=== PATIENT | female | born 1985 | race Caucasian/White ===

== ENCOUNTER 2022-11-04 21:04 | Outpatient (REF) | payer OTHER, SELFPAY ==
[2022-11-15 16:09] LABS: Age Gdln ACOG Testing Note (.); HPV Aptima Positive (Negative); HPV Genotype 16 Negative (Negative); HPV Genotype 18,45 Negative (Negative); IGP, Aptima HPV, rfx 16/18,45 Note (.)
== END 2022-11-04 21:05 | disposition home or self-care (01) ==
LOC: LAB 21:04
PROVIDERS: PCP Nurse Practitioner; Visit Provider Physician Assistant
DX: Z12.4 Encounter for screening for malignant neoplasm of cervix (principal)
CPT/HCPCS: 87624; G0145

== ENCOUNTER 2022-11-20 11:25 | Outpatient (OUT) | payer OTHER, SELFPAY ==
[2022-11-20 11:38] LABS: Basophils Percent Auto 0.3 % (0.2-2.0); Eosinophils Percent Auto 0.7 % (0.9-7.0); Hematocrit 38.6 % (36.0-48.0); Hemoglobin 13.4 g/dL (12.0-16.0); Immature Granulocytes Abs Auto 0.01 10^3/uL (0.00-0.03); Immature Granulocytes Pct Auto 0.2 % (0.0-0.5); Lymphocytes Absolute Auto 1.4 10^3/uL (1.2-3.8); Lymphocytes Percent Auto 23.2 % (20.5-60.0); Mean Corpuscular HGB Conc 34.7 g/dL (29.9-35.2); Mean Corpuscular Hemoglobin 32.8 pg (26.7-34.0); Mean Corpuscular Volume 94.4 fL (81.0-99.0); Mean Platelet Volume 9.9 fL (9.5-13.5); Monocytes Absolute Auto 0.4 10^3/uL (0.3-0.8); Monocytes Percent Auto 7.2 % (1.7-12.0); Neutrophils Absolute Auto 4.2 10^3/uL (1.4-6.5); Neutrophils Percent Auto 68.4 % (43.0-75.0); Platelet Count 287 10^3/uL (150-450); Red Blood Count 4.09 10^6/uL (4.20-5.40); Red Cell Distribution Width 11.6 % (11.0-15.0); White Blood Count 6.1 10^3/uL (4.0-11.0)
[2022-11-20 11:53] LABS: Alanine Aminotransferase 53 U/L (14-59); Albumin Level 3.8 g/dL (3.4-5.0); Alkaline Phosphatase 88 U/L (46-116); Anion Gap 10.2; Aspartate Amino Transferase 17 U/L (15-37); BUN Creatinine Ratio 14.5; Bilirubin Total 0.3 mg/dL (0.2-1.0); Chloride 103 mmol/L (98-107); Chol HDL Ratio 3.7; Cholesterol 187 mg/dL (<=200); Estimated GFR (African America >60 (>=60); Estimated GFR (Non-African Ame >60 (>=60); Globulin 3.8 g/dL; Glucose 86 mg/dL (74-106); HDL Cholesterol 51 mg/dL (40-60); Potassium 4.2 mmol/L (3.5-5.1); Sodium 135 mmol/L (136-145); Total Protein 7.6 g/dL (6.4-8.2); Triglycerides 65 mg/dL (<=150)
[2022-11-20 12:10] LABS: Estimated Average Glucose 105 mg/dL; Glycohemoglobin A1C 5.3 % (4.5-6.2)
== END 2022-11-20 11:26 | disposition home or self-care (01) ==
LOC: LAB 11:29
PROVIDERS: PCP Nurse Practitioner; Visit Provider Nurse Practitioner
DX: Z00.00 Encounter for general adult medical examination without abnormal findings (principal)
CPT/HCPCS: 36415; 80053; 80061; 83036; 85025

== ENCOUNTER 2023-11-08 19:38 | Outpatient (REF) | payer OTHER, SELFPAY | END 2023-11-08 19:39 | disposition home or self-care (01) | LOC: LAB 19:38 | PROVIDERS: PCP Nurse Practitioner; Visit Provider Obstetrics & Gynecology | DX: Z01.419 Encounter for gynecological examination (general) (routine) without abnormal findings (principal) | CPT/HCPCS: 87624; 88175 ==

== ENCOUNTER 2024-03-01 04:28 | Emergency (ER) | payer OTHER, SELFPAY ==
[2024-03-01 04:30] VITALS: BP 163/104; PULSE 112; TEMP 36.7; O2SAT 96; BMI 33.3
--- OUTSIDE RECORDS SUMMARY | 2024-03-01 04:35 | XMS_ITS | CCD ---
Author Organization [facility] Care Team Providers Care [employer] Name Role Phone Nora, Physician Primary Care Provider PRINCE Saavedra Attending Tatiana WELDON, PHYSICIAN Primary Care Unavailable MAURICIO SHORT Attending Unavailable MAURICIO SHORT Consulting Unavailable MAURICIO SHORT Primary Care Unavailable MAURICIO SHORT Admitting Unavailable SIN ACOSTA Attending Unavailable Unavailable Primary Care Provider Tatiana singleton Medications Current Medications Medication Drug Class(es) Dates Sig (Normalized) Sig (Original) azithromycin 250 mg oral tablet (2 sources) Macrolide Antimicrobial Start: 08-02-2018 End: 08-06-2018 take 2 tablets by mouth once daily azithromycin (ZITHROMAX) 250 MG tablet Take 2 (two) tablets (500 mg total) by mouth daily for 4 days . 8 tablet 0 08/02/2018 08/06/2018 Active Start: 08-02-2018 End: 08-02-2018 azithromycin (ZITHROMAX) tab let 500 mg traMADol hydrochloride 50 mg oral tablet (1 source) Opioid Agonist Start: 08-02-2018 End: 08-07-2018 take 1 tablet by mouth every four hours as needed for pain, then take 5 tablets by mouth as needed for pain traMADol (ULTRAM) 50 mg tablet Indications: Left ear pain , Pharyngitis, unspecified etiology Take 1 (one) tablet (50 mg total) by mouth every 4 (four) hours as needed for pain (Days supply per fill: 5) . 15 tablet 0 08/02/2018 08/07/2018 Active Completed/Discontinued Medications Medication Drug Class(es) Dates Sig (Normalized) Sig (Original) dexamethasone phosphate 10 mg/ml injectable solution (1 source) Corticosteroid Start: 08-02-2018 End: 08-02-2018 dexamethasone (DECADRON) injection for ORAL use 10 mg ibuprofen 600 mg oral tablet (1 source) Nonsteroidal Anti-inflammatory Drug Start: 08-02-2018 End: 08-02-2018 ibuprofen (ADVIL,MOTRIN) tablet 600 mg Problems Problem Classification Problem Date Documented Da te Episodic/Chronic Other ear and sense organ disorders (1 source) Otalgia, left ear; Translations: [Left ear pain] Episodic Other upper respiratory infections (1 source) Pharyngitis; Translations: [Pharyngitis, unspecified etiology] Episodic Results Test Name Value Interpretation Reference Range Facil ity IGP,APTIMA HPV,AGE GDLNon AGE GDLN ACOG TESTING Note . [facility] Comment on above: TESTS RESULT FLAG U NITS REF RANGE LAB Clinician Provided Cytology Information Source.............Cervix;Endocervix No. of containers..01 ThinPrep Vial Age Algo ACOG Dahlia... 30-65 01 FLAG LEGEND: L-Low Normal,H-High Normal,LL-Alert Low,HH-Alert High <-Panic Low,>-Panic High,A-Abnormal,AA-Critical Abnormal Performed at: 01 =G [address] [place] [address] Darline Garcia MD, HPV APTIMA Negative Negative [facility] e Comment on above: This nucleic acid am plification test detects fourteen high- risk HPV types (16,18,31,33,35,39,45,51,52,56,58,59,66,68) without differentiation. Performed at: =G - [address], [place] [id number] Alterations Supervisor: Darline Garcia MD, Phone: [phone] Performed at: [facility] [address] [address] [place], [place] [id number] Alterations Supervisor: Bonifacio Evans MD, Phone: [phone] IGP, APTIMA HPV, RFX 16/18,45 Note . [facility] Comment on above: TESTS RESULT FLAG UN ITS REF RANGE LAB DIAGNOSIS: 02 NEGATIVE FOR INTRAEPITHELIAL LESION OR MALIGNANCY. Specimen adequacy: 02 Satisfactory for evaluation. Endocervical and/or squamous metaplastic cells (endocervical component) are present. Performed by: 02 Jessica Garcia, Food Adviser ([facility]) . 02 Note: Note 03 The Pap smear is a screening test designed to aid in the detection of premalignant and malignant conditions of the uterine cervix. It is not a diagnostic procedure and should not be used as the sole means of detecting cervical cancer. Both false-positive and false-negative reports do occur. Test Methodology: Note 03 This liquid based ThinPrep(R) pap test was screened with the use of an image guided system. HPV Genotype Reflex Note 02 Criteria not met, HPV Genotype not performed. FLAG LEGEND: L-Low Normal,H-High Normal,LL-Alert Low,HH-Alert High <-Panic Low,>-Panic High,A-Abnormal,AA-Critical Abnormal Performed at: 02 [facility] [address] [address] [place] [address] Bonifacio Evans MD, 03 WB [facility] [address] [address] Darline Garcia MD, BRUSH-SPATULA CERVIX ENDOCERVIX [facility] CBC AUTO DIFFon 11-14-2021 BASO # 0.0 103/ul Normal 0.0-0.1 [facility] Comment on above: Performed By: #### C BC #### [facility] [address] [address] [address] Alejandro Grijalva Basophils/100 WBC (Bld) 0.2 % Normal 0.2-2.0 [facility] Comment on above: Performed By: #### C BC #### [facility] [address] [address] [address] Alejandro Grijalva EO # 0.0 103/ul Normal 0.0-0.7 [facility] Comment on above: Performed By: #### C BC #### [facility] [address] [address] [address] Alejandro Grijalva Eosinophils/100 WBC (Bld) 0.7 % Critically low 0.9-7.0 [facility] Comment on above: Performed By: #### C BC #### [facility] [address] [address] [address] Alejandro Grijalva Erythrocyte distribution width (RBC) [Ratio] 11.8 % Normal 11.0-15.0 [facility] Comment on above: Performed By: #### C BC #### [facility] [address] [address] [address] Alejandro Grijalva Hematocrit (Bld) [Volume fraction] 40.5 % Normal 36.0-48.0 [facility] Comment on above: Performed By: #### C BC #### [facility] [address] [address] [address] Alejandro Grijalva Hemoglobin (Bld) [Mass/Vol] 13.5 g/dL Normal 12.0-16.0 [facility] Comment on above: Performed By: #### C BC #### [facility] [address] [place] [address] Dr. Alejandro Grijalva IG # 0.02 10e3/ul Normal 0.00-0.03 [facility] Comment on above: Performed By: #### C BC #### [facility] [address] [place] [address] Dr. Alejandro Grijalva IG % 0.3 % Normal 0.0-0.5 [facility] Comment on above: Performed By: #### C BC #### [facility] [address] [place] [address] Dr. Alejandro Grijalva LYMPH # 1.5 103/ul Normal 1.2-3.8 [facility] Comment on above: Performed By: #### C BC #### [facility] [address] [place] [address] Dr. Alejandro Grijalva Lymphocytes/100 WBC (Bld) 24.0 % Normal 20.5-60.0 [facility] Comment on above: Performed By: #### C BC #### [facility] [address] [place] [address] Dr. Alejandro Grijalva MANUAL DIFF REQ NO Normal [facility] Comment on above: Performed By: #### C BC #### [facility] [address] [place] [address] Dr. Alejandro Grijalva MCH (RBC) [Entitic mass] 31.4 pg Normal 26.7-34.0 [facility] Comment on above: Performed By: #### C BC #### [facility] [address] [place] [address] Dr. Alejandro Grijalva MCHC (RBC) [Mass/Vol] 33.3 g/dL Normal 29.9-35.2 [facility] Comment on above: Performed By: #### C BC #### [facility] [address] [place] [address] Dr. Alejandro Grijalva MCV (RBC) [Entitic vol] 94.2 fL Normal 81.0-99.0 [facility] Comment on above: Performed By: #### C BC #### [facility] [address] [place] [address] Dr. Alejandro Grijalva MONO # 0.5 103/ul Normal 0.3-0.8 [facility] Comment on above: Performed By: #### C BC #### [facility] [address] [place] [address] Dr. Alejandro Grijalva Monocytes/100 WBC (Bld) 8.4 % Normal 1.7-12.0 [facility] Comment on above: Performed By: #### C BC #### [facility] [address] [place] [address] Dr. Alejandro Grijalva NEUT # 4.0 103/ul Normal 1.4-6.5 [facility] Comment on above: Performed By: #### C BC #### [facility] [address] [place] [address] Dr. Alejandro Grijalva Neutrophils/100 WBC (Bld) 66.4 % Normal 43.0-75.0 [facility] Comment on above: Performed By: #### C BC #### [facility] [address] [place] [address] Dr. Alejandro Grijalva Platelet mean volume (Bld) [Entitic vol] 9.7 fL Normal 9.5-13.5 [facility] Comment on above: Performed By: #### C BC #### [facility] [address] [place] [address] Dr. Alejandro Grijalva PLT 273 103/ul Normal 150-450 [facility] Comment on above: Performed By: #### C BC #### [facility] [address] [place] [address] Dr. Alejandro Grijalva RBC 4.30 106/ul Normal 4.20-5.40 [facility] Comment on above: Performed By: #### C BC #### [facility] [address] [place] [address] Dr. Alejandro Grijalva WBC 6.0 103/ul Normal 4.0-11.0 [facility] Comment on above: Performed By: #### C BC #### [facility] [address] [place] [address] Dr. Alejandro Grijalva LIPID PROFILEon 11-14-2021 CHOL-HDL RATIO NORM SEE BELOW Normal [facility] Comment on above: Result Comment: 3.3 - 4.4 LOW RISK 4.4 - 7.1 AVERAGE RISK 7.1 - 11.0 MODERATE RISK >11.0 HIGH RISK Performed By: #### T SH, LIPID, CMP #### [facility] [address] [address] [address] Alejandro Grijalva Cholesterol [Mass/Vol] 176 mg/dL Normal <=200 [facility] Comment on above: Performed By: #### T SH, LIPID, CMP #### [facility] [address] [address] [address] Alejandro Grijalva Cholesterol in HDL [Mass/Vol] 44 mg/dL Normal 40-60 [facility] Comment on above: Performed By: #### T SH, LIPID, CMP #### [facility] [address] [address] [address] Alejandro Grijalva Cholesterol in LDL [Mass/Vol] 119.6 mg/dL Normal [facility] Comment on above: Performed By: #### T SH, LIPID, CMP #### [facility] [address] [address] [address] Alejandro Grijalva Cholesterol.total/ Cholesterol in HDL [Mass ratio] 4.0 {ratio} Normal [facility] Comment on above: Performed By: #### T SH, LIPID, CMP #### [facility] [address] [address] [address] Alejandro Grijalva HDL NORMAL > or = 60 mg/dl - LO W CARDIOVASCULAR RISK <40 mg/dl - HIGH CARDIOVASCULAR RISK Normal [facility] Comment on above: Performed By: #### T SH, LIPID, CMP #### [facility] [address] [address] [address] Alejandro Grijalva LDL CALC NORMAL SEE BELOW Normal [facility] Comment on above: Result Comment: <100 mg/dl OPTIMAL 100 - 129 mg/dl NEAR OR ABOVE OPTIMAL 130 - 159 mg/dl BORDERLINE HIGH 160 - 189 mg/dl HIGH >190 mg/dl VERY HIGH Performed By: #### T SH, LIPID, CMP #### [facility] [address] [address] [address] Alejandro Grijalva Triglyceride [Mass/Vol] 62 mg/dL Normal <=150 [facility] Comment on above: Performed By: #### T SH, LIPID, CMP #### [facility] [address] [address] [address] Alejandro Grijalva VLDL CALC 12.4 mg/dL Normal [facility] Comment on above: Performed By: #### T SH, LIPID, CMP #### [facility] [address] [address] [address] Alejandro Grijalva PROF 14(COMP METB)on 022 Albumin [Mass/Vol] 3.7 g/dL Normal 3.4-5.0 [facility] Comment on above: Performed By: #### T SH, LIPID, CMP #### [facility] [address] [place] [address] Dr. Alejandro Grijalva Albumin/Globulin [Mass ratio] 1.0 {ratio} Normal [facility] Comment on above: Performed By: #### T SH, LIPID, CMP #### [facility] [address] [place] [address] Dr. Alejandro Grijalva ALP [Catalytic activity/Vol] 81 U/L Normal 46-116 [facility] Comment on above: Performed By: #### T SH, LIPID, CMP #### [facility] [address] [place] [address] Dr. Alejandro Grijalva ALT [Catalytic activity/Vol] 39 U/L Normal 14-59 [facility] Comment on above: Performed By: #### T SH, LIPID, CMP #### [facility] [address] [address] [address] Alejandro Grijalva Anion gap [Moles/Vol] 14.5 mmol/L Normal [facility] Comment on above: Performed By: #### T SH, LIPID, CMP #### [facility] [address] [place] [address] Dr. Alejandro Grijalva AST [Catalytic activity/Vol] 18 U/L Normal 15-37 [facility] Comment on above: Performed By: #### T SH, LIPID, CMP #### [facility] [address] [address] [address] Alejandro Grijalva Bilirubin [Mass/Vol] 0.2 mg/dL Normal 0.2-1.0 [facility] Comment on above: Performed By: #### T SH, LIPID, CMP #### [facility] [address] [place] [address] Dr. Alejandro Grijalva Calcium [Mass/Vol] 8.9 mg/dL Normal 8.5-10.1 [facility] Comment on above: Performed By: #### T SH, LIPID, CMP #### [facility] [address] [place] [address] Dr. Alejandro Grijalva Chloride [Moles/Vol] 106 mmol/L Normal 98-107 [facility] Comment on above: Performed By: #### T SH, LIPID, CMP #### [facility] [address] [place] [address] Dr. Alejandro Grijalva CO2 [Moles/Vol] 24.9 mmol/L Normal 21.0-32.0 [facility] Comment on above: Performed By: #### T SH, LIPID, CMP #### [facility] [address] [place] [address] Dr. Alejandro Grijalva Creatinine [Mass/Vol] 0.80 mg/dL Normal 0.55-1.02 [facility] Comment on above: Performed By: #### T SH, LIPID, CMP #### [facility] [address] [place] [address] Dr. Alejandro Grijalva EGFR-AF MOLDOVAN >60 Normal >=60 [facility] Comment on above: Performed By: #### T SH, LIPID, CMP #### [facility] [address] [place] [address] Dr. Alejandro Grijalva EGFR-NON AF MOLDOVAN >60 Normal >=60 [facility] Comment on above: Performed By: #### T SH, LIPID, CMP #### [facility] [address] [place] [address] Dr. Alejandro Grijalva Globulin (S) [Mass/Vol] 3.7 g/dL Normal [facility] Comment on above: Performed By: #### T SH, LIPID, CMP #### [facility] [address] [place] [address] Dr. Alejandro Grijalva Glucose [Mass/Vol] 101 mg/dL Normal 74-106 [facility] Comment on above: Performed By: #### T SH, LIPID, CMP #### [facility] [address] [place] [address] Dr. Alejandro Grijalva Potassium [Moles/Vol] 4.4 mmol/L Normal 3.5-5.1 [facility] Comment on above: Performed By: #### T SH, LIPID, CMP #### [facility] [address] [place] [address] Dr. Alejandro Grijalva Protein [Mass/Vol] 7.4 g/dL Normal 6.4-8.2 [facility] Comment on above: Performed By: #### T REYNALDO, LIPID, CMP #### [facility] [address] [place] [address] Dr. Alejandro Grijalva Sodium [Moles/Vol] 141 mmol/L Normal 136-[address] [facility] Comment on above: Performed By: #### T SH, LIPID, CMP #### [facility] [address] [place] [address] Dr. Alejandro Grijalva Urea nitrogen [Mass/Vol] 12.0 mg/dL Normal 7.0-18.0 [facility] Comment on above: Performed By: #### T REYNALDO, LIPID, CMP #### [facility] [address] [place] [address] Dr. Alejandro Grijalva Urea nitrogen/Creatinin e [Mass ratio] 15.0 mg/mg Normal [facility] Comment on above: Performed By: #### T SH, LIPID, CMP #### [facility] [address] [place] [address] Dr. Alejandro Grijalva TSHon 11-14-2021 TSH 2.902 uIU/mL Normal 0.358-3.740 [facility] Comment on above: Performed By: #### T REYNALDO, LIPID, CMP #### [facility] [address] [place] [address] Dr. Alejandro Grijalva Vital Signs Date Time Vital Sign Value Performing Clinician Candie hathaway 11-08-2023 08:55-0400 Body mass index (BMI) [Ratio] 34.12 kg/m2 Sin Karla DO Work Phone: [facility] 11-08-2023 08:55-0400 Body weight 90.17 kg Sin Karla DO Work Phone: [facility] 11-08-2023 08:55-0400 Diastolic blood pressure 72 mm[Hg] Sin Karla DO Work Phone: [facility] 11-08-2023 08:55-0400 Systolic blood pressure 118 mm[Hg] Sin Karla DO Work Phone: [facility] 08-02-2018 02:23-0400 BMI (Body Mass Index) 29.18 kg/m2 [facility] 08-02-2018 02:23-0400 Body Temperature 98.1 [degF] [facility] 08-02-2018 02:23-0400 BP Diastolic 100 mm[Hg] [place] [facility] 08-02-2018 02:23-0400 BP Systolic 146 mm[Hg] [facility] 08-02-2018 02:23-0400 Height 162.6 cm [facility] 08-02-2018 02:23-0400 Pulse (Heart Rate) 94 /min [facility] 08-02-2018 02:23-0400 Pulse Oximetry 99 % [facility] 08-02-2018 02:23-0400 Respiratory Rate 16 /min [facility] 08-02-2018 02:23-0400 Weight 77.11 kg Princeralph Wiggins [facility] Encounters Encounter Date Encounter Type Care Provider Facility Start: 11-08-2023 End: 11-08-2023 Bamboo flowsheet Sin Karla DO Work Phone: [facility] Start: 11-08-2023 End: 11-11-2023 Bamboo flowsheet Sin Karla DO Work Phone: [facility] Start: 11-08-2023 End: 11-11-2023 [facility] Result Encounter Sin Acosta DO Work Phone: [facility] Unsolicited Start: 11-08-2023 End: 11-08-2023 Patient encounter procedure Sin Acosta DO Work Phone: [facility] Work Phone: Start: 11-08-2023 End: 11-08-2023 Periodic preventive med est patient 18-39 yrs Sin Andersono DO Work Phone: [facility] Comment on above: Well woman exam with routine gynecological exam Start: 11-08-2023 End: 11-08-2023 ambulatory SIN ACOSTA Not Available Start: 11-20-2021 Encounter for genera l adult medical examination without abnormal findings [facility] Start: 11-14-2021 End: 11-15-2021 ambulatory [facility] Facility:H1 Start: 11-14-2021 End: 11-15-2021 Encounter for general adult medical examination without abnormal findings [facility] Facility: Start: 08-02-2018 End: 08-02-2018 Emergency department patient visit [facility] Start: 08-02-2018 End: 08-02-2018 Emergency department patient visit Prince G[facility] Work Phone: [facility] Comment on above: Left ear pain (Prima ry Dx); Pharyngitis, unspecified etiology Procedures Date Procedure Procedure Detail Performing Clinician Start: 11-08-2023 IGP,APTIMA HPV,AGE GDLN Sin Acosta DO Work Phone: Plan of Treatment Date Care Activity Detail Author Start: 11-13-2024 End: 11-13-2024 Patient encounter procedure 11/13/2024 8:30 AM EDT Office Visit [facility] [address] [place] [id number] Sin Acosta, DO [address] [place] [address] [facility] Start: 11-08-2023 End: 11-08-2023 Patient encounter procedure 11/08/2023 8:30 AM EDT Office Visit [facility] [address] [place] [id number] Sin Acosta, [address] [place] [address] Arrived [facility] Comment on above: Arrived Cytology Cervical or vaginal smear or scraping study Pap Smear Pathology and Cytology Routine Well woman exam with routine gynecological exam Ordered: 11/08/2023 [facility] Work Phone: Comment on above: Ordered: 11/08/2023 Human papilloma viru s DNA [Presence] in Unspecified specimen by Probe with amplification HPV DNA probe, amplified Microbiology Routine Well woman exam with routine gynecological exam Ordered: 11/08/2023 [facility] Comment on above: Ordered: 11/08/2023 Payers Date Payer Category Payer Unknown FRONTPATH FRONTP ATH [id number] 2022-Present [phone] [address] [place] [address] [id number] 1984 Unknown [id number] 1984 Unknown [id number] 1984 Unknown [id number] 9 1959 Unknown [id number] Unknown COMMERCIAL COMME RCIAL MISCELLANEOUS xxxxxxxxx Effective for all dates xxxxxxxxx [id number] Unknown [id number] Social History Date Type Detail Facility Start: 08-02-2018 Tobacco smoking stat [facility] Never smoker [facility] Start: 08-02-2018 History SDOH Alcohol Frequency 1 [facility] Start: 1985 [facility]igned [facility] Gender identity Not on file [facility] History of Present illness Narrative 11-08-2023 Ira Harrison, MEHREEN - 11/08/2023 8:30 AM EDT Note Date & Type Note Facility 11-08-2023 History of Presen t illness Narrative Reason for Appointment: Patient ID: Brandie Olmos is a 38 y.o. female who presents for Well Women Visit Patient presents today for Annual Exam. MEDICATIONS No current outpatient medications ALLERGIES No Known Allergies PROBLEMS Active Ambulatory Problems Diagnosis Date Noted No Active Ambulatory Problems Resolved Ambulatory Problems Diagnosis Date Noted No Resolved Ambulatory Problems No Additional Past Medical History HISTORY PAST MEDICAL HISTORY SOCIAL HISTORY History reviewed. No pertinent past medical history. Social History Tobacco Use Smoking status: Not on file Smokeless tobacco: Not on file Substance Use Topics Alcohol use: Not on file Drug use: Not on file FAMILY HISTORY No family history on file. SURGICAL HISTORY Past Surgical History: Procedure Laterality Date SECTION, CLASSIC x 3 REVIEW OF SYSTEMS Review of Systems: Review of Systems Constitutional: Negative. HENT: Negative. Eyes: Negative. Respiratory: Negative. Cardiovascular: Negative. Gastrointestinal: Negative. Genitourinary: Negative. Musculoskeletal: Negative. Skin: Negative. Neurological: Negative. All other systems reviewed and are negative. Hematological: Negative. Endocrine: Negative. Allergic/Immunologic: Negative. OBJECTIVE Objective: Physical Exam Constitutional: Appearance: Normal appearance. She is well-developed. Genitourinary: Vulva normal. Breasts: Breasts are soft. Right: Normal. Left: Normal. Cardiovascular: Rate and Rhythm: Normal rate and regular rhythm. Pulmonary: Effort: Pulmonary effort is normal. Breath sounds: Normal breath sounds. Abdominal: General: Bowel sounds are normal. There is no distension. Palpations: Abdomen is soft. Tenderness: There is no abdominal tenderness. There is no guarding or rebound. Musculoskeletal: General: No swelling. Normal range of motion. Right lower leg: No edema. Left lower leg: No edema. Neurological: Mental Status: She is alert and oriented to person, place, and time. Skin: General: Skin is warm and dry. Psychiatric: Mood and Affect: Mood normal. Behavior: Behavior normal. Vitals and nursing note reviewed. Exam conducted with a induction heat treater present. Vitals: Estimated body mass index is 34.12 kg/m as calculated from the following: Height as of 11/04/22: 5' 4 . Weight as of this encounter: 198 lb 12.8 oz. BP: 118/72 No LMP recorded. ASSESSMENT & PLAN ICD-10-CM 1. Well woman exam with routine gynecological exam Z01.419 Pap Smear HPV DNA probe, amplified Annual Exam: Patient presents today for an annual exam. Patient states she is doing well and has no complaints. Pap was obtained without difficulty. Orders Placed This Encounter Procedures HPV DNA probe, amplified Follow Up: Patient is to return in one year for annual unless needed otherwise. Documented by Ira Harrison LPN on behalf of: Sin Acosta DO documented in this encounter [facility] Healthcare Evaluation note Note Date & Type Note Facility Evaluation note Diagnosis Well woman exam with routine gynecological exam Routine gynecological examination documented in this encounter [facility] Healthcare Discharge Instructions * Instructions* rPince Wiggins MD - 08/02/2018 Thank you for coming to an [facility] Emergency facility for your emergency care. Please review carefully any follow up instructions and information included with these discharge instructions. Appropriate followup is essential in your continued care after today's visit. If you hadany diagnostic studies ( Labs or Xray's, CAT scan, Ultrasound ) have your PCP (Primary Care Physician) review them with you since there may be results that require further follow up or investigation. If you do not have a primary care physician to arrange for a follow up examination as recommended during your emergency department visit, you may find a provider through the [facility] Physician Referral Service by calling [phone] ([phone]) or by visiting [email or web address]. If you were prescribed any medications, be sure to review and follow the prescriptions carefully. Return to your nearest emergency department immediately for any worsening symptoms, inability to swallow, difficulty breathing, vomiting, or for any other concerns. The physician and staff of the Emergency Department would like to thank you for choosing our facility for your health care needs. Our goal is to provide exceptional service. You may be receiving a survey in the mail following your visit. Because your feedback is very important to us, we hope you will take the time to complete and return the survey. If for any reason, you feel that you cannot rateus VERY GOOD or 5 for the service you received today, please let us know prior to your discharge. We are here 24 hours a day, 7 days a week, and are always here for you. Dr. Prince Wiggins Board Certified Emergency Physician * Attachments The following attachments cannot be sent through Care Everywhere. * Sore Throat (Mexican) * Earache: Adult (Mexican) documented in this encounter Assessments Diagnosis Left ear pain- Primary Unspecified otalgia Pharyngitis, unspecified etiology Advance Directives Documents on File Type Date Recorded Patient Animal Doctor Expl anation Advance Directives and Livin g Will 08/02/2018 3:07 AM Summary Purpose Family History No Family History Records FoundNo Family History Records FoundNo Family History Records Found Additional Source Comments Reason for Visit (unrecogniz ed section and content) Reason Comments Sore Throat Otalgia Reason Comments Well Women Visit Judy Olvera RN - 08/02/2018 3:13 AM Prince Jordan MD - 08/02/2018 2:54 AM Judy Flores RN - 08/02/2018 2:50 AM Judy Flores RN - 08/02/2018 2:26 AM EDT ED Notes (unrecognized secti on and content) This RN went over all discharge paperwork with pt, pt denies any further needs, pt ambulated with steady gait and non-labored respirations. PCP: No primary care provider on file. Chief Complaint Patient presents with Sore Throat Otalgia HPI: The patient is a pleasant 32-year-old female presenting with a sore throat and left ear pain. Patient reports a sore throat started 3 days ago has been progressively worsening. She reported that this evening she was awoken by pain in her left ear. She denies any drainage from the ear. She reports her throat pain is worse with swallowing. She reports she still is able to swallow. She denies nasal congestion or drainage. She reports a cough and attempt to clear her throat but denies any cough from chest congestion. She denies chest pain or shortness of breath. She has any rashes. She denies any mouth sores. She denies any fevers. She denies any leg pain or swelling. REVIEW OF SYSTEMS: Review of Systems Constitutional: No fevers Cardiovascular: No chest pains Abdominal: No abdominal pains Integumentary: No rash Eyes: No vision changes ENMT: No hearing changes Respiratory: Positive cough Genitourinary: No painful urination Endocrine: No polyuria Neurologic: No new numbness Musculoskeletal: No joint pains Hem/Lymphatic: No abnormal bruising Other pertinent positives and negatives in HPI Past Medical History: History reviewed. No pertinent past medical history. Past medical history reviewed. Past Surgical History: Past Surgical History: Procedure Laterality Date SECTION Past surgical history reviewed. Family History: History reviewed. No pertinent family history. Family history reviewed. Social History: Social History Socioeconomic History Marital status: Not on file Spouse name: Not on file Number of children: Not on file Years of education: Not on file Highest education level: Not on file Occupational History Not on file Social Needs Financial resource strain: Not on file Food insecurity: Worry: Not on file Inability: Not on file Transportation needs: Medical: Not on file Non-medical: Not on file Tobacco Use Smoking status: Never Smoker Smokeless tobacco: Never Used Substance and Sexual Activity Alcohol use: Never Frequency: Never Drug use: Never Sexual activity: Not on file Lifestyle Physical activity: Days per week: Not on file Minutes per session: Not on file Stress: Not on file Relationships Social connections: Talks on phone: Not on file Gets together: Not on file Attends latter day service: Not on file Active member of club or organization: Not on file Attends meetings of clubs or organizations: Not on file Relationship status: Not on file Other Topics Concern Not on file Social History Narrative Not on file Social history reviewed. Allergies: No Known Allergies Medications: Brandie Olmos Home Medication Instructions Prior to Surgery GILBERTO:[id number] Printed on:08/02/18 0254 Medication Information Take last dose on Take the morning of surgery Comment(s) azithromycin (ZITHROMAX) 250 MG tablet Take 2 (two) tablets (500 mg total) by mouth daily for 4 days . traMADol (ULTRAM) 50 mg tablet Take 1 (one) tablet (50 mg total) by mouth every 4 (four) hours as needed for pain (Days supply per fill: 5) . PHYSICAL EXAMINATION: [place] body weight: 54.7 kg (120 lb 9.5 oz) Adjusted ideal body weight: 63.7 kg (140 lb 5.7 oz) Body mass index is 29.18 kg/m . Vital Signs BP (!) 146/100 (BP Location: Right arm, Patient Position: Sitting) Pulse 94 Temp 98.1 F (36.7 C) (Oral) Resp 16 Ht 5' 4 Wt 77.1 kg (170 lb) LMP 07/19/2018 (Approximate) SpO2 99% BMI 29.18 kg/m Physical Exam Constitutional: She is oriented to person, place, and time. No distress. HENT: Head: Normocephalic and atraumatic. Right Ear: Tympanic membrane normal. Mouth/Throat: Oropharynx is clear and moist. No oropharyngeal exudate. I know to assess the left TM due to cerumen impaction. There is no pain with manipulation external ear bilaterally. No mastoid tenderness, erythema crepitus or swelling bilaterally. The oropharynx is inflamed with tonsillar swelling. There is pitting with mild exudate. Eyes: EOM are normal. Right eye exhibits no discharge. Left eye exhibits no discharge. PER Neck: Normal range of motion. Neck supple. Cardiovascular: Regular rhythm, normal heart sounds and intact distal pulses. Exam reveals no gallop and no friction rub. No murmur heard. Pulmonary/Chest: Effort normal and breath sounds normal. No stridor. No respiratory distress. She has no wheezes. She has no rales. She exhibits no tenderness. Abdominal: Soft. She exhibits no distension and no mass. There is no tenderness. There is no rebound and no guarding. Musculoskeletal: Normal range of motion. She exhibits no edema, tenderness or deformity. Lymphadenopathy: She has cervical adenopathy. Neurological: She is alert and oriented to person, place, and time. She has normal strength. No cranial nerve deficit or sensory deficit. Skin: Skin is warm and dry. She is not diaphoretic. Psychiatric: She has a normal mood and affect. Nursing note and vitals reviewed. Vital Signs During ED Visit (as charted by nursing) Patient Vitals for the past 24 hrs: BP Temp Temp src Pulse Resp SpO2 Height Weight 08/02/18 0223 (!) 146/100 98.1 F (36.7 C) Oral 94 16 99 % 5' 4 77.1 kg (170 lb) PROCEDURES (if any, during ED visit): Procedures INITIAL ASSESSMENT AND PLAN OF CARE: MEDICAL DECISION MAKING: Patient's left ear was irrigated to remove cerumen. Patient started antibiotics in the emergency department as well as provided with steroids and ibuprofen. Patient provided tramadol for pain control at home. Patient was provided with prescription for 4 more days of Zithromax for a high suspicion of strep pharyngitis. Recommend follow-up with primary care in the next 5 days. Patient agreeable to plan comfortable going home. Return precautions were given specific to the patient's complaint(s) and diagnoses of otalgia and pharyngitis. I discussed with the patient that if she has worsening symptoms or other concerns, she is to seek medical attention immediately. I answered all her questions, she voiced understanding of these precautions, and have no further questions. The patient has been informed that they may have pre-hypertension or hypertension based on a blood pressure reading in the Emergency Department. I recommend that the patient call the primary care provider listed on their discharge instructions or a physician of their choice as soon as possible to arrange follow-up in the next 4 weeks for further evaluation of possible pre-hypertension or hypertension. . DISPOSITION: DISCHARGE IMPRESSION: SNOMED CT(R) 1. Left ear pain OTALGIA OF LEFT EAR 2. Pharyngitis, unspecified etiology PHARYNGITIS FOLLOW UP PLAN: Patient was instructed to follow up with their primary care provider, No primary care provider on file.. [facility] referral information was also provided. They were given my usual diagnosis return and precaution information on when to return. I stressed that we are happy to re-evaluate at any time if they feel their condition has changed or worsened. I have also discussed the warnings associated with the medications I provided today. (Please note that portions of this note may have been completed with a voice recognition software.) DIAGNOSTICS: Laboratory (if any, during ED visit): Labs Reviewed - No data to display RADIOGRAPHIC IMAGING (if any, during ED visit): No orders to display MEDICATIONS ORDERED/GIVEN (if any, during ED visit): Medications azithromycin (ZITHROMAX) tablet 500 mg (has no administration in time range) dexamethasone (DECADRON) injection for ORAL use 10 mg (has no administration in time range) ibuprofen (ADVIL,MOTRIN) tablet 600 mg (has no administration in time range) Prince Wiggins MD 08/02/18 0257 Ear irrigated at this time Pt reports my kids have been sick and my throat hurts and now my ear hurts . Pt reports sore throat, lose of voice and pain to left ear. Pt ambulated with steady gait and non-labored respirations. documented in this encounter INFORMATION SOURCE (unrecogn ized section and content) DATE CREATED AUTHOR 10/16/2018 [facility] DATE CREATED AUTHOR AUTHOR'S ORGANIZ ATION 12/05/2021 [facility] DATE CREATED AUTHOR AUTHOR'S ORGANIZ ATION 11/08/2023 [facility] FOR RECORDS PERTAINING TO PATIENTS WHO ARE OR HAVE BEEN ENROLLED IN A CHEMICAL DEPENDENCY/SUBSTANCEABUSE PROGRAM, SOME INFORMATION MAY BE OMITTED. This clinical summary was aggregated from multiple sources. Caution should be exercised in using it in the provision of clinical care. This summary normalizes information from multiple sources, and as a consequence, information in this document may materially change the coding, format and clinical context of patient data. In addition, data may be omitted in some cases. CLINICAL DECISIONS SHOULD BE BASED ON THE PRIMARY CLINICAL RECORDS. [employer] provides no warranty or guarantee of the accuracy or completeness of information in this document.
[2024-03-01 04:50] VITALS: O2SAT 97
--- NOTE | 2024-03-01 05:00 | CT_ITS ---
The [address] [address] Patient Name: NASRIN BENITEZ MRN: [id number] date: 1985 Sex: F Assigned Patient Location: ER Current Patient Location: ER Accession/Order Number: [id number] Exam Date: 03/01/2024 05:30 Report Date: 03/01/2024 05:58 At the request of: MASTER PERES Procedure: CT abdomen pelvis w con EXAM: CT abdomen pelvis w con HISTORY: right sided abd pain COMPARISON: None. TECHNIQUE: Images of the abdomen and pelvis with IV contrast. FINDINGS: Lung bases are clear. No pleural or pericardial fluid. No adrenal mass or adenopathy. No obstructive uropathy. Patent portal vein. No biliary obstruction. Normal spleen and pancreas. Dilated small bowel loops are seen in the epigastric region involving the mid and distal jejunum and most of the ileum with a localized area of irregular wall thickening and edema involving the distal and terminal ileum extending to the ileocecal valve. Transition point is present in the right lower quadrant on image 90. The colon is normal and predominantly decompressed. There is no pneumatosis or pneumoperitoneum. No pathologic organized fluid collection. No pelvic adenopathy. Small volume of pelvic ascites. Uterus is age-appropriate. Bladder is decompressed. No acute osseous abnormality. CT/CT abdomen pelvis w con IMPRESSION: Moderate to high-grade partial small bowel obstruction with transition point in the distal ileum secondary to an area of luminal irregularity and wall thickening of the distal and terminal ileum most compatible with infectious or inflammatory ileitis. Crohn's disease is a primary differential consideration. There is a small volume of ascites present without evidence of abscess or visceral perforation. Electronically authenticated by: MESSI VIERA Date: 03/01/2024 05:58
--- NOTE | 2024-03-01 05:01 | ED_ITS ---
HPI - Abdominal Pain General Chief Complaint: Abdominal Pain Stated Complaint: ABDOMINAL PAIN Time Seen by Provider: 03/01/24 04:37 Source: patient Mode of arrival: walk-in Limitations: no limitations History of Present Illness HPI narrative: rt sided abd pain, nausea and vomiting that began about 24 hours ago. No appetite all day. Pain does not radiate. She has not eaten in 24 hours. No urinary symptoms. No vaginal bleeding - LMP was last week. No change in pain with BMs. Nausea vomiting has become more frequently in the last few hours. History of ovarian cysts. No history of kidney stones. Related Data Home Medications ?Medication ?Instructions ?Recorded ?Confirmed No Known Home Medications 03/01/24 03/01/24 Allergies Allergy/AdvReac Type Severity Reaction Status Date / Time No Known Drug Allergies Allergy Verified 03/01/24 04:40 PFSH PFSH Social History Little interest or pleasure in doing things: not at all Feeling down, depressed, or hopeless: not at all Exam Narrative Exam Narrative: Nurses notes and vital signs reviewed and patient is not hypoxic. afebrile General: uncomfortable. Skin: Warm, dry, no pallor noted. No rash. Head: Normocephalic, atraumatic. Neck: Supple, non-tender. No meningismus Eye: Pupils are equal, round and EOMI. No scleral icterus. Ears, Nose, Mouth, and Throat: Oral mucosa is dry Cardiovascular: tachycardia. Respiratory: No accessory muscle use or respiratory distress. Lungs are clear to auscultation, no wheezing, rales or rhonchi Back: No CVA tenderness Musculoskeletal: normal ROM, no calf or popliteal tenderness, no lower extremity edema/swelling GI: Abdomen is soft, non-distended. Normal bowel sounds.Diffuse right sided tenderness to palpation - worse in RLQ. No rebound, guarding, or rigidity noted. Neurological: A&O x4. No cranial nerve dysfunction observed. No truncal ataxia. Moves all extremities. Sensation intact. Psychiatric: Cooperative and interactive. Normal mood and affect. Constitutional Vital Signs, click to edit/add: Last Vital Signs Temp 98.0 F 03/01/24 04:30 Pulse 112 H 03/01/24 04:30 Resp 20 03/01/24 04:30 BP 163/104 H 03/01/24 04:30 Pulse Ox 97 03/01/24 04:50 O2 Del Method Room Air 03/01/24 04:50 Course Vital Signs Vital signs: Vital Signs Temperature 98.0 F 03/01/24 04:30 Pulse Rate 112 H 03/01/24 04:30 Respiratory Rate 20 03/01/24 04:30 Blood Pressure 163/104 H 03/01/24 04:30 Pulse Oximetry 96 03/01/24 04:30 Oxygen Delivery Method Room Air 03/01/24 04:30 Temperature 98.0 F 03/01/24 04:30 Pulse Rate 112 H 03/01/24 04:30 Respiratory Rate 20 03/01/24 04:30 Blood Pressure 163/104 H 03/01/24 04:30 Pulse Oximetry 97 03/01/24 04:50 Oxygen Delivery Method Room Air 03/01/24 04:50 MDM - Abdominal Pain MDM Narrative Medical decision making narrative: Peripheral IV established and blood drawn and sent for testing. Once her was negative she was sent for CT scanning of the abdomen and pelvis with IV contrast. Labs revealed white blood cell count 14.5 K. CMP notable only for ALT 77, slightly high. UA shows moderate occult blood, small leukocyte Estrace, 10-20 red blood cells, 5-10 white blood cells, few squamous epithelial cells, trace bacteria consistent with acute urinary tract infection. Culture is pending. Sh e was ordered to receive IV Cipro. CT abd/pelvis = report from Radiologist --> moderate to high-grade partial small bowel obstruction with transition point in the distal ileum secondary to an area of infectious or inflammatory ileitis at the distal and terminal ileum. Unfortunately, we do not currently have surgical coverage at [place] today or tomorrow, I was told by registration. Pt informed of result and need to be transferred to another facility. After discussion, we agreed to attempt to transfer the patient to [facility] in [place] and the postal service sectional center manager surgeon was paged @ 0609. @ 0617 - I spoke very briefly with the general surgeon postal service sectional center manager - he declined the transfer. Pt was agreeable to go to [facility] - the surgeon postal service sectional center manager at [facility] was paged through the transfer line @ 0620. @ 0630 - spoke with Dr Moreira, gen surgeon, who accepted he transfer to their ED and asked that I speak with the ED physician. @ 0615 - I spoke with Dr Bone in the ED, who accepted the patient's transfer to [facility]. Calls were then made to arrange ambulance transfer to their facility ED for further evaluation and treatment. Lab Data Attestation: I reviewed the patient's lab results. Labs: Lab Results 03/01/24 03/01/24 Range/Units 04:31 04:42 WBC 14.5 H (4.0-11.0) 10^3/uL RBC 4.73 (4.20-5.40) 10^6/uL Hgb 15.1 (12.0-16.0) g/dL Hct 44.2 (36.0-48.0) % MCV 93.4 (81.0-99.0) fL MCH 31.9 (26.7-34.0) pg MCHC 34.2 (29.9-35.2) g/dL RDW 11.6 (11.0-15.0) % Plt Count 344 (150-450) 10^3/uL MPV 9.9 (9.5-13.5) fL Neut % (Auto) 87.7 H (43.0-75.0) % Lymph % (Auto) 7.3 L (20.5-60.0) % [place] % (Auto) 4.4 (1.7-12.0) % Eos % (Auto) 0.1 L (0.9-7.0) % Baso % (Auto) 0.2 (0.2-2.0) % Neut # (Auto) 12.7 H (1.4-6.5) 10^3/uL Lymph # (Auto) 1.1 L (1.2-3.8) 10^3/uL [place] # (Auto) 0.6 (0.3-0.8) 10^3/uL Eos # (Auto) 0.0 (0.0-0.7) 10^3/uL Baso # (Auto) 0.0 (0.0-0.1) 10^3/uL Abs Immat Gran (auto) 0.04 H (0.00-0.03) 10^3/uL Imm/Tot Granulo (auto) 0.3 (0.0-0.5) % Sodium 139 (136-145) mmol/L Potassium 3.8 (3.5-5.1) mmol/L Chloride 104 (98-107) mmol/L Carbon Dioxide 22.9 (21.0-32.0) mmol/L Anion Gap 15.9 BUN 16.0 (7.0-18.0) mg/dL Creatinine 1.00 (0.55-1.02) mg/dL Est GFR ( Amer) >60 (>=60 mL/min/1.73m^2) Est GFR (Non-Af Amer) >60 (>=60 mL/min/1.73m^2) BUN/Creatinine Ratio 16.0 Glucose 161 H (74-106) mg/dL Calcium 9.0 (8.5-10.1) mg/dL Total Bilirubin 0.6 (0.2-1.0) mg/dL AST 32 (15-37) U/L ALT 77 H (14-59) U/L Alkaline Phosphatase 110 (46-116) U/L Total Protein 8.1 (6.4-8.2) g/dL Albumin 4.0 (3.4-5.0) g/dL Globulin 4.1 g/dL Albumin/Globulin Ratio 1.0 Lipase 32.0 (16.0-77.0) U/L Serum HCG, Qual Negative (NEGATIVE) Urine Color Yellow (YELLOW) Urine Clarity Clear (CLEAR) Urine pH 5.5 (5.0-9.0) Ur Specific [place] >=1.030 A (1.005-1.025) Urine Protein Trace (NEG/TRACE) mg/dL Urine Glucose (UA) Negative (NEGATIVE) mg/dL Urine Ketones 40 A (NEGATIVE) mg/dL Urine Occult Blood Moderate A (NEGATIVE) Urine Nitrite Negative (NEGATIVE) Urine Bilirubin Negative (NEGATIVE) Urine Urobilinogen 0.2 (0.2-1.0) EU/dL Ur Leukocyte Esterase Small A (NEGATIVE) Urine RBC 10-20 A (0-2) #/HPF Urine WBC 5-10 A (NONE SEEN) #/HPF Ur Squamous Epith Cells Few A (NONE/RARE) #/LPF Urine Crystals None seen (None Seen) #/HPF Urine Bacteria Trace A (NONE SEEN) #/HPF Urine Casts None seen (NONE SEEN) #/LPF Urine Mucus None seen (NONE SEEN) Ur Culture Indicated? Yes Imaging Data CT scan - abdomen: Attestation: I have reviewed the pertinent imaging results. Radiologist's impression: ITS Impressions Abdomen/Pelvis CT 03/01/24 05:00 IMPRESSION: Moderate to high-grade partial small bowel obstruction with transition point in the distal ileum secondary to an area of luminal irregularity and wall thickening of the distal and terminal ileum most compatible with infectious or inflammatory ileitis. Crohn's disease is a primary differential consideration. There is a small volume of ascites present without evidence of abscess or visceral perforation. Electronically authenticated by: MESSI VIERA Date: 03/01/2024 05:58 Discharge Plan Discharge Chief Complaint: Abdominal Pain Clinical Impression: UTI (urinary tract infection), Small bowel obstruction [facility]position[facility] Time of Disposition Decision: 06:02 Discharge Location: [facility]
[2024-03-01 05:06] LABS: Basophils Percent Auto 0.2 % (0.2-2.0); Eosinophils Percent Auto 0.1 % (0.9-7.0); Hematocrit 44.2 % (36.0-48.0); Hemoglobin 15.1 g/dL (12.0-16.0); Immature Granulocytes Abs Auto 0.04 10^3/uL (0.00-0.03); Immature Granulocytes Pct Auto 0.3 % (0.0-0.5); Lymphocytes Absolute Auto 1.1 10^3/uL (1.2-3.8); Lymphocytes Percent Auto 7.3 % (20.5-60.0); Mean Corpuscular HGB Conc 34.2 g/dL (29.9-35.2); Mean Corpuscular Hemoglobin 31.9 pg (26.7-34.0); Mean Corpuscular Volume 93.4 fL (81.0-99.0); Mean Platelet Volume 9.9 fL (9.5-13.5); Monocytes Absolute Auto 0.6 10^3/uL (0.3-0.8); Monocytes Percent Auto 4.4 % (1.7-12.0); Neutrophils Absolute Auto 12.7 10^3/uL (1.4-6.5); Neutrophils Percent Auto 87.7 % (43.0-75.0); Platelet Count 344 10^3/uL (150-450); Red Blood Count 4.73 10^6/uL (4.20-5.40); Red Cell Distribution Width 11.6 % (11.0-15.0); White Blood Count 14.5 10^3/uL (4.0-11.0)
[2024-03-01 05:06] LABS: Bilirubin Urine NEGATIVE (NEGATIVE); Blood Urine MODERATE (NEGATIVE); Clarity Urine CLEAR (CLEAR); Color Urine YELLOW (YELLOW); Glucose Urine UA NEGATIVE (NEGATIVE); Ketones Urine 40 mg/dL (NEGATIVE); Leukocyte Esterase Urine SMALL (NEGATIVE); Nitrite Urine NEGATIVE (NEGATIVE); Protein Urine TRACE mg/dL (NEG/TRACE); Specific Gravity Urine >=1.030 (1.005-1.025); Urobilinogen Urine 0.2 EU/dL (0.2-1.0); pH Urine 5.5 (5.0-9.0)
[2024-03-01 05:07] LABS: Urine Microscopic Indicated YES
[2024-03-01] MEDS: ONDANSETRON PF 4 MG/2 ML VIAL IV ×2 (05:15→09:24)
[2024-03-01] MEDS: 0.9 % SODIUM CHLORIDE 1,000 ML 999 ML IV (05:15)
[2024-03-01] MEDS: HYDROMORPHONE HCL 1 MG/ML CARTRIDGE IVP (05:15)
[2024-03-01 05:17] LABS: HCG Qualitative NEGATIVE (NEGATIVE); Internal Control Within Normal Limits
[2024-03-01 05:20] LABS: Bacteria Urine TRACE #/HPF (NONE SEEN); Cast Seen? NONE SEEN #/LPF (NONE SEEN); Crystals Seen? None Seen #/HPF (None Seen); Mucus Urine NONE SEEN (NONE SEEN); Squamous Epithelial Cell Urine FEW #/LPF (NONE/RARE); Urine Culture Indicated YES
[2024-03-01 05:22] LABS: Alanine Aminotransferase 77 U/L (14-59); Alkaline Phosphatase 110 U/L (46-116); Anion Gap 15.9; Aspartate Amino Transferase 32 U/L (15-37); Bilirubin Total 0.6 mg/dL (0.2-1.0); Carbon Dioxide 22.9 mmol/L (21.0-32.0); Chloride 104 mmol/L (98-107); Estimated GFR (African America >60 (>=60 mL/min/1.73m^2); Estimated GFR (Non-African Ame >60 (>=60 mL/min/1.73m^2); Globulin 4.1 g/dL; Glucose 161 mg/dL (74-106); Potassium 3.8 mmol/L (3.5-5.1); Sodium 139 mmol/L (136-145); Total Protein 8.1 g/dL (6.4-8.2)
[2024-03-01] MEDS: CIPROFLOXACIN IN 5 % DEXTROSE 400 MG/200 ML PREMIX 200 MG IV (06:26)
--- NOTE | 2024-03-01 06:40 | XR_ITS ---
The [address] [address] Patient Name: NASRIN BENITEZ MRN: [id number] date: 1985 Sex: F Assigned Patient Location: ER Current Patient Location: ER Accession/Order Number: [id number] Exam Date: 03/01/2024 07:20 Report Date: 03/01/2024 07:43 At the request of: MASTER PERES Procedure: XR abdomen 1V EXAMINATION: XR abdomen 1V HISTORY: NG tube placement COMPARISON: No relevant comparison available. FINDINGS: BOWEL GAS PATTERN: Nasogastric tube looped within stomach with tip in fundus and side-port well below the gastroesophageal junction. CALCIFICATIONS: None significant. OTHER: Radiopaque contrast within kidneys from CT study performed earlier today. XR/XR abdomen 1V IMPRESSION: 1. Nasogastric tube in good position. Electronically authenticated by: CHARLOTTE GOMEZ Date: 03/01/2024 07:43
[2024-03-01 07:12] VITALS: BP 125/82; O2SAT 93
[2024-03-01] MEDS: HYDROMORPHONE HCL 1 MG/ML CARTRIDGE IV ×2 (07:22→10:40)
[2024-03-01 09:20] VITALS: BP 104/94; PULSE 114; O2SAT 94
[2024-03-01] MEDS: METRONIDAZOLE/SODIUM CHLORIDE 500 MG/100 ML PREMIX 100 MG IV (09:50)
--- NOTE | 2024-03-01 10:37 | PC.NURSE ---
[facility] arrives for transport.
--- NOTE | 2024-03-01 10:52 | PC.NURSE ---
Attempted to call report to [facility] but was on hold and no one picked up.
[2024-03-02 14:43] LABS: BOX Test Reference Lab FIRELANDS; BOX Test Sent Out URINE
== END 2024-03-01 10:54 | disposition short-term general hospital (02) ==
PROVIDERS: Emergency Provider Emergency Medicine; PCP Nurse Practitioner
DX: K56.600 Partial intestinal obstruction, unspecified as to cause (principal); N39.0 Urinary tract infection, site not specified
CPT/HCPCS: 36415; 74018; 74177; 80053; 81001; 83690; 84703; 85025; 87086; 96361; 96365; 96367; 96375; 96376; 99285; J0744; J1171; J1836; J2405; Q9967

== ENCOUNTER 2024-03-16 12:36 | Outpatient (OUT) | payer OTHER, SELFPAY ==
--- OUTSIDE RECORDS SUMMARY | 2024-03-16 12:55 | XMS_ITS | CCD ---
Author Organization [facility] Care Team Providers Care Apricot Washer Name Role Phone Nora, Physician Primary Care Provider PRINCE Saavedra Attending Tatiana WELDON, PHYSICIAN Primary Care Unavailable JANETT HARDIN Attending Unavailable JANETT HARDIN Consulting Unavailable JANETT HARDIN Primary Care Unavailable JANETT HARDIN Admitting Unavailable SIN ACOSTA Attending Unavailable Unavailable Primary Care Provider Raymond Schroeder DO Primary Care Provider Wilfred VELASQUEZ-Janett JACKSON Primary Care Provid er RAYMOND CHING Primary Care Unavailable [facility] Consulting Unavailable [facility] Admitting Unavailable [facility] Attending Unavailable JESSICA STEEN Consulting Unavailable Medications Current Medications Medication Drug Class(es) Dates [...] 08-02-2018 azithromycin (ZITHROMAX) tab let 500 mg dextromethorphan hydrobromide 1.5 mg/ml / pyrilamine maleate 1.5 mg/ml oral solution (1 source) Uncompetitive U-gmgzgp-E-aspartate Receptor Antagonist, Sigma-1 Agonist Start: 01-31-2023 take 5 mL by mouth four times daily as needed for cough and congestion pyrilamine-dextromethorphan 7.5-7.5 mg/5 mL liquid Indications: COVID Take 5 mL by mouth 4 (four) times a day as needed (cough and congestion). 200 mL 1 01/31/2023 Active ibuprofen 800 mg oral tablet (2 sources) Nonsteroidal Anti-inflammatory Drug Start: 11-10-2022 take 1 tablet by mouth every eight hours as needed for pain ibuprofen (MOTRIN) 800 mg tablet Indications: Menstrual cramps Take 1 tablet (800 mg total) by mouth every 8 (eight) hours as needed for pain. 60 tablet 1 11/10/2022 Active Start: 08-02-2018 End: 08-02-2018 ibuprofen (ADVIL,MOTRIN) tab let 600 mg ondansetron (ZOFRAN-ODT) disintegrating tablet 4 mg (1 source) Start: 03-01-2024 ondansetron (ZOFRAN-ODT) disintegrating tablet 4 mg VITAMINS PO (1 source) Start: 12-09-2010 take 1 tablet by mouth once daily VITAMINS PO Take 1 tablet by mouth daily. 12/09/2010 Active traMADol hydrochloride 50 mg oral tablet (1 [...] Drug Class(es) Dates Sig (Normalized) Sig (Original) acetaminophen 500 mg oral tablet (3 sources) Start: 03-03-2024 take 1 dose by mouth three times daily, then take 4000 mg by mouth every twenty-four hours 1,000 mg, Oral, EVERY 8 HOURS SCHEDULED (3 times per day), First dose on 03/03/24 at 0815, Until Discontinued, Maximum dose of acetaminophen is 4000 mg from all sources in 24 hours. Start: 03-01-2024 End: 03-03-2024 take 1000 mg by mouth every eight hours 1,000 mg, Oral, Every 8 hours, First dose on Amanda 03/01/24 at 2045, Maximum dose of acetaminophen is 4000 mg from all sources in 24 hours. Start: 03-01-2024 End: 03-01-2024 take 1 dose by mouth three times daily, then take 4000 mg by mouth every twenty-four hours 1,000 mg, Oral, EVERY 8 HOURS SCHEDULED (3 times per day), First dose on Amanda 03/01/24 at 1400, Until Discontinued, Maximum dose of acetaminophen is 4000 mg from all sources in 24 hours. calcium chloride 0.0014 meq/ml / potassium chloride 0.004 meq/ml / sodium chloride 0.103 meq/ml / sodium lactate 0.028 meq/ml injectable solution (1 source) Start: 03-01-2024 End: 03-02-2024 IntraVENous, at 100 mL/hr, CONTINUOUS, Starting on Amanda 03/01/24 at 1345 dexamethasone phosphate 10 mg/ml injectable solution (1 source) Corticosteroid Start: 08-02-2018 End: 08-02-2018 dexamethasone (DECADRON) injection for ORAL use 10 mg 0.4 ml enoxaparin sodium 100 mg/ml prefilled syringe (1 source) Low Molecular Weight Heparin Start: 03-01-2024 inject 40 mg by subcutaneous injection once daily 40 mg, SubCUTAneous, DAILY, First dose on Amanda 03/01/24 at 1700, Until Discontinued, Indication of Use: Prophylaxis-DVT/P E, Administer by deep subCUTAneous injection with pt lying down. Alternate injection sites on abdominal wall. Do not rub site after injection. Check with provider prior to any invasive procedure. Iohexol (1 source) Radiographic Contrast Agent Start: 03-02-2024 End: 03-02-2024 take 1 dose by mouth once 50 mL, Oral, IMG ONCE PRN, 1 dose, Starting on Tue03/02/24 at 1151, Until Tue03/02/24 at 1157, Other iopamidol (ISOVUE-370) 76 % injection 75 mL (1 source) Start: 03-02-2024 End: 03-02-2024 take 1 dose intravenously once 75 mL, IntraVENous, IMG ONCE PRN, 1 dose, Starting on Tue03/02/24 at 1151, Until Tue03/02/24 at 1156, Other 2 ml ondansetron 2 mg/ml injection (1 source) Serotonin-3 Receptor Antagonist Start: 03-01-2024 End: 03-01-2024 4 mg, IntraVENous, ONCE, 1 dose, On Amanda 03/01/24 at 1315 Start: 03-01-2024 End: 03-01-2024 4 mg, IntraVENous, ONCE, 1 d ose, On Amanda 03/01/24 at 1315 oxyCODONE hydrochloride 5 mg oral tablet (1 source) Opioid Agonist Start: 03-03-2024 take 5 mg by mouth every four hours as needed 5 mg, Oral, EVERY 4 HOURS PRN, Starting on 03/03/24 at 0751, Until Discontinued, Pain Severe (7-10) microencapsulated potassium chloride 20 meq extended release oral tablet (1 source) Start: 03-02-2024 End: 03-03-2024 20 mEq, Oral, 2 TIMES DAILY, First dose on Tue03/02/24 at 0900, Until Discontinued, Do not crush, chew, or suck on tablet. Tablet may also be broken in half and each half swallowed separately. 5 ml sodium chloride 9 mg/ml injection (3 sources) Start: 03-01-2024 5-40 mL, IntraVENous, EVERY 12 HOURS SCHEDULED (2 times per day), First dose on Amanda 03/01/24 at 2100, Until Discontinued, For Line Patency: Peripheral IV = 5 mL; Midline or Central Line = 10 mL/lumen. If following IV push medication, administer flush at same rate as the IV push. Flush volume is determined by type of infusion therapy being given. For non-viscous solutions use: Peripheral IV = 5 mL Midline or Central Line = 10 mL/lumen For viscous solutions (i.e. blood components, parenteral nutrition, contrast media, or after obtaining blood sample) use: Peripheral IV = 10 mL Midline or Central Line = 20 mL/lumen Start: 03-01-2024 IntraVENous, a t 5-250 mL/hr, PRN, if patient receiving piggyback infusions and maintenance fluids are not ordered, Starting on Amanda 03/01/24 at 1333, For piggyback infusion, administer at same rate as piggyback for a total of 25 mL. Enter 25 mL into dose field and piggyback rate into rate field of order. If piggyback is infusing at a rate less than 100 mL/hr, enter 25 mL into dose field and 100 mL/hr into rate field of order. Start: 03-01-2024 5-40 mL, Intra VENous, PRN, Starting on Amanda 03/01/24 at 1333, Until Discontinued, Line Care, After every IV line use, For Line Patency: Peripheral IV = 5 mL; Midline or Central Line = 10 mL/lumen. If following IV push medication, administer flush at same rate as the IV push. Flush volume is determined by type of infusion therapy being given. For non-viscous solutions use: Peripheral IV = 5 mL Midline or Central Line = 10 mL/lumen For viscous solutions (i.e. blood components, parenteral nutrition, contrast media, or after obtaining blood sample) use: Peripheral IV = 10 mL Midline or Central Line = 20 mL/lumen Problems Active Problems Problem Classification Problem Date Documented Da te Episodic/Chronic Intestinal obstruction without hernia (4 sources) Small bowel obstruction; Translations: [Unspecified intestinal obstruction, unspecified as to partial versus complete obstruction] Onset: 03-01-2024 03-01-2024 Episodic Other ear and sense organ disorders (1 source) Hearing loss in left ear; Translations: [Unspecified hearing loss, left ear] Onset: 09-27-2018 09-27-2018 Chronic Other ear and sense organ disorders (1 source) Otalgia, left ear; Translations: [Left ear pain] Episodic Other gastrointestinal disorders (2 sources) Altered bowel function; Translations: [Other specified symptoms and signs involving the digestive system and abdomen] 03-05-2024 Episodic Other upper respiratory infections (1 source) Pharyngitis; Translations: [Pharyngitis, unspecified etiology] Episodic Past or Other Problems Problem Classification Problem Date Documented Da te Episodic/Chronic Hemorrhage during ; abruptio placenta; placenta previa (2 sources) Placenta previa without hemorrhage; Translations: [Complete placenta previa NOS or without hemorrhage, unspecified trimester] Onset: 06-10-2011 06-10-2011 Episodic Mood disorders (1 source) Mood disorders Onset: 03-05-2022 03-05-2022 Other complications of (2 sources) Supervision of resulting from assisted reproductive technology, unspecified trimester; Translations: [ resulting from assisted reproductive technology] Onset: 06-10-2011 06-10-2011 Episodic Other ear and sense organ disorders (1 source) Impacted cerumen in left ear; Translations: [Impacted cerumen, left ear] Onset: 08-08-2018 09-05-2018 Episodic Unclassified (1 source) Onset: 11-11-2022 11-11-2022 Results Test Name Value Interpretation Reference Range Facility Calprotectin, Fecalon 2023 Calprotectin, Fecal 1430 ug/g High <=49 [facility] Comment on above: Result Comment: (NOT E) REFERENCE INTERVAL: Calprotectin, Fecal by Immunoassay Less than 50 ug/g.........Normal 50-120 ug/g...............Borderline elevated, test should be re-evaluated in 4-6 weeks. 121 ug/g or greater.......Elevated Performed By: [employer] ([facility] [address] [place] [address] Clinical Evaluator: Shahriar Gill MD, PhD CLIA Number: [id number] Performed By: #### A CALPF #### [address] [id number] Business Liaison Officer: Kareem Alvarez MD Basic Metab w/rfx MG 03-03 Anion gap [Moles/Vol] 10 mmol/L Normal 9-16 [facility] Comment on above: Performed By: #### C DP, BMPX, CRP, ROLA, SED, MG #### [address] [id number] Business Liaison Officer: Diego Mortensen MD Calcium [Mass/Vol] 8.5 mg/dL Low 8.6-10.4 [facility] Comment on above: Performed By: #### C DP, BMPX, CRP, ROLA, SED, MG #### [facility] [place], [place] [id number] Business Liaison Officer: Diego Mortensen MD Chloride [Moles/Vol] 105 mmol/L Normal 98-107 [facility] Comment on above: Performed By: #### C DP, BMPX, CRP, ROLA, SED, MG #### [facility] [employer] [address] [place] [address] Business Liaison Officer: Diego Mortensen MD CO2 [Moles/Vol] 23 mmol/L Normal 20-31 [facility] Comment on above: Performed By: #### C DP, BMPX, CRP, ROLA, SED, MG #### [address] [phone] Business Liaison Officer: Diego Mortensen MD Creatinine [Mass/Vol] 0.6 mg/dL Normal 0.6-0.9 [facility] Comment on above: Performed By: #### C DP, BMPX, CRP, ROLA, SED, MG #### [address] [id number] Business Liaison Officer: Diego Mortensen MD GFR/1.73 sq M.predicted among non-blacks MDRD (S/P/Bld) [Vol rate/Area] mL/min/{1.73_m2} Normal >60 [facility] Comment on above: Result Comment: These results are not intended for use in patients <18 years of age. eGFR results are calculated without a race factor using the 2020 CKD-EPI equation. Careful clinical correlation is recommended, particularly when comparing to results calculated using previous equations. The CKD-EPI equation is less accurate in patients with extremes of muscle mass, extra-renal metabolism of creatine, excessive creatine ingestion, or following therapy that affects renal tubular secretion. Performed By: #### C DP, BMPX, CRP, ROLA, SED, MG #### [address] [phone] Business Liaison Officer: Diego Mortensen MD Glucose [Mass/Vol] 78 mg/dL Normal 74-99 [facility] Comment on above: Performed By: #### C DP, BMPX, CRP, ROLA, SED, MG #### [address] [phone] Business Liaison Officer: Diego Mortensen MD Potassium [Moles/Vol] 3.9 mmol/L Normal 3.7-5.3 [facility] Comment on above: Performed By: #### C DP, BMPX, CRP, ROLA, SED, MG #### [facility] [address] [place], [place] [phone] Business Liaison Officer: Diego Mortensen MD Sodium [Moles/Vol] 138 mmol/L Normal 136-145 [facility] Comment on above: Performed By: #### C DP, BMPX, CRP, ROLA, SED, MG #### [facility] [address] [place], [place] [phone] Business Liaison Officer: Diego Mortensen MD Urea nitrogen [Mass/Vol] 8 mg/dL Normal 6-20 [facility] Comment on above: Performed By: #### C DP, BMPX, CRP, ROLA, SED, MG #### [facility] [address] [place], [place] [phone] Business Liaison Officer: Diego Mortensen MD Basic Metabolic Panel w/ Ref nataly to [facility] 03-03-2024 Anion gap [Moles/Vol] 10 mmol/L 9 - 16 mmol/L [facility] Calcium [Mass/Vol] 8.5 mg/dL Low 8.6 - 10. 4 mg/dL [facility] Chloride [Moles/Vol] 105 mmol/L 98 - 107 mmol/L [facility] CO2 [Moles/Vol] 23 mmol/L 20 - 31 mmol/L [facility] Creatinine [Mass/Vol] 0.6 mg/dL 0.6 - 0.9 mg/dL [facility] Est, Glom Filt Rate - PINF [facility] Comment on above: These results are not intended for use in patients <18 years of age. eGFR results are calculated without a race factor using the 2020 CKD-EPI equation. Careful clinical correlation is recommended, particularly when comparing to results calculated using previous equations. The CKD-EPI equation is less accurate in patients with extremes of muscle mass, extra-renal metabolism of creatine, excessive creatine ingestion, or following therapy that affects renal tubular secretion. Glucose [Mass/Vol] 78 mg/dL 74 - 99 mg/dL [facility] Potassium [Moles/Vol] 3.9 mmol/L 3.7 - 5.3 mmol/L [facility] Sodium [Moles/Vol] 138 mmol/L 136 - 145 mmol/L [facility] Urea nitrogen [Mass/Vol] 8 mg/dL 6 - 20 mg/dL [facility] C-Reactive Proteinon 024 CRP High sensitivity method [Mass/Vol] 15.4 mg/L High 0.0 - 5.0 mg/L [facility] CRP [Mass/Vol] 15.4 mg/L High 0.0-5.0 [facility] Comment on above: Performed By: #### C DP, BMPX, CRP, ROLA, SED, MG #### [facility] [address] [place] [phone] Business Liaison Officer: Diego Mortensen MD CBC with Auto Differentialon 03-03-2024 Basophils (Bld) [#/Vol] [facility] Basophils/100 WBC (Bld) 0 % 0 - 2 % [facility] Eosinophils (Bld) [#/Vol] 0.05 10*3/uL [facility] Eosinophils/100 WBC (Bld) 1 % 1 - 4 % [facility] Erythrocyte distribution width (RBC) [Ratio] 11.9 % 11.8 - 14.4 % [facility] Hematocrit (Bld) [Volume fraction] 35.3 % Low 36.3 - 47.1 % [facility] Hemoglobin (Bld) [Mass/Vol] 11.6 g/dL Low 11.9 - 15.1 g/dL [facility] Immature granulocytes (Bld) [#/Vol] [facility] Immature granulocytes/100 WBC (Bld) 0 % 0 [facility] Interpretation and review of laboratory results Abnormal [facility] Lymphocytes/100 WBC (Bld) 29 % 24 - 43 % [facility] Lymphocytes/100 WBC (Bld) 1.36 % [facility] MCH (RBC) [Entitic mass] 31.8 pg 25.2 - 33.5 pg [facility] MCHC (RBC) [Mass/Vol] 32.9 g/dL 28.4 - 34.8 g/dL [facility] MCV (RBC) [Entitic vol] 96.7 fL 82.6 - 102.9 fL [facility] Monocytes/100 WBC (Bld) 11 % 3 - 12 % [facility] Monocytes/100 WBC (Bld) 0.52 % [facility] Neutrophils/100 WBC (Bld) 59 % 36 - 65 % [facility] Health Nucleated RBC/100 WBC (Bld) [Ratio] 0.0 % 0.0 per 100 WBC [facility] Platelet mean volume (Bld) [Entitic vol] 9.8 fL 8.1 - 13.5 fL [facility] Platelets (Bld) [#/Vol] 243 10*3/uL [facility] RBC (Bld) [#/Vol] 3.65 10*6/uL Low 3.95 - 5.1 1 m/uL [facility] Segmented neutrophils/100 WBC (Bld) 2.78 % [facility] WBC other (Bld) [#/Vol] 4.8 [facility] CBC with Diffon 03-03-2024 Abs. Basophil <0.03 Normal 0.00-0.20 [facility] Comment on above: Performed By: #### C DP, BMPX, CRP, ROLA, SED, MG #### [employer] [address] [place], [place] [phone] Business Liaison Officer: Diego Mortensen MD Abs.Imm.Granulocyte <0.03 Normal 0.00-0.30 [facility] Comment on above: Performed By: #### C DP, BMPX, CRP, ROLA, SED, MG #### [facility] [address] [place], [place] [phone] Business Liaison Officer: Diego Mortensen MD Abs.Neutrophil (Seg) 2.78 k/uL Normal 1.50-8.10 [facility] Comment on above: Performed By: #### C DP, BMPX, CRP, ROLA, SED, MG #### [address] [address] Business Liaison Officer: Diego Mortensen MD Basophils/100 WBC (Bld) 0 % Normal 0-2 [facility] Comment on above: Performed By: #### C DP, BMPX, CRP, ROLA, SED, MG #### [address] [address] Business Liaison Officer: Diego Mortensen MD Eosinophils (Bld) [#/Vol] 0.05 10*3/uL Normal 0.00-0.44 [facility] Comment on above: Performed By: #### C DP, BMPX, CRP, ROLA, SED, MG #### [address] [address] Business Liaison Officer: Deigo Mortensen MD Eosinophils/100 WBC (Bld) 1 % Normal 1-4 [facility] Comment on above: Performed By: #### C DP, BMPX, CRP, ROLA, SED, MG #### [address] [address] Business Liaison Officer: Diego Mortensen MD Erythrocyte distribution width (RBC) [Ratio] 11.9 % Normal 11.8-14.4 [facility] Comment on above: Performed By: #### C DP, BMPX, CRP, ROLA, SED, MG #### [address] [address] Business Liaison Officer: Diego Mortensen MD Hematocrit (Bld) [Volume fraction] 35.3 % Low 36.3-47.1 [facility] Comment on above: Performed By: #### C DP, BMPX, CRP, ROLA, SED, MG #### [address] [address] Business Liaison Officer: Diego Mortensen MD Hemoglobin (Bld) [Mass/Vol] 11.6 g/dL Low 11.9-15.1 [facility] Comment on above: Performed By: #### C DP, BMPX, CRP, ROLA, SED, MG #### [address] [address] Business Liaison Officer: Diego Mortensen MD Immature granulocytes/100 WBC (Bld) 0 % Normal 0 [facility] Comment on above: Performed By: #### C DP, BMPX, CRP, ROLA, SED, MG #### [place] [address] Business Liaison Officer: Diego Mortensen MD Lymphocytes (Bld) [#/Vol] 1.36 10*3/uL Normal 1.10-3.70 [facility] Comment on above: Performed By: #### C DP, BMPX, CRP, ROLA, SED, MG #### [place] [address] Business Liaison Officer: Diego Mortensen MD Lymphocytes/100 WBC (Bld) 29 % Normal 24-43 [facility] Comment on above: Performed By: #### C DP, BMPX, CRP, ROLA, SED, MG #### [place] [address] Business Liaison Officer: Diego Mortensen MD MCH (RBC) [Entitic mass] 31.8 pg Normal 25.2-33.5 [facility] Comment on above: Performed By: #### C DP, BMPX, CRP, ROLA, SED, MG #### [place] [address] Business Liaison Officer: Diego Mortensen MD MCHC (RBC) [Mass/Vol] 32.9 g/dL Normal 28.4-34.8 [facility] Comment on above: Performed By: #### C DP, BMPX, CRP, ROLA, SED, MG #### [address] [address] Business Liaison Officer: Diego Mortensen MD MCV (RBC) [Entitic vol] 96.7 fL Normal 82.6-102.9 [facility] Comment on above: Performed By: #### C DP, BMPX, CRP, ROLA, SED, MG #### [address] [address] Business Liaison Officer: Diego Mortensen MD Monocytes (Bld) [#/Vol] 0.52 10*3/uL Normal 0.10-1.20 [facility] Comment on above: Performed By: #### C DP, BMPX, CRP, ROLA, SED, MG #### [address] [address] Business Liaison Officer: Diego Mortensen MD Monocytes/100 WBC (Bld) 11 % Normal 3-12 [facility] Comment on above: Performed By: #### C DP, BMPX, CRP, ROLA, SED, MG #### [address] [address] Business Liaison Officer: Diego Mortensen MD Neutrophil (Seg) 59 % Normal 36-65 [facility] Comment on above: Performed By: #### C DP, BMPX, CRP, ROLA, SED, MG #### [address] [address] Business Liaison Officer: Diego Mortensen MD NRBC Automated 0.0 per 100 WBC Normal 0.0 [facility] Comment on above: Performed By: #### C DP, BMPX, CRP, ROLA, SED, MG #### [address] [address] Business Liaison Officer: Diego Mortensen MD Platelet mean volume (Bld) [Entitic vol] 9.8 fL Normal 8.1-13.5 [facility] Comment on above: Performed By: #### C DP, BMPX, CRP, ROLA, SED, MG #### [address] [phone] Business Liaison Officer: Diego Mortensen MD Platelets (Bld) [#/Vol] 243 10*3/uL Normal 138-453 [facility] Comment on above: Performed By: #### C DP, BMPX, CRP, ROLA, SED, MG #### [facility] [employer] [address] [place] [address] Business Liaison Officer: Diego Mortensen MD RBC (Bld) [#/Vol] 3.65 10*6/uL Low 3.95-5.11 [facility] Comment on above: Performed By: #### C DP, BMPX, CRP, ROLA, SED, MG #### [facility] [employer] [address] [place] [address] Business Liaison Officer: Diego Mortensen MD WBC (Bld) [#/Vol] 4.8 10*3/uL Normal 3.5-11.3 [facility] Comment on above: Performed By: #### C DP, BMPX, CRP, ROLA, SED, MG #### [facility] [employer] [address] [place] [address] Business Liaison Officer: Diego Mortensen MD Calcium, Ionicon 03-03-2024 Calcium [Moles/Vol] 1.19 mmol/L Normal 1.13-1.33 [facility] Comment on above: Performed By: #### I OCAL #### [facility] [employer] [address] [place] [address] Business Liaison Officer: Dieog Mortensen MD Calcium, Ionizedon Calcium.ionized (Bld) [Moles/Vol] 1.19 mmol/L 1.13 - 1.33 mmol/L [facility] Magnesiumon 03-03-2024 Magnesium [Mass/Vol] 2.1 mg/dL 1.6 - 2.6 mg/dL [facility] Magnesium [Mass/Vol] 2.1 mg/dL Normal 1.6-2.6 [facility] Comment on above: Performed By: #### C DP, BMPX, CRP, ROLA, SED, MG #### [facility] [address] [place] [address] Business Liaison Officer: Diego Mortensen MD No Panel Informationon 03-03 Interpretation and review of laboratory results Abnormal [facility] Phosphoruson 03-03-2024 Phosphate [Mass/Vol] 2.1 mg/dL Low 2.5 - 4.5 mg/dL [facility] Phosphorus, Inorg.on Phosphorus, Inorg. 2.1 mg/dL Low 2.5-4.5 [facility] Comment on above: Performed By: #### C DP, BMPX, CRP, ROLA, SED, MG #### [facility] [address] [place] [address] Business Liaison Officer: Diego Mortensen MD Sedimentation Rateon 024 ESR Photometric method (Bld) [Velocity] 22 High [facility] Interpretation and review of laboratory results Abnormal [facility] Sedimentation Rate 22 mm/Hr High 0-20 [facility] Comment on above: Performed By: #### C DP, BMPX, CRP, ROLA, SED, MG #### [facility] [address] [place] [address] Business Liaison Officer: Diego Mortensen MD Basic Metab w/rfx MGon 03-02 Anion gap [Moles/Vol] 9 mmol/L Normal 9-16 [facility] Comment on above: Performed By: #### C DP, BMPX, CRP, ROLA, SED, MG #### [facility] [address] [place] [address] Business Liaison Officer: Diego Mortensen MD Calcium [Mass/Vol] 8.4 mg/dL Low 8.6-10.4 [facility] Comment on above: Performed By: #### C DP, BMPX, CRP, ROLA, SED, MG #### [place] [id number] [place], [place] [id number] Business Liaison Officer: Diego Mortensen MD Chloride [Moles/Vol] 106 mmol/L Normal 98-107 [facility] Comment on above: Performed By: #### C DP, BMPX, CRP, ROLA, SED, MG #### [address] [phone] Business Liaison Officer: Diego Mortensen MD CO2 [Moles/Vol] 26 mmol/L Normal 20-31 [facility] Comment on above: Performed By: #### C DP, BMPX, CRP, ROLA, SED, MG #### [address] [address] Business Liaison Officer: Diego Mortensen MD Creatinine [Mass/Vol] 0.7 mg/dL Normal 0.6-0.9 [facility] Comment on above: Performed By: #### C DP, BMPX, CRP, ROLA, SED, MG #### [address] [address] Business Liaison Officer: Diego Mortensen MD GFR/1.73 sq M.predicted among non-blacks MDRD (S/P/Bld) [Vol rate/Area] mL/min/{1.73_m2} Normal >60 [facility] Comment on above: Result Comment: These results are not intended for use in patients <18 years of age. eGFR results are calculated without a race factor using the 2020 CKD-EPI equation. Careful clinical correlation is recommended, particularly when comparing to results calculated using previous equations. The CKD-EPI equation is less accurate in patients with extremes of muscle mass, extra-renal metabolism of creatine, excessive creatine ingestion, or following therapy that affects renal tubular secretion. Performed By: #### C DP, BMPX, CRP, ROLA, SED, MG #### [address] [id number] Business Liaison Officer: Diego Mortensen MD Glucose [Mass/Vol] 95 mg/dL Normal 74-99 [facility] Comment on above: Performed By: #### C DP, BMPX, CRP, ROLA, SED, MG #### [facility] [address] [place] [address] Business Liaison Officer: Diego Mortensen MD Potassium [Moles/Vol] 3.5 mmol/L Low 3.7-5.3 [facility] Comment on above: Performed By: #### C DP, BMPX, CRP, ROLA, SED, MG #### [facility] [address] [place] [address] [id number] Business Liaison Officer: Diego Mortensen MD Sodium [Moles/Vol] 141 mmol/L Normal 136-145 [facility] Comment on above: Performed By: #### C DP, BMPX, CRP, ROLA, SED, MG #### [facility] [address] [place] [address] [id number] Business Liaison Officer: Diego Mortensen MD Urea nitrogen [Mass/Vol] 13 mg/dL Normal 6-20 [facility] Comment on above: Performed By: #### C DP, BMPX, CRP, ROLA, SED, MG #### [facility] [address] [place] [address] [phone] Business Liaison Officer: Diego Mortensen MD Basic Metabolic Panel w/ Ref nataly to MGon 03-02-2024 Anion gap [Moles/Vol] 9 mmol/L 9 - 16 mmol/L [facility] Calcium [Mass/Vol] 8.4 mg/dL Low 8.6 - 10. 4 mg/dL [facility] Chloride [Moles/Vol] 106 mmol/L 98 - 107 mmol/L [facility] CO2 [Moles/Vol] 26 mmol/L 20 - 31 mmol/L [facility] Creatinine [Mass/Vol] 0.7 mg/dL 0.6 - 0.9 mg/dL [facility] Est, Glom Filt Rate - PINF [facility] Comment on above: These results are not intended for use in patients <18 years of age. eGFR results are calculated without a race factor using the 2020 CKD-EPI equation. Careful clinical correlation is recommended, particularly when comparing to results calculated using previous equations. The CKD-EPI equation is less accurate in patients with extremes of muscle mass, extra-renal metabolism of creatine, excessive creatine ingestion, or following therapy that affects renal tubular secretion. Glucose [Mass/Vol] 95 mg/dL 74 - 99 mg/dL [facility] Interpretation and review of laboratory results Abnormal [facility] Potassium [Moles/Vol] 3.5 mmol/L Low 3.7 - 5.3 mmol/L [facility] Sodium [Moles/Vol] 141 mmol/L 136 - 145 mmol/L [facility] Urea nitrogen [Mass/Vol] 13 mg/dL 6 - 20 mg/dL [facility] CBC with Auto Differentialon 03-02-2024 Basophils (Bld) [#/Vol] [facility] Basophils/100 WBC (Bld) 0 % 0 - 2 % [facility] Eosinophils (Bld) [#/Vol] 0.04 10*3/uL [facility] Eosinophils/100 WBC (Bld) 1 % 1 - 4 % [facility] Erythrocyte distribution width (RBC) [Ratio] 12.1 % 11.8 - 14.4 % [facility] Hematocrit (Bld) [Volume fraction] 36.1 % Low 36.3 - 47.1 % [facility] Hemoglobin (Bld) [Mass/Vol] 11.8 g/dL Low 11.9 - 15.1 g/dL [facility] Immature granulocytes (Bld) [#/Vol] [facility] Immature granulocytes/100 WBC (Bld) 0 % 0 [facility] Interpretation and review of laboratory results Abnormal [facility] Lymphocytes/100 WBC (Bld) 19 % Low 24 - 43 % [facility] Lymphocytes/100 WBC (Bld) 1.16 % [facility] MCH (RBC) [Entitic mass] 31.1 pg 25.2 - 33.5 pg [facility] MCHC (RBC) [Mass/Vol] 32.7 g/dL 28.4 - 34.8 g/dL [facility] MCV (RBC) [Entitic vol] 95.3 fL 82.6 - 102.9 fL [facility] Monocytes/100 WBC (Bld) 11 % 3 - 12 % [facility] Monocytes/100 WBC (Bld) 0.65 % [facility] Neutrophils/100 WBC (Bld) 69 % High 36 - 65 % [facility] Nucleated RBC/100 WBC (Bld) [Ratio] 0.0 % 0.0 per 100 WBC [facility] Platelet mean volume (Bld) [Entitic vol] 9.9 fL 8.1 - 13.5 fL [facility] Platelets (Bld) [#/Vol] 256 10*3/uL [facility] RBC (Bld) [#/Vol] 3.79 10*6/uL Low 3.95 - 5.1 1 m/uL [facility] Segmented neutrophils/100 WBC (Bld) 4.25 % [facility] WBC other (Bld) [#/Vol] 6.1 [facility] CBC with Diffon 03-02-2024 Abs. Basophil <0.03 Normal 0.00-0.20 [facility] Comment on above: Performed By: #### C DP, BMPX, CRP, ROLA, SED, MG #### [facility] [address] [place] [address] Business Liaison Officer: Diego Mortensen MD Abs.Imm.Granulocyte <0.03 Normal 0.00-0.30 [facility] Comment on above: Performed By: #### C DP, BMPX, CRP, ROLA, SED, MG #### [facility] [address] [place] [address] Business Liaison Officer: Diego Mortensen MD Abs.Neutrophil (Seg) 4.25 k/uL Normal 1.50-8.10 [facility] Comment on above: Performed By: #### C DP, BMPX, CRP, ROLA, SED, MG #### [facility] [address] [place] [address] Business Liaison Officer: Diego Mortensen MD Basophils/100 WBC (Bld) 0 % Normal 0-2 [facility] Comment on above: Performed By: #### C DP, BMPX, CRP, ROLA, SED, MG #### [address] [address] Business Liaison Officer: Diego Mortensen MD Eosinophils (Bld) [#/Vol] 0.04 10*3/uL Normal 0.00-0.44 [facility] Comment on above: Performed By: #### C DP, BMPX, CRP, ROLA, SED, MG #### [place] [address] Business Liaison Officer: Diego Mortensen MD Eosinophils/100 WBC (Bld) 1 % Normal 1-4 [facility] Comment on above: Performed By: #### C DP, BMPX, CRP, ROLA, SED, MG #### [place] [address] Business Liaison Officer: Diego Mortensen MD Erythrocyte distribution width (RBC) [Ratio] 12.1 % Normal 11.8-14.4 [facility] Comment on above: Performed By: #### C DP, BMPX, CRP, ROLA, SED, MG #### [place] [address] Business Liaison Officer: Diego Mortensen MD Hematocrit (Bld) [Volume fraction] 36.1 % Low 36.3-47.1 [facility] Comment on above: Performed By: #### C DP, BMPX, CRP, ROLA, SED, MG #### [place] [address] Business Liaison Officer: Diego Mortensen MD Hemoglobin (Bld) [Mass/Vol] 11.8 g/dL Low 11.9-15.1 [facility] Comment on above: Performed By: #### C DP, BMPX, CRP, ROLA, SED, MG #### [address] [address] Business Liaison Officer: Diego Mortensen MD Immature granulocytes/100 WBC (Bld) 0 % Normal 0 [facility] Comment on above: Performed By: #### C DP, BMPX, CRP, ROLA, SED, MG #### [place] [address] Business Liaison Officer: Diego Mortensen MD Lymphocytes (Bld) [#/Vol] 1.16 10*3/uL Normal 1.10-3.70 [facility] Comment on above: Performed By: #### C DP, BMPX, CRP, ROLA, SED, MG #### [place] [address] Business Liaison Officer: Diego Mortensen MD Lymphocytes/100 WBC (Bld) 19 % Low 24-43 [facility] Comment on above: Performed By: #### C DP, BMPX, CRP, ROLA, SED, MG #### [place] [address] Business Liaison Officer: Diego Mortensen MD MCH (RBC) [Entitic mass] 31.1 pg Normal 25.2-33.5 [facility] Comment on above: Performed By: #### C DP, BMPX, CRP, ROLA, SED, MG #### [place] [address] Business Liaison Officer: Diego Mortensen MD MCHC (RBC) [Mass/Vol] 32.7 g/dL Normal 28.4-34.8 [facility] Comment on above: Performed By: #### C DP, BMPX, CRP, ROLA, SED, MG #### [address] [address] Business Liaison Officer: Diego Mortensen MD MCV (RBC) [Entitic vol] 95.3 fL Normal 82.6-102.9 [facility] Comment on above: Performed By: #### C DP, BMPX, CRP, ROLA, SED, MG #### [address] [address] Business Liaison Officer: Diego Mortensen MD Monocytes (Bld) [#/Vol] 0.65 10*3/uL Normal 0.10-1.20 [facility] Comment on above: Performed By: #### C DP, BMPX, CRP, ROLA, SED, MG #### [address] [address] Business Liaison Officer: Diego Mortensen MD Monocytes/100 WBC (Bld) 11 % Normal 3-12 [facility] Comment on above: Performed By: #### C DP, BMPX, CRP, ROLA, SED, MG #### [place] [address] Business Liaison Officer: Diego Mortensen MD Neutrophil (Seg) 69 % High 36-65 [facility] Comment on above: Performed By: #### C DP, BMPX, CRP, ROLA, SED, MG #### [address] [address] Business Liaison Officer: Diego Mortensen MD NRBC Automated 0.0 per 100 WBC Normal 0.0 [facility] Comment on above: Performed By: #### C DP, BMPX, CRP, ROLA, SED, MG #### [address] [address] Business Liaison Officer: Diego Mortensen MD Platelet mean volume (Bld) [Entitic vol] 9.9 fL Normal 8.1-13.5 [facility] Comment on above: Performed By: #### C DP, BMPX, CRP, ROLA, SED, MG #### [address] [address] Business Liaison Officer: Diego Mortensen MD Platelets (Bld) [#/Vol] 256 10*3/uL Normal 138-453 [facility] Comment on above: Performed By: #### C DP, BMPX, CRP, ROLA, SED, MG #### [facility] [address] [place] [address] Business Liaison Officer: Diego Mortensen MD RBC (Bld) [#/Vol] 3.79 10*6/uL Low 3.95-5.11 [facility] Comment on above: Performed By: #### C DP, BMPX, CRP, ROLA, SED, MG #### [facility] [place] [address] Business Liaison Officer: Diego Mortensen MD WBC (Bld) [#/Vol] 6.1 10*3/uL Normal 3.5-11.3 [facility] Comment on above: Performed By: #### C DP, BMPX, CRP, ROLA, SED, MG #### [facility] [place] [address] Business Liaison Officer: Diego Mortensen MD CT ABDOMEN PELVIS W IV CONTR Trupti 03-02-2024 CT ABDOMEN PELVIS W IV CONTRAST EXAMINATION: CT OF THE ABDOMEN AND PELVIS WITH CONTRAST 03/02/2024 11:52 am TECHNIQUE: CT of the abdomen and pelvis was performed with the administration of intravenous contrast. Multiplanar reformatted images are provided for review. Automated exposure control, iterative reconstruction, and/or weight based adjustment of the mA/kV was utilized to reduce the radiation dose to as low as reasonably achievable. COMPARISON: None. HISTORY: ORDERING SYSTEM PROVIDED HISTORY: Sbo TECHNOLOGIST PROVIDED HISTORY: Sbo FINDINGS: Lower Chest: No acute infiltrate at the lung bases. Mild bibasilar atelectasis. Enteric catheter is in place. Organs: The liver, spleen, pancreas and adrenal glands are unremarkable. Increased attenuation within the dependent gallbladder, possibly sludge or vicarious excretion of contrast from previous imaging. Both kidneys enhance normally with no mass or significant hydronephrosis. GI/Bowel: Enteric catheter tip terminates in the gastric body. The stomach and duodenal sweep are unremarkable. Enteric contrast extends into the mid colon. There is mural thickening involving several distal small bowel loops extending into the terminal ileum. Mild perienteric inflammatory changes with small interloop fluid collections. No pneumatosis or free air. There is mild wall thickening involving the cecum and proximal ascending colon. The more distal colon is unremarkable. Pelvis: No pelvic mass or free pelvic fluid. The uterus and adnexal structures are unremarkable. Mild distention of the urinary bladder. Peritoneum/Retroperit oneum: No significant upper abdominal ascites or free intraperitoneal air. The abdominal aorta is normal in caliber. No retroperitoneal adenopathy. Bones/Soft Tissues: No acute osseous or soft tissue abnormality. Small fat containing umbilical hernia. IMPRESSION: 1. Mural thickening involving distal small bowel loops extending into the cecum and proximal ascending colon. Mild perienteric inflammatory changes with interloop fluid collections. No evidence of obstruction. Findings are concerning for inflammatory bowel disease. An infectious enterocolitis is also in the differential. 2. No other acute findings within the abdomen or pelvis. 3. Increased attenuation within the gallbladder lumen, possibly sludge or related to recent contrast administration. 4. Mild bibasilar atelectasis. Interpreted by: Isacc Castelan MD Signed by: Isacc Castelan MD 03/02/24 Final result Normal [facility] CT Abdomen and Pelvis W cont rast Kal 03-02-2024 1. Mural thickening involving distal small bowel loops extending into the cecum and proximal ascending colon. Mild perienteric inflammatory changes with interloop fluid collections. No evidence of obstruction. Findings are concerning for inflammatory bowel disease. An infectious enterocolitis is also in the differential. 2. No other acute findings within the abdomen or pelvis. 3. Increased attenuation within the gallbladder lumen, possibly sludge or related to recent contrast administration. 4. Mild bibasilar atelectasis. MHPN RIS CONSOLIDATED EXAMINATION: CT OF THE ABDOMEN AND PELVIS WITH CONTRAST 03/02/2024 11:52 am TECHNIQUE: CT of the abdomen and pelvis was performed with the administration of intravenous contrast. Multiplanar reformatted images are provided for review. Automated exposure control, iterative reconstruction, and/or weight based adjustment of the mA/kV was utilized to reduce the radiation dose to as low as reasonably achievable. COMPARISON: None. HISTORY: ORDERING SYSTEM PROVIDED HISTORY: Sbo TECHNOLOGIST PROVIDED HISTORY: Sbo FINDINGS: Lower Chest: No acute infiltrate at the lung bases. Mild bibasilar atelectasis. Enteric catheter is in place. Organs: The liver, spleen, pancreas and adrenal glands are unremarkable. Increased attenuation within the dependent gallbladder, possibly sludge or vicarious excretion of contrast from previous imaging. Both kidneys enhance normally with no mass or significant hydronephrosis. GI/Bowel: Enteric catheter tip terminates in the gastric body. The stomach and duodenal sweep are unremarkable. Enteric contrast extends into the mid colon. There is mural thickening involving several distal small bowel loops extending into the terminal ileum. Mild perienteric inflammatory changes with small interloop fluid collections. No pneumatosis or free air. There is mild wall thickening involving the cecum and proximal ascending colon. The more distal colon is unremarkable. Pelvis: No pelvic mass or free pelvic fluid. The uterus and adnexal structures are unremarkable. Mild distention of the urinary bladder. Peritoneum/Retroperit oneum: No significant upper abdominal ascites or free intraperitoneal air. The abdominal aorta is normal in caliber. No retroperitoneal adenopathy. Bones/Soft Tissues: No acute osseous or soft tissue abnormality. Small fat containing umbilical hernia. MHPN RIS CONSOLIDATED Isacc Castelan MD - 03/02/2024 EXAMINATION: CT OF THE ABDOMEN AND PELVIS WITH CONTRAST 03/02/2024 11:52 am TECHNIQUE: CT of the abdomen and pelvis was performed with the administration of intravenous contrast. Multiplanar reformatted images are provided for review. Automated exposure control, iterative reconstruction, and/or weight based adjustment of the mA/kV was utilized to reduce the radiation dose to as low as reasonably achievable. COMPARISON: None. HISTORY: ORDERING SYSTEM PROVIDED HISTORY: Sbo TECHNOLOGIST PROVIDED HISTORY: Sbo FINDINGS: Lower Chest: No acute infiltrate at the lung bases. Mild bibasilar atelectasis. Enteric catheter is in place. Organs: The liver, spleen, pancreas and adrenal glands are unremarkable. Increased attenuation within the dependent gallbladder, possibly sludge or vicarious excretion of contrast from previous imaging. Both kidneys enhance normally with no mass or significant hydronephrosis. GI/Bowel: Enteric catheter tip terminates in the gastric body. The stomach and duodenal sweep are unremarkable. Enteric contrast extends into the mid colon. There is mural thickening involving several distal small bowel loops extending into the terminal ileum. Mild perienteric inflammatory changes with small interloop fluid collections. No pneumatosis or free air. There is mild wall thickening involving the cecum and proximal ascending colon. The more distal colon is unremarkable. Pelvis: No pelvic mass or free pelvic fluid. The uterus and adnexal structures are unremarkable. Mild distention of the urinary bladder. Peritoneum/Retroperit oneum: No significant upper abdominal ascites or free intraperitoneal air. The abdominal aorta is normal in caliber. No retroperitoneal adenopathy. Bones/Soft Tissues: No acute osseous or soft tissue abnormality. Small fat containing umbilical hernia. IMPRESSION: 1. Mural thickening involving distal small bowel loops extending into the cecum and proximal ascending colon. Mild perienteric inflammatory changes with interloop fluid collections. No evidence of obstruction. Findings are concerning for inflammatory bowel disease. An infectious enterocolitis is also in the differential. 2. No other acute findings within the abdomen or pelvis. 3. Increased attenuation within the gallbladder lumen, possibly sludge or related to recent contrast administration. 4. Mild bibasilar atelectasis. [facility] Radiology Study observation (narrative) [facility] CT Abdomen and Pelvis W cont rast IVOrdered By: Isacc Castelan on 03-02-2024 [facility] Work Phone: Lactic Acidon 03-02-2024 Lactic Acid, Whole Blood 1.2 mmol/L 0.7 - 2.1 mmol/L [facility] Lactic Acid,Whole Bl 1.2 mmol/L Normal 0.7-2.1 [facility] Comment on above: Performed By: #### C DP, LACTIC, BMPX, MG #### [facility] [address] [place] [address] Business Liaison Officer: Diego Mortensen MD Magnesiumon 03-02-2024 Magnesium [Mass/Vol] 2.0 mg/dL 1.6 - 2.6 mg/dL [facility] Magnesium [Mass/Vol] 2.0 mg/dL Normal 1.6-2.6 [facility] Comment on above: Performed By: #### C DP, BMPX, CRP, ROLA, SED, MG #### [facility] [address] [place] [address] Business Liaison Officer: Diego Mortensen MD No Panel Informationon 03-02 [facility] IGP,APTIMA HPV,AGE GDLNon AGE GDLN ACOG TESTING Note . [facility] Comment on above: TESTS RESULT FLAG UN ITS REF RANGE LAB Clinician Provided Cytology Information Source.............Cervix;Endocervix No. of containers..01 ThinPrep Vial Age Algo ACOG Dahlia... FLAG LEGEND: L-Low Normal,H-High Normal,LL-Alert Low,HH-Alert High <-Panic Low,>-Panic High,A-Abnormal,AA-Critical Abnormal Performed at: 01 = [facility] [employer] [facility] [place] [address] Darline Garcia MD, HPV APTIMA Negative Negative [facility] Comment on above: This nucleic acid am plification test detects fourteen high- risk HPV types (16,18,31,33,35,39,45,51,52,56,58,59,66,68) without differentiation. Performed at: =[facility], [place] [id number] Business Liaison Officer: Darline Garcia MD, Phone: [phone] Performed at: [facility] [address] [place], [place] [id number] Business Liaison Officer: Bonifacio Evans MD, Phone: [phone] IGP, APTIMA HPV, RFX 16/18,45 Note . [facility] Comment on above: TESTS RESULT FLAG U NITS REF RANGE LAB DIAGNOSIS: 02 NEGATIVE FOR INTRAEPITHELIAL LESION OR MALIGNANCY. Specimen adequacy: 02 Satisfactory for evaluation. Endocervical and/or squamous metaplastic cells (endocervical component) are present. Performed by: 02 Jessica Garcia, Estate Tax Examiner ([facility]) . 02 Note: Note 03 The Pap [...] <-Panic Low,>-Panic High,A-Abnormal,AA-Critical Abnormal Performed at: 02 [facility] [address] [place] [address] Bonifacio Evans MD, 03 WB [facility] [address] [address] Darline Garcia MD, BRUSH-SPATULA CERVIX ENDOCERVIX [facility] CBC AUTO DIFFon 11-14-2021 BASO # 0.0 103/ul Normal 0.0-0.1 [facility] Comment on above: Performed By: #### C BC #### [facility] [address] [address] [address] Alejandro Grijalva Basophils/100 WBC (Bld) 0.2 % Normal 0.2-2.0 [facility] Comment on above: Performed By: #### C BC #### [facility] [address] [address] [address] Alejandro Grijalva EO # 0.0 103/ul Normal 0.0-0.7 [facility] Comment on above: Performed By: #### C BC #### [facility] [address] [address] [address] Alejandro Grijalva Eosinophils/100 WBC (Bld) 0.7 % Critically low 0.9-7.0 [facility] Comment on above: Performed By: #### C BC #### [facility] [address] [address] [address] Alejandro Grijalva Erythrocyte distribution width (RBC) [Ratio] 11.8 % Normal 11.0-15.0 [facility] Comment on above: Performed By: #### C BC #### [facility] [address] [address] [address] Alejandro Grijalva Hematocrit (Bld) [Volume fraction] 40.5 % Normal 36.0-48.0 [facility] Comment on above: Performed By: #### C BC #### [facility] [address] [address] [address] Alejandro Grijalva Hemoglobin (Bld) [Mass/Vol] 13.5 g/dL Normal 12.0-16.0 [facility] Comment on above: Performed By: #### C BC #### [facility] [address] [address] [address] Alejandro Grijalva IG # 0.02 10e3/ul Normal 0.00-0.03 [facility] Comment on above: Performed By: #### C BC #### [facility] [address] [place] [address] Dr. Alejandro Grijalva IG % 0.3 % Normal 0.0-0.5 [facility] Comment on above: Performed By: #### C BC #### [facility] [address] [place] [address] Dr. Alejandro Grijalva LYMPH # 1.5 103/ul Normal 1.2-3.8 [facility] Comment on above: Performed By: #### C BC #### [facility] [address] [place] [address] Dr. Alejadnro Grijalva Lymphocytes/100 WBC (Bld) 24.0 % Normal 20.5-60.0 [facility] Comment on above: Performed By: #### C BC #### [facility] [address] [place] [address] Dr. Alejandro Grijalva MANUAL DIFF REQ NO Normal [facility] Comment on above: Performed By: #### C BC #### [facility] [address] [place] [address] Dr. Alejandro Grijalva MCH (RBC) [Entitic mass] 31.4 pg Normal 26.7-34.0 [facility] Comment on above: Performed By: #### C BC #### [facility] [address] [place] [address] Dr. Alejandro Grijalva MCHC (RBC) [Mass/Vol] 33.3 g/dL Normal 29.9-35.2 [facility] Comment on above: Performed By: #### C BC #### [facility] [address] [place] [address] Dr. Alejandro Grijalva MCV (RBC) [Entitic vol] 94.2 fL Normal 81.0-99.0 [facility] Comment on above: Performed By: #### C BC #### [facility] [address] [place] [address] Dr. Alejandro Grijalva MONO # 0.5 103/ul Normal 0.3-0.8 [facility] Comment on above: Performed By: #### C BC #### [facility] [address] [place] [address] Dr. Alejandro Grijalva Monocytes/100 WBC (Bld) 8.4 % Normal 1.7-12.0 [facility] Comment on above: Performed By: #### C BC #### [facility] [address] [address] [address] Alejandro Grijalva NEUT # 4.0 103/ul Normal 1.4-6.5 [facility] Comment on above: Performed By: #### C BC #### [facility] [address] [place] [address] Dr. Alejandro Grijalva Neutrophils/100 WBC (Bld) 66.4 % Normal 43.0-75.0 [facility] Comment on above: Performed By: #### C BC #### [facility] [address] [place] [address] Dr. Alejandro Grijalva Platelet mean volume (Bld) [Entitic vol] 9.7 fL Normal 9.5-13.5 [facility] Comment on above: Performed By: #### C BC #### [facility] [address] [place] [address] Dr. Alejandro Grijalva PLT 273 103/ul Normal 150-450 [facility] Comment on above: Performed By: #### C BC #### [facility] [address] [place] [address] Dr. Alejandro Grijalva RBC 4.30 106/ul Normal 4.20-5.40 [facility] Comment on above: Performed By: #### C BC #### [facility] [address] [place] [address] Dr. Alejandro Grijalva WBC 6.0 103/ul Normal 4.0-11.0 [facility] Comment on above: Performed By: #### C BC #### [facility] [address] [place] [address] Dr. Alejandro Grijalva LIPID PROFILEon 11-14-2021 CHOL-HDL RATIO NORM SEE BELOW Normal [facility] Comment on above: Result Comment: 3.3 - 4.4 LOW RISK 4.4 - 7.1 AVERAGE RISK 7.1 - 11.0 MODERATE RISK >11.0 HIGH RISK Performed By: #### T SH, LIPID, CMP #### [facility] [address] [address] [address] Alejandro Grijalva Cholesterol [Mass/Vol] 176 mg/dL Normal <=200 [facility] Comment on above: Performed By: #### T SH, LIPID, CMP #### [facility] [address] [address] [address] Alejandro Grijalva Cholesterol in HDL [Mass/Vol] 44 mg/dL Normal 40-60 [facility] Comment on above: Performed By: #### T SH, LIPID, CMP #### [facility] [address] [address] [address] Alejandro Grijalva Cholesterol in LDL [Mass/Vol] 119.6 mg/dL Normal [facility] Comment on above: Performed By: #### T SH, LIPID, CMP #### [facility] [address] [place] [address] Dr. Alejandro Grijalva Cholesterol.total/C holesterol in HDL [Mass ratio] 4.0 {ratio} Normal [facility] Comment on above: Performed By: #### T SH, LIPID, CMP #### [facility] [address] [address] [address] Alejandro Grijalva HDL NORMAL > or = 60 mg/dl - LO W CARDIOVASCULAR RISK <40 mg/dl - HIGH CARDIOVASCULAR RISK Normal [facility] Comment on above: Performed By: #### T SH, LIPID, CMP #### [facility] [address] [address] [address] Alejandro Grijalva LDL CALC NORMAL SEE BELOW Normal [facility] Comment on above: Result Comment: <100 mg/dl OPTIMAL 100 - 129 mg/dl NEAR OR ABOVE OPTIMAL 130 - 159 mg/dl BORDERLINE HIGH 160 - 189 mg/dl HIGH >190 mg/dl VERY HIGH Performed By: #### T SH, LIPID, CMP #### [facility] [address] [address] [address] Alejandro Grijalva Triglyceride [Mass/Vol] 62 mg/dL Normal <=150 [facility] Comment on above: Performed By: #### T SH, LIPID, CMP #### [facility] [address] [address] [address] Alejandro Grijalva VLDL CALC 12.4 mg/dL Normal [facility] Comment on above: Performed By: #### T SH, LIPID, CMP #### [facility] [address] [address] [address] Alejandro Grijalva PROF 14(COMP METB)on 022 Albumin [Mass/Vol] 3.7 g/dL Normal 3.4-5.0 [facility] Comment on above: Performed By: #### T SH, LIPID, CMP #### [facility] [address] [address] [address] Alejandro Grijalva Albumin/Globulin [Mass ratio] 1.0 {ratio} Normal [facility] Comment on above: Performed By: #### T SH, LIPID, CMP #### [facility] [address] [address] [address] Alejandro Grijalva ALP [Catalytic activity/Vol] 81 U/L Normal 46-116 [facility] Comment on above: Performed By: #### T SH, LIPID, CMP #### [facility] [address] [address] [address] Alejandro Grijalva ALT [Catalytic activity/Vol] 39 U/L Normal 14-59 [facility] Comment on above: Performed By: #### T SH, LIPID, CMP #### [facility] [address] [address] [address] Alejandro Grijalva Anion gap [Moles/Vol] 14.5 mmol/L Normal [facility] Comment on above: Performed By: #### T SH, LIPID, CMP #### [facility] [address] [address] [address] Alejandro Grijalva AST [Catalytic activity/Vol] 18 U/L Normal 15-37 [facility] Comment on above: Performed By: #### T SH, LIPID, CMP #### [facility] [address] [place] [address] Dr. Alejandro Grijalva Bilirubin [Mass/Vol] 0.2 mg/dL Normal 0.2-1.0 [facility] Comment on above: Performed By: #### T SH, LIPID, CMP #### [facility] [address] [address] [address] Alejandro Grijalva Calcium [Mass/Vol] 8.9 mg/dL Normal 8.5-10.1 [facility] Comment on above: Performed By: #### T SH, LIPID, CMP #### [facility] [address] [address] [address] Alejandro Grijalva Chloride [Moles/Vol] 106 mmol/L Normal 98-107 [facility] Comment on above: Performed By: #### T SH, LIPID, CMP #### [facility] [address] [place] [address] Dr. Alejandro Grijalva CO2 [Moles/Vol] 24.9 mmol/L Normal 21.0-32.0 [facility] Comment on above: Performed By: #### T SH, LIPID, CMP #### [facility] [address] [place] [address] Dr. Alejandro Grijalva Creatinine [Mass/Vol] 0.80 mg/dL Normal 0.55-1.02 [facility] Comment on above: Performed By: #### T SH, LIPID, CMP #### [facility] [address] [place] [address] Dr. Alejandro Grijalva EGFR-AF ANGOLAN >60 Normal >=60 [facility] Comment on above: Performed By: #### T SH, LIPID, CMP #### [facility] [address] [place] [address] Dr. Alejandro Grijalva EGFR-NON AF ANGOLAN >60 Normal >=60 [facility] Comment on above: Performed By: #### T SH, LIPID, CMP #### [facility] [address] [address] [address] Alejandro Grijalva Globulin (S) [Mass/Vol] 3.7 g/dL Normal [facility] Comment on above: Performed By: #### T SH, LIPID, CMP #### [facility] [address] [place] [address] Dr. Alejandro Grijalva Glucose [Mass/Vol] 101 mg/dL Normal 74-106 [facility] Comment on above: Performed By: #### T SH, LIPID, CMP #### [facility] [address] [address] [address] Alejandro Grijalva Potassium [Moles/Vol] 4.4 mmol/L Normal 3.5-5.1 [facility] Comment on above: Performed By: #### T REYNALDO LIPID, CMP #### [facility] [address] [place] [address] Dr. Alejandro Grijalva Protein [Mass/Vol] 7.4 g/dL Normal 6.4-8.2 [facility] Comment on above: Performed By: #### T REYNALDO LIPID, CMP #### [facility] [address] [place] [address] Dr. Alejandro Grijalva Sodium [Moles/Vol] 141 mmol/L Normal 136-145 [facility] Comment on above: Performed By: #### T REYNALDO LIPID, CMP #### [facility] [address] [place] [address] Dr. Alejandro Grijalva Urea nitrogen [Mass/Vol] 12.0 mg/dL Normal 7.0-18.0 [facility] Comment on above: Performed By: #### T REYNALDO LIPID, CMP #### [facility] [address] [place] [address] Dr. Alejandro Grijalva Urea nitrogen/Creatinine [Mass ratio] 15.0 mg/mg Normal [facility] Comment on above: Performed By: #### T REYNALDO LIPID, CMP #### [facility] [address] [place] [address] Dr. Alejandro Grijalva TSHon 11-14-2021 TSH 2.902 uIU/mL Normal 0.358-3.740 [facility] Comment on above: Performed By: #### T REYNALDO LIPID, CMP #### [facility] [address] [place] [address] Dr. Alejandro Grijalva Vital Signs Date Time Vital Sign Value Performing Clinician Facility 03-03-2024 07:34-0500 Body temperature 97.5 [degF] Faizan Ann MD Work Phone: [facility] 03-03-2024 07:34-0500 Diastolic blood pressure 74 mm[Hg] [facility] 03-03-2024 07:34-0500 Heart rate 66 /min [facility]an Ann MD [facility] 03-03-2024 07:34-0500 Respiratory rate 18 /min Faizan Ann MD [facility] 03-03-2024 07:34-0500 SaO2% (BldA) [Mass fraction] 94 % Faizan Ann MD [facility] 03-03-2024 07:34-0500 Systolic blood pressure 114 mm[Hg] [facility]izan Ann MD [facility] 03-01-2024 15:15-0500 Body height 165.1 cm Faizan Ann MD [facility] 03-01-2024 15:15-0500 Body mass index (BMI) [Ratio] 33.28 kg/m2 Faizan Ann MD [facility] 03-01-2024 15:15-0500 Body weight 90.72 kg Faizan Ann MD [facility] 11-08-2023 08:55-0400 Body mass index (BMI) [Ratio] 34.12 kg/m2 Sin Karla DO Work Phone: [facility] 11-08-2023 08:55-0400 Body weight 90.17 kg Sin Karla DO Work Phone: [facility] 11-08-2023 08:55-0400 Diastolic blood pressure 72 mm[Hg] Sin Karla DO Work Phone: [facility] 11-08-2023 08:55-0400 Systolic blood pressure 118 mm[Hg] Sin Karla DO Work Phone: [facility] 08-02-2018 02:0400 BMI (Body Mass Index) 29.18 kg/m2 [facility] 08-02-2018 02:0400 Body Temperature 98.1 [degF] [facility] 08-02-2018 02:-0400 BP Diastolic 100 mm[Hg] [facility] 08-02-2018 02:-0400 BP Systolic 146 mm[Hg] [facility] 08-02-2018 02:0400 Height 162.6 cm [facility] 08-02-2018 02:0400 Pulse (Heart Rate) 94 /min [facility] 08-02-2018 02:040 Pulse Oximetry 99 % [facility] 08-02-2018 02:0400 Respiratory Rate 16 /min [facility] 08-02-2018 02:0400 Weight 77.11 kg [facility] Encounters Encounter Date Encounter Type Care Provider Facility Start: 03-05-2024 End: 03-05-2024 Telephone encounter Janett LAMA Work Phone: [facility] Start: 03-01-2024 End: 03-03-2024 Evaluation and management of inpatient Faizan Ann MD Work Phone: [address] [facility] Comment on above: SBO (small bowel obs truction) (HCC) (Primary Dx) Start: 11-08-2023 End: 11-08-2023 Bamboo flowsheet Sin Karla DO Work Phone: [facility] Start: 11-08-2023 End: 11-11-2023 Bamboo flowsheet Sin Karla DO Work Phone: [facility] Start: 11-08-2023 End: 11-11-2023 Clinisync Result Encounter Sin Karla DO Work Phone: [facility] Unsolicited Start: 11-08-2023 End: 11-08-2023 Patient encounter procedure Sin Karla DO Work Phone: [facility] Work Phone: Start: 11-08-2023 End: 11-08-2023 Periodic preventive med est patient 18-39 yrs Sin Acosta DO Work Phone: [facility] Comment on above: Well woman exam with routine gynecological exam Start: 11-08-2023 End: 11-08-2023 ambulatory SIN ACOSTA Not Available Start: 11-20-2021 Encounter for genera l adult medical examination without abnormal findings JANETT [facility] Start: 11-14-2021 End: 11-15-2021 ambulatory [facility] Facility:[facility]1 Start: 11-14-2021 End: 11-15-2021 Encounter for general adult medical examination without abnormal findings [facility] Facility: Start: 08-02-2018 End: 08-02-2018 Emergency department patient visit [facility] Start: 08-02-2018 End: 08-02-2018 Emergency department patient visit [facility] Work Phone: [facility] Comment on above: Left ear pain (Prima ry Dx); Pharyngitis, unspecified etiology Procedures Date Procedure Procedure Detail Performing Clinician Start: 03-03-2024 Calcium ionized Liseth Dooley DO Work Phone: Start: 03-03-2024 Assay of magnesium Aust in D Butler DO Work Phone: Start: 03-03-2024 BASIC METABOLIC PANE L W/ REFLEX TO MG FOR LOW K Kemal Abel Butler DO Work Phone: Start: 03-03-2024 C-reactive protein Juliet Laguerre PA-C Work Phone: Start: 03-02-2024 Ct abdomen & pelvis w/contrast material Arabella GARCIA-C Work Phone: Start: 03-02-2024 Assay of lactate Kemal Roman Butler DO Work Phone: Start: 03-02-2024 BASIC METABOLIC PANE L W/ REFLEX TO MG FOR LOW K Kemal D Butler DO Work Phone: Start: 11-08-2023 IGP,APTIMA HPV,AGE GDLN Sin Acosta DO Work Phone: Start: 03-05-2022 Adult depression scr eening assessment Janett Hardin [employer] Work Phone: Start: 03-10-2017 Microscopic observat ion [Identifier] in Cervix by Cyto stain Janett Hardin [facility] Work Phone: Plan of Treatment Date Care Activity Detail Author Start: 11-13-2024 End: 11-13-2024 Patient encounter procedure 11/13/2024 8:30 AM EDT Office Visit [facility] [address] [place] [id number] Sin Acosta, DO [address] [place] [address] [facility] Start: 02-01-2024 Tobacco Screening Tobacco Screening [facility] Start: 11-11-2023 Adult BMI Screening Adult BMI Screen ing [facility] Start: 11-08-2023 End: 11-08-2023 Patient encounter procedure 11/08/2023 8:30 AM EDT Office Visit [facility] [address] [place] [id number] Sin Acosta, DO [address] [place] [address] Arrived [facility] Comment on above: Arrived Start: 11-06-2023 COVID-19 Vaccine ( season) COVID-19 Vaccine ( season) [facility] Start: 11-06-2023 Influenza vaccination Influenza Vacc ine [facility] Start: 10-06-2023 Influenza vaccination Flu vaccine (# 1) [facility] Start: 03-05-2023 Depression Screening Depression Scre ening [facility] Start: 03-10-2020 Screening for malign ant neoplasm of cervix Pap Smear [facility] Start: 2014 Screening for malign ant neoplasm of cervix [facility] Start: 2005 Screening for malign ant neoplasm of cervix Pap smear [facility] Start: 08-22-2003 DTaP,Tdap and Td Vaccines (1 - Tdap) DTaP,Tdap and Td Vaccines (1 - Tdap) [facility] Start: 08-22-2003 DTaP/Tdap/Td vaccine (1 - Tdap) DTaP/Tdap/Td vaccine (1 - Tdap) [facility] Start: 08-22-2003 Hepatitis B vaccine (1 of 3 - 19+ 3-dose series) Hepatitis B vaccine (1 of 3 - 19+ 3-dose series) [facility] Start: 2002 Hepatitis C screening Hepatitis C sc reen [facility] Start: 08-22-1999 HIV screening HIV screen [facility] Start: 1997 Varicella vaccine (1 of 2 - 13+ 2-dose series) Varicella vaccine (1 of 2 - 13+ 2-dose series) [facility] Start: 1996 Depression Screen Depression Screen [facility] End: 03-04-2024 Basic Metabolic Panel w/ Reflex to MG Basic Metabolic Panel w/ Reflex to MG Lab Routine Daily for 3 Days starting 03/02/2024 until 03/04/2024, 2 completed [facility] Comment on above: Daily for 3 Days sta rting 03/02/2024 until 03/04/2024, 2 completed End: 03-02-2024 Calprotectin Stool [facility] Work Phone: Comment on above: One Time for 1 Occur rences starting 03/02/2024 until 03/02/2024 End: 03-04-2024 CBC W Auto Differential panel - Blood CBC with Auto Differential Lab Routine Daily for 3 Days starting 03/02/2024 until 03/04/2024, 2 completed [facility] Comment on above: Daily for 3 Days sta rting 03/02/2024 until 03/04/2024, 2 completed Cytology Cervical or vaginal smear or scraping study Pap Smear Pathology and Cytology Routine Well woman exam with routine gynecological exam Ordered: 11/08/2023 [employer] Work Phone: Comment on above: Ordered: 11/08/2023 Human papilloma viru s DNA [Presence] in Unspecified specimen by Probe with amplification HPV DNA probe, amplified Microbiology Routine Well woman exam with routine gynecological exam Ordered: 11/08/2023 [employer] Comment on above: Ordered: 11/08/2023 Oxygen therapy [[facility] Data Set] Initiate Oxygen Therapy Protocol Respiratory Care Routine As Needed until discontinued starting 03/01/2024 Roshan Mathur [employer] Work Phone: Comment on above: As Needed until disc ontinued starting 03/01/2024 Payers Date Payer Category Payer Unknown FRONTPATH FRONTP ATH [id number] 2022-Present [phone] [place] [id number] 2018 Managed Care Other (unspecified) FRONTPATH [id number] 1984 Unknown [id number] 1984 Unknown [id number] 1984 Unknown [id number] 1984 Unknown [id number] 1959 Unknown [id number] Unknown COMMERCIAL [employer]ME RCIAL MISCELLANEOUS xxxxxxxxx Effective for all dates xxxxxxxxx [id number] Unknown [id number] Social History Date Type Detail Facility Start: 08-02-2018 End: 11-10-2022 Tobacco smoking status [facility] Never smoker [facility] Start: 08-02-2018 History SDOH Alcohol Frequency 1 [facility] Start: 1985 Sex Assigned At Not on file [facility] Tobacco smoking stat [facility] Tobacco smoking consumption unknown [facility] Start: 10-10-2020 End: 03-01-2024 Gender identity Not on file [employer] Start: 10-10-2020 End: 03-01-2024 History of Social function [employer] Has the lifeaction games, or water [employer] threatened to shut off services in your home in past 12Mo No [employer] (I/We) worried lex er (my/our) food would run out before (I/we) got money to buy more. Never true [employer] In the past 12 month s, has lack of transportation kept you from medical appointments or from getting medications? No [employer] Start: 11-10-2022 Tobacco use and exposure Smokeless tobacco non-user [facility] Start: 01-31-2023 Alcoholic beverage intake Ex-drinker (finding) [facility] Do you belong to any clubs or organizations such as sikh groups, unions, fraternal or athletic groups, or school groups? Yes [facility] Are you now , , , , never or living with a partner? [facility] How often to you hav e a drink containing alcohol? Monthly or less [facility] How many standard dr inks containing alcohol do you have on a typical day? 1 or 2 [facility] How often do you hav e 6 or more drinks on 1 occasion? Never [facility] Do you feel stress - tense, restless, nervous, or anxious, or unable to sleep at night because your mind is troubled all the time - these days [OSQ] Only a little [facility] Start: 10-10-2020 Education 17 [facility] Start: 10-08-2014 Sex Female (finding) [facility] Note 03-05-2024 Telephone Encounter - Simran Bridges - 03/05/2024 9:16 AM EST Note Date & Type Note Facility 03-05-2024 Miscellaneous Notes Formattin g of this note might be different from the original. Patient was in [facility] for a bowel obstruction, she would like a referral to [facility] for a colonoscopy documented in this encounter [facility] Telephone encounter Note 03-05-2024 Telephone Encounter - Simran Bridges - 03/05/2024 9:16 AM EST Note Date & Type Note Facility 03-05-2024 Telephone encount er Note Patient was in [facility] for a bowel obstruction, she would like a referral to [facility] for a colonoscopy [facility] Hospital Discharge instructions 03-03-2024 Discharge Instr - ActivityDischarge Instr - DietAttachments Note Date & Type Note Facility 03-03-2024 Hospital Discharg e instructions David Hudson RN - 03/03/2024 5:16 PM EST Up as tolerated. A body in motion will remain in motion. Water aerobics is great for heart and joint health. David Hudson RN - 03/03/2024 5:16 PM EST Good nutrition is important when healing from an illness, injury, or surgery. Follow any nutrition recommendations given to you during your hospital stay. If you were given an oral nutrition supplement while in the hospital, continue to take this supplement at home. You can take it with meals, in-between meals, and/or before bedtime. These supplements can be purchased at most local grocery stores, pharmacies, and chain super-stores. If you have any questions about your diet or nutrition, call the hospital and ask for the dietitian. The following attachments cannot be sent through Care Everywhere.Diet: Low-FODMAP: General Info (Lao)IBS (Irritable Bowel Syndrome) Diet (Lao)documented in this encounter [facility] History of Present illness Narrative 03-03-2024 Liseth Dooley DO - 03/03/2024 7:52 AM Luh Pandey MD - 03/02/2024 11:04 AM EST Note Date & Type Note Facility 03-03-2024 History of Present illness Narrative Images from the original note were not included. PROGRESS NOTE PATIENT NAME: Nasrin Olmos DATE: 03/03/2024 HD: # 2 Patient Active Problem List Diagnosis Placenta previa without hemorrhage, antepartum resulting from assisted reproductive technology SBO (small bowel obstruction) ([facility]) DIAGNOSIS AND PLAN 38 year old female with history of c sections, ovarian cystectomy found to have small bowel obstruction. Tolerating clear liquid diet, NG tube removed yesterday Passing gas, having bowel movements Advance to regular diet Will need outpatient colonoscopy in 6-8 weeks for concern for IBD Chief Complaint: feeling better SUBJECTIVE No acute events overnight. She denies nausea/vomiting and is tolerating clear liquid diet. Passing gas and having bowel movements. No tenderness on palpation of abdomen. OBJECTIVE VITALS: Vitals: 03/03/24 0734 BP: 114/74 Pulse: 66 Resp: 18 Temp: 97.5 F (36.4 C) SpO2: 94% Physical Exam Constitutional: Appearance: Normal appearance. HENT: Head: Normocephalic and atraumatic. Cardiovascular: Rate and Rhythm: Normal rate. Pulmonary: Effort: Pulmonary effort is normal. Abdominal: General: There is no distension. Palpations: Abdomen is soft. Tenderness: There is no abdominal tenderness. There is no guarding. Comments: Mild distension, soft, non tender Skin: General: Skin is warm and dry. Neurological: Mental Status: She is alert. Psychiatric: Mood and Affect: Mood normal. LAB: CBC: Recent Labs 03/02/2441003/03/24 0653 WBC 6.1 4.8 HGB 11.8* 11.6* HCT 36.1* 35.3* MCV 95.3 96.7 PLT 256 243 BMP: Recent Labs 03/02/2441003/03/24 0653 NA 141 138 K 3.5* 3.9 CL 106 105 CO2 26 23 BUN 13 8 CREATININE 0.7 0.6 GLUCOSE 95 78 RADIOLOGY: Liseth Dooley DO 03/03/2024, 7:52 AM Images from the original note were not included. PROGRESS NOTE PATIENT NAME: Nasrin Olmos DATE: 03/02/2024 HD: # 1 Patient Active Problem List Diagnosis Placenta previa without hemorrhage, antepartum resulting from assisted reproductive technology SBO (small bowel obstruction) ([facility]) DIAGNOSIS AND PLAN 38 year old female with history of c sections, ovarian cystectomy found to have small bowel obstruction. Will order CT with oral contrast today Continue conservative management with NPO, NG and IV fluids. Chief Complaint: feeling better SUBJECTIVE No acute events overnight. She denies nausea/vomiting. She is passing some flatus but no bowel movement yet. Her pain has been controlled. OBJECTIVE VITALS: Vitals: 03/02/24 0752 BP: 110/65 Pulse: 81 Resp: 19 Temp: 98.1 F (36.7 C) SpO2: 96% Physical Exam Constitutional: Appearance: Normal appearance. HENT: Head: Normocephalic and atraumatic. Cardiovascular: Rate and Rhythm: Normal rate. Pulmonary: Effort: Pulmonary effort is normal. Abdominal: General: There is no distension. Palpations: Abdomen is soft. Comments: Mild distension, soft, non tender Skin: General: Skin is warm and dry. Neurological: Mental Status: She is alert. Psychiatric: Mood and Affect: Mood normal. Drain/tube output: NG 400 ml LAB: CBC: Recent Labs 12/27/24 0411 WBC 6.1 HGB 11.8* HCT 36.1* MCV 95.3 PLT 256 BMP: Recent Labs 03/02/24 0411 NA 141 K 3.5* CL 106 CO2 26 BUN 13 CREATININE 0.7 GLUCOSE 95 RADIOLOGY: Mckayla Jaimes PA-C 03/02/2024, 11:04 AM Attending Note I have reviewed the above [facility] note(s). I have seen and examined the patient. I have discussed the findings, established the care plan and recommendations with the Advanced Practice Provider. Chief Complaint: abd distension Exam: Passing some flatus, abd soft Plan: PO CT scan, discussed with patient and . Luh Orr MD 03/02/2024 8:12 PM documented in this encounter [facility] History of Present illness Narrative 11-08-2023 Ira Harrison LPN - 11/08/2023 8:30 AM EDT Note Date & Type Note Facility 11-08-2023 History of Presen t illness Narrative Reason for Appointment: Patient ID: Nasrin Olmos is a 38 y.o. female who [...] nursing note reviewed. Exam conducted with a hand candle molder present. Vitals: Estimated body mass index is 34.12 kg/m as calculated from the following: Height as of 23: 5' 4 . Weight as of this [...] Sin Acosta DO documented in this encounter [facility] Healthcare Evaluation note Note Date & Type Note Facility Evaluation note Diagnosis Well woman exam with routine gynecological exam Routine gynecological examination documented in this encounter [facility] Healthcare Evaluation note Note Date & Type Note Facility Evaluation note Diagnosis SBO (small bowel obstruction) (HCC)- Primary Unspecified intestinal obstruction SBO (small bowel obstruction) (HCC) Unspecified intestinal obstruction documented in this encounter [facility] Evaluation note Note Date & Type Note Facility Evaluation note Diagnosis Change in bowel movement- Primary [facility] Inst[facility] Note Date & Type Note Facility Instructions Not on filedocumented in this en counter [facility] Discharge Instructions * Instructions* Prince Wiggins MD - 08/02/2018 Thank you for coming to an [facility] Emergency facility for your emergency care. Please [...] you may find a provider through the [facility] Physician Referral Service by calling [phone]) or by visiting [email or web address]. If you were prescribed any medications, be [...] sent through Care Everywhere. 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 Advance Directives and Otf hernandez Will 08/02/2018 3:07 AM Date Activated Date Inactivated Comments 03/01/2024 1:38 PM Summary Purpose Family History No Family History Records FoundNo Family History Records FoundNo Family History Records FoundNo Family History Records Found Additional Source Comments Reason for Visit (unrecogniz ed section and content) Reason Comments Sore Throat Otalgia Reason Comments Well Women Visit Reason Comments Abdominal Pain Specialty Diagnoses / Procedures Referred By Contac t Referred To Contact Diagnoses Small bowel obstruction (HCC) SBO (small bowel obstruction) (HCC) Luh Orr MD [facility] [address] [place] [address] [facility] [id number] [place] [address] Referral ID Status Reason Start Date Expiration Date Visits Re quested Visits Authorized [id number] 1 1 Judy Olvera RN - 08/02/2018 3:13 AM [...] file Gets together: Not on file Attends holiness service: Not on file Active member of club or organization: Not on file Attends meetings of clubs or organizations: Not on file Relationship status: Not on file Other Topics Concern Not on file Social History Narrative Not on file Social history reviewed. Allergies: No Known Allergies Medications: Nasrin Olmos [place] Medication Instructions Prior to Surgery GILBERTO:[id number] Printed on:08/02/18 8566 Medication Information Take last dose on Take the morning of surgery Comment(s) azithromycin (ZITHROMAX) 250 MG tablet Take 2 (two) tablets (500 mg total) by mouth daily for 4 days . traMADol (ULTRAM) 50 mg tablet Take 1 (one) tablet (50 mg total) by mouth every 4 (four) hours as needed for pain (Days supply per fill: 5) . PHYSICAL EXAMINATION: [place] body weight: 54.7 kg (120 lb 9.5 [...] provider, No primary care provider on file.. [facility] referral information was also provided. They were [...] section and content) DATE CREATED AUTHOR 10/16/2018 [facility] DATE CREATED AUTHOR 'S ORGANIZ ATION 12/05/2021 [facility] DATE CREATED AUTHOR AUTHOR'S ORGANIZ ATION 11/08/2023 [facility] DATE CREATED AUTHOR AUTHOR'S ORGANIZ ATION 03/07/2024 [facility] Scheduled Active and Recently Administ ered Medications (unrecognized section and content) Medication Order 03/01/2024 03/02/2024 03/03/2024 acetaminophen (TYLENOL) tablet 1,000 mg (CANCELED) 1,000 mg, Oral, EVERY 8 HOURS SCHEDULED (3 times per day), First dose on Amanda 03/01/24 at 1400, Until Discontinued, Maximum dose of acetaminophen is 4000 mg from all sources in 24 hours. 1705 (Given - Provider: Susan Reid RN) acetaminophen (TYLENOL) tablet 1,000 mg 1,000 mg, Oral, EVERY 8 HOURS SCHEDULED (3 times per day), First dose on 03/03/24 at 0815, Until Discontinued, Maximum dose of acetaminophen is 4000 mg from all sources in 24 hours. 1400 (Due)1617 (Not Given - Provider: David Hudson RN - Reason: Patient/family refused)2200 (Due) Acetaminophen SOLN 1,000 mg (CANCELED) 1,000 mg, Oral, Every 8 hours, First dose on Amanda 03/01/24 at 2045, Maximum dose of acetaminophen is 4000 mg from all sources in 24 hours. 0027 (Given - Provider: Maria Del Rosario Rosales RN)0809 (Given - Provider: Susan Reid RN)1628 (Given - Provider: Susan Reid RN)2247 (Not Given - Provider: Soraya Nguyễn RN - Reason: Patient/family refused) enoxaparin (LOVENOX) injection 40 mg 40 mg, SubCUTAneous, DAILY, First dose on Amanda 03/01/24 at 1700, Until Discontinued, Indication of Use: Prophylaxis-DVT/PE, Administer by deep subCUTAneous injection with pt lying down. Alternate injection sites on abdominal wall. Do not rub site after injection. Check with provider prior to any invasive procedure. 1705 (Given - Provider: Susan Reid RN) 0809 (Given - Provider: Susan Reid RN) 0936 (Not Given - Provider: David Hudson RN - Reason: Patient/family refused) ondansetron (ZOFRAN) injection 4 mg (COMPLETED) 4 mg, IntraVENous, ONCE, 1 dose, On Amanda 03/01/24 at 1315 1314 (Given - Provider: Judy Prieto RN) potassium chloride (KLOR-CON M) extended release tablet 20 mEq (CANCELED) 20 mEq, Oral, 2 TIMES DAILY, First dose on Tue03/02/24 at 0900, Until Discontinued, Do not crush, chew, or suck on tablet. Tablet may also be broken in half and each half swallowed separately. 1002 (Given - Provider: Susan Reid RN)1938 (Given - Provider: Soraya Nguyễn, RN) sodium chloride flush 0.9 % injection 5-40 mL 5-40 mL, IntraVENous, EVERY 12 HOURS SCHEDULED (2 times per day), First dose on Amanda 03/01/24 at 2100, Until Discontinued, For Line Patency: Peripheral IV = 5 mL; Midline or Central Line = 10 mL/lumen. If following IV push medication, administer flush at same rate as the IV push. Flush volume is determined by type of infusion therapy being given. For non-viscous solutions use: Peripheral IV = 5 mL Midline or Central Line = 10 mL/lumen For viscous solutions (i.e. blood components, parenteral nutrition, contrast media, or after obtaining blood sample) use: Peripheral IV = 10 mL Midline or Central Line = 20 mL/lumen 2033 (Not Given - Provider: Maria Del Rosario Rosales RN - Reason: IV Fluid Infusing) 0808 (Given - Provider: Susan Reid RN)193 (Not Given - Provider: Soraya Nguyễn RN - Reason: IV Fluid Infusing) 0936 (Given - Provider: David Hudson RN)2100 (Due) Continuous Medication Order 03/01/2024 03/02/2024 03/03/2024 lactated ringers infusion (CANCELED) IntraVENous, at 100 mL/hr, CONTINUOUS, Starting on Amanda 03/01/24 at 1345 1532 (New Bag - Provider: Susan Reid RN) 0030 (Stopped - Provider: Maria Del Rosario Rosales RN)0031 (New Bag - Provider: Maria Del Rosario Rosales RN)0224 (Paused - Provider: Maria Del Rosario Rosales RN)0230 (Paused - Provider: Maria Del Rosario Rosales RN)0230 (Restarted - Provider: Maria Del Rosario Rosales RN)0604 (Rate/Dose Verify - Provider: Maria Del Rosario Rosales RN)1503 (New Bag - Provider: Susan Reid RN) 1731 (Stopped - Provider: David Hudson RN) PRN Medication Order 03/01/2024 03/02/2024 03/03/2024 0.9 % sodium chloride infusion IntraVENous, at 5-250 mL/hr, PRN, if patient receiving piggyback infusions and maintenance fluids are not ordered, Starting on Amanda 03/01/24 at 1333, For piggyback infusion, administer at same rate as piggyback for a total of 25 mL. Enter 25 mL into dose field and piggyback rate into rate field of order. If piggyback is infusing at a rate less than 100 mL/hr, enter 25 mL into dose field and 100 mL/hr into rate field of order. iohexol (OMNIPAQUE 240) Oral 50 mL (COMPLETED) 50 mL, Oral, IMG ONCE PRN, 1 dose, Starting on 03/02/24 at 1151, Until Tue03/02/24 at 1157, Other 1157 (Given - Provider: Jinny Sanches) iopamidol (ISOVUE-370) 76 % injection 75 mL (COMPLETED) 75 mL, IntraVENous, IMG ONCE PRN, 1 dose, Starting on Tue03/02/24 at 1151, Until Tue03/02/24 at 1156, Other 1156 (Given - Provider: Jinny Sanches) ondansetron (ZOFRAN) injection 4 mg(Linked Group 1) 4 mg, IntraVENous, EVERY 6 HOURS PRN, Starting on Amanda 03/01/24 at 1333, Until Discontinued, Nausea, Vomiting, Administer if oral route cannot be used. ondansetron (ZOFRAN-ODT) disintegrating tablet 4 mg(Linked Group 1) 4 mg, Oral, EVERY 8 HOURS PRN, Starting on Amanda 03/01/24 at 1333, Until Discontinued, Nausea, Vomiting oxyCODONE (ROXICODONE) immediate release tablet 5 mg 5 mg, Oral, EVERY 4 HOURS PRN, Starting on 03/03/24 at 0751, Until Discontinued, Pain Severe (7-10) sodium chloride flush 0.9 % injection 5-40 mL 5-40 mL, IntraVENous, PRN, Starting on Amanda 03/01/24 at 1333, Until Discontinued, Line Care, After every IV line use, For Line Patency: Peripheral IV = 5 mL; Midline or Central Line = 10 mL/lumen. If following IV push medication, administer flush at same rate as the IV push. Flush volume is determined by type of infusion therapy being given. For non-viscous solutions use: Peripheral IV = 5 mL Midline or Central Line = 10 mL/lumen For viscous solutions (i.e. blood components, parenteral nutrition, contrast media, or after obtaining blood sample) use: Peripheral IV = 10 mL Midline or Central Line = 20 mL/lumen Linked Groups Order Group 1: ondansetron (ZOFRAN-ODT) disintegrating tablet 4 mgJump to med 4 mg, Oral, EVERY 8 HOURS PRN, Starting on Amanda 03/01/24 at 1333, Until Discontinued, Nausea, Vomiting Or ondansetron (ZOFRAN) injection 4 mgJump to med 4 mg, IntraVENous, EVERY 6 HOURS PRN, Starting on Amanda 03/01/24 at 1333, Until Discontinued, Nausea, Vomiting, Administer if oral route cannot be used. Care Teams (unrecognized sec tion and content) Apricot Washer Relationship Specialty Start Date End Date Raymond Ching DO PCP - General 06/03/11 Apricot Washer Relationship Specialty Start Date End Date Janett Hardin, FOOD ASSEMBLER-FARM RANCHER [address], [place] [address] PCP - General Family Medicine 08/08/18 FOR RECORDS PERTAINING TO PATIENTS WHO ARE [...] BE BASED ON THE PRIMARY CLINICAL RECORDS. [facility]. provides no warranty or guarantee of the accuracy or completeness of information in this document.
== END 2024-03-16 12:37 | disposition home or self-care (01) ==
LOC: PST 12:36
PROVIDERS: PCP Nurse Practitioner; Visit Provider Surgery
DX: Z01.818 Encounter for other preprocedural examination (principal); R94.8 Abnormal results of function studies of other organs and systems; Z12.11 Encounter for screening for malignant neoplasm of colon

== ENCOUNTER 2024-03-21 10:34 | Day surgery (SDC) | payer OTHER, SELFPAY ==
--- OUTSIDE RECORDS SUMMARY | 2024-03-21 10:54 | XMS_ITS | CCD ---
Author Organization [facility] Care Team Providers Care African History Professor Name Role Phone Nora, Physician Primary Care Provider PRINCE Saavedra Attending Tatiana WELDON, PHYSICIAN Primary Care Unavailable JANETT HARDIN Attending Unavailable JANETT HARDIN Consulting Unavailable JANETT HARDIN Primary Care Unavailable JANETT HARDIN Admitting Unavailable SIN ACOSTA Attending Unavailable Unavailable Primary Care Provider Raymond Schroeder DO Primary Care Provider Wilfred LVN-Janett JACKSON Primary Care Provid er RAYMOND CHING Primary Care Unavailable [facility] Consulting Unavailable [facility] Admitting Unavailable [facility] Attending Unavailable JESSICA STEEN Consulting Unavailable JORDEN GUZMÁN Attending Unavailable JANETT HARDIN Referring Unavailable JANETT HARDIN Primary Care Unavailable Medications Current Medications Medication Drug Class(es) [...] / pyrilamine maleate 1.5 mg/ml oral solution (2 sources) Uncompetitive U-jordhd-D-aspartate Receptor Antagonist, Sigma-1 Agonist Start: 01-31-2023 End: 03-15-2024 take 5 mL by mouth four times daily as needed for cough and congestion pyrilamine-dextromethorphan 7.5-7.5 mg/5 mL liquid Indications: COVID Take 5 mL by mouth 4 (four) times a day as needed (cough and congestion). 200 mL 1 01/31/2023 03/15/2024 Discontinued (Therapy completed) ibuprofen 800 mg oral tablet (3 sources) Nonsteroidal Anti-inflammatory Drug Start: 11-10-2022 take [...] 03-01-2024 ondansetron (ZOFRAN-ODT) disintegrating tablet 4 mg peg 3350-sod sulf,xxui-vpy-bmd 178.7-7.3-0.5 gram recon soln (1 source) Start: 03-15-2024 End: 03-16-2024 peg 3350-sod sulf,tyvf-wos-pxv 178.7-7.3-0.5 gram recon soln Indications: Abnormal CT scan, gastrointestinal tract Take 1 kit by mouth once daily for 1 dose. Please see instructional sheet given by physicians office. 1 each 03/15/2024 03/16/2024 Active VITAMINS PO (1 source) Start: 12-09-2010 take [...] (3 times per day), First dose on [facility] 03/03/24 at 0815, Until Discontinued, Maximum dose [...] (2 times per day), First dose on Tue03/01/24 at 2100, Until Discontinued, For Line Patency: [...] as to partial versus complete obstruction] Onset: 4 03-01-2024 Episodic Other ear and sense organ disorders (2 sources) Hearing loss in left ear; Translations: [Unspecified hearing loss, left ear] Onset: 9 09-27-2018 Chronic Other ear and sense organ disorders (1 source) Otalgia, left ear; Translations: [Left ear pain] Episodic Other gastrointestinal disorders (3 sources) Altered bowel function; Translations: [Other specified symptoms and signs involving the digestive system and abdomen] 03-05-2024 Episodic Other gastrointestinal disorders (1 source) Other specified symptoms and signs involving the digestive system and abdomen; Translations: [Other specified symptoms and signs involving the digestive system and abdomen] Onset: 5 Episodic Other screening for suspected conditions (not mental disorders or infectious disease) (3 sources) Imaging of gastrointestinal tract abnormal; Translations: [Abnormal findings on diagnostic imaging of other parts of digestive tract] Onset: 5 03-15-2024 Episodic Other upper respiratory infections (1 source) Pharyngitis; Translations: [Pharyngitis, unspecified etiology] Episodic Unclassified (1 source) Change in Bowel Habits Onset: 5 Past or Other Problems Problem Classification Problem Date Documented Da te Episodic/Chronic Hemorrhage during ; abruptio placenta; placenta previa (3 sources) Placenta previa without hemorrhage; Translations: [Complete placenta previa NOS or without hemorrhage, unspecified trimester] Onset: 06-10-2011 06-10-2011 Episodic Mood disorders (2 sources) Mood disorders Onset: 03-05-2022 03-05-2022 Other complications of (3 sources) Supervision of resulting from assisted reproductive technology, unspecified trimester; Translations: [ resulting from assisted reproductive technology] Onset: 06-10-2011 06-10-2011 Episodic Other ear and sense organ disorders (2 sources) Impacted cerumen in left ear; Translations: [Impacted cerumen, left ear] Onset: 08-08-2018 09-05-2018 Episodic Unclassified (2 sources) Onset: 11-11-2022 11-11-2022 Results Test Name Value Interpretation Reference Range Facility Calprotectin, Fecalon 2023 Calprotectin, Fecal 1430 ug/g High <=49 [facility] Comment on above: Result Comment: (NOT E) REFERENCE INTERVAL: Calprotectin, Fecal by Immunoassay Less than 50 ug/g.........Normal 50-120 ug/g...............Borderline elevated, test should be re-evaluated in 4-6 weeks. 121 ug/g or greater.......Elevated Performed By: [place] [address] Pediatric Dietician: Shahriar Gill MD, PhD CLIA Number: [id number] Performed By: #### A CALPF #### [place] [address] Baby Doctor: Kareem Alvarez MD Basic Metab w/rfx MGon 03-03 Anion gap [Moles/Vol] 10 mmol/L Normal 9-16 [facility] Comment on above: Performed By: #### C DP, BMPX, CRP, ROLA, SED, MG #### [address] [address] Baby Doctor: Diego Mortensen MD Calcium [Mass/Vol] 8.5 mg/dL Low 8.6-10.4 [facility] Comment on above: Performed By: #### C DP, BMPX, CRP, ROLA, SED, MG #### [address] [address] Baby Doctor: Diego Mortensen MD Chloride [Moles/Vol] 105 mmol/L Normal 98-107 [facility] Comment on above: Performed By: #### C DP, BMPX, CRP, ROLA, SED, MG #### [address] [address] Baby Doctor: Diego Mortensen MD CO2 [Moles/Vol] 23 mmol/L Normal 20-31 [facility] Comment on above: Performed By: #### C DP, BMPX, CRP, ROLA, SED, MG #### [address] [address] Baby Doctor: Diego Mortensen MD Creatinine [Mass/Vol] 0.6 mg/dL Normal 0.6-0.9 [facility] Comment on above: Performed By: #### C DP, BMPX, CRP, ROLA, SED, MG #### [address] [address] Baby Doctor: Diego Mortensen MD GFR/1.73 sq M.predicted among non-blacks MDRD (S/P/Bld) [Vol rate/Area] mL/min/{1.73_m2} Normal >60 [facility] Comment on above: Result Comment: These results [...] DP, BMPX, CRP, ROLA, SED, MG #### [address] [address] Baby Doctor: Diego Mortensen MD Glucose [Mass/Vol] 78 mg/dL Normal 74-99 [facility] Comment on above: Performed By: #### C DP, BMPX, CRP, ROLA, SED, MG #### [address] [address] Baby Doctor: Diego Mortensen MD Potassium [Moles/Vol] 3.9 mmol/L Normal 3.7-5.3 [facility] Comment on above: Performed By: #### C DP, BMPX, CRP, ROLA, SED, MG #### [facility] [address] [place] [phone] Baby Doctor: Diego Mortensen MD Sodium [Moles/Vol] 138 mmol/L Normal 136-145 [facility] Comment on above: Performed By: #### C DP, BMPX, CRP, ROLA, SED, MG #### [facility] [address] [place] [address] Baby Doctor: Diego Mortensen MD Urea nitrogen [Mass/Vol] 8 mg/dL Normal 6-20 [facility] Comment on above: Performed By: #### C DP, BMPX, CRP, ROLA, SED, MG #### [facility] [address] [place] [phone] Baby Doctor: Diego Mortensen MD Basic Metabolic Panel w/ Ref nataly to MGon 03-03-2024 Anion gap [Moles/Vol] 10 mmol/L 9 - 16 mmol/L [facility] Calcium [Mass/Vol] 8.5 mg/dL Low 8.6 - 10. 4 mg/dL [facility] Chloride [Moles/Vol] 105 mmol/L 98 - 107 mmol/L [facility] CO2 [Moles/Vol] 23 mmol/L 20 - 31 mmol/L [facility] Creatinine [Mass/Vol] 0.6 mg/dL 0.6 - 0.9 mg/dL [facility] Est, Glom Filt Rate - PINF [facility] Comment on above: These results are [...] [Mass/Vol] 78 mg/dL 74 - 99 mg/dL [facility] Potassium [Moles/Vol] 3.9 mmol/L 3.7 - 5.3 mmol/L [facility] Sodium [Moles/Vol] 138 mmol/L 136 - 145 mmol/L [facility] Urea nitrogen [Mass/Vol] 8 mg/dL 6 - 20 mg/dL [facility] C-Reactive Proteinon 024 CRP High sensitivity method [Mass/Vol] 15.4 mg/L High 0.0 - 5.0 mg/L [facility] CRP [Mass/Vol] 15.4 mg/L High 0.0-5.0 [facility] Comment on above: Performed By: #### C DP, BMPX, CRP, ROLA, SED, MG #### [facility] [place] [address] Baby Doctor: Diego Mortensen MD CBC with Auto Differentialon 03-03-2024 Basophils (Bld) [#/Vol] [facility] Basophils/100 WBC (Bld) 0 % 0 - 2 % [facility] Eosinophils (Bld) [#/Vol] 0.05 10*3/uL [facility] Eosinophils/100 WBC (Bld) 1 % 1 - 4 % [facility] Erythrocyte distribution width (RBC) [Ratio] 11.9 % 11.8 - 14.4 % [facility] Hematocrit (Bld) [Volume fraction] 35.3 % Low 36.3 - 47.1 % [facility] Hemoglobin (Bld) [Mass/Vol] 11.6 g/dL Low 11.9 - 15.1 g/dL [facility] Immature granulocytes (Bld) [#/Vol] [facility] Immature granulocytes/100 WBC (Bld) 0 % 0 [facility] Interpretation and review of laboratory results Abnormal [facility] Lymphocytes/100 WBC (Bld) 29 % 24 - 43 % [facility] Lymphocytes/100 WBC (Bld) 1.36 % [facility] MCH (RBC) [Entitic mass] 31.8 pg 25.2 - 33.5 pg [facility] MCHC (RBC) [Mass/Vol] 32.9 g/dL 28.4 - 34.8 g/dL [facility] MCV (RBC) [Entitic vol] 96.7 fL 82.6 - 102.9 fL [facility] Monocytes/100 WBC (Bld) 11 % 3 - 12 % [facility] Monocytes/100 WBC (Bld) 0.52 % [facility] Neutrophils/100 WBC (Bld) 59 % 36 - 65 % [facility] Nucleated RBC/100 WBC (Bld) [Ratio] 0.0 % 0.0 per 100 WBC [facility] Platelet mean volume (Bld) [Entitic vol] 9.8 fL 8.1 - 13.5 fL [facility] Platelets (Bld) [#/Vol] 243 10*3/uL [facility] RBC (Bld) [#/Vol] 3.65 10*6/uL Low 3.95 - 5.1 1 m/uL [facility] Segmented neutrophils/100 WBC (Bld) 2.78 % [facility] WBC other (Bld) [#/Vol] 4.8 [facility] CBC with Diffon 03-03-2024 Abs. Basophil <0.03 Normal 0.00-0.20 [facility] Comment on above: Performed By: #### C DP, BMPX, CRP, ROLA, SED, MG #### [facility] [address] [place] [phone] Baby Doctor: Diego Mortensen MD Abs.Imm.Granulocyte <0.03 Normal 0.00-0.30 [facility] Comment on above: Performed By: #### C DP, BMPX, CRP, ROLA, SED, MG #### [facility] [address] [place] [address] Baby Doctor: Diego Mortensen MD Abs.Neutrophil (Seg) 2.78 k/uL Normal 1.50-8.10 [facility] Comment on above: Performed By: #### C DP, BMPX, CRP, ROLA, SED, MG #### [facility] [address] [place] [address] Baby Doctor: Diego Mortensen MD Basophils/100 WBC (Bld) 0 % Normal 0-2 [facility] Comment on above: Performed By: #### C DP, BMPX, CRP, ROLA, SED, MG #### [facility] [address] [place] [phone] Baby Doctor: Diego Mortensen MD Eosinophils (Bld) [#/Vol] 0.05 10*3/uL Normal 0.00-0.44 [facility] Comment on above: Performed By: #### C DP, BMPX, CRP, ROLA, SED, MG #### [facility] [address] [place] [address] Baby Doctor: Diego Mortensen MD Eosinophils/100 WBC (Bld) 1 % Normal 1-4 [facility] Comment on above: Performed By: #### C DP, BMPX, CRP, ROLA, SED, MG #### [facility] [address] [place] [address] [phone] Baby Doctor: Diego Mortensen MD Erythrocyte distribution width (RBC) [Ratio] 11.9 % Normal 11.8-14.4 [facility] Comment on above: Performed By: #### C DP, BMPX, CRP, ROLA, SED, MG #### [facility] [address] [place] [phone] Baby Doctor: Diego Mortensen MD Hematocrit (Bld) [Volume fraction] 35.3 % Low 36.3-47.1 [facility] Comment on above: Performed By: #### C DP, BMPX, CRP, ROLA, SED, MG #### [facility] [address] [place] [phone] Baby Doctor: Diego Mortensen MD Hemoglobin (Bld) [Mass/Vol] 11.6 g/dL Low 11.9-15.1 [facility] Comment on above: Performed By: #### C DP, BMPX, CRP, ROLA, SED, MG #### [facility] [address] [place] [phone] Baby Doctor: Diego Mortensen MD Immature granulocytes/100 WBC (Bld) 0 % Normal 0 [facility] Comment on above: Performed By: #### C DP, BMPX, CRP, ROLA, SED, MG #### [facility] [address] [place] [phone] Baby Doctor: Diego Mortensen MD Lymphocytes (Bld) [#/Vol] 1.36 10*3/uL Normal 1.10-3.70 [facility] Comment on above: Performed By: #### C DP, BMPX, CRP, ROLA, SED, MG #### [facility] [address] [place] [address] Baby Doctor: Diego Mortensen MD Lymphocytes/100 WBC (Bld) 29 % Normal 24-43 [facility] Comment on above: Performed By: #### C DP, BMPX, CRP, ROLA, SED, MG #### [address] [address] Baby Doctor: Diego Mortensen MD MCH (RBC) [Entitic mass] 31.8 pg Normal 25.2-33.5 [facility] Comment on above: Performed By: #### C DP, BMPX, CRP, ROLA, SED, MG #### [place] [address] Baby Doctor: Diego Mortensen MD MCHC (RBC) [Mass/Vol] 32.9 g/dL Normal 28.4-34.8 [facility] Comment on above: Performed By: #### C DP, BMPX, CRP, ROLA, SED, MG #### [address] [address] Baby Doctor: Diego Mortensen MD MCV (RBC) [Entitic vol] 96.7 fL Normal 82.6-102.9 [facility] Comment on above: Performed By: #### C DP, BMPX, CRP, ROLA, SED, MG #### [place] [address] Baby Doctor: Diego Mortensen MD Monocytes (Bld) [#/Vol] 0.52 10*3/uL Normal 0.10-1.20 [facility] Comment on above: Performed By: #### C DP, BMPX, CRP, ROLA, SED, MG #### [address] [address] Baby Doctor: Diego Mortensen MD Monocytes/100 WBC (Bld) 11 % Normal 3-12 [facility] Comment on above: Performed By: #### C DP, BMPX, CRP, ROLA, SED, MG #### [address] [address] Baby Doctor: Diego Mortensen MD Neutrophil (Seg) 59 % Normal 36-65 [facility] Comment on above: Performed By: #### C DP, BMPX, CRP, ROLA, SED, MG #### [address] [address] Baby Doctor: Diego Mortensen MD NRBC Automated 0.0 per 100 WBC Normal 0.0 [facility] Comment on above: Performed By: #### C DP, BMPX, CRP, ROLA, SED, MG #### [address] [address] Baby Doctor: Diego Mortensen MD Platelet mean volume (Bld) [Entitic vol] 9.8 fL Normal 8.1-13.5 [facility] Comment on above: Performed By: #### C DP, BMPX, CRP, ROLA, SED, MG #### [address] [address] Baby Doctor: Diego Mortensen MD Platelets (Bld) [#/Vol] 243 10*3/uL Normal 138-453 [facility] Comment on above: Performed By: #### C DP, BMPX, CRP, ROLA, SED, MG #### [address] [address] Baby Doctor: Diego Mortensen MD RBC (Bld) [#/Vol] 3.65 10*6/uL Low 3.95-5.11 [facility] Comment on above: Performed By: #### C DP, BMPX, CRP, ROLA, SED, MG #### [address] [address] Baby Doctor: Diego Mortensen MD WBC (Bld) [#/Vol] 4.8 10*3/uL Normal 3.5-11.3 [facility] Comment on above: Performed By: #### C DP, BMPX, CRP, ROLA, SED, MG #### [facility] [address] [place] [address] [phone] Baby Doctor: Diego Mortensen MD Calcium, Ionicon 03-03-2024 Calcium [Moles/Vol] 1.19 mmol/L Normal 1.13-1.33 [facility] Comment on above: Performed By: #### I OCAL #### [facility] [address] [place] [address] [phone] Baby Doctor: Diego Mortensen MD Calcium, Ionizedon Calcium.ionized (Bld) [Moles/Vol] 1.19 mmol/L 1.13 - 1.33 mmol/L [facility] Magnesiumon 03-03-2024 Magnesium [Mass/Vol] 2.1 mg/dL 1.6 - 2.6 mg/dL [facility] Magnesium [Mass/Vol] 2.1 mg/dL Normal 1.6-2.6 [facility] Comment on above: Performed By: #### C DP, BMPX, CRP, ROLA, SED, MG #### [facility] [address] [place] [phone] Baby Doctor: Diego Mortensen MD No Panel Informationon 03-03 Interpretation and review of laboratory results Abnormal [facility] Phosphoruson 03-03-2024 Phosphate [Mass/Vol] 2.1 mg/dL Low 2.5 - 4.5 mg/dL [facility] Phosphorus, Inorg.on 024 Phosphorus, Inorg. 2.1 mg/dL Low 2.5-4.5 [facility] Comment on above: Performed By: #### C DP, BMPX, CRP, ROLA, SED, MG #### [facility] [address] [place] [address] [phone] Baby Doctor: Diego Mortensen MD Sedimentation Rateon 024 ESR Photometric method (Bld) [Velocity] 22 High [facility] Interpretation and review of laboratory results Abnormal [facility] Sedimentation Rate 22 mm/Hr High 0-20 [facility] Comment on above: Performed By: #### C DP, BMPX, CRP, ROLA, SED, MG #### [facility] [address] [place] [phone] Baby Doctor: Diego Mortensen MD Basic Metab w/rfx MGon 03-02 Anion gap [Moles/Vol] 9 mmol/L Normal 9-16 [facility] Comment on above: Performed By: #### C DP, BMPX, CRP, ROLA, SED, MG #### [address] [address] Baby Doctor: Diego Mortensen MD Calcium [Mass/Vol] 8.4 mg/dL Low 8.6-10.4 [facility] Comment on above: Performed By: #### C DP, BMPX, CRP, ROLA, SED, MG #### [facility] [address] [place] [phone] Baby Doctor: Diego Mortensen MD Chloride [Moles/Vol] 106 mmol/L Normal 98-107 [facility] Comment on above: Performed By: #### C DP, BMPX, CRP, ROLA, SED, MG #### [facility] [address] [place] [phone] Baby Doctor: Diego Mortensen MD CO2 [Moles/Vol] 26 mmol/L Normal 20-31 [facility] Comment on above: Performed By: #### C DP, BMPX, CRP, ROLA, SED, MG #### [facility] [address] [place] [phone] Baby Doctor: Diego Mortensen MD Creatinine [Mass/Vol] 0.7 mg/dL Normal 0.6-0.9 [facility] Comment on above: Performed By: #### C DP, BMPX, CRP, ROLA, SED, MG #### [address] [phone] Baby Doctor: Diego Mortensen MD GFR/1.73 sq M.predicted among non-blacks MDRD (S/P/Bld) [Vol rate/Area] mL/min/{1.73_m2} Normal >60 [facility] Comment on above: Result Comment: These results [...] DP, BMPX, CRP, ROLA, SED, MG #### [address] [address] Baby Doctor: Diego Mortensne MD Glucose [Mass/Vol] 95 mg/dL Normal 74-99 [facility] Comment on above: Performed By: #### C DP, BMPX, CRP, ROLA, SED, MG #### [address] [phone] Baby Doctor: Diego Mortensen MD Potassium [Moles/Vol] 3.5 mmol/L Low 3.7-5.3 [facility] Comment on above: Performed By: #### C DP, BMPX, CRP, ROLA, SED, MG #### [address] [phone] Baby Doctor: Diego Mortensen MD Sodium [Moles/Vol] 141 mmol/L Normal 136-145 [facility] Comment on above: Performed By: #### C DP, BMPX, CRP, ROLA, SED, MG #### [facility] [address] [place], [place] [address], [place] [address] Baby Doctor: Diego Mortensen MD Urea nitrogen [Mass/Vol] 13 mg/dL Normal 6-20 [facility] Comment on above: Performed By: #### C DP, BMPX, CRP, ROLA, SED, MG #### [facility] [place], [place] [phone] Baby Doctor: Diego Mortensen MD Basic Metabolic Panel w/ Ref nataly to MGon 03-02-2024 Anion gap [Moles/Vol] 9 mmol/L 9 - 16 mmol/L [facility] Calcium [Mass/Vol] 8.4 mg/dL Low 8.6 - 10. 4 mg/dL [facility] Chloride [Moles/Vol] 106 mmol/L 98 - 107 mmol/L [facility] CO2 [Moles/Vol] 26 mmol/L 20 - 31 mmol/L [facility] Creatinine [Mass/Vol] 0.7 mg/dL 0.6 - 0.9 mg/dL [facility] [employer] Est, Glom Filt Rate - PINF [facility] Comment on above: These results are [...] [Mass/Vol] 95 mg/dL 74 - 99 mg/dL [facility] Interpretation and review of laboratory results Abnormal [facility] [employer] Potassium [Moles/Vol] 3.5 mmol/L Low 3.7 - 5.3 mmol/L [facility] Sodium [Moles/Vol] 141 mmol/L 136 - 145 mmol/L [facility] Urea nitrogen [Mass/Vol] 13 mg/dL 6 - 20 mg/dL [facility] CBC with Auto Differentialon 03-02-2024 Basophils (Bld) [#/Vol] [facility] Basophils/100 WBC (Bld) 0 % 0 - 2 % [facility] Eosinophils (Bld) [#/Vol] 0.04 10*3/uL [facility] Eosinophils/100 WBC (Bld) 1 % 1 - 4 % [facility] Erythrocyte distribution width (RBC) [Ratio] 12.1 % 11.8 - 14.4 % [facility] Hematocrit (Bld) [Volume fraction] 36.1 % Low 36.3 - 47.1 % [facility] Hemoglobin (Bld) [Mass/Vol] 11.8 g/dL Low 11.9 - 15.1 g/dL [facility] Immature granulocytes (Bld) [#/Vol] [facility] Immature granulocytes/100 WBC (Bld) 0 % 0 [facility] Interpretation and review of laboratory results Abnormal [facility] Lymphocytes/100 WBC (Bld) 19 % Low 24 - 43 % [facility] Lymphocytes/100 WBC (Bld) 1.16 % [facility] MCH (RBC) [Entitic mass] 31.1 pg 25.2 - 33.5 pg [facility] MCHC (RBC) [Mass/Vol] 32.7 g/dL 28.4 - 34.8 g/dL [facility] MCV (RBC) [Entitic vol] 95.3 fL 82.6 - 102.9 fL [facility] Monocytes/100 WBC (Bld) 11 % 3 - 12 % [facility] Monocytes/100 WBC (Bld) 0.65 % [facility] Neutrophils/100 WBC (Bld) 69 % High 36 - 65 % [facility] Nucleated RBC/100 WBC (Bld) [Ratio] 0.0 % 0.0 per 100 WBC [facility] Platelet mean volume (Bld) [Entitic vol] 9.9 fL 8.1 - 13.5 fL [facility] Platelets (Bld) [#/Vol] 256 10*3/uL [facility] RBC (Bld) [#/Vol] 3.79 10*6/uL Low 3.95 - 5.1 1 m/uL [facility] Segmented neutrophils/100 WBC (Bld) 4.25 % [facility] WBC other (Bld) [#/Vol] 6.1 [facility] CBC with Diffon 03-02-2024 Abs. Basophil <0.03 Normal 0.00-0.20 [facility] Comment on above: Performed By: #### C DP, BMPX, CRP, ROLA, SED, MG #### [place] [address] Baby Doctor: Diego Mortensen MD Abs.Imm.Granulocyte <0.03 Normal 0.00-0.30 [facility] Comment on above: Performed By: #### C DP, BMPX, CRP, ROLA, SED, MG #### [place] [address] Baby Doctor: Diego Mortensen MD Abs.Neutrophil (Seg) 4.25 k/uL Normal 1.50-8.10 [facility] Comment on above: Performed By: #### C DP, BMPX, CRP, ROLA, SED, MG #### [place] [address] Baby Doctor: Diego Mortensen MD Basophils/100 WBC (Bld) 0 % Normal 0-2 [facility] Comment on above: Performed By: #### C DP, BMPX, CRP, ROLA, SED, MG #### [place] [address] Baby Doctor: Diego Mortensen MD Eosinophils (Bld) [#/Vol] 0.04 10*3/uL Normal 0.00-0.44 [facility] Comment on above: Performed By: #### C DP, BMPX, CRP, ROLA, SED, MG #### [facility] [employer] [address] [place] [id number] Baby Doctor: Diego Mortensen MD Eosinophils/100 WBC (Bld) 1 % Normal 1-4 [facility] Comment on above: Performed By: #### C DP, BMPX, CRP, ROLA, SED, MG #### [address] [address] Baby Doctor: Diego Mortensen MD Erythrocyte distribution width (RBC) [Ratio] 12.1 % Normal 11.8-14.4 [facility] Comment on above: Performed By: #### C DP, BMPX, CRP, ROLA, SED, MG #### [address] [address] Baby Doctor: Diego Mortensen MD Hematocrit (Bld) [Volume fraction] 36.1 % Low 36.3-47.1 [facility] Comment on above: Performed By: #### C DP, BMPX, CRP, ROLA, SED, MG #### [address] [address] Baby Doctor: Diego Mortensen MD Hemoglobin (Bld) [Mass/Vol] 11.8 g/dL Low 11.9-15.1 [facility] Comment on above: Performed By: #### C DP, BMPX, CRP, ROLA, SED, MG #### [address] [address] Baby Doctor: Diego Mortensen MD Immature granulocytes/100 WBC (Bld) 0 % Normal 0 [facility] Comment on above: Performed By: #### C DP, BMPX, CRP, ROLA, SED, MG #### [address] [address] Baby Doctor: Diego Mortensen MD Lymphocytes (Bld) [#/Vol] 1.16 10*3/uL Normal 1.10-3.70 [facility] Comment on above: Performed By: #### C DP, BMPX, CRP, ROLA, SED, MG #### [address] [address] Baby Doctor: Diego Mortensen MD Lymphocytes/100 WBC (Bld) 19 % Low 24-43 [facility] Comment on above: Performed By: #### C DP, BMPX, CRP, ROLA, SED, MG #### [address] [address] Baby Doctor: Diego Mortensen MD MCH (RBC) [Entitic mass] 31.1 pg Normal 25.2-33.5 [facility] Comment on above: Performed By: #### C DP, BMPX, CRP, ROLA, SED, MG #### [address] [address] Baby Doctor: Diego Mortensen MD MCHC (RBC) [Mass/Vol] 32.7 g/dL Normal 28.4-34.8 [facility] Comment on above: Performed By: #### C DP, BMPX, CRP, ROLA, SED, MG #### [address] [address] Baby Doctor: Diego Mortensen MD MCV (RBC) [Entitic vol] 95.3 fL Normal 82.6-102.9 [facility] Comment on above: Performed By: #### C DP, BMPX, CRP, ROLA, SED, MG #### [address] [address] Baby Doctor: Diego Mortensen MD Monocytes (Bld) [#/Vol] 0.65 10*3/uL Normal 0.10-1.20 [facility] Comment on above: Performed By: #### C DP, BMPX, CRP, ROLA, SED, MG #### [address] [address] Baby Doctor: Diego Mortensen MD Monocytes/100 WBC (Bld) 11 % Normal 3-12 [facility] Comment on above: Performed By: #### C DP, BMPX, CRP, ROLA, SED, MG #### [address] [address] Baby Doctor: Diego Mortensen MD Neutrophil (Seg) 69 % High 36-65 [facility] Comment on above: Performed By: #### C DP, BMPX, CRP, ROLA, SED, MG #### [address] [address] Baby Doctor: Diego Mortensen MD NRBC Automated 0.0 per 100 WBC Normal 0.0 [facility] Comment on above: Performed By: #### C DP, BMPX, CRP, ROLA, SED, MG #### [address] [address] Baby Doctor: Diego Mortensen MD Platelet mean volume (Bld) [Entitic vol] 9.9 fL Normal 8.1-13.5 [facility] Comment on above: Performed By: #### C DP, BMPX, CRP, ROLA, SED, MG #### [address] [address] Baby Doctor: Diego Mortensen MD Platelets (Bld) [#/Vol] 256 10*3/uL Normal 138-453 [facility] Comment on above: Performed By: #### C DP, BMPX, CRP, ROLA, SED, MG #### [address] [address] Baby Doctor: Diego Mortensen MD RBC (Bld) [#/Vol] 3.79 10*6/uL Low 3.95-5.11 [facility] Comment on above: Performed By: #### C DP, BMPX, CRP, ROLA, SED, MG #### [address] [address] Baby Doctor: Diego Mortensen MD WBC (Bld) [#/Vol] 6.1 10*3/uL Normal 3.5-11.3 [facility] Comment on above: Performed By: #### C DP, BMPX, CRP, ROLA, SED, MG #### [facility] [employer] [facility] [place] [address] Baby Doctor: Diego Mortensen MD CT ABDOMEN PELVIS W [...] Isacc Castelan MD 03/02/24 Final result Normal [facility] CT Abdomen and Pelvis Fabby Bowden 03-02-2024 1. Mural thickening involving distal small [...] recent contrast administration. 4. Mild bibasilar atelectasis. [facility] Radiology Study observation (narrative) [facility] CT Abdomen and Pelvis W cont rast IVOrdered By: Isacc Castelan on 03-02-2024 [facility] Work Phone: Lactic Acidon 03-02-2024 Lactic Acid, Whole Blood 1.2 mmol/L 0.7 - 2.1 mmol/L [facility] Lactic Acid,Whole Bl 1.2 mmol/L Normal 0.7-2.1 [facility] Comment on above: Performed By: #### C DP, LACTIC, BMPX, MG #### [address] [address] [place] [address] Baby Doctor: Diego Mortensen MD Magnesiumon 03-02-2024 Magnesium [Mass/Vol] 2.0 mg/dL 1.6 - 2.6 mg/dL [facility] Magnesium [Mass/Vol] 2.0 mg/dL Normal 1.6-2.6 [facility] Comment on above: Performed By: #### C DP, BMPX, CRP, ROLA, SED, MG #### [facility] [address] [place] [address] Baby Doctor: Diego Mortensen MD No Panel Informationon 03-02 [facility] IGP,APTIMA HPV,AGE GDLNon AGE GDLN ACOG TESTING Note . [facility] Comment on above: TESTS RESULT FLAG UN ITS REF RANGE LAB Clinician Provided Cytology Information Source.............Cervix;Endocervix No. of containers..01 ThinPrep Vial Age Algo ACOG Dahlia... FLAG LEGEND: L-Low Normal,H-High Normal,LL-Alert Low,HH-Alert High <-Panic Low,>-Panic High,A-Abnormal,AA-Critical Abnormal Performed at: 01 = [employer] [address] Darline Garcia MD, HPV APTIMA Negative Negative [facility] Comment on above: This nucleic acid am plification test detects fourteen high- risk HPV types (16,18,31,33,35,39,45,51,52,56,58,59,66,68) without differentiation. Performed at: = - [facility] [id number] Baby Doctor: Darline Garcia MD, Phone: [phone] Performed at: [facility] [address] [place] [id number] Baby Doctor: Bonifacio Evans MD, Phone: [phone] IGP, APTIMA HPV, RFX 16/18,45 Note . [facility] Comment on above: TESTS RESULT FLAG UN ITS REF RANGE LAB DIAGNOSIS: 02 NEGATIVE FOR INTRAEPITHELIAL LESION OR MALIGNANCY. Specimen adequacy: 02 Satisfactory for evaluation. Endocervical and/or squamous metaplastic cells (endocervical component) are present. Performed by: Jessica Garcia, Construction [employer] (ASC) . 02 Note: Note 03 The Pap [...] High,A-Abnormal,AA-Critical Abnormal Performed at: 02 [facility] [address] [place] [address] Bonifacio Evans MD, 03 WB [facility] [address] [address] Darline Garcia MD, BRUSH-SPATULA CERVIX ENDOCERVIX [facility] CBC AUTO DIFFon 11-14-2021 BASO # 0.0 103/ul Normal 0.0-0.1 [facility] Comment on above: Performed By: #### C BC #### [facility] [address] [place] [address] Dr. Alejandro Grijalva Basophils/100 WBC (Bld) 0.2 % Normal 0.2-2.0 [facility] Comment on above: Performed By: #### C BC #### [facility] [address] [place] [address] Dr. Alejandro Grijalva EO # 0.0 103/ul Normal 0.0-0.7 [facility] Comment on above: Performed By: #### C BC #### [facility] [address] [place] [address] Dr. Alejandro Grijalva Eosinophils/100 WBC (Bld) 0.7 % Critically low 0.9-7.0 [facility] Comment on above: Performed By: #### C BC #### [facility] [address] [place] [address] Dr. Alejandro Grijalva Erythrocyte distribution width (RBC) [Ratio] 11.8 % Normal 11.0-15.0 [facility] Comment on above: Performed By: #### C BC #### [facility] [address] [place] [address] Dr. Alejandro Grijalva Hematocrit (Bld) [Volume fraction] 40.5 % Normal 36.0-48.0 [facility] Comment on above: Performed By: #### C BC #### [facility] [address] [place] [address] Dr. Alejandro Grijalva Hemoglobin (Bld) [Mass/Vol] 13.5 g/dL Normal 12.0-16.0 [facility] Comment on above: Performed By: #### C BC #### [facility] [address] [place] [address] Dr. Alejandro Grijalva IG # 0.02 10e3/ul Normal 0.00-0.03 [facility] Comment on above: Performed By: #### C BC #### [facility] [address] [place] [address] Dr. Alejandro Grijalva IG % 0.3 % Normal 0.0-0.5 [facility] Comment on above: Performed By: #### C BC #### [facility] [address] [place] [address] Dr. Alejandro Grijalva LYMPH # 1.5 103/ul Normal 1.2-3.8 [facility] Comment on above: Performed By: #### C BC #### [facility] [address] [place] [address] Dr. Alejandro Grijalva Lymphocytes/100 WBC (Bld) 24.0 % Normal 20.5-60.0 [facility] Comment on above: Performed By: #### C BC #### [facility] [address] [place] [address] Dr. Alejandro Grijalva MANUAL DIFF REQ NO Normal [facility] Comment on above: Performed By: #### C BC #### [facility] [address] [place] [address] Dr. Alejandro Grijalva MCH (RBC) [Entitic mass] 31.4 pg Normal 26.7-34.0 [facility] Comment on above: Performed By: #### C BC #### [facility] [address] [place] [address] Dr. Alejandro Grijalva MCHC (RBC) [Mass/Vol] 33.3 g/dL Normal 29.9-35.2 [facility] Comment on above: Performed By: #### C BC #### [facility] [address] [place] [address] Dr. Alejandro Grijalva MCV (RBC) [Entitic vol] 94.2 fL Normal 81.0-99.0 [facility] Comment on above: Performed By: #### C BC #### [facility] [address] [place] [address] Dr. Alejandro Grijalva MONO # 0.5 103/ul Normal 0.3-0.8 [facility] Comment on above: Performed By: #### C BC #### [facility] [address] [place] [address] Dr. Alejandro Grijalva Monocytes/100 WBC (Bld) 8.4 % Normal 1.7-12.0 [facility] Comment on above: Performed By: #### C BC #### [facility] [address] [place] [address] Dr. Alejandro Grijalva NEUT # 4.0 103/ul Normal 1.4-6.5 [facility] Comment on above: Performed By: #### C BC #### [facility] [address] [place] [address] Dr. Alejandro Grijalva Neutrophils/100 WBC (Bld) 66.4 % Normal 43.0-75.0 [facility] Comment on above: Performed By: #### C BC #### [facility] [address] [place] [address] Dr. Alejandro Grijalva Platelet mean volume (Bld) [Entitic vol] 9.7 fL Normal 9.5-13.5 [facility] Comment on above: Performed By: #### C BC #### [facility] [address] [place] [address] Dr. Alejandro Grijalva PLT 273 103/ul Normal 150-450 [facility] Comment on above: Performed By: #### C BC #### [facility] [address] [place] [address] Dr. Alejandro Grijalva RBC 4.30 106/ul Normal 4.20-5.40 [facility] Comment on above: Performed By: #### C BC #### [facility] [address] [place] [address] Dr. Alejandro Grijalva WBC 6.0 103/ul Normal 4.0-11.0 [facility] Comment on above: Performed By: #### C BC #### [facility] [address] [place] [address] Dr. Alejandro Grijalva LIPID PROFILEon 11-14-2021 CHOL-HDL RATIO NORM SEE BELOW Normal [facility] Comment on above: Result Comment: 3.3 - 4.4 LOW RISK 4.4 - 7.1 AVERAGE RISK 7.1 - 11.0 MODERATE RISK >11.0 HIGH RISK Performed By: #### T SH, LIPID, CMP #### [facility] [address] [place] [address] Dr. Alejandro Grijalva Cholesterol [Mass/Vol] 176 mg/dL Normal <=200 [facility] Comment on above: Performed By: #### T SH, LIPID, CMP #### [facility] [address] [place] [address] Dr. Alejandro Grijalva Cholesterol in HDL [Mass/Vol] 44 mg/dL Normal 40-60 [facility] Comment on above: Performed By: #### T SH, LIPID, CMP #### [facility] [address] [place] [address] Dr. Alejandro Grijalva Cholesterol in LDL [Mass/Vol] 119.6 mg/dL Normal [facility] Comment on above: Performed By: #### T SH, LIPID, CMP #### [facility] [address] [address] [address] Alejandro Grijalva Cholesterol.total/C holesterol in HDL [Mass ratio] 4.0 {ratio} Normal [facility] Comment on above: Performed By: #### T REYNALDO, LIPID, CMP #### [facility] [address] [address] [address] Alejandro Grijalva HDL NORMAL > or = 60 mg/dl - LO W CARDIOVASCULAR RISK <40 mg/dl - HIGH CARDIOVASCULAR RISK Normal [facility] Comment on above: Performed By: #### T REYNALDO, LIPID, CMP #### [facility] [address] [place] [address] Dr. Alejandro Grijalva LDL CALC NORMAL SEE BELOW Normal [facility] Comment on above: Result Comment: <100 mg/dl OPTIMAL 100 - 129 mg/dl NEAR OR ABOVE OPTIMAL 130 - 159 mg/dl BORDERLINE HIGH 160 - 189 mg/dl HIGH >190 mg/dl VERY HIGH Performed By: #### T REYNALDO, LIPID, CMP #### [facility] [address] [place] [address] Dr. Alejandro Grijalva Triglyceride [Mass/Vol] 62 mg/dL Normal <=150 [facility] Comment on above: Performed By: #### T REYNALDO, LIPID, CMP #### [facility] [address] [place] [address] Dr. Alejandro Grijalva VLDL CALC 12.4 mg/dL Normal [facility] Comment on above: Performed By: #### T REYNALDO, LIPID, CMP #### [facility] [address] [place] [address] Dr. Alejandro Grijalva PROF 14(COMP METB)on 022 Albumin [Mass/Vol] 3.7 g/dL Normal 3.4-5.0 [facility] Comment on above: Performed By: #### T REYNALDO, LIPID, CMP #### [facility] [address] [place] [address] Dr. Alejandro Grijalva Albumin/Globulin [Mass ratio] 1.0 {ratio} Normal [facility] Comment on above: Performed By: #### T REYNALDO, LIPID, CMP #### [facility] [address] [address] [address] Alejandro Grijalva ALP [Catalytic activity/Vol] 81 U/L Normal 46-116 [facility] Comment on above: Performed By: #### T SH, LIPID, CMP #### [facility] [address] [place] [address] Dr. Alejandro Grijalva ALT [Catalytic activity/Vol] 39 U/L Normal 14-59 [facility] Comment on above: Performed By: #### T SH, LIPID, CMP #### [facility] [address] [place] [address] Dr. Alejandro Grijalva Anion gap [Moles/Vol] 14.5 mmol/L Normal [facility] Comment on above: Performed By: #### T REYNALDO, LIPID, CMP #### [facility] [address] [place] [address] Dr. Alejandro Grijalva AST [Catalytic activity/Vol] 18 U/L Normal 15-37 [facility] Comment on above: Performed By: #### T REYNALDO, LIPID, CMP #### [facility] [address] [place] [address] Dr. Alejandro Grijalva Bilirubin [Mass/Vol] 0.2 mg/dL Normal 0.2-1.0 [facility] Comment on above: Performed By: #### T REYNALDO, LIPID, CMP #### [facility] [address] [place] [address] Dr. Alejandro Grijalva Calcium [Mass/Vol] 8.9 mg/dL Normal 8.5-10.1 [facility] Comment on above: Performed By: #### T SH, LIPID, CMP #### [facility] [address] [place] [address] Dr. Alejandro Grijalva Chloride [Moles/Vol] 106 mmol/L Normal 98-107 [facility] Comment on above: Performed By: #### T SH, LIPID, CMP #### [facility] [address] [place] [address] Dr. Alejandro Grijalva CO2 [Moles/Vol] 24.9 mmol/L Normal 21.0-32.[address] [facility] Comment on above: Performed By: #### T SH, LIPID, CMP #### [facility] [address] [address] [address] Alejandro Grijalva Creatinine [Mass/Vol] 0.80 mg/dL Normal 0.55-1.02 [facility] Comment on above: Performed By: #### T SH, LIPID, CMP #### [facility] [address] [address] [address] Alejandro Grijalva EGFR-AF FAROESE >60 Normal >=[address] [facility] Comment on above: Performed By: #### T SH, LIPID, CMP #### [facility] [address] [address] [address] Alejandro Grijalva EGFR-NON AF FAROESE >60 Normal >=60 [facility] Comment on above: Performed By: #### T SH, LIPID, CMP #### [facility] [address] [address] [address] Alejandro Grijalva Globulin (S) [Mass/Vol] 3.7 g/dL Normal [facility] Comment on above: Performed By: #### T SH, LIPID, CMP #### [facility] [address] [address] [address] Alejandro Grijalva Glucose [Mass/Vol] 101 mg/dL Normal 74-106 [facility] Comment on above: Performed By: #### T SH, LIPID, CMP #### [facility] [address] [address] [address] Alejandro Grijalva Potassium [Moles/Vol] 4.4 mmol/L Normal 3.5-5.1 [facility] Comment on above: Performed By: #### T SH, LIPID, CMP #### [facility] [address] [address] [address] Alejandro Grijalva Protein [Mass/Vol] 7.4 g/dL Normal 6.4-8.2 [facility] Comment on above: Performed By: #### T SH, LIPID, CMP #### [facility] [address] [address] [address] Alejandro Grijalva Sodium [Moles/Vol] 141 mmol/L Normal 136-145 [facility] Comment on above: Performed By: #### T SH, LIPID, CMP #### [facility] [address] [place], [place] [address] Dr. Alejandro Grijalva Urea nitrogen [Mass/Vol] 12.0 mg/dL Normal 7.0-18.0 [facility] Comment on above: Performed By: #### T SH, LIPID, CMP #### [facility] [address] [address] [address] Alejandro Grijalva Urea nitrogen/Creatinine [Mass ratio] 15.0 mg/mg Normal [facility] Comment on above: Performed By: #### T SH, LIPID, CMP #### [facility] [address] [address] [address] Alejandro Grijalva TSHon 11-14-2021 TSH 2.902 uIU/mL Normal 0.358-3.740 [facility] Comment on above: Performed By: #### T SH, LIPID, CMP #### [facility] [address] [address] [address] Alejandro Grijalva Vital Signs Date Time Vital Sign Value Performing Clinician Facility 03-15-2024 09:32-0500 Body height 165.1 cm Jorden Guzmán APRN-MANUEL Work Phone: [facility] 03-15-2024 09:32-0500 Body mass index (BMI) [Ratio] 32.68 kg/m2 Jorden Guzmán LVN-CHILD CARE DIRECTOR Work Phone: [facility] 03-15-2024 09:32-0500 Body weight 89.09 kg Jorden Guzmán APRN-CHILD CARE DIRECTOR Work Phone: [facility] 03-15-2024 09:32-0500 Diastolic blood pressure 76 mm[Hg] Jorden Guzmán APRN-CHILD CARE DIRECTOR Work Phone: [facility] 03-15-2024 09:32-0500 Heart rate 78 /min Jorden Guzmán APRN-CHILD CARE DIRECTOR Work Phone: [facility] 03-15-2024 09:32-0500 Systolic blood pressure 135 mm[Hg] Jorden Guzmán APRN-CHILD CARE DIRECTOR Work Phone: [facility] 03-03-2024 07:34-0500 Body temperature 97.5 [degF] Faizan Ann MD Work Phone: [facility] [employer] 03-03-2024 07:34-0500 Diastolic blood pressure 74 mm[Hg] Faizan Ann MD Work Phone: [facility] [employer] 03-03-2024 07:34-0500 Heart rate 66 /min Faizan Ann MD Work Phone: [facility] [employer] 03-03-2024 07:34-0500 Respiratory rate 18 /min Faizan Ann MD Work Phone: [facility] [employer] 03-03-2024 07:34-0500 SaO2% (BldA) [Mass fraction] 94 % Faizan Ann MD Work Phone: [facility] [employer] 03-03-2024 07:34-0500 Systolic blood pressure 114 mm[Hg] Faizan Ann MD Work Phone: [facility] [employer] 03-01-2024 15:15-0500 Body height 165.1 cm Faizan Ann MD Work Phone: [facility] [employer] 03-01-2024 15:15-0500 Body mass index (BMI) [Ratio] 33.28 kg/m2 Faizan Ann MD Work Phone: [facility] [employer] 03-01-2024 15:15-0500 Body weight 90.72 kg Faizan Ann MD Work Phone: [facility] [employer] 11-08-2023 08:55-0400 Body mass index (BMI) [Ratio] 34.12 kg/m2 Sin Karla DO Work Phone: [facility] 11-08-2023 08:55-0400 Body weight 90.17 kg Sin Karla DO Work Phone: [facility] 11-08-2023 08:55-0400 Diastolic blood pressure 72 mm[Hg] Sin Karla DO Work Phone: [facility] 11-08-2023 08:55-0400 Systolic blood pressure 118 mm[Hg] Sin Acosta DO Work Phone: [facility] 08-02-2018 02:23-0400 BMI (Body Mass Index) 29.18 kg/m2 [facility] 08-02-2018 02:23-0400 Body Temperature 98.1 [degF] [facility] 08-02-2018 02:23-0400 BP Diastolic 100 mm[Hg] [facility] 08-02-2018 02:23-0400 BP Systolic 146 mm[Hg] [facility] 08-02-2018 02:23-0400 Height 162.6 cm [facility] 08-02-2018 02:23-0400 Pulse (Heart Rate) 94 /min [facility] 08-02-2018 02:23-0400 Pulse Oximetry 99 % [facility] 08-02-2018 02:23-0400 Respiratory Rate 16 /min [facility] 08-02-2018 02:23-0400 Weight 77.11 kg [facility] Encounters Encounter Date Encounter Type Care Provider Facility Start: 03-15-2024 End: 03-15-2024 Office outpatient new 30 minutes Jorden Naman Guzmán LVN-CHILD CARE DIRECTOR Work Phone: [facility] Comment on above: Abnormal CT scan, ga strointestinal tract (Primary Dx); Change in bowel movement Start: 03-15-2024 End: 03-15-2024 ambulatory [facility] Start: 03-05-2024 End: 03-05-2024 Telephone encounter Janett Hardin LVN-CHILD CARE DIRECTOR Work Phone: [facility] - Family Medicine Start: 03-01-2024 End: 03-03-2024 Evaluation and management of inpatient Faizan Bonnie Marissa GRACE Work Phone: [phone] MED SURG Comment on above: SBO [...] preventive med est patient 18-39 yrs Sin Karla DO Work Phone: [facility] Comment on above: Well woman exam with routine gynecological exam Start: 11-08-2023 End: 11-08-2023 ambulatory SIN KARLA Not Available Start: 11-20-2021 Encounter for genera l adult medical examination without abnormal findings [facility] Start: 11-14-2021 End: 11-15-2021 ambulatory [facility] Facility:[facility] Start: 11-14-2021 End: 11-15-2021 Encounter for general adult medical examination without abnormal findings [facility] Facility:[facility] Start: 08-02-2018 End: 08-02-2018 Emergency department patient visit [facility] Start: 08-02-2018 End: 08-02-2018 Emergency department patient visit [facility] Work Phone: [facility] Emergency Department Comment on above: Left ear pain (Prima ry Dx); Pharyngitis, unspecified etiology Procedures Date Procedure Procedure Detail Performing Clinician Start: 03-03-2024 Calcium ionized Liseth E Miah DO Work Phone: Start: 03-03-2024 Assay of magnesium Aust in D Butler DO Work Phone: Start: 03-03-2024 BASIC METABOLIC PANE L W/ REFLEX TO MG FOR LOW K Kemal Roman Butler DO Work Phone: Start: 03-03-2024 C-reactive protein Ronaldradha Laguerre PA-C Work Phone: Start: 03-02-2024 Ct abdomen & pelvis w/contrast material Arabella Laguerre PA-C Work Phone: Start: 03-02-2024 Assay of lactate Kemal Roman Butler DO Work Phone: Start: 03-02-2024 BASIC METABOLIC PANE L W/ REFLEX TO MG FOR LOW K Kemal D Butler DO Work Phone: Start: 11-08-2023 IGP,APTIMA HPV,AGE GDLN Sin Acosta DO Work Phone: Start: 11-08-2023 Microscopic observat ion [Identifier] in Cervix by Cyto stain Jorden Guzmán [employer] Work Phone: Start: 03-05-2022 Adult depression scr eening assessment Janett Hardin [employer] Work Phone: Start: 03-10-2017 Microscopic observat ion [Identifier] in Cervix by Cyto stain Janett Hardin [employer] Work Phone: Plan of Treatment Date Care Activity Detail Author Start: 11-07-2026 Screening for malign ant neoplasm of cervix Pap Smear [facility] Start: 03-15-2025 Adult BMI Screening Adult BMI Screen ing [facility] Start: 03-15-2025 Tobacco Screening Tobacco Screening [facility] Start: 11-13-2024 End: 11-13-2024 Patient encounter procedure 11/13/2024 8:30 AM EDT Office Visit [facility] [address] [place] [id number] Sin Acosta, DO [address] [place] [address] [facility] Start: 02-01-2024 Tobacco Screening Tobacco Screening [facility] Start: 11-11-2023 Adult BMI Follow Up Plan Adult BMI Follow Up Plan [facility] Start: 11-11-2023 Adult BMI Screening Adult BMI Screen ing [facility] Start: 11-08-2023 End: 11-08-2023 Patient encounter procedure 11/08/2023 8:30 AM EDT Office Visit [facility] [address] [place] [address] Sin Acosta, [address] [place] [address] Arrived [facility] Comment on above: Arrived Start: 11-06-2023 COVID-19 Vaccine ( season) COVID-19 Vaccine ( season) [facility] Start: 11-06-2023 Influenza vaccination Influenza Vacc ine [facility] Start: 10-06-2023 Influenza vaccination Flu vaccine (# 1) [facility] Start: 03-05-2023 Depression Screening Depression Scre ening [facility] Start: 03-10-2020 Screening for malign ant neoplasm of cervix Pap Smear [facility] Start: 2014 Screening for malign ant neoplasm of cervix [facility] Start: 2005 Screening for malign ant neoplasm of cervix Pap smear [facility] Start: 08-22-2003 DTaP,Tdap and Td Vaccines (1 - Tdap) DTaP,Tdap and Td Vaccines (1 - Tdap) [facility] Start: 08-22-2003 DTaP/Tdap/Td vaccine (1 - Tdap) DTaP/Tdap/Td vaccine (1 - Tdap) [facility] Start: 08-22-2003 Hepatitis B vaccine (1 of 3 - 19+ 3-dose series) Hepatitis B vaccine (1 of 3 - 19+ 3-dose series) [facility] Start: 2002 Hepatitis C screening Hepatitis C sc reen [facility] Start: 08-22-1999 HIV screening HIV screen [facility] Start: 1997 Varicella vaccine (1 of 2 - 13+ 2-dose series) Varicella vaccine (1 of 2 - 13+ 2-dose series) [facility] [employer] Start: 1996 Depression Screen Depression Screen [facility] [employer] End: 03-04-2024 Basic Metabolic Panel w/ Reflex to MG Basic Metabolic Panel w/ Reflex to MG Lab Routine Daily for 3 Days starting 03/02/2024 until 03/04/2024, 2 completed [employer] Comment on above: Daily for 3 Days sta rting 03/02/2024 until 03/04/2024, 2 completed End: 03-02-2024 Calprotectin Stool [employer] Work Phone: Comment on above: One Time for 1 Occur rences starting 03/02/2024 until 03/02/2024 End: 03-04-2024 CBC W Auto Differential panel - Blood CBC with Auto Differential Lab Routine Daily for 3 Days starting 03/02/2024 until 03/04/2024, 2 completed [employer] Comment on above: Daily for 3 Days sta rting 03/02/2024 until 03/04/2024, 2 completed End: 03-15-2025 Colonoscopy Colonoscopy GI Routine Abnormal CT scan, gastrointestinal tract 1 Occurrences starting 03/15/2024 until 03/15/2025 [facility] Work Phone: Comment on above: 1 Occurrences starti ng 03/15/2024 until 03/15/2025 Cytology Cervical or vaginal smear or scraping study Pap Smear Pathology and Cytology Routine Well woman exam with routine gynecological exam Ordered: 11/08/2023 This Week In Work Phone: Comment on above: Ordered: 11/08/2023 Human papilloma viru s DNA [Presence] in Unspecified specimen by Probe with amplification HPV DNA probe, amplified Microbiology Routine Well woman exam with routine gynecological exam Ordered: 11/08/2023 This Week In Comment on above: Ordered: 11/08/2023 [place] therapy [place] [place] Initiate Oxygen Therapy Protocol Respiratory Care Routine As Needed until discontinued starting 03/01/2024 [employer] Work Phone: Comment on above: As Needed until disc ontinued starting 03/01/2024 Payers Date Payer Category Payer Unknown FRONTPATH FRONTP ATH [id number] 2022-Present [phone] [address] [place] [id number] [id number] 2018 Managed Care Other (unspecified) FRONTPATH [id number] 1984 Unknown [id number] 1984 Unknown [id number] 1984 Unknown [id number] 1984 Unknown [id number] 1984 Unknown [id number] 1959 Unknown [id number] Unknown COMMERCIAL COMME RCIAL MISCELLANEOUS xxxxxxxxx Effective for all dates xxxxxxxxx [id number] Unknown [id number] Social History Date Type Detail Facility Start: 08-02-2018 End: 11-10-2022 Tobacco smoking status DEIS Never smoker [facility] [employer] Start: 08-02-2018 History SDOH Alcohol Frequency 1 [facility] Start: 1985 Sex Assigned At Not on file [facility] Tobacco smoking stat [facility] Tobacco smoking consumption unknown [facility] Start: 10-10-2020 End: 03-01-2024 Gender identity Not on file [employer] Start: 10-10-2020 End: 03-01-2024 History of Social function i2we Has the electric, [employer], oil, or water [employer] threatened to shut off services in your home in past 12Mo No [employer] (I/We) worried lex garrett (my/our) food would run out before (I/we) got money to buy more. Never true [employer] In the past 12 month s, has lack of transportation kept you from medical appointments or from getting medications? No [employer] Start: 11-10-2022 Tobacco use and exposure Smokeless tobacco non-user [facility] Start: 01-31-2023 End: 03-15-2024 Alcoholic beverage intake Ex-drinker (finding) [facility] Do you belong to any clubs or organizations such as tenriism groups, unions, fraternal or athletic groups, or school groups? Yes [facility] Are you now , , , , never or living with a partner? [facility] How often to you hav e a drink containing alcohol? Monthly or less [facility] How many standard dr inks containing alcohol do you have on a typical day? 1 or 2 [facility] How often do you hav e 6 or more drinks on 1 occasion? Never [facility] Do you feel stress - tense, restless, nervous, or anxious, or unable to sleep at night because your mind is troubled all the time - these days [OSQ] Only a little [facility] Start: 10-10-2020 Education 17 [facility] Start: 10-08-2014 Sex Female (finding) [facility] Clinical Notes 11-08-2023 to 03-15-2024 Jorden Guzmán, LVN-CHILD CARE DIRECTOR - 03/15/2024 9:30 AM ESTTelephone Encounter - Simrna Bridges - 03/05/2024 9:16 AM ESTTelephone Encounter - Simran Bridges - 03/05/2024 9:16 AM ESTAttachments Note Date & Type Note Facility 03-15-2024 History of Presen t illness Narrative Images from the original note were not included. Chief Complaint: Abnormal CT scan History of Present Illness Brandie Olmos is a 38 y.o. female who presents to the office for follow-up after being hospitalized at [facility] at the end of February for SBO. She was treated conservatively with bowel rest and NG tube. CT abdomen and pelvis revealed thickening of the distal small bowel, cecum and proximal ascending colon concerning for IBD. Labs notable for fecal calprotectin 1430, ESR 22, CRP 15.4. It was recommended she undergo colonoscopy. There is no family history of IBD. She denies any mucousy stools or rectal bleeding. She is feeling much better from SBO standpoint. She is tolerating oral intake and having bowel movements. She has had 3 c-sections in the past and surgery for endometriosis. Review of Systems Constitutional: Negative for fever and unexpected weight change. HENT: Negative for trouble swallowing. Respiratory: Negative for shortness of breath. Cardiovascular: Negative for chest pain. Gastrointestinal: Negative for nausea, vomiting, abdominal pain, diarrhea, constipation, blood in stool and black tarry stool. Genitourinary: Negative for dysuria and difficulty urinating. Musculoskeletal: Negative for gait problem. Skin: Negative for rash and wound. Neurological: Negative for dizziness, weakness and light-headedness. Hematological: Does not bruise/bleed easily. Psychiatric/Behavioral: Negative for confusion. Past Medical History: Diagnosis Date Endometriosis Past Surgical History: Procedure Laterality Date BREAST BIOPSY 2018 SECTION OVARIAN CYST SURGERY 2011 WISDOM TOOTH EXTRACTION No Known Allergies Current Outpatient Medications: ibuprofen (MOTRIN) 800 mg tablet, Take 1 tablet (800 mg total) by mouth every 8 (eight) hours as needed for pain., Disp: 60 tablet, Rfl: 1 peg 3350-sod sulf,sirf-tzq-gut 178.7-7.3-0.5 gram recon soln, Take 1 kit by mouth once daily for 1 dose. Please see instructional sheet given by physicians office., Disp: 1 each, Rfl: 0 Social History Socioeconomic History Marital status: Spouse name: Not on file Number of children: Not on file Years of education: Not on file Highest education level: Bachelor's degree (e.g., BA, AB, BS) Occupational History Not on file Tobacco Use Smoking status: Never Smokeless tobacco: Never Vaping Use Vaping status: Never Used Substance and Sexual Activity Alcohol use: Not Currently Drug use: Never Sexual activity: Yes Partners: Male Comment: has a vestomy Other Topics Concern Not on file Social History Narrative Not on file Social Drivers of Health Financial Resource Strain: Low Risk (10/10/2020) Overall Financial Resource Strain (CARDIA) Difficulty of Paying Living Expenses: Not hard at all Food Insecurity: No Food Insecurity (03/15/2024) Hunger Screening Food Insecurity - Worry: Never True Food Insecurity - Inability: Never True Transportation Needs: No Transportation Needs (03/01/2024) Received from [employer] [facility] PRAP[facility] - Transportation Lack of Transportation (Medical): No Lack of Transportation (Non-Medical): No Physical Activity: Sufficiently Active (10/10/2020) Exercise Vital Sign Days of Exercise per Week: 5 days Minutes of Exercise per Session: 60 min Stress: No Stress Concern Present (10/10/2020) [employer] - Occupational Stress Questionnaire Feeling of Stress : Only a little Social Connections: Socially Integrated (10/10/2020) Social Connection and Isolation Panel [NHANES] Frequency of Communication with Friends and Family: More than three times a week Frequency of Social Gatherings with Friends and Family: More than three times a week Attends Synagogue Services: More than 4 times per year Active Member of Clubs or Organizations: Yes Attends Club or Organization Meetings: More than 4 times per year Marital Status: Interpersonal Safety: Not At Risk (10/10/2020) Humiliation, Afraid, Rape, and Kick questionnaire Fear of Current or Ex-Partner: No Emotionally Abused: No Physically Abused: No Sexually Abused: No Housing Instability: Low Risk (03/01/2024) Received from [employer] [facility] Housing Stability Vital Sign Unable to Pay for Housing in the Last Year: No Number of Times Moved in the Last Year: 0 Homeless in the Last Year: No Family History Problem Relation Age of Onset No Known Problems Mother Heart disease Father Objective Physical Exam Constitutional: General: She is not in acute distress. Appearance: Normal appearance. She is not ill-appearing. HENT: Head: Normocephalic and atraumatic. Mouth/Throat: Mouth: Mucous membranes are moist. Eyes: Pupils: Pupils are equal, round, and reactive to light. Cardiovascular: Rate and Rhythm: Normal rate. Pulmonary: Effort: Pulmonary effort is normal. No respiratory distress. Abdominal: General: There is no distension. Palpations: Abdomen is soft. Tenderness: There is no abdominal tenderness. There is no guarding. Musculoskeletal: General: Normal range of motion. Skin: General: Skin is warm and dry. Neurological: Mental Status: She is alert and oriented to person, place, and time. Mental status is at baseline. Vital Signs: Blood pressure 135/76, pulse 78, height 165.1 cm (5' 5 ), weight 89.1 kg (196 lb 6.4 oz), not currently . Respiratory Source: No data recorded Admission Weight: Weight: 89.1 kg (196 lb 6.4 oz) Labs No results found for: WBC , HGB , HCT , MCV , PLT No results found for: GLU , CALCIUM , NA , K , CO2 , CL , BUN , CREATININE No results found for: AMYLASE No results found for: LIPASE No results found for: ALT , AST , GGT , ALKPHOS , LABBILI No results found for: INR , PROTIME Imaging CT abdomen and pelvis 02/27/2024: FINDINGS: Lower Chest: No acute infiltrate at [...] unremarkable. Mild distention of the urinary bladder. Peritoneum/Retroperitoneum: No significant upper abdominal ascites or free [...] recent contrast administration. 4. Mild bibasilar atelectasis. Assessment Follow-up hospitalization for SBO at [facility] Abnormal CT scan abdomen and pelvis concerning for IBD Plan Colonoscopy with possible biopsy and/or polypectomy. Risks, benefits, and alternatives discussed with patient. Educated on bowel evacuation preparation. Patient verbalizes understanding and wishes to proceed. Evaluation included: Preparing to see the patient (e.g., review of tests) Obtaining and/or reviewing separately obtained history Performing a medically appropriate examination and/or evaluation Counseling and educating the patient/family/caregiver Referring and communicating with other health child care Abnormal CT scan, gastrointestinal tract [R93.3] DAINA SHAW [facility] General [facility] [place] This note was created with the assistance of a speech recognition program. While intending to generate a timely document that accurately reflects the content of the visit, no guarantee can be provided that every grammatical or spelling mistake has been or will be identified or corrected. Thank you for your understanding. DAINA Shaw 03/15/24 1033 documented in this encounter [facility] 03-05-2024 Miscellaneous Notes Patient was in [facility] for a bowel obstruction, she would like a referral to [facility] for a colonoscopy documented in this encounter [facility] 03-05-2024 Telephone encounter Note Patient was in [facility] for a bowel obstruction, she would like a referral to [facility] for a colonoscopy [facility] 03-03-2024 Hospital Discharg e instructions David Hudson [...] most local grocery stores, pharmacies, and chain [employer]-stores. If you have any questions about your diet or nutrition, call the hospital and ask for the dietitian. The following attachments cannot be sent through Care Everywhere.Diet: Low-FODMAP: General Info (Cameroonian)IBS (Irritable Bowel Syndrome) Diet (Cameroonian)documented in this encounter [facility] 03-03-2024 History of Presen t illness Narrative Images from the original note were not included. PROGRESS NOTE PATIENT NAME: Brandie Olmos DATE: 03/03/2024 HD: # 2 Patient Active Problem List Diagnosis Placenta previa without hemorrhage, antepartum resulting from assisted reproductive technology SBO (small bowel obstruction) (HCC) DIAGNOSIS AND PLAN 38 year old female [...] Affect: Mood normal. LAB: CBC: Recent Labs 03/02/24 0411 03/03/24 0653 WBC 6.1 4.8 HGB 11.8* 11.6* HCT 36.1* 35.3* MCV 95.3 96.7 PLT 256 243 BMP: Recent Labs 03/02/24 0411 03/03/24 0653 NA 141 138 K 3.5* 3.9 CL 106 105 CO2 26 23 BUN 13 8 CREATININE 0.7 0.6 GLUCOSE 95 78 RADIOLOGY: Liseth Dooley DO 03/03/2024, 7:52 AM Images from the original note were not included. PROGRESS NOTE PATIENT NAME: Brandie Olmos DATE: 03/02/2024 HD: # 1 Patient Active Problem List Diagnosis Placenta previa without hemorrhage, antepartum resulting from assisted reproductive technology SBO (small bowel obstruction) (HCC) DIAGNOSIS AND PLAN 38 year old female [...] NG 400 ml LAB: CBC: Recent Labs 03/02/24 0411 WBC 6.1 HGB 11.8* HCT 36.1* MCV 95.3 PLT 256 BMP: Recent Labs 03/02/24 0411 NA 141 K 3.5* CL 106 CO2 26 BUN 13 CREATININE 0.7 GLUCOSE 95 RADIOLOGY: Mckayla Jaimes PA-C 03/02/2024, 11:04 AM Attending Note I have reviewed the above [facility] Specialists note(s). I have seen and examined the patient. I have discussed the findings, established the care plan and recommendations with the Advanced Practice Provider. Chief Complaint: abd distension Exam: Passing some flatus, abd soft Plan: PO CT scan, discussed with patient and . Luh Orr MD 03/02/2024 8:12 PM documented in this encounter [facility] 11-08-2023 History of Presen t illness Narrative [...] nursing note reviewed. Exam conducted with a axminster rug setter present. Vitals: Estimated body mass index is [...] encounter [facility] Healthcare Evaluation note Diagnosis Well woman exam with routine gynecological exam Routine gynecological examination documented in this encounter [facility] HealthcareEvaluation note* Diagnosis SBO (small bowel obstruction) (HCC)- Primary Unspecified intestinal obstruction SBO (small bowel obstruction) (HCC) Unspecified intestinal obstruction documented in this encounter [facility] Change in bowel movement- Primary documented in this encounter [facility]* Diagnosis Abnormal CT scan, gastrointestinal tract- Primary Change in bowel movement documented in this [facility] System[facility]ructionsNot on filedocumented in this encounter [facility] [employer] SystemInstructionsNot on filedocumented in this encounter [facility] Discharge Instructions * Instructions* Prince Wiggins MD - 08/02/2018 Thank you for coming to an [facility] Emergency facility for your emergency care. [...] you may find a provider through the [facility] Physician Referral Service by calling [phone]) or by visiting [email or web address]. If you were prescribed any medications, be [...] sent through Care Everywhere. * Sore Throat (Cameroonian) * Earache: Adult (Cameroonian) documented in this encounter Assessments Diagnosis Left ear pain- Primary Unspecified otalgia Pharyngitis, unspecified etiology Advance Directives No Advanced Directives Records FoundDocuments on File Type Date Recorded Patient Records Management Coordinator Expl anation Advance Directives and Livin g Will 08/02/2018 3:07 AM Date Activated Date [...] Pain Specialty Diagnoses / Procedures Referred By Patricia booker Referred To Contact Diagnoses Small bowel obstruction (HCC) SBO (small bowel obstruction) (HCC) Luh Orr MD [address] [facility] [address] [place] [address] [facility] [address] [place] [address] Referral ID Status Reason Start Date Expiration Date Visits Re quested Visits Authorized [id number] 1 1 Reason Comments Change in Bowel Habits Change in bowel h abits, referred by Janett Hardin CNP Specialty Diagnoses / Procedures Referred By Patricia booker Referred To Contact General Surgery Diagnoses Change in bowel movement Janett Hardin, LVN-CHILD CARE DIRECTOR [address] [place] [address] Phone: tel: fax: [facility] [address] [place] [address] Phone: tel: fax: Referral ID Status Reason Start Date Expiration Date V isits Requested Visits Authorized [id number] Closed Specialty Services Required 03/05/2024 03/05/2025 1 1 Judy Olvera RN - 08/02/2018 [...] file Gets together: Not on file Attends druze service: Not on file Active member of club or organization: Not on file Attends meetings of clubs or organizations: Not on file Relationship status: Not on file Other Topics Concern Not on file Social History Narrative Not on file Social history reviewed. Allergies: No Known Allergies Medications: Brandie Olmos [place] Medication Instructions Prior to Surgery GILBERTO:[id number] Printed on:08/02/18 025 Medication Information Take last dose on Take the morning of surgery Comment(s) azithromycin (ZITHROMAX) 250 MG tablet Take 2 (two) tablets (500 mg total) by mouth daily for 4 days . traMADol (ULTRAM) 50 mg tablet Take 1 (one) tablet (50 mg total) by mouth every 4 (four) hours as needed for pain (Days supply per fill: 5) . PHYSICAL EXAMINATION: [place] body weight: 54.7 kg (120 lb 9.5 [...] provider, No primary care provider on file.. [facility] referral information was also provided. They [...] section and content) DATE CREATED AUTHOR 10/16/2018 [facility] DATE CREATED AUTHOR AUTHOR'S ORGANIZ ATION 12/05/2021 [facility] DATE CREATED AUTHOR AUTHOR'S ORGANIZ ATION 11/08/[address] [facility] DATE CREATED AUTHOR AUTHOR'S ORGANIZ ATION 03/07/2024 [facility] DATE CREATED AUTHOR AUTHOR'S ORGANIZ ATION 03/20/2024 [facility] Scheduled Active and Recently Administ ered Medications [...] (3 times per day), First dose on Tue03/03/24 at 0815, Until Discontinued, Maximum dose of [...] at 1315 1314 (Given - Provider: Judy Prieto, KSENIA) potassium chloride (KLOR-CON M) extended release tablet 20 mEq (CANCELED) 20 mEq, Oral, 2 TIMES DAILY, First dose on Tue03/02/24 at 0900, Until Discontinued, Do not crush, chew, or suck on tablet. Tablet may also be broken in half and each half swallowed separately. 1002 (Given - Provider: Susan Reid RN)1938 (Given - Provider: Soraya Nguyễn, KSENIA) sodium chloride flush 0.9 % injection 5-40 [...] Reid RN)193 (Not Given - Provider: Soraya Nguyễn, KSENIA - Reason: IV Fluid Infusing) 0936 (Given [...] (Rate/Dose Verify - Provider: Maria Del Rosario Rosaels, KSENIA)1503 (New Bag - Provider: Susan Reid, RN) 1731 (Stopped - Provider: David Hudson [...] Care Teams (unrecognized sec tion and content) African History Professor Relationship Specialty Start Date End Date Raymond Ching DO PCP - General 06/03/11 African History Professor Relationship Specialty Start Date End Date [facility] [address] [place] [address] PCP - General Family Medicine 08/08/18 African History Professor Relationship Specialty Start Date End Date Janett Hardin APRN-CHILD CARE DIRECTOR [address] [place] [address] PCP - General Family Medicine 08/08/18 FOR [...] BE BASED ON THE PRIMARY CLINICAL RECORDS. [employer] [facility]. provides no warranty or guarantee of the accuracy or completeness of information in this document.
[2024-03-21 10:57] LABS: HCG Qualitative NEGATIVE (NEGATIVE); Internal Control Within Normal Limits
--- NOTE | 2024-03-21 11:14 | PM.GSPRC ---
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 Ascending colon with possible stricture near ileocecal valve Anesthesia: MAC Surgeon: Douglas Gupta Procedure Summary: PROCEDURE: The patient was taken to the Endoscopy Suite, placed in the left lateral recumbent position, given IV sedation as above. A rectal digital exam was performed. The sphincter tone was found to be normal. No rectal masses were appreciated. The Olympus video colonoscope was advanced under direct visualization to the rectum, sigmoid colon, descending colon, transverse colon and ascending colon to the ileocecal valve. And what appeared to be the valve for many small polyps which look to be inflammatory and snare polypectomy was performed. The underside of the valve was seen. I could not get into the cecum to see the appendiceal lumen or into the terminal ileum on several tries. The scope was slowly withdrawn with air being desufflated as it was withdrawn. No diverticula were seen. The patient tolerated the procedure well and went to the Recovery Area in satisfactory condition. I recommend the patient have an outpatient air-contrast PE and a small bowel series to rule out inflammatory bowel disease. This will be scheduled as an outpatient. Estimated blood loss (mL): 0 Complications: No Condition: stable Disposition: PACU
[2024-03-21 11:23] VITALS: BP 130/98; PULSE 112; TEMP 36.4; O2SAT 98; BMI 32.0
[2024-03-21] MEDS: 0.9 % SODIUM CHLORIDE 500 ML 50 ML IV (11:44)
[2024-03-21 12:30] VITALS: BP 97/53; PULSE 88; TEMP 36.6; O2SAT 98
[2024-03-21 12:45] VITALS: BP 108/69; PULSE 83; O2SAT 98
[2024-03-21 13:00] VITALS: BP 126/67; PULSE 88; O2SAT 98
== END 2024-03-21 13:20 | disposition home or self-care (01) ==
PROVIDERS: Anesthesiology; PCP Nurse Practitioner; Visit Provider Surgery
PROC: (CPT 811; principal; 2024-03-21 11:45)
DX: R93.3 Abnormal findings on diagnostic imaging of other parts of digestive tract (principal); K63.5 Polyp of colon; R19.8 Other specified symptoms and signs involving the digestive system and abdomen
CPT/HCPCS: 45385; 36415; 84703; 88305; J2704

== ENCOUNTER 2024-03-27 08:30 | Outpatient (OUT) | payer OTHER, SELFPAY ==
--- OUTSIDE RECORDS SUMMARY | 2024-03-27 08:33 | XMS_ITS | CCD ---
Author Organization [facility] Care Team Providers Care Space Controller Name Role Phone No, Physician Primary Care Provider PRINCE Saavedra Attending Tatiana WELDON, PHYSICIAN Primary Care Unavailable JANETT HARDIN Attending Unavailable JANETT HARDIN Consulting Unavailable JANETT HARDIN Primary Care Unavailable JANETT HARDIN Admitting Unavailable SIN ACOSTA Attending Unavailable Unavailable Primary Care Provider Raymond Schroeder DO Primary Care Provider [phone] Wilfred CODING QUALITY COORDINATOR-Janett JACKSON Primary Care Provid er RAYMOND CHING [...] 08-02-2018 azithromycin (ZITHROMAX) tab let 500 mg bisacodyl 5 mg delayed release oral tablet (2 sources) Stimulant Laxative Start: 03-26-2024 bisacodyL (DULCOLAX, BISACODYL,) 5 mg EC tablet Please see instructional sheet given by physicians office. 4 tablet 03/26/2024 Active dextromethorphan hydrobromide 1.5 mg/ml / pyrilamine maleate 1.5 mg/ml oral solution (2 sources) Uncompetitive T-qfbvwa-H-asparta te Receptor Antagonist, Sigma-1 Agonist Start: 01-31-2023 End: 03-15-2024 take 5 mL by mouth four times daily as needed for cough and congestion pyrilamine-dextro methorphan 7.5-7.5 mg/5 mL liquid Indications: COVID Take 5 mL by mouth 4 (four) times a day as needed (cough and congestion). 200 mL 1 01/31/2023 03/15/2024 Discontinued (Therapy completed) ibuprofen 800 mg oral tablet (5 sources) Nonsteroidal Anti-inflammatory Drug Start: 11-10-2022 take [...] (ZOFRAN-ODT) disintegrating tablet 4 mg peg 3350-sod sulf,wxom-vkg-lds 178.7-7.3-0.5 gram recon soln (1 source) Start: 03-15-2024 End: 03-16-2024 peg 3350-sod sulf,udum-now-hnw 178.7-7.3-0.5 gram recon soln Indications: Abnormal CT scan, gastrointestinal tract Take 1 kit by mouth once daily for 1 dose. Please see instructional sheet given by physicians office. 1 each 03/15/2024 03/16/2024 Active polyethylene glycol 3350 56528 mg powder for oral solution (2 sources) Osmotic Laxative Start: 03-26-2024 End: 03-26-2024 polyethylene glycol (GLYCOLAX) 17 gram/dose powder Take 238 g by mouth once for 1 dose. Please see instructional sheet given by physicians office. 238 g 03/26/2024 03/26/2024 Active VITAMINS PO (1 source) Start: 12-09-2010 [...] (3 times per day), First dose on [facility] 03/03/24 at 0815, Until Discontinued, [...] Episodic Other ear and sense organ disorders (4 sources) Hearing loss in left ear; Translations: [...] Hemorrhage during ; abruptio placenta; placenta previa (5 sources) Placenta previa without hemorrhage; Translations: [Complete placenta previa NOS or without hemorrhage, unspecified trimester] Onset: 06-10-2011 06-10-2011 Episodic Mood disorders (4 sources) Mood disorders Onset: 03-05-2022 03-05-2022 Other complications of (5 sources) Supervision of resulting from assisted reproductive technology, unspecified trimester; Translations: [ resulting from assisted reproductive technology] Onset: 06-10-2011 06-10-2011 Episodic Other ear and sense organ disorders (4 sources) Impacted cerumen in left ear; Translations: [Impacted cerumen, left ear] Onset: 08-08-2018 09-05-2018 Episodic Unclassified (4 sources) Onset: 11-11-2022 11-11-2022 Results Test Name Value Interpretation Reference Range Facility Calprotectin, Fecalon 2023 Calprotectin, Fecal 1430 ug/g High <=49 [facility] Comment on above: Result Comment: (NOT E) REFERENCE INTERVAL: Calprotectin, Fecal by Immunoassay Less than 50 ug/g.........Normal 50-120 ug/g...............Borderline elevated, test should be re-evaluated in 4-6 weeks. 121 ug/g or greater.......Elevated Performed By: [facility] [address] [place] [address] Archives Technician: Shahriar Gill MD, PhD CLIA Number: [id number] Performed By: #### A CALPF #### [facility] [address] [place], [place] [id number] Head Charger: Kareem Alvarez MD Basic Metab w/rfx MGon 03-03 Anion gap [Moles/Vol] 10 mmol/L Normal 9-16 [facility] Comment on above: Performed By: #### C DP, BMPX, CRP, ROLA, SED, MG #### [facility] [address] [place] [address] [phone] Head Charger: Diego Mortensen MD Calcium [Mass/Vol] 8.5 mg/dL Low 8.6-10.4 [facility] Comment on above: Performed By: #### C DP, BMPX, CRP, ROLA, SED, MG #### [facility] [address] [place] [address] [phone] Head Charger: Diego Mortensen MD Chloride [Moles/Vol] 105 mmol/L Normal 98-107 [facility] Comment on above: Performed By: #### C DP, BMPX, CRP, ROLA, SED, MG #### [employer] [facility] [address] [place] [phone] Head Charger: Diego Mortensen MD CO2 [Moles/Vol] 23 mmol/L Normal 20-31 [facility] Comment on above: Performed By: #### C DP, BMPX, CRP, ROLA, SED, MG #### [facility] [address] [place] [phone] Head Charger: Diego Mortensen MD Creatinine [Mass/Vol] 0.6 mg/dL Normal 0.6-0.9 [facility] Comment on above: Performed By: #### C DP, BMPX, CRP, ROLA, SED, MG #### [address] [address] Head Charger: Diego Mortensen MD GFR/1.73 sq M.predicted among non-blacks MDRD (S/P/Bld) [Vol rate/Area] mL/min/{1.73_m2} Normal >60 [facility] Comment on above: Result Comment: These [...] DP, BMPX, CRP, ROLA, SED, MG #### [address] [address] Head Charger: Diego Mortensen MD Glucose [Mass/Vol] 78 mg/dL Normal 74-99 [facility] Comment on above: Performed By: #### C DP, BMPX, CRP, ROLA, SED, MG #### [address] [address] Head Charger: Diego Mortensen MD Potassium [Moles/Vol] 3.9 mmol/L Normal 3.7-5.3 [facility] Comment on above: Performed By: #### C DP, BMPX, CRP, ROLA, SED, MG #### [facility] [address] [place] [phone] Head Charger: Diego Mortensen MD Sodium [Moles/Vol] 138 mmol/L Normal 136-145 [facility] Comment on above: Performed By: #### C DP, BMPX, CRP, ROLA, SED, MG #### [facility] [address] [place], [place] [phone] Head Charger: Diego Mortensen MD Urea nitrogen [Mass/Vol] 8 mg/dL Normal 6-20 [facility] Comment on above: Performed By: #### C DP, BMPX, CRP, ROLA, SED, MG #### [email or web address] [address] [place], [place] [phone] Head Charger: Diego Mortensen MD Basic Metabolic Panel w/ Ref nataly to MGon 03-03-2024 Anion gap [Moles/Vol] 10 mmol/L 9 - 16 mmol/L [facility] Calcium [Mass/Vol] 8.5 mg/dL Low 8.6 - 10. 4 mg/dL [facility] Chloride [Moles/Vol] 105 mmol/L 98 - 107 mmol/L [facility] CO2 [Moles/Vol] 23 mmol/L 20 - 31 mmol/L [facility] Creatinine [Mass/Vol] 0.6 mg/dL 0.6 - 0.9 mg/dL [facility] Est, Glom Filt Rate - PINF [facility] Comment on above: These results are [...] [Mass/Vol] 78 mg/dL 74 - 99 mg/dL [facility] Potassium [Moles/Vol] 3.9 mmol/L 3.7 - 5.3 mmol/L [facility] Sodium [Moles/Vol] 138 mmol/L 136 - 145 mmol/L [facility] Urea nitrogen [Mass/Vol] 8 mg/dL 6 - 20 mg/dL [facility] C-Reactive Proteinon 024 CRP High sensitivity method [Mass/Vol] 15.4 mg/L High 0.0 - 5.0 mg/L [facility] CRP [Mass/Vol] 15.4 mg/L High 0.0-5.0 [facility] Comment on above: Performed By: #### C DP, BMPX, CRP, ROLA, SED, MG #### [facility] [address] [place] [phone] Head Charger: Diego Mortensen MD CBC with Auto Differentialon 03-03-2024 Basophils (Bld) [#/Vol] [facility] Basophils/100 WBC (Bld) 0 % 0 - 2 % [facility] Eosinophils (Bld) [#/Vol] 0.05 10*3/uL [facility] Eosinophils/100 WBC (Bld) 1 % 1 - 4 % [facility] Erythrocyte distribution width (RBC) [Ratio] 11.9 % 11.8 - 14.4 % [facility] Hematocrit (Bld) [Volume fraction] 35.3 % Low 36.3 - 47.1 % [facility] Hemoglobin (Bld) [Mass/Vol] 11.6 g/dL Low 11.9 - 15.1 g/dL [facility] Immature granulocytes (Bld) [#/Vol] [facility] Immature granulocytes/100 WBC (Bld) 0 % 0 [facility] Interpretation and review of laboratory results Abnormal [facility] Lymphocytes/100 WBC (Bld) 29 % 24 - 43 % [facility] Lymphocytes/100 WBC (Bld) 1.36 % [facility] MCH (RBC) [Entitic mass] 31.8 pg 25.2 - 33.5 pg [facility] MCHC (RBC) [Mass/Vol] 32.9 g/dL 28.4 - 34.8 g/dL [facility] MCV (RBC) [Entitic vol] 96.7 fL 82.6 - 102.9 fL [facility] Monocytes/100 WBC (Bld) 11 % 3 - 12 % [facility] Monocytes/100 WBC (Bld) 0.52 % [facility] Neutrophils/100 WBC (Bld) 59 % 36 - 65 % [facility] Nucleated RBC/100 WBC (Bld) [Ratio] 0.0 % 0.0 per 100 WBC [facility] Platelet mean volume (Bld) [Entitic vol] 9.8 fL 8.1 - 13.5 fL [facility] Platelets (Bld) [#/Vol] 243 10*3/uL [facility] RBC (Bld) [#/Vol] 3.65 10*6/uL Low 3.95 - 5.1 1 m/uL [facility] Segmented neutrophils/100 WBC (Bld) 2.78 % [facility] WBC other (Bld) [#/Vol] 4.8 [facility] CBC with Diffon 03-03-2024 Abs. Basophil <0.03 Normal 0.00-0.20 [facility] Comment on above: Performed By: #### C DP, BMPX, CRP, ROLA, SED, MG #### [place] [address] Head Charger: Diego Mortensen MD Abs.Imm.Granulocyte <0.03 Normal 0.00-0.30 [facility] Comment on above: Performed By: #### C DP, BMPX, CRP, ROLA, SED, MG #### [facility] [address] [place] [address] Head Charger: Diego Mortensen MD Abs.Neutrophil (Seg) 2.78 k/uL Normal 1.50-8.10 [facility] Comment on above: Performed By: #### C DP, BMPX, CRP, ROLA, SED, MG #### [facility] [address] [place] [address] Head Charger: Diego Mortensen MD Basophils/100 WBC (Bld) 0 % Normal 0-2 [facility] Comment on above: Performed By: #### C DP, BMPX, CRP, ROLA, SED, MG #### [place] [address] Head Charger: Diego Mortensen MD Eosinophils (Bld) [#/Vol] 0.05 10*3/uL Normal 0.00-0.44 [facility] Comment on above: Performed By: #### C DP, BMPX, CRP, ROLA, SED, MG #### [place] [address] Head Charger: Diego Mortensen MD Eosinophils/100 WBC (Bld) 1 % Normal 1-4 [facility] Comment on above: Performed By: #### C DP, BMPX, CRP, ROLA, SED, MG #### [place] [address] Head Charger: Diego Mortensen MD Erythrocyte distribution width (RBC) [Ratio] 11.9 % Normal 11.8-14.4 [facility] Comment on above: Performed By: #### C DP, BMPX, CRP, ROLA, SED, MG #### [place] [address] Head Charger: Diego Mortensen MD Hematocrit (Bld) [Volume fraction] 35.3 % Low 36.3-47.1 [facility] Comment on above: Performed By: #### C DP, BMPX, CRP, ROLA, SED, MG #### [place] [address] Head Charger: Diego Mortensen MD Hemoglobin (Bld) [Mass/Vol] 11.6 g/dL Low 11.9-15.1 [facility] Comment on above: Performed By: #### C DP, BMPX, CRP, ROLA, SED, MG #### [place] [address] Head Charger: Diego Mortensen MD Immature granulocytes/100 WBC (Bld) 0 % Normal 0 [facility] Comment on above: Performed By: #### C DP, BMPX, CRP, ROLA, SED, MG #### [place] [address] Head Charger: Diego Mortensen MD Lymphocytes (Bld) [#/Vol] 1.36 10*3/uL Normal 1.10-3.70 [facility] Comment on above: Performed By: #### C DP, BMPX, CRP, ROLA, SED, MG #### [place] [address] Head Charger: Diego Mortensen MD Lymphocytes/100 WBC (Bld) 29 % Normal 24-43 [facility] Comment on above: Performed By: #### C DP, BMPX, CRP, ROLA, SED, MG #### [place] [address] Head Charger: Diego Mortensen MD MCH (RBC) [Entitic mass] 31.8 pg Normal 25.2-33.5 [facility] Comment on above: Performed By: #### C DP, BMPX, CRP, ROLA, SED, MG #### [place] [address] Head Charger: Diego Mortensen MD MCHC (RBC) [Mass/Vol] 32.9 g/dL Normal 28.4-34.8 [facility] Comment on above: Performed By: #### C DP, BMPX, CRP, ROLA, SED, MG #### [place] [address] Head Charger: Diego Mortensen MD MCV (RBC) [Entitic vol] 96.7 fL Normal 82.6-102.9 [facility] Comment on above: Performed By: #### C DP, BMPX, CRP, ROLA, SED, MG #### [place] [address] Head Charger: Diego Mortensen MD Monocytes (Bld) [#/Vol] 0.52 10*3/uL Normal 0.10-1.20 [facility] Comment on above: Performed By: #### C DP, BMPX, CRP, ROLA, SED, MG #### [address] [address] Head Charger: Diego Mortensen MD Monocytes/100 WBC (Bld) 11 % Normal 3-12 [facility] Comment on above: Performed By: #### C DP, BMPX, CRP, ROLA, SED, MG #### [place] [address] Head Charger: Diego Mortensen MD Neutrophil (Seg) 59 % Normal 36-65 [facility] Comment on above: Performed By: #### C DP, BMPX, CRP, ROLA, SED, MG #### [place] [address] Head Charger: Diego Mortensen MD NRBC Automated 0.0 per 100 WBC Normal 0.0 [facility] Comment on above: Performed By: #### C DP, BMPX, CRP, ROLA, SED, MG #### [place] [address] Head Charger: Diego Mortensen MD Platelet mean volume (Bld) [Entitic vol] 9.8 fL Normal 8.1-13.5 [facility] Comment on above: Performed By: #### C DP, BMPX, CRP, ROLA, SED, MG #### [place] [address] Head Charger: Diego Mortensen MD Platelets (Bld) [#/Vol] 243 10*3/uL Normal 138-453 [facility] Comment on above: Performed By: #### C DP, BMPX, CRP, ROLA, SED, MG #### [facility] [place] [address] Head Charger: Diego Mortensen MD RBC (Bld) [#/Vol] 3.65 10*6/uL Low 3.95-5.11 [facility] Comment on above: Performed By: #### C DP, BMPX, CRP, ROLA, SED, MG #### [facility] [address] [place] [phone] Head Charger: Diego Mortensen MD WBC (Bld) [#/Vol] 4.8 10*3/uL Normal 3.5-11.3 [facility] Comment on above: Performed By: #### C DP, BMPX, CRP, ROLA, SED, MG #### [facility] [address] [place] [phone] Head Charger: Diego Mortensen MD Calcium, Ionicon 03-03-2024 Calcium [Moles/Vol] 1.19 mmol/L Normal 1.13-1.33 [facility] Comment on above: Performed By: #### I OCAL #### [facility] [address] [place] [phone] Head Charger: Diego Mortensen MD Calcium, Ionizedon 3 Calcium.ionized (Bld) [Moles/Vol] 1.19 mmol/L 1.13 - 1.33 mmol/L [facility] Magnesiumon 03-03-2024 Magnesium [Mass/Vol] 2.1 mg/dL 1.6 - 2.6 mg/dL [facility] Magnesium [Mass/Vol] 2.1 mg/dL Normal 1.6-2.6 [facility] Comment on above: Performed By: #### C DP, BMPX, CRP, ROLA, SED, MG #### [employer] [address] [place] [phone] Head Charger: Diego Mortensen MD No Panel Informationon 03-03 Interpretation and review of laboratory results Abnormal [facility] Phosphoruson 03-03-2024 Phosphate [Mass/Vol] 2.1 mg/dL Low 2.5 - 4.5 mg/dL [facility] Phosphorus, Inorg.on Phosphorus, Inorg. 2.1 mg/dL Low 2.5-4.5 [facility] Comment on above: Performed By: #### C DP, BMPX, CRP, ROLA, SED, MG #### [facility] [address] [place] [address] [phone] Head Charger: Diego Mortensen MD Sedimentation Rateon ESR Photometric method (Bld) [Velocity] 22 High [facility] Interpretation and review of laboratory results Abnormal [facility] Sedimentation Rate 22 mm/Hr High 0-20 [facility] Comment on above: Performed By: #### C DP, BMPX, CRP, ROLA, SED, MG #### [facility] [address] [place] [address] [phone] Head Charger: Diego Mortensen MD Basic Metab w/rfx MGon 03-02 Anion gap [Moles/Vol] 9 mmol/L Normal 9-16 [facility] Comment on above: Performed By: #### C DP, BMPX, CRP, ROLA, SED, MG #### [facility] [address] [place] [address] [phone] Head Charger: Diego Mortensen MD Calcium [Mass/Vol] 8.4 mg/dL Low 8.6-10.4 [facility] Comment on above: Performed By: #### C DP, BMPX, CRP, ROLA, SED, MG #### [facility] [address] [place] [address] [phone] Head Charger: Diego Mortensen MD Chloride [Moles/Vol] 106 mmol/L Normal 98-107 [facility] Comment on above: Performed By: #### C DP, BMPX, CRP, ROLA, SED, MG #### [address] [address] Head Charger: Diego Mortensen MD CO2 [Moles/Vol] 26 mmol/L Normal 20-31 [facility] Comment on above: Performed By: #### C DP, BMPX, CRP, ROLA, SED, MG #### [address] [address] Head Charger: Diego Mortensen MD Creatinine [Mass/Vol] 0.7 mg/dL Normal 0.6-0.9 [facility] Comment on above: Performed By: #### C DP, BMPX, CRP, ROLA, SED, MG #### [address] [address] Head Charger: Diego Mortensen MD GFR/1.73 sq M.predicted among non-blacks MDRD (S/P/Bld) [Vol rate/Area] mL/min/{1.73_m2} Normal >60 [facility] Comment on above: Result Comment: These [...] DP, BMPX, CRP, ROLA, SED, MG #### [address] [address] Head Charger: Diego Mortensen MD Glucose [Mass/Vol] 95 mg/dL Normal 74-99 [facility] Comment on above: Performed By: #### C DP, BMPX, CRP, ROLA, SED, MG #### [address] [address] Head Charger: Diego Mortensen MD Potassium [Moles/Vol] 3.5 mmol/L Low 3.7-5.3 [facility] Comment on above: Performed By: #### C DP, BMPX, CRP, ORLA, SED, MG #### [facility] [address] [place] [address] Head Charger: Diego Mortensen MD Sodium [Moles/Vol] 141 mmol/L Normal 136-145 [facility] Comment on above: Performed By: #### C DP, BMPX, CRP, ROLA, SED, MG #### [email or web address] [address] [place], [place] [phone] Head Charger: Diego Mortensen MD Urea nitrogen [Mass/Vol] 13 mg/dL Normal 6-20 [facility] Comment on above: Performed By: #### C DP, BMPX, CRP, ROLA, SED, MG #### [email or web address] [place] [address] Head Charger: Diego Mortensen MD Basic Metabolic Panel w/ Ref nataly to MG 03-02-2024 Anion gap [Moles/Vol] 9 mmol/L 9 - 16 mmol/L [facility] Calcium [Mass/Vol] 8.4 mg/dL Low 8.6 - 10. 4 mg/dL [facility] Chloride [Moles/Vol] 106 mmol/L 98 - 107 mmol/L [facility] CO2 [Moles/Vol] 26 mmol/L 20 - 31 mmol/L [facility] Creatinine [Mass/Vol] 0.7 mg/dL 0.6 - 0.9 mg/dL [facility] Est, Glom Filt Rate - PINF [facility] Comment on above: These results are not [...] [Mass/Vol] 95 mg/dL 74 - 99 mg/dL [facility] Interpretation and review of laboratory results Abnormal [facility] Potassium [Moles/Vol] 3.5 mmol/L Low 3.7 - 5.3 mmol/L [facility] Sodium [Moles/Vol] 141 mmol/L 136 - 145 mmol/L [facility] Urea nitrogen [Mass/Vol] 13 mg/dL 6 - 20 mg/dL [facility] CBC with Auto Differentialon 03-02-2024 Basophils (Bld) [#/Vol] [facility] Basophils/100 WBC (Bld) 0 % 0 - 2 % [facility] Eosinophils (Bld) [#/Vol] 0.04 10*3/uL [facility] Eosinophils/100 WBC (Bld) 1 % 1 - 4 % [facility] Erythrocyte distribution width (RBC) [Ratio] 12.1 % 11.8 - 14.4 % [facility] Hematocrit (Bld) [Volume fraction] 36.1 % Low 36.3 - 47.1 % [facility] Hemoglobin (Bld) [Mass/Vol] 11.8 g/dL Low 11.9 - 15.1 g/dL [facility] Immature granulocytes (Bld) [#/Vol] [facility] Immature granulocytes/100 WBC (Bld) 0 % 0 [facility] Interpretation and review of laboratory results Abnormal [facility] Lymphocytes/100 WBC (Bld) 19 % Low 24 - 43 % [facility] Lymphocytes/100 WBC (Bld) 1.16 % [facility] MCH (RBC) [Entitic mass] 31.1 pg 25.2 - 33.5 pg [facility] MCHC (RBC) [Mass/Vol] 32.7 g/dL 28.4 - 34.8 g/dL [facility] MCV (RBC) [Entitic vol] 95.3 fL 82.6 - 102.9 fL [facility] Monocytes/100 WBC (Bld) 11 % 3 - 12 % [facility] Monocytes/100 WBC (Bld) 0.65 % [facility] Neutrophils/100 WBC (Bld) 69 % High 36 - 65 % [facility] Nucleated RBC/100 WBC (Bld) [Ratio] 0.0 % 0.0 per 100 WBC [facility] Platelet mean volume (Bld) [Entitic vol] 9.9 fL 8.1 - 13.5 fL [facility] Platelets (Bld) [#/Vol] 256 10*3/uL [facility] RBC (Bld) [#/Vol] 3.79 10*6/uL Low 3.95 - 5.1 1 m/uL [facility] Segmented neutrophils/100 WBC (Bld) 4.25 % [facility] WBC other (Bld) [#/Vol] 6.1 [facility] CBC with Diffon 03-02-2024 Abs. Basophil <0.03 Normal 0.00-0.20 [facility] Comment on above: Performed By: #### C DP, BMPX, CRP, ROLA, SED, MG #### [place] [address] Head Charger: Diego Mortensen MD Abs.Imm.Granulocyte <0.03 Normal 0.00-0.30 [facility] Comment on above: Performed By: #### C DP, BMPX, CRP, ROLA, SED, MG #### [facility] [address] [place] [address] Head Charger: Diego Mortensen MD Abs.Neutrophil (Seg) 4.25 k/uL Normal 1.50-8.10 [facility] Comment on above: Performed By: #### C DP, BMPX, CRP, ROLA, SED, MG #### [facility] [address] [place] [address] Head Charger: Diego Mortensen MD Basophils/100 WBC (Bld) 0 % Normal 0-2 [facility] Comment on above: Performed By: #### C DP, BMPX, CRP, ROLA, SED, MG #### [address] [address] Head Charger: Diego Mortensen MD Eosinophils (Bld) [#/Vol] 0.04 10*3/uL Normal 0.00-0.44 [facility] Comment on above: Performed By: #### C DP, BMPX, CRP, ROLA, SED, MG #### [place] [address] Head Charger: Diego Mortensen MD Eosinophils/100 WBC (Bld) 1 % Normal 1-4 [facility] Comment on above: Performed By: #### C DP, BMPX, CRP, ROLA, SED, MG #### [place] [address] Head Charger: Diego Mortensen MD Erythrocyte distribution width (RBC) [Ratio] 12.1 % Normal 11.8-14.4 [facility] Comment on above: Performed By: #### C DP, BMPX, CRP, ROLA, SED, MG #### [place] [address] Head Charger: Diego Mortensen MD Hematocrit (Bld) [Volume fraction] 36.1 % Low 36.3-47.1 [facility] Comment on above: Performed By: #### C DP, BMPX, CRP, ROLA, SED, MG #### [place] [address] Head Charger: Diego Mortensen MD Hemoglobin (Bld) [Mass/Vol] 11.8 g/dL Low 11.9-15.1 [facility] Comment on above: Performed By: #### C DP, BMPX, CRP, ROLA, SED, MG #### [address] [address] Head Charger: Diego Mortensen MD Immature granulocytes/100 WBC (Bld) 0 % Normal 0 [facility] Comment on above: Performed By: #### C DP, BMPX, CRP, ROLA, SED, MG #### [address] [address] Head Charger: Diego Mortensen MD Lymphocytes (Bld) [#/Vol] 1.16 10*3/uL Normal 1.10-3.70 [facility] Comment on above: Performed By: #### C DP, BMPX, CRP, ROLA, SED, MG #### [address] [address] Head Charger: Diego Mortensen MD Lymphocytes/100 WBC (Bld) 19 % Low 24-43 [facility] Comment on above: Performed By: #### C DP, BMPX, CRP, ROLA, SED, MG #### [place] [address] Head Charger: Diego Mortensen MD MCH (RBC) [Entitic mass] 31.1 pg Normal 25.2-33.5 [facility] Comment on above: Performed By: #### C DP, BMPX, CRP, ROLA, SED, MG #### [address] [address] Head Charger: Diego Mortenesn MD MCHC (RBC) [Mass/Vol] 32.7 g/dL Normal 28.4-34.8 [facility] Comment on above: Performed By: #### C DP, BMPX, CRP, ROLA, SED, MG #### [address] [address] Head Charger: Diego Mortensen MD MCV (RBC) [Entitic vol] 95.3 fL Normal 82.6-102.9 [facility] Comment on above: Performed By: #### C DP, BMPX, CRP, ROLA, SED, MG #### [address] [address] Head Charger: Diego Mortensen MD Monocytes (Bld) [#/Vol] 0.65 10*3/uL Normal 0.10-1.20 [facility] Comment on above: Performed By: #### C DP, BMPX, CRP, ROLA, SED, MG #### [address] [address] Head Charger: Diego Mortensen MD Monocytes/100 WBC (Bld) 11 % Normal 3-12 [facility] Comment on above: Performed By: #### C DP, BMPX, CRP, ROLA, SED, MG #### [address] [address] Head Charger: Diego Mortensen MD Neutrophil (Seg) 69 % High 36-65 [facility] Comment on above: Performed By: #### C DP, BMPX, CRP, ROLA, SED, MG #### [address] [address] Head Charger: Diego Mortensen MD NRBC Automated 0.0 per 100 WBC Normal 0.0 [facility] Comment on above: Performed By: #### C DP, BMPX, CRP, ROLA, SED, MG #### [address] [address] Head Charger: Diego Mortensen MD Platelet mean volume (Bld) [Entitic vol] 9.9 fL Normal 8.1-13.5 [facility] Comment on above: Performed By: #### C DP, BMPX, CRP, ROLA, SED, MG #### [address] [address] Head Charger: Diego Mortensen MD Platelets (Bld) [#/Vol] 256 10*3/uL Normal 138-453 [facility] Comment on above: Performed By: #### C DP, BMPX, CRP, ROLA, SED, MG #### [address] [place] [id number] Head Charger: Diego Mortensen MD RBC (Bld) [#/Vol] 3.79 10*6/uL Low 3.95-5.11 [facility] Comment on above: Performed By: #### C DP, BMPX, CRP, ROLA, SED, MG #### [facility] [address] [place], [place] [id number] Head Charger: Diego Mortensen MD WBC (Bld) [#/Vol] 6.1 10*3/uL Normal 3.5-11.3 [facility] Comment on above: Performed By: #### C DP, BMPX, CRP, ROLA, SED, MG #### [facility] [address] [place], [place] [id number] Head Charger: Diego Mortensen MD CT ABDOMEN PELVIS W [...] Isacc Castelan MD 03/02/24 Final result Normal [facility] CT Abdomen and Pelvis W cont [...] recent contrast administration. 4. Mild bibasilar atelectasis. PN RIS CONSOLIDATED EXAMINATION: CT OF THE ABDOMEN [...] recent contrast administration. 4. Mild bibasilar atelectasis. [facility] Radiology Study observation (narrative) [facility] CT Abdomen and Pelvis W cont rast IVOrdered By: Isacc Castelan on 03-02-2024 [facility] Work Phone: Lactic Acidon 03-02-2024 Lactic Acid, Whole Blood 1.2 mmol/L 0.7 - 2.1 mmol/L [facility] Lactic Acid,Whole Bl 1.2 mmol/L Normal 0.7-2.1 [facility] Comment on above: Performed By: #### C DP, LACTIC, BMPX, MG #### [employer] [address] [place] [id number] Head Charger: Diego Mortensen MD Magnesiumon 03-02-2024 Magnesium [Mass/Vol] 2.0 mg/dL 1.6 - 2.6 mg/dL [facility] Magnesium [Mass/Vol] 2.0 mg/dL Normal 1.6-2.6 [facility] Comment on above: Performed By: #### C DP, BMPX, CRP, ROLA, SED, MG #### [employer] [address] [place] [address] Head Charger: Diego Mortensen MD No Panel Informationon 03-02 [facility] IGP,APTIMA HPV,AGE GDLNon AGE GDLN ACOG TESTING Note . [facility] Comment on above: TESTS RESULT FLAG U NITS REF RANGE LAB Clinician Provided Cytology Information Source.............Cervix;Endocervix No. of containers..01 ThinPrep Vial Age Algo ACOG Dahlia... FLAG LEGEND: L-Low Normal,H-High Normal,LL-Alert Low,HH-Alert High <-Panic Low,>-Panic High,A-Abnormal,AA-Critical Abnormal Performed at: 01 =[address] [phone] Darline Garcia MD, HPV APTIMA Negative Negative [facility] e Comment on above: This nucleic acid am plification test detects fourteen high- risk HPV types (16,18,31,33,35,39,45,51,52,56,58,59,66,68) without differentiation. Performed at: =G [address] [id number] Head Charger: Darline Garcia MD, Phone: [phone] Performed at: [facility] [address] [place] [id number] Head Charger: Bonifacio Evans MD, Phone: [phone] IGP, APTIMA HPV, RFX 16/18,45 Note . [facility] Comment on above: TESTS RESULT FLAG UN ITS REF RANGE LAB DIAGNOSIS: 02 NEGATIVE FOR INTRAEPITHELIAL LESION OR MALIGNANCY. Specimen adequacy: 02 Satisfactory for evaluation. Endocervical and/or squamous metaplastic cells (endocervical component) are present. Performed by: 02 Jessica Garcia, Fraud Investigator ([facility]) . 02 Note: Note 03 [...] High,A-Abnormal,AA-Critical Abnormal Performed at: 02 [facility] [address] [place] [address] Bonifacio Evans MD, 03 WB [facility] [address] [phone] Darline Garcia MD, BRUSH-SPATULA CERVIX ENDOCERVIX [facility] CBC AUTO DIFFon 11-14-2021 BASO # 0.0 103/ul Normal 0.0-0.1 [facility] Comment on above: Performed By: #### C BC #### [facility] [address] [address] [address] Alejandro Grijalva Basophils/100 WBC (Bld) 0.2 % Normal 0.2-2.0 [facility] Comment on above: Performed By: #### C BC #### [facility] [address] [address] [address] Alejandro Grijalva EO # 0.0 103/ul Normal 0.0-0.7 [facility] Comment on above: Performed By: #### C BC #### [facility] [address] [address] [address] Alejandro Grijalva Eosinophils/100 WBC (Bld) 0.7 % Critically low 0.9-7.0 [facility] Comment on above: Performed By: #### C BC #### [facility] [address] [place] [address] Dr. Alejandro Grijalva Erythrocyte distribution width (RBC) [Ratio] 11.8 % Normal 11.0-15.0 [facility] Comment on above: Performed By: #### C BC #### [facility] [address] [place] [address] Dr. Alejandro Grijalva Hematocrit (Bld) [Volume fraction] 40.5 % Normal 36.0-48.0 [facility] Comment on above: Performed By: #### C BC #### [facility] [address] [place] [address] Dr. Alejandro Grijalva Hemoglobin (Bld) [Mass/Vol] 13.5 g/dL Normal 12.0-16.0 [facility] Comment on above: Performed By: #### C BC #### [facility] [address] [place] [address] Dr. Alejandro Grijalva IG # 0.02 10e3/ul Normal 0.00-0.03 [facility] Comment on above: Performed By: #### C BC #### [facility] [address] [place] [address] Dr. Alejandro Grijalva IG % 0.3 % Normal 0.0-0.5 [facility] Comment on above: Performed By: #### C BC #### [facility] [address] [place] [address] Dr. Alejandro Grijalva LYMPH # 1.5 103/ul Normal 1.2-3.8 [facility] Comment on above: Performed By: #### C BC #### [facility] [address] [place] [address] Dr. Alejandro Grijalva Lymphocytes/100 WBC (Bld) 24.0 % Normal 20.5-60.0 [facility] Comment on above: Performed By: #### C BC #### [facility] [address] [place] [address] Dr. Alejandro Grijalva MANUAL DIFF REQ NO Normal [facility] Comment on above: Performed By: #### C BC #### [facility] [address] [place] [address] Dr. Alejandro Grijalva MCH (RBC) [Entitic mass] 31.4 pg Normal 26.7-34.0 [facility] Comment on above: Performed By: #### C BC #### [facility] [address] [place] [address] Dr. Alejandro Grijalva MCHC (RBC) [Mass/Vol] 33.3 g/dL Normal 29.9-35.2 [facility] Comment on above: Performed By: #### C BC #### [facility] [address] [place] [address] Dr. Alejandro Grijalva MCV (RBC) [Entitic vol] 94.2 fL Normal 81.0-99.0 [facility] Comment on above: Performed By: #### C BC #### [facility] [address] [place] [address] Dr. Alejandro Grijalva MONO # 0.5 103/ul Normal 0.3-0.8 [facility] Comment on above: Performed By: #### C BC #### [facility] [address] [place] [address] Dr. Alejandro Grijalva Monocytes/100 WBC (Bld) 8.4 % Normal 1.7-12.0 [facility] Comment on above: Performed By: #### C BC #### [facility] [address] [address] [address] Alejandro Grijalva NEUT # 4.0 103/ul Normal 1.4-6.5 [facility] Comment on above: Performed By: #### C BC #### [facility] [address] [address] [address] Alejandro Grijalva Neutrophils/100 WBC (Bld) 66.4 % Normal 43.0-75.0 [facility] Comment on above: Performed By: #### C BC #### [facility] [address] [place] [address] Dr. Alejandro Grijalva Platelet mean volume (Bld) [Entitic vol] 9.7 fL Normal 9.5-13.5 [facility] Comment on above: Performed By: #### C BC #### [facility] [address] [place] [address] Dr. Alejandro Grijalva PLT 273 103/ul Normal 150-450 [facility] Comment on above: Performed By: #### C BC #### [facility] [address] [place] [address] Dr. Alejandro Grijalva RBC 4.30 106/ul Normal 4.20-5.40 [facility] Comment on above: Performed By: #### C BC #### [facility] [address] [place] [address] Dr. Alejandro Grijalva WBC 6.0 103/ul Normal 4.0-11.0 [facility] Comment on above: Performed By: #### C BC #### [facility] [address] [place] [address] Dr. Alejandro Grijalva LIPID PROFILEon 11-14-2021 CHOL-HDL RATIO NORM SEE BELOW Normal [facility] Comment on above: Result Comment: 3.3 - 4.4 LOW RISK 4.4 - 7.1 AVERAGE RISK 7.1 - 11.0 MODERATE RISK >11.0 HIGH RISK Performed By: #### T SH, LIPID, CMP #### [facility] [address] [place] [address] Dr. Alejandro Grijalva Cholesterol [Mass/Vol] 176 mg/dL Normal <=200 [facility] Comment on above: Performed By: #### T SH, LIPID, CMP #### [facility] [address] [address] [address] Alejandro Grijalva Cholesterol in HDL [Mass/Vol] 44 mg/dL Normal 40-60 [facility] Comment on above: Performed By: #### T SH, LIPID, CMP #### [facility] [address] [address] [address] Alejandro Grijalva Cholesterol in LDL [Mass/Vol] 119.6 mg/dL Normal [facility] Comment on above: Performed By: #### T SH, LIPID, CMP #### [facility] [address] [address] [address] Alejandro Grijalva Cholesterol.total/C holesterol in HDL [Mass ratio] 4.0 {ratio} Normal [facility] Comment on above: Performed By: #### T SH, LIPID, CMP #### [facility] [address] [address] [address] Alejandro Grijalva HDL NORMAL > or = 60 mg/dl - LO W CARDIOVASCULAR RISK <40 mg/dl - HIGH CARDIOVASCULAR RISK Normal [facility] Comment on above: Performed By: #### T SH, LIPID, CMP #### [facility] [address] [address] [address] Alejandro Grijalva LDL CALC NORMAL SEE BELOW Normal [facility] Comment on above: Result Comment: <100 mg/dl OPTIMAL 100 - 129 mg/dl NEAR OR ABOVE OPTIMAL 130 - 159 mg/dl BORDERLINE HIGH 160 - 189 mg/dl HIGH >190 mg/dl VERY HIGH Performed By: #### T SH, LIPID, CMP #### [facility] [address] [address] [address] Alejandro Grijalva Triglyceride [Mass/Vol] 62 mg/dL Normal <=150 [facility] Comment on above: Performed By: #### T SH, LIPID, CMP #### [facility] [address] [address] [address] Alejandro Grijalva VLDL CALC 12.4 mg/dL Normal [facility] Comment on above: Performed By: #### T SH, LIPID, CMP #### [facility] [address] [address] [address] Alejandro Grijalva PROF 14(COMP METB)on 022 Albumin [Mass/Vol] 3.7 g/dL Normal 3.4-5.0 [facility] Comment on above: Performed By: #### T SH, LIPID, CMP #### [facility] [address] [address] [address] Alejandro Grijalva Albumin/Globulin [Mass ratio] 1.0 {ratio} Normal [facility] Comment on above: Performed By: #### T SH, LIPID, CMP #### [facility] [address] [address] [address] Alejandro Grijalva ALP [Catalytic activity/Vol] 81 U/L Normal 46-116 [facility] Comment on above: Performed By: #### T SH, LIPID, CMP #### [facility] [address] [address] [address] Alejandro Grijalva ALT [Catalytic activity/Vol] 39 U/L Normal 14-59 [facility] Comment on above: Performed By: #### T SH, LIPID, CMP #### [facility] [address] [address] [address] Alejandro Grijalva Anion gap [Moles/Vol] 14.5 mmol/L Normal [facility] Comment on above: Performed By: #### T SH, LIPID, CMP #### [facility] [address] [address] [address] Alejandro Grijalva AST [Catalytic activity/Vol] 18 U/L Normal 15-37 [facility] Comment on above: Performed By: #### T SH, LIPID, CMP #### [facility] [address] [address] [address] Alejandro Grijalva Bilirubin [Mass/Vol] 0.2 mg/dL Normal 0.2-1.0 [facility] Comment on above: Performed By: #### T SH, LIPID, CMP #### [facility] [address] [address] [address] Alejandro Grijalva Calcium [Mass/Vol] 8.9 mg/dL Normal 8.5-10.[address] [facility] Comment on above: Performed By: #### T SH, LIPID, CMP #### [facility] [address] [address] [address] Alejandro Grijalva Chloride [Moles/Vol] 106 mmol/L Normal 98-107 [facility] Comment on above: Performed By: #### T SH, LIPID, CMP #### [facility] [address] [address] [address] Alejandro Grijalva CO2 [Moles/Vol] 24.9 mmol/L Normal 21.0-32.0 [facility] Comment on above: Performed By: #### T SH, LIPID, CMP #### [facility] [address] [place] [address] Dr. Alejandro Grijalva Creatinine [Mass/Vol] 0.80 mg/dL Normal 0.55-1.02 [facility] Comment on above: Performed By: #### T SH, LIPID, CMP #### [facility] [address] [place] [address] Dr. Alejandro Grijalva EGFR-AF JORDANIAN >60 Normal >=60 [facility] Comment on above: Performed By: #### T SH, LIPID, CMP #### [facility] [address] [place] [address] Dr. Alejandro Grijalva EGFR-NON AF JORDANIAN >60 Normal >=60 [facility] Comment on above: Performed By: #### T SH, LIPID, CMP #### [facility] [address] [place] [address] Dr. Alejandro Grijalva Globulin (S) [Mass/Vol] 3.7 g/dL Normal [facility] Comment on above: Performed By: #### T SH, LIPID, CMP #### [facility] [address] [place] [address] Dr. Alejandro Grijalva Glucose [Mass/Vol] 101 mg/dL Normal 74-[address] [facility] Comment on above: Performed By: #### T SH, LIPID, CMP #### [facility] [address] [place] [address] Dr. Alejandro Grijalva Potassium [Moles/Vol] 4.4 mmol/L Normal 3.5-5.1 [facility] Comment on above: Performed By: #### T SH, LIPID, CMP #### [facility] [address] [place] [address] Dr. Alejandro Grijalva Protein [Mass/Vol] 7.4 g/dL Normal 6.4-8.2 [facility] Comment on above: Performed By: #### T SH, LIPID, CMP #### [facility] [address] [place] [address] Dr. Alejandro Grijalva Sodium [Moles/Vol] 141 mmol/L Normal 136-145 [facility] Comment on above: Performed By: #### T REYNALDO, LIPID, CMP #### [facility] [address] [place] [address] Dr. Alejandro Grijalva Urea nitrogen [Mass/Vol] 12.0 mg/dL Normal 7.0-18.0 [facility] Comment on above: Performed By: #### T REYNALDO, LIPID, CMP #### [facility] [address] [place] [address] Dr. Alejandro Grijalva Urea nitrogen/Creatinine [Mass ratio] 15.0 mg/mg Normal [facility] Comment on above: Performed By: #### T REYNALDO, LIPID, CMP #### [facility] [address] [place] [address] Dr. Alejandro Grijalva TSHon 11-14-2021 TSH 2.902 uIU/mL Normal 0.358-3.740 [facility] Comment on above: Performed By: #### T REYNALDO, LIPID, CMP #### [facility] [address] [place] [address] Dr. Alejandro Grijalva Vital Signs Date Time Vital Sign Value Performing Clinician Facility 03-15-2024 09:32-0500 Body height 165.1 cm Jorden LAMA Work Phone: [facility] 03-15-2024 09:32-0500 Body mass index (BMI) [Ratio] 32.68 kg/m2 Jorden LAMA Work Phone: [facility] 03-15-2024 09:32-0500 Body weight 89.09 kg Jorden Guzmán CODING QUALITY COORDINATOR-ALL AROUND PATTERNMAKER [facility] 03-15-2024 09:32-0500 Diastolic blood pressure 76 mm[Hg] Jorden Guzmán CODING QUALITY COORDINATOR-ALL AROUND PATTERNMAKER [facility] Phone[facility] [employer] [facility] 03-15-2024 09:32-0500 Heart rate 78 /min Jorden Guzmán CODING QUALITY COORDINATOR-ALL AROUND PATTERNMAKER Work Phone: [facility] [email or web address] 03-15-2024 09:32-0500 Systolic blood pressure 135 mm[Hg] Jorden Guzmán CODING QUALITY COORDINATOR-ALL AROUND PATTERNMAKER Work Phone: [facility] [email or web address] 03-03-2024 07:34-0500 Body temperature 97.5 [degF] Faizan Ann MD Work Phone: [email or web address] 03-03-2024 07:34-0500 Diastolic blood pressure 74 mm[Hg] Faizan Ann MD Work Phone: [email or web address] 03-03-2024 07:34-0500 Heart rate 66 /min Faizan Ann MD Work Phone: [email or web address] 03-03-2024 07:34-0500 Respiratory rate 18 /min Faizan Ann MD Work Phone: [email or web address] 03-03-2024 07:34-0500 SaO2% (BldA) [Mass fraction] 94 % Faizan Ann MD Work Phone: [email or web address] 03-03-2024 07:34-0500 Systolic blood pressure 114 mm[Hg] Faizan Ann MD Work Phone: [email or web address] 03-01-2024 15:15-0500 Body height 165.1 cm Faizan Ann MD Work Phone: [email or web address] 03-01-2024 15:15-0500 Body mass index (BMI) [Ratio] 33.28 kg/m2 Faizan Ann MD Work Phone: [email or web address] 03-01-2024 15:15-0500 Body weight 90.72 kg Faizan Ann MD Work Phone: [facility] 11-08-2023 08:55-0400 Body mass index (BMI) [Ratio] 34.12 kg/m2 Sin Karla DO Work Phone: [facility] 11-08-2023 08:55-0400 Body weight 90.17 kg Sin Karla DO Work Phone: [facility] 11-08-2023 08:55-0400 Diastolic blood pressure 72 mm[Hg] Sin Karla DO Work Phone: [facility] 11-08-2023 08:55-0400 Systolic blood pressure 118 mm[Hg] Sin Karla DO Work Phone: [facility] 08-02-2018 02:23-0400 BMI (Body Mass Index) 29.18 kg/m2 [facility]-02-2018 02:23-0400 Body Temperature 98.1 [degF] [facility] 08-02-2018 02:23-0400 BP Diastolic 100 mm[Hg] [facility] 08-02-2018 02:23-0400 BP Systolic 146 mm[Hg] [facility]-02-2018 02:23-0400 Height 162.6 cm [facility] 08-02-2018 02:23-0400 Pulse (Heart Rate) 94 /min Princeralph Leachronald [facility] 08-02-2018 02:23-0400 Pulse Oximetry 99 % [facility] 08-02-2018 02:23-0400 Respiratory Rate 16 /min [facility]-02-2018 02:23-0400 Weight 77.11 kg Prince Wiggins [facility] Encounters Encounter Date Encounter Type Care Provider Facility Start: 03-26-2024 End: 03-26-2024 Orders Only Jorden Guzmán CODING QUALITY COORDINATOR-ALL AROUND PATTERNMAKER Work Phone: [facility] Start: 03-15-2024 End: 03-15-2024 Office outpatient new 30 minutes Jorden Guzmán CODING QUALITY COORDINATOR-ALL AROUND PATTERNMAKER Work Phone: [facility] Comment on above: Abnormal CT scan, ga strointestinal tract (Primary Dx); Change in bowel movement Start: 03-15-2024 End: 03-15-2024 ambulatory [facility] Erick GUZMÁN [facility] Start: 03-05-2024 End: 03-05-2024 Telephone encounter Janett Hardin CODING QUALITY COORDINATOR-ALL AROUND PATTERNMAKER [facility] Start: 03-01-2024 End: 03-03-2024 Evaluation and management of inpatient Faizan Ann MD Work Phone: [address] [facility] SURG Comment on above: SBO [...] adult medical examination without abnormal findings JANETT HARDIN [facility] Start: 11-14-2021 End: 11-15-2021 ambulatory JANETT HARDIN Facility:[facility] Start: 11-14-2021 End: 11-15-2021 Encounter for general adult medical examination without abnormal findings JANETT HARDIN Facility: Start: 08-02-2018 End: 08-02-2018 [facility] Start: 08-02-2018 End: 08-02-2018 Emergency department patient visit Prince Wiggins Work Phone: [facility] Comment on above: Left [...] Kemal D Butler DO Work Phone: Start: 03-03-2024 C-reactive protein Juliet Laguerre PA-C Work Phone: Start: 03-02-2024 Ct abdomen & pelvis w/contrast material Arabella Laguerre PA-C Work Phone: Start: 03-02-2024 Assay of lactate Kemal D Butler DO Work Phone: Start: 03-02-2024 BASIC METABOLIC PANE L W/ REFLEX TO MG FOR LOW K Kemal D Butler DO Work Phone: Start: 11-08-2023 IGP,APTIMA HPV,AGE GDLN Sin Karla DO Work Phone: Start: 11-08-2023 Microscopic observat ion [Identifier] in Cervix by Cyto stain Jorden Guzmán CODING QUALITY COORDINATOR-ALL AROUND PATTERNMAKER Work Phone: Start: 03-05-2022 Adult depression scr eening assessment Janett Hardin CODING QUALITY COORDINATOR-ALL AROUND PATTERNMAKER Work Phone: Start: 03-10-2017 Microscopic observat ion [Identifier] in Cervix by Cyto stain Janett Hardin CODING QUALITY COORDINATOR-ALL AROUND PATTERNMAKER Work Phone: Plan of Treatment Date Care Activity Detail Author Start: 11-07-2026 Screening for malign ant neoplasm of cervix Pap Smear [facility] Start: 03-15-2025 Adult BMI Screening Adult BMI Screen ing [facility] Start: 03-15-2025 Tobacco Screening Tobacco Screening [facility] Start: 11-13-2024 End: 11-13-2024 Patient encounter procedure 11/13/2024 8:30 AM EDT Office Visit [facility] [address] [place] [id number] Sin Acosta, DO [address], [place] [id number] [facility] Start: 04-04-2024 End: 04-04-2024 Patient encounter procedure 04/04/2024 11:00 AM EST Office Visit [address] Douglas Gupta, [address] [id number] [facility] Start: 02-01-2024 Tobacco Screening [facility] [facility] Start: 11-11-2023 Adult BMI Follow Up Plan Adult BMI Follow Up Plan [facility] Start: 11-11-2023 Adult BMI Screening Adult BMI Screen ing [facility] Start: 11-08-2023 End: 11-08-2023 Patient encounter procedure 11/08/2023 8:30 AM EDT Office Visit [facility] [address] [place] [place] [address] Sin [address], [address], [place] [id number] Arrived [facility] Comment on above: Arrived Start: 11-06-2023 COVID-19 Vaccine (2022- season) COVID-19 Vaccine (2022- season) [facility] Start: 11-06-2023 Influenza vaccination Influenza Vacc ine [facility] Start: 10-06-2023 Influenza vaccination Flu vaccine (# 1) [facility] Start: 03-05-2023 Depression Screening Depression Scre ening [facility] Start: 03-10-2020 Screening for malign ant neoplasm of cervix Pap Smear [facility] Start: 2014 Screening for malign ant neoplasm of cervix [facility] Start: 2005 Screening for malign ant neoplasm of cervix Pap smear [facility] Start: 08-22-2003 DTaP,Tdap and Td Vaccines (1 - Tdap) DTaP,Tdap and Td Vaccines (1 - Tdap) [facility] Start: 08-22-2003 DTaP/Tdap/Td vaccine (1 - Tdap) DTaP/Tdap/Td vaccine (1 - Tdap) [facility] Start: 08-22-2003 Hepatitis B vaccine (1 of 3 - 19+ 3-dose series) Hepatitis B vaccine (1 of 3 - 19+ 3-dose series) [facility] Start: 2002 Hepatitis C screening Hepatitis C sc reen [facility] Start: 08-22-1999 HIV screening HIV screen [facility] Start: 1997 Varicella vaccine (1 of 2 - 13+ 2-dose series) Varicella vaccine (1 of 2 - 13+ 2-dose series) [facility] Start: 1996 Depression Screen Depression Screen [facility] End: 03-04-2024 Basic Metabolic Panel w/ Reflex to MG Basic Metabolic Panel w/ Reflex to MG Lab Routine Daily for 3 Days starting 03/02/2024 until 03/04/2024, 2 completed [facility] Comment on above: Daily for 3 Days sta rting 03/02/2024 until 03/04/2024, 2 completed End: 03-02-2024 Calprotectin Stool [facility] Work Phone: Comment on above: One Time for 1 Occur rences starting 03/02/2024 until 03/02/2024 End: 03-04-2024 CBC W Auto Differential panel - Blood CBC with Auto Differential Lab Routine Daily for 3 Days starting 03/02/2024 until 03/04/2024, 2 completed [facility] Comment on above: Daily for 3 Days [...] exam with routine gynecological exam Ordered: 11/08/2023 [facility] Work Phone: Comment on above: Ordered: 11/08/2023 Human papilloma viru s DNA [Presence] in Unspecified specimen by Probe with amplification HPV DNA probe, amplified Microbiology Routine Well woman exam with routine gynecological exam Ordered: 11/08/2023 [facility] Comment on above: Ordered: 11/08/2023 Oxygen therapy [[facility] [place] [place] Data Set] Initiate Oxygen Therapy Protocol Respiratory Care Routine As Needed until discontinued starting 03/01/2024 [facility] Work Phone: Comment on above: As Needed until disc ontinued starting 03/01/2024 Payers Date Payer Category Payer Unknown FRONTPATH FRONTP ATH [id number] 2022-Present [phone] [address] [place] [address] [id number] 2018 Managed Care Other (unspecified) [id number] 1984 Unknown [id number] 1984 Unknown [id number] 1984 Unknown [id number] 1984 Unknown [id number] 1984 Unknown [id number] 1959 Unknown [id number] Unknown COMMERCIAL COMME RCIAL MISCELLANEOUS xxxxxxxxx Effective for all dates xxxxxxxxx [id number] Unknown [id number] Social History Date Type Detail Facility Start: 08-02-2018 End: 11-10-2022 Tobacco smoking status NEIS Never smoker [facility] Start: 08-02-2018 History SDOH Alcohol Frequency 1 [facility] Start: 1985 Sex Assigned At Not on file [facility] Tobacco smoking stat [facility] Tobacco smoking consumption unknown [facility] Start: 10-10-2020 End: 03-01-2024 Gender identity Not on file [facility] Start: 10-10-2020 End: 03-01-2024 History of Social function t3n [employer] Has the [employer], or water [employer] threatened to shut off services in your home in past 12Mo No [facility] (I/We) worried wheth er (my/our) food would run out before (I/we) got money to buy more. Never true [facility] In the past 12 month s, has lack of transportation kept you from medical appointments or from getting medications? No [facility] Start: 11-10-2022 Tobacco use and exposure Smokeless tobacco non-user [facility] Start: 01-31-2023 End: 03-15-2024 Alcoholic beverage intake Ex-drinker (finding) [facility] Do you belong to any clubs or organizations such as muslim groups, unions, fraternal or athletic groups, or school groups? Yes [facility] Are you now , , , , never or living with a partner? [facility] How often to you hav e a drink containing alcohol? Monthly or less [facility] How many standard dr inks containing alcohol do you have on a typical day? 1 or 2 [facility] How often do you hav e 6 or more drinks on 1 occasion? Never [facility] Do you feel stress - tense, restless, nervous, or anxious, or unable to sleep at night because your mind is troubled all the time - these days [OSQ] Only a little [facility] Start: 10-10-2020 Education 17 [facility] Start: 10-08-2014 Sex Female (finding) [facility] Clinical Notes 11-08-2023 to 03-26-2024 Telephone Encounter - Siomara Veronica CMA - 03/26/2024 10:49 AM ESTTelephone Encounter - Siomara Veronica CMA - 03/26/2024 10:49 AM DAINA Fonseca - 03/15/2024 9:30 AM ESTDischarkayleigh Instr - Diet Note Date & Type Note Facility 03-26-2024 Miscellaneous Notes I spoke to the patient she is scheduled for a small bowel series for tomorrow 03/27/24 & a Barium enema scheduled for Tuesday03/30/24. Both tests are at [facility]. I was told by [facility] Central scheduling that they do not give bowel prep instructions for the Barium Enema Test. I went over the Barium Enema instructions with her & I will also e.mail the patient a copy of our instructions.The patient was instructed by [facility] to fast for 4 hours prior to test for the Small Bowel Series. The patient is scheduled for an appointment with Dr Gupta on 04/04/24, for test results. If all test results aren't back by that point we will move it out to another date. She may be scheduled with Jorden Guzmán CNP if needed since DR Gupta will be out of the office until 04/18/24. documented in this encounter [facility] 01-20-2025 Telephone encounter Note I spoke to the patient she is scheduled for a small bowel series for tomorrow 03/27/24 & a Barium enema scheduled for Tuesday03/30/24. Both tests are at [facility]. I was told by [facility] Central scheduling that they do not give bowel prep instructions for the Barium Enema Test. I went over the Barium Enema instructions with her & I will also e.mail the patient a copy of our instructions.The patient was instructed by [facility] to fast for 4 hours prior to test for the Small Bowel Series. The patient is scheduled for an appointment with Dr Gupta on 04/04/24, for test results. If all test results aren't back by that point we will move it out to another date. She may be scheduled with Jorden Guzmán CNP if needed since DR Gupta will be out of the office until 04/18/24. [facility] 03-15-2024 History of Presen t illness Narrative Images from the original note were not included. Chief Complaint: Abnormal CT scan History of Present Illness Brandie Olmos is a 38 y.o. female who presents to the office for follow-up after being hospitalized at [facility] at the end of February for SBO. [...] Disp: 60 tablet, Rfl: 1 peg 3350-sod sulf,hcgg-vug-dqg 178.7-7.3-0.5 gram recon soln, Take 1 kit [...] Needs: No Transportation Needs (03/01/2024) Received from [facility] - Transportation Lack of Transportation (Medical): No Lack of Transportation (Non-Medical): No Physical Activity: Sufficiently Active (10/10/2020) Exercise Vital Sign Days of Exercise per Week: 5 days Minutes of Exercise per Session: 60 min Stress: No Stress Concern Present (10/10/2020) [employer] [place] [employer] - Occupational Stress Questionnaire Feeling of Stress : Only a little Social Connections: Socially Integrated (10/10/2020) Social Connection and Isolation Panel [NHANES] Frequency of Communication with Friends and Family: More than three times a week Frequency of Social Gatherings with Friends and Family: More than three times a week Attends [employer] Services: More than 4 times per year Active Member of Clubs or Organizations: Yes Attends Club or Organization Meetings: More than 4 times per year Marital Status: Interpersonal Safety: Not At Risk (10/10/2020) Humiliation, Afraid, Rape, and Kick questionnaire Fear of Current or Ex-Partner: No Emotionally Abused: No Physically Abused: No Sexually Abused: No Housing Instability: Low Risk (03/01/2024) Received from [facility] Housing Stability Vital Sign Unable to [...] atelectasis. Assessment Follow-up hospitalization for SBO at [facility] Abnormal CT scan abdomen and pelvis concerning [...] patient/family/caregiver Referring and communicating with other health lead care manager Abnormal CT scan, gastrointestinal tract [R93.3] JORDEN GUZMÁN, CODING QUALITY COORDINATOR-ALL AROUND PATTERNMAKER [facility] [place] This note was created with the assistance of a speech recognition program. While intending to generate a timely document that accurately reflects the content of the visit, no guarantee can be provided that every grammatical or spelling mistake has been or will be identified or corrected. Thank you for your understanding. DAINA Engel 03/15/24 1033 documented in this encounter [facility] 03-05-2024 Miscellaneous Notes Patient was in [facility] for a bowel obstruction, she would like a referral to [facility] for a colonoscopy documented in this encounter [facility] 03-05-2024 Telephone encounter Note Patient was in [facility] for a bowel obstruction, she would like a referral to [facility] for a colonoscopy [facility] 03-03-2024 Hospital Discharg e instructions David [...] sent through Care Everywhere.Diet: Low-FODMAP: General Info (Botswanan)IBS (Irritable Bowel Syndrome) Diet (Botswanan)documented in this encounter [facility] 03-03-2024 History of Presen t illness Narrative Images from the original note were not included. PROGRESS NOTE PATIENT NAME: Brandie Olmos DATE: 03/03/2024 HD: # 2 Patient Active Problem List Diagnosis Placenta previa without hemorrhage, antepartum resulting from assisted reproductive technology SBO (small bowel obstruction) (FORMERLY [facility]) DIAGNOSIS AND PLAN 38 year old female [...] Attending Note I have reviewed the above [facility] Specialists note(s). I have seen and examined the patient. I have discussed the findings, established the care plan and recommendations with the Advanced Practice Provider. Chief Complaint: abd distension Exam: Passing some flatus, abd soft Plan: PO CT scan, discussed with patient and . Luh Orr MD 03/02/2024 8:12 PM documented in this encounter [facility] 11-08-2023 History of Presen t [...] nursing note reviewed. Exam conducted with a metal roaster present. Vitals: Estimated body mass index is [...] encounter [facility] Healthcare Evaluation note Diagnosis Well woman exam with routine gynecological exam Routine gynecological examination documented in this encounter [facility] HealthcareEvaluation note* Diagnosis SBO (small bowel obstruction) (HCC)- Primary Unspecified intestinal obstruction SBO (small bowel obstruction) (HCC) Unspecified intestinal obstruction documented in this encounter [facility] Health[facility]* Diagnosis Change in bowel movement- Primary [facility] Diagnosis Abnormal CT scan, gastrointestinal tract- Primary Change in bowel movement documented in this encounter [facility]ructions[facility] on filedocumented in this encounter [facility] System[facility]ructionsNot on filedocumented in this encounter [facility] SystemInstructionsNot on filedocumented in this encounter [facility] SystemInstructionsNot on filedocumented in this encounter [facility] Discharge Instructions * Instructions* Prince Wiggins MD - 08/02/2018 Thank you for coming to an [facility] Emergency facility for your emergency care. [...] you may find a provider through the [facility] Physician Referral Service by calling [phone] ([phone]) or by visiting [email or web address]. If you were prescribed any medications, be [...] sent through Care Everywhere. * Sore Throat (Botswanan) * Earache: Adult (Botswanan) documented in this encounter Assessments Diagnosis Left ear pain- Primary Unspecified otalgia Pharyngitis, unspecified etiology Advance Directives Documents on File Type Date Recorded Patient Optical Worker Expl anation Advance Directives and Livin g [...] bowel obstruction) (HCC) Luh Orr MD [address] [facility] [address] [place] [address] [facility] [address] [place] [address] Referral ID Status Reason Start Date Expiration Date Visits Re quested Visits Authorized [id number] 1 1 Reason Comments Change in Bowel Habits Change in bowel h abits, referred by Janett Hardin CNP Specialty Diagnoses / Procedures Referred By Patricia booker Referred To Contact General Surgery Diagnoses Change in bowel movement Janett Hardin, CODING QUALITY COORDINATOR-ALL AROUND PATTERNMAKER [address] [place] [address] Phone: tel: fax: [facility] [address] [place] [address] Phone: tel: fax: Referral ID Status Reason Start Date Expiration Date V isits Requested Visits Authorized [id number] Closed Specialty Services Required 03/05/2024 03/05/2025 1 [...] file Gets together: Not on file Attends yazdanism service: Not on file Active member of club or organization: Not on file Attends meetings of clubs or organizations: Not on file Relationship status: Not on file Other Topics Concern Not on file Social History Narrative Not on file Social history reviewed. Allergies: No Known Allergies Medications: Brandie Olmos Medication Instructions Prior to Surgery GILBERTO:[id number] Printed on:08/02/18 0254 Medication Information Take last [...] supply per fill: 5) . PHYSICAL EXAMINATION: [place] body weight: 54.7 kg (120 lb 9.5 [...] provider on file.. [facility] referral information was also provided. They [...] content) DATE CREATED AUTHOR 10/16/2018 [facility] DATE CREATED AUTHOR AUTHOR'S ORGANIZ ATION 12/05/2021 [facility] DATE CREATED AUTHOR AUTHOR'S ORGANIZ ATION 11/08/[address] [facility] dical Specialists [facility] DATE CREATED AUTHOR AUTHOR'S ORGANIZ ATION 03/07/2024 [facility] DATE CREATED AUTHOR AUTHOR'S ORGANIZ ATION [...] 0027 (Given - Provider: Maria Del Rosario Rosales, KSENIA)0809 (Given - Provider: Susan Reid RN)1628 (Given - Provider: Susan Reid RN)2247 (Not Given - Provider: Soraya Nguyễn RN - Reason: Patient/family refused) enoxaparin (LOVENOX) injection 40 mg 40 mg, SubCUTAneous, DAILY, First dose on Amanda 24 at 1700, Until Discontinued, Indication of Use: [...] separately. 1002 (Given - Provider: Susan Reid RN)193 (Given - Provider: Soraya Nguyễn RN) sodium chloride flush 0.9 % injection [...] Fluid Infusing) 0936 (Given - Provider: David Hudson, RN)2100 (Due) Continuous Medication Order 03/01/2024 03/02/2024 [...] Care Teams (unrecognized sec tion and content) Space Controller Relationship Specialty Start Date End Date Raymond Ching DO PCP - General 06/03/11 Space Controller Relationship Specialty Start Date End Date Janett Hardin, CODING QUALITY COORDINATOR-ALL AROUND PATTERNMAKER [address] [place] [address] PCP - [facility] 08/08/18 Space Controller Relationship Specialty Start Date End Date [facility] Hardin [facility] [address] [place] [address] PCP - [facility] 08/08/18 Space Controller Relationship Specialty Start Date End Date [facility]ett [facility]in [facility] [address] [place] [address] PCP - [facility] 08/08/18 Space Controller Relationship Specialty Start Date End Date Janett Hardin [facility] [address] [place] [address] PCP - [facility] 08/08/18 FOR RECORDS PERTAINING TO PATIENTS WHO [...] BE BASED ON THE PRIMARY CLINICAL RECORDS. [facility] [employer] [facility]. provides no warranty or guarantee of the accuracy or completeness of information in this document.
--- NOTE | 2024-03-27 10:55 | FL_ITS ---
The [address] [address] Patient Name: NASRIN BENITEZ MRN: [id number] date: 1985 Sex: F Assigned Patient Location: [facility] Current Patient Location: OR Accession/Order Number: [id number] Exam Date: 03/27/2024 08:45 Report Date: 03/27/2024 11:50 At the request of: SHAE PEÑALOZA Procedure: FL small bowel follow through EXAMINATION: FL small bowel follow through HISTORY: Polyps, Narrowing COMPARISON: No relevant comparison available. FLUOROSCOPY TIME: Fluoro time measures and images were obtained. TECHNIQUE: Small bowel series was performed in the usual manner. No computer operations technician abdominal radiograph was performed. Standard level fluoroscopic mode of operation utilized. FINDINGS: DUODENUM: Normal. No ulceration or diverticulum. JEJUNUM: Normal. Normal motility. No obstruction or visible lesion. ILEUM: Normal. Normal motility. No obstruction or visible lesion. OTHER: Negative. FL/FL small bowel follow through IMPRESSION: 1. Normal small bowel follow-through study. Electronically authenticated by: CHARLOTTE GOMEZ Date: 03/27/2024 11:50
== END 2024-03-27 08:31 | disposition home or self-care (01) ==
LOC: FL 08:30
PROVIDERS: PCP Nurse Practitioner; Visit Provider Surgery
DX: K22.81 Esophageal polyp (principal); K22.2 Esophageal obstruction
CPT/HCPCS: 74248; 74250

== ENCOUNTER 2024-03-30 08:39 | Outpatient (OUT) | payer OTHER, SELFPAY ==
--- OUTSIDE RECORDS SUMMARY | 2024-03-30 08:45 | XMS_ITS | CCD ---
Author Organization [facility] Care Team Providers Care Silk Screen Printer Name Role Phone No, Physician Primary Care Provider PRINCE Saavedra Attending Tatiana WELDON, PHYSICIAN Primary Care Unavailable JANETT HARDIN Attending Unavailable JANETT HARDIN Consulting Unavailable JANETT HARDIN Primary Care Unavailable JANETT HARDIN Admitting Unavailable SIN ACOSTA Attending Unavailable Unavailable Primary Care Provider Raymond Schroeder DO Primary Care Provider Wilfred [place] [employer]-Janett JACKSON Primary Care Provid er RAYMOND CHING [...] 1.5 mg/ml oral solution (2 sources) Uncompetitive B-mgcfvi-N-aspart[place] te Receptor Antagonist, Sigma-1 Agonist Start: 01-31-2023 [...] (ZOFRAN-ODT) disintegrating tablet 4 mg peg 3350-sod sulf,tfva-ada-wim 178.7-7.3-0.5 gram recon soln (1 source) Start: 03-15-2024 End: 03-16-2024 peg 3350-sod sulf,kupq-kaa-kmm 178.7-7.3-0.5 gram recon soln Indications: Abnormal CT scan, gastrointestinal tract Take 1 kit by mouth once daily for 1 dose. Please see instructional sheet given by physicians office. 1 each 03/15/2024 03/16/2024 Active polyethylene glycol 3350 61199 mg powder for oral solution (2 sources) [...] (3 times per day), First dose on [facility] 03/03/24 at 0815, Until Discontinued, Maximum [...] 2023 Calprotectin, Fecal 1430 ug/g High <=49 [facility] Comment on above: Result Comment: (NOT E) REFERENCE INTERVAL: Calprotectin, Fecal by Immunoassay Less than 50 ug/g.........Normal 50-120 ug/g...............Borderline elevated, test should be re-evaluated in 4-6 weeks. 121 ug/g or greater.......Elevated Performed By: [employer] [address] [place] [address] Calender Inspector: Shahriar Gill MD, PhD CLIA Number: [id number] Performed By: #### A CALPF #### [facility] [employer] [address], [place] [phone] Bottle Machine Operator: Kareem Alvarez MD Basic Metab w/rfx MGon 03-03 Anion gap [Moles/Vol] 10 mmol/L Normal 9-16 [facility] Comment on above: Performed By: #### C DP, BMPX, CRP, ROLA, SED, MG #### [facility] [employer] [address] [place] [address] [phone] Bottle Machine Operator: Diego Mortensen MD Calcium [Mass/Vol] 8.5 mg/dL Low 8.6-10.4 [facility] Comment on above: Performed By: #### C DP, BMPX, CRP, ROLA, SED, MG #### [facility] [employer] [address] [place] [address] [phone] Bottle Machine Operator: Diego Mortensen MD Chloride [Moles/Vol] 105 mmol/L Normal 98-107 [facility] Comment on above: Performed By: #### C DP, BMPX, CRP, ROLA, SED, MG #### [employer] [address] [place] [address] Bottle Machine Operator: Diego Mortensen MD CO2 [Moles/Vol] 23 mmol/L Normal 20-31 [facility] Comment on above: Performed By: #### C DP, BMPX, CRP, ROLA, SED, MG #### [facility] [employer] [address] [place] [id number] Bottle Machine Operator: Diego Mortensen MD Creatinine [Mass/Vol] 0.6 mg/dL Normal 0.6-0.9 [facility] Comment on above: Performed By: #### C DP, BMPX, CRP, ROLA, SED, MG #### [address] [address] Bottle Machine Operator: Diego Mortensen MD GFR/1.73 sq M.predicted among non-blacks MDRD (S/P/Bld) [Vol rate/Area] mL/min/{1.73_m2} Normal >60 [facility] Comment on above: Result Comment: These results [...] DP, BMPX, CRP, ROLA, SED, MG #### [address] [address] Bottle Machine Operator: Diego Mortensen MD Glucose [Mass/Vol] 78 mg/dL Normal 74-99 [facility] Comment on above: Performed By: #### C DP, BMPX, CRP, ROLA, SED, MG #### [address] [address] Bottle Machine Operator: Diego Mortensen MD Potassium [Moles/Vol] 3.9 mmol/L Normal 3.7-5.3 [facility] Comment on above: Performed By: #### C DP, BMPX, CRP, ROLA, SED, MG #### [facility] [employer] [address] [place] [address] Bottle Machine Operator: Diego Mortensen MD Sodium [Moles/Vol] 138 mmol/L Normal 136-145 [facility] Comment on above: Performed By: #### C DP, BMPX, CRP, ROLA, SED, MG #### [facility] [address] [place], [place] [phone] Bottle Machine Operator: Diego Mortensen MD Urea nitrogen [Mass/Vol] 8 mg/dL Normal 6-20 [facility] Comment on above: Performed By: #### C DP, BMPX, CRP, ROLA, SED, MG #### [facility] [address] [place], [place] [phone] Bottle Machine Operator: Diego Mortensen MD Basic Metabolic Panel w/ Ref nataly to MGon 03-03-2024 Anion gap [Moles/Vol] 10 mmol/L 9 - 16 mmol/L [facility] Calcium [Mass/Vol] 8.5 mg/dL Low 8.6 - 10. 4 mg/dL [facility] Chloride [Moles/Vol] 105 mmol/L 98 - 107 mmol/L [facility] CO2 [Moles/Vol] 23 mmol/L 20 - 31 mmol/L [facility] Creatinine [Mass/Vol] 0.6 mg/dL 0.6 - 0.9 mg/dL [facility] Est, Glom Filt Rate - PINF [facility] Comment on above: These results are not [...] [Mass/Vol] 78 mg/dL 74 - 99 mg/dL [facility] Potassium [Moles/Vol] 3.9 mmol/L 3.7 - 5.3 mmol/L [facility] Sodium [Moles/Vol] 138 mmol/L 136 - 145 mmol/L [facility] Urea nitrogen [Mass/Vol] 8 mg/dL 6 - 20 mg/dL [facility] C-Reactive Proteinon 024 CRP High sensitivity method [Mass/Vol] 15.4 mg/L High 0.0 - 5.0 mg/L [facility] CRP [Mass/Vol] 15.4 mg/L High 0.0-5.0 [facility] Comment on above: Performed By: #### C DP, BMPX, CRP, ROLA, SED, MG #### [facility] [address] [place] [phone] Bottle Machine Operator: Diego Mortensen MD CBC with Auto Differentialon 03-03-2024 Basophils (Bld) [#/Vol] [facility] Basophils/100 WBC (Bld) 0 % 0 - 2 % [facility] Eosinophils (Bld) [#/Vol] 0.05 10*3/uL [facility] Eosinophils/100 WBC (Bld) 1 % 1 - 4 % [facility] Erythrocyte distribution width (RBC) [Ratio] 11.9 % 11.8 - 14.4 % [facility] Hematocrit (Bld) [Volume fraction] 35.3 % Low 36.3 - 47.1 % [facility] Hemoglobin (Bld) [Mass/Vol] 11.6 g/dL Low 11.9 - 15.1 g/dL [facility] Immature granulocytes (Bld) [#/Vol] [facility] Immature granulocytes/100 WBC (Bld) 0 % 0 [facility] Interpretation and review of laboratory results Abnormal [facility] Lymphocytes/100 WBC (Bld) 29 % 24 - 43 % [facility] Lymphocytes/100 WBC (Bld) 1.36 % [facility] MCH (RBC) [Entitic mass] 31.8 pg 25.2 - 33.5 pg [facility] MCHC (RBC) [Mass/Vol] 32.9 g/dL 28.4 - 34.8 g/dL [facility] MCV (RBC) [Entitic vol] 96.7 fL 82.6 - 102.9 fL [facility] Monocytes/100 WBC (Bld) 11 % 3 - 12 % [facility] Monocytes/100 WBC (Bld) 0.52 % [facility] Neutrophils/100 WBC (Bld) 59 % 36 - 65 % [facility] Nucleated RBC/100 WBC (Bld) [Ratio] 0.0 % 0.0 per 100 WBC [facility] Platelet mean volume (Bld) [Entitic vol] 9.8 fL 8.1 - 13.5 fL [facility] Platelets (Bld) [#/Vol] 243 10*3/uL [facility] RBC (Bld) [#/Vol] 3.65 10*6/uL Low 3.95 - 5.1 1 m/uL [facility] Segmented neutrophils/100 WBC (Bld) 2.78 % [facility] WBC other (Bld) [#/Vol] 4.8 [facility] CBC with Diffon 03-03-2024 Abs. Basophil <0.03 Normal 0.00-0.20 [facility] Comment on above: Performed By: #### C DP, BMPX, CRP, ROLA, SED, MG #### [place] [address] Bottle Machine Operator: Diego Mortensen MD Abs.Imm.Granulocyte <0.03 Normal 0.00-0.30 [facility] Comment on above: Performed By: #### C DP, BMPX, CRP, ROLA, SED, MG #### [facility] [employer] [address] [place] [address] Bottle Machine Operator: Diego Mortensen MD Abs.Neutrophil (Seg) 2.78 k/uL Normal 1.50-8.10 [facility] Comment on above: Performed By: #### C DP, BMPX, CRP, ROLA, SED, MG #### [facility] [employer] [address] [place] [address] Bottle Machine Operator: Diego Mortensen MD Basophils/100 WBC (Bld) 0 % Normal 0-2 [facility] Comment on above: Performed By: #### C DP, BMPX, CRP, ROLA, SED, MG #### [place] [address] Bottle Machine Operator: Diego Mortensen MD Eosinophils (Bld) [#/Vol] 0.05 10*3/uL Normal 0.00-0.44 [facility] Comment on above: Performed By: #### C DP, BMPX, CRP, ROLA, SED, MG #### [place] [address] Bottle Machine Operator: Diego Mortensen MD Eosinophils/100 WBC (Bld) 1 % Normal 1-4 [facility] Comment on above: Performed By: #### C DP, BMPX, CRP, ROLA, SED, MG #### [place] [address] Bottle Machine Operator: Diego Mortensen MD Erythrocyte distribution width (RBC) [Ratio] 11.9 % Normal 11.8-14.4 [facility] Comment on above: Performed By: #### C DP, BMPX, CRP, ROLA, SED, MG #### [place] [address] Bottle Machine Operator: Diego Mortensen MD Hematocrit (Bld) [Volume fraction] 35.3 % Low 36.3-47.1 [facility] Comment on above: Performed By: #### C DP, BMPX, CRP, ROLA, SED, MG #### [place] [address] Bottle Machine Operator: Diego Mortensen MD Hemoglobin (Bld) [Mass/Vol] 11.6 g/dL Low 11.9-15.1 [facility] Comment on above: Performed By: #### C DP, BMPX, CRP, ROLA, SED, MG #### [place] [address] Bottle Machine Operator: Diego Mortensen MD Immature granulocytes/100 WBC (Bld) 0 % Normal 0 [facility] Comment on above: Performed By: #### C DP, BMPX, CRP, ROLA, SED, MG #### [place] [address] Bottle Machine Operator: Diego Mortensen MD Lymphocytes (Bld) [#/Vol] 1.36 10*3/uL Normal 1.10-3.70 [facility] Comment on above: Performed By: #### C DP, BMPX, CRP, ROLA, SED, MG #### [place] [address] Bottle Machine Operator: Diego Mortensen MD Lymphocytes/100 WBC (Bld) 29 % Normal 24-43 [facility] Comment on above: Performed By: #### C DP, BMPX, CRP, ROLA, SED, MG #### [place] [address] Bottle Machine Operator: Diego Mortensen MD MCH (RBC) [Entitic mass] 31.8 pg Normal 25.2-33.5 [facility] Comment on above: Performed By: #### C DP, BMPX, CRP, ROLA, SED, MG #### [place] [address] Bottle Machine Operator: Diego Mortensen MD MCHC (RBC) [Mass/Vol] 32.9 g/dL Normal 28.4-34.8 [facility] Comment on above: Performed By: #### C DP, BMPX, CRP, ROLA, SED, MG #### [place] [address] Bottle Machine Operator: Diego Mortensen MD MCV (RBC) [Entitic vol] 96.7 fL Normal 82.6-102.9 [facility] Comment on above: Performed By: #### C DP, BMPX, CRP, ROLA, SED, MG #### [place] [address] Bottle Machine Operator: Diego Mortensen MD Monocytes (Bld) [#/Vol] 0.52 10*3/uL Normal 0.10-1.20 [facility] Comment on above: Performed By: #### C DP, BMPX, CRP, ROLA, SED, MG #### [address] [address] Bottle Machine Operator: Diego Mortensen MD Monocytes/100 WBC (Bld) 11 % Normal 3-12 [facility] Comment on above: Performed By: #### C DP, BMPX, CRP, ROLA, SED, MG #### [place] [address] Bottle Machine Operator: Diego Mortensen MD Neutrophil (Seg) 59 % Normal 36-65 [facility] Comment on above: Performed By: #### C DP, BMPX, CRP, ROLA, SED, MG #### [place] [address] Bottle Machine Operator: Diego Mortensen MD NRBC Automated 0.0 per 100 WBC Normal 0.0 [facility] Comment on above: Performed By: #### C DP, BMPX, CRP, ROLA, SED, MG #### [place] [address] Bottle Machine Operator: Diego Mortensen MD Platelet mean volume (Bld) [Entitic vol] 9.8 fL Normal 8.1-13.5 [facility] Comment on above: Performed By: #### C DP, BMPX, CRP, ROLA, SED, MG #### [place] [address] Bottle Machine Operator: Diego Mortensen MD Platelets (Bld) [#/Vol] 243 10*3/uL Normal 138-453 [facility] Comment on above: Performed By: #### C DP, BMPX, CRP, ROLA, SED, MG #### [facility] [place] [address] Bottle Machine Operator: Diego Mortensen MD RBC (Bld) [#/Vol] 3.65 10*6/uL Low 3.95-5.11 [facility] Comment on above: Performed By: #### C DP, BMPX, CRP, ROLA, SED, MG #### [facility] [address] [place] [address] Bottle Machine Operator: Diego Mortensen MD WBC (Bld) [#/Vol] 4.8 10*3/uL Normal 3.5-11.3 [facility] Comment on above: Performed By: #### C DP, BMPX, CRP, ROLA, SED, MG #### [facility] [address] [place] [address] Bottle Machine Operator: Diego Mortensen MD Calcium, Ionicon 03-03-2024 Calcium [Moles/Vol] 1.19 mmol/L Normal 1.13-1.33 [facility] Comment on above: Performed By: #### I OCAL #### [facility] [address] [place] [phone] Bottle Machine Operator: Diego Mortensen MD Calcium, Ionizedon 6 Calcium.ionized (Bld) [Moles/Vol] 1.19 mmol/L 1.13 - 1.33 mmol/L [facility] Magnesiumon 03-03-2024 Magnesium [Mass/Vol] 2.1 mg/dL 1.6 - 2.6 mg/dL [facility] Magnesium [Mass/Vol] 2.1 mg/dL Normal 1.6-2.6 [facility] Comment on above: Performed By: #### C DP, BMPX, CRP, ROLA, SED, MG #### [employer] [address] [place] [address] Bottle Machine Operator: Diego Mortensen MD No Panel Informationon 03-03 Interpretation and review of laboratory results Abnormal [facility] Phosphoruson 03-03-2024 Phosphate [Mass/Vol] 2.1 mg/dL Low 2.5 - 4.5 mg/dL [facility] Phosphorus, Inorg.on Phosphorus, Inorg. 2.1 mg/dL Low 2.5-4.5 [facility] Comment on above: Performed By: #### C DP, BMPX, CRP, ROLA, SED, MG #### [facility] [employer] [address] [place] [address] [phone] Bottle Machine Operator: Diego Mortensen MD Sedimentation Rateon ESR Photometric method (Bld) [Velocity] 22 High [facility] Interpretation and review of laboratory results Abnormal [facility] Sedimentation Rate 22 mm/Hr High 0-20 [facility] Comment on above: Performed By: #### C DP, BMPX, CRP, ROLA, SED, MG #### [facility] [employer] [address] [place] [address] [phone] Bottle Machine Operator: Diego Mortensen MD Basic Metab w/rfx MGon 03-02 Anion gap [Moles/Vol] 9 mmol/L Normal 9-16 [facility] Comment on above: Performed By: #### C DP, BMPX, CRP, ROLA, SED, MG #### [facility] [employer] [address] [place] [address] [phone] Bottle Machine Operator: Diego Mortensen MD Calcium [Mass/Vol] 8.4 mg/dL Low 8.6-10.4 [facility] Comment on above: Performed By: #### C DP, BMPX, CRP, ROLA, SED, MG #### [facility] [employer] [address] [place] [address] [phone] Bottle Machine Operator: Diego Mortensen MD Chloride [Moles/Vol] 106 mmol/L Normal 98-107 [facility] Comment on above: Performed By: #### C DP, BMPX, CRP, ROLA, SED, MG #### [address] [address] Bottle Machine Operator: Diego Mortensen MD CO2 [Moles/Vol] 26 mmol/L Normal 20-31 [facility] Comment on above: Performed By: #### C DP, BMPX, CRP, ROLA, SED, MG #### [address] [address] Bottle Machine Operator: Diego Mortensen MD Creatinine [Mass/Vol] 0.7 mg/dL Normal 0.6-0.9 [facility] Comment on above: Performed By: #### C DP, BMPX, CRP, ROLA, SED, MG #### [address] [address] Bottle Machine Operator: Diego Mortensen MD GFR/1.73 sq M.predicted among non-blacks MDRD (S/P/Bld) [Vol rate/Area] mL/min/{1.73_m2} Normal >60 [facility] Comment on above: Result Comment: These results [...] DP, BMPX, CRP, ROLA, SED, MG #### [address] [address] Bottle Machine Operator: Diego Mortensen MD Glucose [Mass/Vol] 95 mg/dL Normal 74-99 [facility] Comment on above: Performed By: #### C DP, BMPX, CRP, ROLA, SED, MG #### [address] [address] Bottle Machine Operator: Diego Mortensen MD Potassium [Moles/Vol] 3.5 mmol/L Low 3.7-5.3 [facility] Comment on above: Performed By: #### C DP, BMPX, CRP, ROLA, SED, MG #### [facility] [address] [place] [address] Bottle Machine Operator: Diego Mortensen MD Sodium [Moles/Vol] 141 mmol/L Normal 136-145 [facility] Comment on above: Performed By: #### C DP, BMPX, CRP, ROLA, SED, MG #### [facility] [address] [place], [place] [phone] Bottle Machine Operator: Diego Mortensen MD Urea nitrogen [Mass/Vol] 13 mg/dL Normal 6-20 [facility] Comment on above: Performed By: #### C DP, BMPX, CRP, ROLA, SED, MG #### [facility] [place] [address] Bottle Machine Operator: Diego Mortensen MD Basic Metabolic Panel w/ Ref nataly to MG 03-02-2024 Anion gap [Moles/Vol] 9 mmol/L 9 - 16 mmol/L [facility] Calcium [Mass/Vol] 8.4 mg/dL Low 8.6 - 10. 4 mg/dL [facility] [employer] Chloride [Moles/Vol] 106 mmol/L 98 - 107 mmol/L [facility] CO2 [Moles/Vol] 26 mmol/L 20 - 31 mmol/L [facility] [employer] Creatinine [Mass/Vol] 0.7 mg/dL 0.6 - 0.9 mg/dL [facility] Est, Glom Filt Rate - PINF [facility] Comment on above: These results are [...] [Mass/Vol] 95 mg/dL 74 - 99 mg/dL [facility] Interpretation and review of laboratory results Abnormal [facility] Potassium [Moles/Vol] 3.5 mmol/L Low 3.7 - 5.3 mmol/L [facility] Sodium [Moles/Vol] 141 mmol/L 136 - 145 mmol/L [facility] Urea nitrogen [Mass/Vol] 13 mg/dL 6 - 20 mg/dL [facility] CBC with Auto Differentialon 03-02-2024 Basophils (Bld) [#/Vol] [facility] Basophils/100 WBC (Bld) 0 % 0 - 2 % [facility] Eosinophils (Bld) [#/Vol] 0.04 10*3/uL [facility] Eosinophils/100 WBC (Bld) 1 % 1 - 4 % [facility] Erythrocyte distribution width (RBC) [Ratio] 12.1 % 11.8 - 14.4 % [facility] Hematocrit (Bld) [Volume fraction] 36.1 % Low 36.3 - 47.1 % [facility] Hemoglobin (Bld) [Mass/Vol] 11.8 g/dL Low 11.9 - 15.1 g/dL [facility] Immature granulocytes (Bld) [#/Vol] [facility] Immature granulocytes/100 WBC (Bld) 0 % 0 [facility] Interpretation and review of laboratory results Abnormal [facility] Lymphocytes/100 WBC (Bld) 19 % Low 24 - 43 % [facility] Lymphocytes/100 WBC (Bld) 1.16 % [facility] MCH (RBC) [Entitic mass] 31.1 pg 25.2 - 33.5 pg [facility] MCHC (RBC) [Mass/Vol] 32.7 g/dL 28.4 - 34.8 g/dL [facility] MCV (RBC) [Entitic vol] 95.3 fL 82.6 - 102.9 fL [facility] Monocytes/100 WBC (Bld) 11 % 3 - 12 % [facility] Monocytes/100 WBC (Bld) 0.65 % [facility] Neutrophils/100 WBC (Bld) 69 % High 36 - 65 % [facility] [employer] Nucleated RBC/100 WBC (Bld) [Ratio] 0.0 % 0.0 per 100 WBC [facility] Platelet mean volume (Bld) [Entitic vol] 9.9 fL 8.1 - 13.5 fL [facility] Platelets (Bld) [#/Vol] 256 10*3/uL [facility] [employer] RBC (Bld) [#/Vol] 3.79 10*6/uL Low 3.95 - 5.1 1 m/uL [facility] Segmented neutrophils/100 WBC (Bld) 4.25 % [facility] [employer] WBC other (Bld) [#/Vol] 6.1 [facility] [employer] CBC with Diffon 03-02-2024 Abs. Basophil <0.03 Normal 0.00-0.20 [facility] Comment on above: Performed By: #### C DP, BMPX, CRP, ROLA, SED, MG #### [place] [address] Bottle Machine Operator: Diego Mortensen MD Abs.Imm.Granulocyte <0.03 Normal 0.00-0.30 [facility] Comment on above: Performed By: #### C DP, BMPX, CRP, ROLA, SED, MG #### [facility] [employer] [address] [place] [address] Bottle Machine Operator: Diego Mortensen MD Abs.Neutrophil (Seg) 4.25 k/uL Normal 1.50-8.10 [facility] Comment on above: Performed By: #### C DP, BMPX, CRP, ROLA, SED, MG #### [facility] [employer] [address] [place] [address] Bottle Machine Operator: Diego Mortensen MD Basophils/100 WBC (Bld) 0 % Normal 0-2 [facility] Comment on above: Performed By: #### C DP, BMPX, CRP, ROLA, SED, MG #### [address] [address] Bottle Machine Operator: Diego Mortensen MD Eosinophils (Bld) [#/Vol] 0.04 10*3/uL Normal 0.00-0.44 [facility] Comment on above: Performed By: #### C DP, BMPX, CRP, ROLA, SED, MG #### [place] [address] Bottle Machine Operator: Diego Mortensen MD Eosinophils/100 WBC (Bld) 1 % Normal 1-4 [facility] Comment on above: Performed By: #### C DP, BMPX, CRP, ROLA, SED, MG #### [place] [address] Bottle Machine Operator: Diego Mortensen MD Erythrocyte distribution width (RBC) [Ratio] 12.1 % Normal 11.8-14.4 [facility] Comment on above: Performed By: #### C DP, BMPX, CRP, ROLA, SED, MG #### [place] [address] Bottle Machine Operator: Diego Mortensen MD Hematocrit (Bld) [Volume fraction] 36.1 % Low 36.3-47.1 [facility] Comment on above: Performed By: #### C DP, BMPX, CRP, ROLA, SED, MG #### [place] [address] [employer]le Machine Operator: Diego Mortensen MD Hemoglobin (Bld) [Mass/Vol] 11.8 g/dL Low 11.9-15.1 [facility] Comment on above: Performed By: #### C DP, BMPX, CRP, ROLA, SED, MG #### [address] [address] [employer]le Machine Operator: Diego Mortensen MD Immature granulocytes/100 WBC (Bld) 0 % Normal 0 [facility] Comment on above: Performed By: #### C DP, BMPX, CRP, ROLA, SED, MG #### [address] [address] [employer]le Machine Operator: Diego Mortensen MD Lymphocytes (Bld) [#/Vol] 1.16 10*3/uL Normal 1.10-3.70 [facility] Comment on above: Performed By: #### C DP, BMPX, CRP, ROLA, SED, MG #### [address] [address] Bottle Machine Operator: Diego Mortensen MD Lymphocytes/100 WBC (Bld) 19 % Low 24-43 [facility] Comment on above: Performed By: #### C DP, BMPX, CRP, ROLA, SED, MG #### [place] [address] [employer]le Machine Operator: Diego Mortensen MD MCH (RBC) [Entitic mass] 31.1 pg Normal 25.2-33.5 [facility] Comment on above: Performed By: #### C DP, BMPX, CRP, ROLA, SED, MG #### [address] [address] Bottle Machine Operator: Diego Mortensen MD MCHC (RBC) [Mass/Vol] 32.7 g/dL Normal 28.4-34.8 [facility] Comment on above: Performed By: #### C DP, BMPX, CRP, ROLA, SED, MG #### [address] [address] Bottle Machine Operator: Diego Mortensen MD MCV (RBC) [Entitic vol] 95.3 fL Normal 82.6-102.9 [facility] Comment on above: Performed By: #### C DP, BMPX, CRP, ROLA, SED, MG #### [address] [address] Bottle Machine Operator: Diego Mortensen MD Monocytes (Bld) [#/Vol] 0.65 10*3/uL Normal 0.10-1.20 [facility] Comment on above: Performed By: #### C DP, BMPX, CRP, ROLA, SED, MG #### [address] [address] [employer]le Machine Operator: Diego Mortensen MD Monocytes/100 WBC (Bld) 11 % Normal 3-12 [facility] Comment on above: Performed By: #### C DP, BMPX, CRP, ROLA, SED, MG #### [address] [address] [employer]le Machine Operator: Diego Mortensen MD Neutrophil (Seg) 69 % High 36-65 [facility] Comment on above: Performed By: #### C DP, BMPX, CRP, ROLA, SED, MG #### [address] [address] [employer]le Machine Operator: Diego Mortensen MD NRBC Automated 0.0 per 100 WBC Normal 0.0 [facility] Comment on above: Performed By: #### C DP, BMPX, CRP, ROLA, SED, MG #### [address] [address] [employer]le Machine Operator: Diego Mortensen MD Platelet mean volume (Bld) [Entitic vol] 9.9 fL Normal 8.1-13.5 [facility] Comment on above: Performed By: #### C DP, BMPX, CRP, ROLA, SED, MG #### [address] [address] Bottle Machine Operator: Diego Mortensen MD Platelets (Bld) [#/Vol] 256 10*3/uL Normal 138-453 [facility] Comment on above: Performed By: #### C DP, BMPX, CRP, ROLA, SED, MG #### [address] [place] [id number] Bottle Machine Operator: Diego Mortensen MD RBC (Bld) [#/Vol] 3.79 10*6/uL Low 3.95-5.11 [facility] Comment on above: Performed By: #### C DP, BMPX, CRP, ROLA, SED, MG #### [employer] [address] [place], [place] [id number] Bottle Machine Operator: Diego Mortensen MD WBC (Bld) [#/Vol] 6.1 10*3/uL Normal 3.5-11.3 [facility] Comment on above: Performed By: #### C DP, BMPX, CRP, ROLA, SED, MG #### [employer] [address] [place], [place] [id number] Bottle Machine Operator: Diego Mortensen MD CT ABDOMEN PELVIS W [...] Isacc Castelan MD 03/02/24 Final result Normal [facility] CT Abdomen and Pelvis W cont rast [...] recent contrast administration. 4. Mild bibasilar atelectasis. [facility] Radiology Study observation (narrative) [facility] CT Abdomen and Pelvis W cont rast IVOrdered By: Isacc Castelan on 03-02-2024 [facility] Work Phone: Lactic Acidon 03-02-2024 Lactic Acid, Whole Blood 1.2 mmol/L 0.7 - 2.1 mmol/L [facility] Lactic Acid,Whole Bl 1.2 mmol/L Normal 0.7-2.1 [facility] Comment on above: Performed By: #### C DP, LACTIC, BMPX, MG #### [employer] [address] [place] [id number] Bottle Machine Operator: Diego Mortensen MD Magnesiumon 03-02-2024 Magnesium [Mass/Vol] 2.0 mg/dL 1.6 - 2.6 mg/dL [facility] Magnesium [Mass/Vol] 2.0 mg/dL Normal 1.6-2.6 [facility] Comment on above: Performed By: #### C DP, BMPX, CRP, ROLA, SED, MG #### [employer] [address] [place] [id number] Bottle Machine Operator: Diego Mortensen MD No Panel Informationon 03-02 [facility] IGP,APTIMA HPV,AGE GDLNon AGE GDLN ACOG TESTING Note . [facility] Comment on above: TESTS RESULT FLAG U NITS REF RANGE LAB Clinician Provided Cytology Information Source.............Cervix;Endocervix No. of containers..01 ThinPrep Vial Age Algo ACOG Dahlia... FLAG LEGEND: L-Low Normal,H-High Normal,LL-Alert Low,HH-Alert High <-Panic Low,>-Panic High,A-Abnormal,AA-Critical Abnormal Performed at: 01 =[address] [address] Darline Garcia MD, HPV APTIMA Negative Negative [facility] Comment on above: This nucleic acid am plification test detects fourteen high- risk HPV types (16,18,31,33,35,39,45,51,52,56,58,59,66,68) without differentiation. Performed at: =G [facility] [id number] Bottle Machine Operator: Darline Garcia MD, Phone: [phone] Performed at: [facility] [address] [place] [id number] Bottle Machine Operator: Bonifacio Evans MD, Phone: [phone] IGP, APTIMA HPV, RFX 16/18,45 Note . [facility] Comment on above: TESTS RESULT FLAG UN ITS REF RANGE LAB DIAGNOSIS: 02 NEGATIVE FOR INTRAEPITHELIAL LESION OR MALIGNANCY. Specimen adequacy: 02 Satisfactory for evaluation. Endocervical and/or squamous metaplastic cells (endocervical component) are present. Performed by: 02 Jessica Garcia, Line Out Worker ([facility]) . 02 Note: Note 03 [...] High,A-Abnormal,AA-Critical Abnormal Performed at: 02 [facility] [address] [place] [address] Bonifacio Evans MD, 03 WB [facility] [address] [address] Darline Garcia MD, BRUSH-SPATULA CERVIX ENDOCERVIX [facility] CBC AUTO DIFFon 11-14-2021 BASO # 0.0 103/ul Normal 0.0-0.1 [facility] Comment on above: Performed By: #### C BC #### [facility] [address] [address] [address] Alejandro Grijalva Basophils/100 WBC (Bld) 0.2 % Normal 0.2-2.0 [facility] Comment on above: Performed By: #### C BC #### [facility] [address] [address] [address] Alejandro Grijalva EO # 0.0 103/ul Normal 0.0-0.7 [facility] Comment on above: Performed By: #### C BC #### [facility] [address] [address] [address] Alejandro Grijalva Eosinophils/100 WBC (Bld) 0.7 % Critically low 0.9-7.0 [facility] Comment on above: Performed By: #### C BC #### [facility] [address] [place] [address] Dr. Alejandro Grijalva Erythrocyte distribution width (RBC) [Ratio] 11.8 % Normal 11.0-15.0 [facility] Comment on above: Performed By: #### C BC #### [facility] [address] [place] [address] Dr. Alejandro Grijalva Hematocrit (Bld) [Volume fraction] 40.5 % Normal 36.0-48.0 [facility] Comment on above: Performed By: #### C BC #### [facility] [address] [place] [address] Dr. Alejandro Grijalva Hemoglobin (Bld) [Mass/Vol] 13.5 g/dL Normal 12.0-16.0 [facility] Comment on above: Performed By: #### C BC #### [facility] [address] [place] [address] Dr. Alejandro Grijalva IG # 0.02 10e3/ul Normal 0.00-0.03 [facility] Comment on above: Performed By: #### C BC #### [facility] [address] [place] [address] Dr. Alejandro Grijalva IG % 0.3 % Normal 0.0-0.5 [facility] Comment on above: Performed By: #### C BC #### [facility] [address] [place] [address] Dr. Alejandro Grijalva LYMPH # 1.5 103/ul Normal 1.2-3.8 [facility] Comment on above: Performed By: #### C BC #### [facility] [address] [place] [address] Dr. Alejandro Grijalva Lymphocytes/100 WBC (Bld) 24.0 % Normal 20.5-60.0 [facility] Comment on above: Performed By: #### C BC #### [facility] [address] [place] [address] Dr. Alejandro Grijalva MANUAL DIFF REQ NO Normal [facility] Comment on above: Performed By: #### C BC #### [facility] [address] [place] [address] Dr. Alejandro Grijalva MCH (RBC) [Entitic mass] 31.4 pg Normal 26.7-34.0 [facility] Comment on above: Performed By: #### C BC #### [facility] [address] [place] [address] Dr. Alejandro Grijalva MCHC (RBC) [Mass/Vol] 33.3 g/dL Normal 29.9-35.2 [facility] Comment on above: Performed By: #### C BC #### [facility] [address] [place] [address] Dr. Alejandro Grijalva MCV (RBC) [Entitic vol] 94.2 fL Normal 81.0-99.0 [facility] Comment on above: Performed By: #### C BC #### [facility] [address] [place] [address] Dr. Alejandro Grijalva MONO # 0.5 103/ul Normal 0.3-0.8 [facility] Comment on above: Performed By: #### C BC #### [facility] [address] [place] [address] Dr. Alejandro Grijalva Monocytes/100 WBC (Bld) 8.4 % Normal 1.7-12.0 [facility] Comment on above: Performed By: #### C BC #### [facility] [address] [address] [address] Alejandro Grijalva NEUT # 4.0 103/ul Normal 1.4-6.5 [facility] Comment on above: Performed By: #### C BC #### [facility] [address] [address] [address] Alejandro Grijalva Neutrophils/100 WBC (Bld) 66.4 % Normal 43.0-75.0 [facility] Comment on above: Performed By: #### C BC #### [facility] [address] [place] [address] Dr. Alejandro Grijalva Platelet mean volume (Bld) [Entitic vol] 9.7 fL Normal 9.5-13.5 [facility] Comment on above: Performed By: #### C BC #### [facility] [address] [place] [address] Dr. Alejandro Grijalva PLT 273 103/ul Normal 150-450 [facility] Comment on above: Performed By: #### C BC #### [facility] [address] [place] [address] Dr. Alejandro Grijalva RBC 4.30 106/ul Normal 4.20-5.40 [facility] Comment on above: Performed By: #### C BC #### [facility] [address] [place] [address] Dr. Alejandro Grijalva WBC 6.0 103/ul Normal 4.0-11.0 [facility] Comment on above: Performed By: #### C BC #### [facility] [address] [place] [address] Dr. Alejandro Grijalva LIPID PROFILEon 11-14-2021 CHOL-HDL RATIO NORM SEE BELOW Normal [facility] Comment on above: Result Comment: 3.3 - 4.4 LOW RISK 4.4 - 7.1 AVERAGE RISK 7.1 - 11.0 MODERATE RISK >11.0 HIGH RISK Performed By: #### T SH, LIPID, CMP #### [facility] [address] [place] [address] Dr. Alejandro Grijalva Cholesterol [Mass/Vol] 176 mg/dL Normal <=200 [facility] Comment on above: Performed By: #### T SH, LIPID, CMP #### [facility] [address] [address] [address] Alejandro Grijalva Cholesterol in HDL [Mass/Vol] 44 mg/dL Normal 40-60 [facility] Comment on above: Performed By: #### T SH, LIPID, CMP #### [facility] [address] [address] [address] Alejandro Grijalva Cholesterol in LDL [Mass/Vol] 119.6 mg/dL Normal [facility] Comment on above: Performed By: #### T SH, LIPID, CMP #### [facility] [address] [address] [address] Alejandro Grijalva Cholesterol.total/C holesterol in HDL [Mass ratio] 4.0 {ratio} Normal [facility] Comment on above: Performed By: #### T SH, LIPID, CMP #### [facility] [address] [address] [address] Alejandro Grijalva HDL NORMAL > or = 60 mg/dl - LO W CARDIOVASCULAR RISK <40 mg/dl - HIGH CARDIOVASCULAR RISK Normal [facility] Comment on above: Performed By: #### T SH, LIPID, CMP #### [facility] [address] [address] [address] Alejandro Grijalva LDL CALC NORMAL SEE BELOW Normal [facility] Comment on above: Result Comment: <100 mg/dl OPTIMAL 100 - 129 mg/dl NEAR OR ABOVE OPTIMAL 130 - 159 mg/dl BORDERLINE HIGH 160 - 189 mg/dl HIGH >190 mg/dl VERY HIGH Performed By: #### T SH, LIPID, CMP #### [facility] [address] [address] [address] Alejandro Grijalva Triglyceride [Mass/Vol] 62 mg/dL Normal <=150 [facility] Comment on above: Performed By: #### T SH, LIPID, CMP #### [facility] [address] [address] [address] Alejandro Grijalva VLDL CALC 12.4 mg/dL Normal [facility] Comment on above: Performed By: #### T SH, LIPID, CMP #### [facility] [address] [address] [address] Alejandro Grijalva PROF 14(COMP METB)on 022 Albumin [Mass/Vol] 3.7 g/dL Normal 3.4-5.0 [facility] Comment on above: Performed By: #### T SH, LIPID, CMP #### [facility] [address] [address] [address] Alejandro Grijalva Albumin/Globulin [Mass ratio] 1.0 {ratio} Normal [facility] Comment on above: Performed By: #### T SH, LIPID, CMP #### [facility] [address] [address] [address] Alejandro Grijalva ALP [Catalytic activity/Vol] 81 U/L Normal 46-116 [facility] Comment on above: Performed By: #### T SH, LIPID, CMP #### [facility] [address] [address] [address] Alejandro Grijalva ALT [Catalytic activity/Vol] 39 U/L Normal 14-59 [facility] Comment on above: Performed By: #### T SH, LIPID, CMP #### [facility] [address] [address] [address] Alejandro Grijalva Anion gap [Moles/Vol] 14.5 mmol/L Normal [facility] Comment on above: Performed By: #### T SH, LIPID, CMP #### [facility] [address] [address] [address] Alejandro Grijalva AST [Catalytic activity/Vol] 18 U/L Normal 15-37 [facility] Comment on above: Performed By: #### T SH, LIPID, CMP #### [facility] [address] [address] [address] Alejandro Grijalva Bilirubin [Mass/Vol] 0.2 mg/dL Normal 0.2-1.0 [facility] Comment on above: Performed By: #### T SH, LIPID, CMP #### [facility] [address] [address] [address] Alejandro Grijalva Calcium [Mass/Vol] 8.9 mg/dL Normal 8.5-10.1 [facility] Comment on above: Performed By: #### T SH, LIPID, CMP #### [facility] [address] [address] [address] Alejandro Grijalva Chloride [Moles/Vol] 106 mmol/L Normal 98-107 [facility] Comment on above: Performed By: #### T SH, LIPID, CMP #### [facility] [address] [address] [address] Alejandro Grijalva CO2 [Moles/Vol] 24.9 mmol/L Normal 21.0-32.0 [facility] Comment on above: Performed By: #### T SH, LIPID, CMP #### [facility] [address] [place] [address] Dr. Alejandro Grijalva Creatinine [Mass/Vol] 0.80 mg/dL Normal 0.55-1.02 [facility] Comment on above: Performed By: #### T SH, LIPID, CMP #### [facility] [address] [place] [address] Dr. Alejandro Grijalva EGFR-AF BELARUSIAN >60 Normal >=60 [facility] Comment on above: Performed By: #### T SH, LIPID, CMP #### [facility] [address] [place] [address] Dr. Alejandro Grijalva EGFR-NON AF BELARUSIAN >60 Normal >=60 [facility] Comment on above: Performed By: #### T SH, LIPID, CMP #### [facility] [address] [place] [address] Dr. Alejandro Grijalva Globulin (S) [Mass/Vol] 3.7 g/dL Normal [facility] Comment on above: Performed By: #### T SH, LIPID, CMP #### [facility] [address] [place] [address] Dr. Alejandro Grijalva Glucose [Mass/Vol] 101 mg/dL Normal 74-106 [facility] Comment on above: Performed By: #### T SH, LIPID, CMP #### [facility] [address] [place] [address] Dr. Alejandro Grijalva Potassium [Moles/Vol] 4.4 mmol/L Normal 3.5-5.1 [facility] Comment on above: Performed By: #### T SH, LIPID, CMP #### [facility] [address] [place] [address] Dr. Alejandro Grijalva Protein [Mass/Vol] 7.4 g/dL Normal 6.4-8.2 [facility] Comment on above: Performed By: #### T SH, LIPID, CMP #### [facility] [address] [place] [address] Dr. Alejandro Grijalva Sodium [Moles/Vol] 141 mmol/L Normal 136-145 [facility] Comment on above: Performed By: #### T REYNALDO, LIPID, CMP #### [facility] [address] [place] [address] Dr. Alejandro Grijalva Urea nitrogen [Mass/Vol] 12.0 mg/dL Normal 7.0-18.0 [facility] Comment on above: Performed By: #### T REYNALDO, LIPID, CMP #### [facility] [address] [place] [address] Dr. Alejandro Grijalva Urea nitrogen/Creatinine [Mass ratio] 15.0 mg/mg Normal [facility] Comment on above: Performed By: #### T REYNALDO, LIPID, CMP #### [facility] [address] [place] [address] Dr. Alejandro Grijalva TSHon 11-14-2021 TSH 2.902 uIU/mL Normal 0.358-3.740 [facility] Comment on above: Performed By: #### T REYNALDO, LIPID, CMP #### [facility] [address] [place] [address] Dr. Alejandro Grijalva Vital Signs Date Time Vital Sign Value Performing Clinician Facility 03-15-2024 09:32-0500 Body height 165.1 cm Jorden LAMA Work Phone: [facility] 03-15-2024 09:32-0500 Body mass index (BMI) [Ratio] 32.68 kg/m2 Jorden LAMA Work Phone: [facility] 03-15-2024 09:32-0500 Body weight 89.09 kg Jorden Guzmán [employer] [facility] 03-15-2024 09:32-0500 Diastolic blood pressure 76 mm[Hg] Jorden Guzmán [employer] [facility] 03-15-2024 09:32-0500 Heart rate 78 /min Jorden Guzmán [employer] Work Phone: [facility] [employer] 03-15-2024 09:32-0500 Systolic blood pressure 135 mm[Hg] Jorden Guzmán [employer] Work Phone: [facility] [employer] 03-03-2024 07:34-0500 Body temperature 97.5 [degF] Faizan Ann MD Work Phone: [facility] 03-03-2024 07:34-0500 Diastolic blood pressure 74 mm[Hg] Faizan Ann MD Work Phone: [facility] 03-03-2024 07:34-0500 Heart rate 66 /min Faizan Ann MD Work Phone: [facility] 03-03-2024 07:34-0500 Respiratory rate 18 /min Faizan Ann MD Work Phone: [facility] 03-03-2024 07:34-0500 SaO2% (BldA) [Mass fraction] 94 % Faizan Ann MD Work Phone: [facility] 03-03-2024 07:34-0500 Systolic blood pressure 114 mm[Hg] Faizan Ann MD Work Phone: [facility] 03-01-2024 15:15-0500 Body height 165.1 cm Faizan Ann MD Work Phone: [facility] 03-01-2024 15:15-0500 Body mass index (BMI) [Ratio] 33.28 kg/m2 Faizan Ann MD Work Phone: [facility] 03-01-2024 15:15-0500 Body weight 90.72 kg Faizan Ann MD Work Phone: [facility] 11-08-2023 08:55-0400 Body mass index (BMI) [Ratio] 34.12 kg/m2 Sin Karla DO Work Phone: [facility] 11-08-2023 08:55-0400 Body weight 90.17 kg Sin Karla DO Work Phone: [facility] 11-08-2023 08:55-0400 Diastolic blood pressure 72 mm[Hg] Sin Karla DO Work Phone: [facility] 11-08-2023 08:55-0400 Systolic blood pressure 118 mm[Hg] Sin Karla DO Work Phone: [facility] 08-02-2018 02:23-0400 BMI (Body Mass Index) 29.18 kg/m2 [facility] 08-02-2018 02:23-0400 Body Temperature 98.1 [degF] [facility] 08-02-2018 02:23-0400 BP Diastolic 100 mm[Hg] [facility] 08-02-2018 02:23-0400 BP Systolic 146 mm[Hg] [facility] 08-02-2018 02:23-0400 Height 162.6 cm [facility] 08-02-2018 02:23-0400 Pulse (Heart Rate) 94 /min Princeralph Leachronald [facility] 08-02-2018 02:23-0400 Pulse Oximetry 99 % [facility] 08-02-2018 02:23-0400 Respiratory Rate 16 /min [facility] 08-02-2018 02:23-0400 Weight 77.11 kg Prince Wiggins [facility] Encounters Encounter Date Encounter Type Care Provider Facility Start: 03-26-2024 End: 03-26-2024 Orders Only Jorden Guzmán [employer] Work Phone: [facility] Start: 03-15-2024 End: 03-15-2024 Office outpatient new 30 minutes Jorden Guzmán [employer] Work Phone: [facility] Comment on above: Abnormal CT scan, ga strointestinal tract (Primary Dx); Change in bowel movement Start: 03-15-2024 End: 03-15-2024 ambulatory [facility] [address] [address] Erick GUZMÁN [facility] Start: 03-05-2024 End: 03-05-2024 Telephone encounter Janett Hardin [employer] [facility] Start: 03-01-2024 End: 03-03-2024 Evaluation and management of inpatient Faizan Ann MD Work Phone: [address] MED SURG Comment on above: SBO [...] medical examination without abnormal findings JANETT HARDIN [facility] Start: 11-14-2021 End: 11-15-2021 ambulatory JANETT HARDIN Facility:[facility] Start: 11-14-2021 End: 11-15-2021 Encounter for general adult medical examination without abnormal findings JANETT HARDIN Facility: Start: 08-02-2018 End: 08-02-2018 Emergency department [facility] Start: 08-02-2018 End: 08-02-2018 Emergency department patient visit Prinec Wiggins Work Phone: [facility] Comment on above: Left [...] in Cervix by Cyto stain Jorden Guzmán [employer] Work Phone: Start: 03-05-2022 Adult depression scr eening assessment Janett Hardin [employer] Work Phone: Start: 03-10-2017 Microscopic observat ion [Identifier] in Cervix by Cyto stain Janett Hardin [employer] Work Phone: Plan of Treatment Date Care Activity Detail Author Start: 11-07-2026 Screening for malign ant neoplasm of cervix Pap Smear [facility] Start: 03-15-2025 Adult BMI Screening Adult BMI Screen ing [facility] Start: 03-15-2025 Tobacco Screening Tobacco Screening [facility] Start: 11-13-2024 End: 11-13-2024 Patient encounter procedure 11/13/2024 8:30 AM EDT Office Visit [facility] [address] [place] [address] Sin Acosta, DO [address], [place] [id number] [facility] Start: 04-04-2024 End: 04-04-2024 Patient encounter procedure 04/04/2024 11:00 AM EST Office Visit [address] Douglas Gupta, [address] [id number] [facility] Start: 02-01-2024 Tobacco Screening Tobacco Screening [facility] Start: 11-11-2023 Adult BMI Follow Up Plan Adult BMI Follow Up Plan [facility] Start: 11-11-2023 Adult BMI Screening Adult BMI Screen ing [facility] Start: 11-08-2023 End: 11-08-2023 Patient encounter procedure 11/08/2023 8:30 AM EDT Office Visit [facility] [address] [place] [address] Sin Acosta, [address], [place] [id number] Arrived [facility] Comment on above: Arrived Start: 11-06-2023 COVID-19 Vaccine (2022- season) COVID-19 Vaccine (2022- season) [facility] Start: 11-06-2023 Influenza vaccination Influenza Vacc ine [facility] Start: 10-06-2023 Influenza vaccination Flu vaccine (# 1) [facility] Start: 03-05-2023 Depression Screening Depression Scre ening [facility] Start: 03-10-2020 Screening for malign ant neoplasm of cervix Pap Smear [facility] Start: 2014 Screening for malign ant neoplasm of cervix [facility] Start: 2005 Screening for malign ant neoplasm of cervix Pap smear [facility] Start: 08-22-2003 DTaP,Tdap and Td Vaccines (1 - Tdap) DTaP,Tdap and Td Vaccines (1 - Tdap) [facility] Start: 08-22-2003 DTaP/Tdap/Td vaccine (1 - Tdap) DTaP/Tdap/Td vaccine (1 - Tdap) [facility] Start: 08-22-2003 Hepatitis B vaccine (1 of 3 - 19+ 3-dose series) Hepatitis B vaccine (1 of 3 - 19+ 3-dose series) [facility] Start: 2002 Hepatitis C screening Hepatitis C sc reen [facility] Start: 08-22-1999 HIV screening HIV screen [facility] Start: 1997 Varicella vaccine (1 of 2 - 13+ 2-dose series) Varicella vaccine (1 of 2 - 13+ 2-dose series) [facility] Start: 1996 Depression Screen Depression Screen [facility] End: 03-04-2024 Basic Metabolic Panel w/ Reflex to MG Basic Metabolic Panel w/ Reflex to MG Lab Routine Daily for 3 Days starting 03/02/2024 until 03/04/2024, 2 completed [facility] Comment on above: Daily for 3 Days sta rting 03/02/2024 until 03/04/2024, 2 completed End: 03-02-2024 Calprotectin Stool [facility] Work Phone: Comment on above: One Time for 1 Occur rences starting 03/02/2024 until 03/02/2024 End: 03-04-2024 CBC W Auto Differential panel - Blood CBC with Auto Differential Lab Routine Daily for 3 Days starting 03/02/2024 until 03/04/2024, 2 completed [facility] Comment on above: Daily for 3 Days [...] exam with routine gynecological exam Ordered: 11/08/2023 [employer] Work Phone: Comment on above: Ordered: 11/08/2023 Human papilloma viru s DNA [Presence] in Unspecified specimen by Probe with amplification HPV DNA probe, amplified Microbiology Routine Well woman exam with routine gynecological exam Ordered: 11/08/2023 Mobile-XL Comment on above: Ordered: 11/08/2023 Oxygen therapy [[place] [facility] [place] Set] Initiate Oxygen Therapy Protocol Respiratory Care Routine As Needed until discontinued starting 03/01/2024 [place] Work Phone: Comment on above: As Needed until disc ontinued starting 03/01/2024 Payers Date Payer Category Payer Unknown FRONTPATH FRONTP ATH [id number] 2022-Present [phone] [address] [place] [address] [id number] 2018 Managed Care Other (unspecified) [id number] 1984 Unknown [id number] [id number] 1984 Unknown [id number] [id number] 1984 Unknown [id number] [id number] 1984 Unknown [id number] [id number] 1984 Unknown [id number] [id number] 1959 Unknown [id number] Unknown COMMERCIAL COMME RCIAL MISCELLANEOUS xxxxxxxxx Effective for all dates xxxxxxxxx [id number] Unknown [id number] Social History Date Type Detail Facility Start: 08-02-2018 End: 11-10-2022 Tobacco smoking status MNIS Never smoker [facility] Start: 08-02-2018 History SDOH Alcohol Frequency 1 [facility] Start: 1985 Sex Assigned At Not on file [facility] Tobacco smoking stat [facility] Tobacco smoking consumption unknown [facility] Start: 10-10-2020 End: 03-01-2024 Gender identity Not on file [facility] Start: 10-10-2020 End: 03-01-2024 History of Social function [employer] Has the [facility], or water [employer] threatened to shut off services in your home in past 12Mo No [facility] (I/We) worried wheth er (my/our) food would run out before (I/we) got money to buy more. Never true [facility] In the past 12 month s, has lack of transportation kept you from medical appointments or from getting medications? No [facility] Start: 11-10-2022 Tobacco use and exposure Smokeless tobacco non-user [facility] Start: 01-31-2023 End: 03-15-2024 Alcoholic beverage intake Ex-drinker (finding) [facility] Do you belong to any clubs or organizations such as rastafari groups, unions, fraternal or athletic groups, or school groups? Yes [facility] Are you now , , , , never or living with a partner? [facility] How often to you hav e a drink containing alcohol? Monthly or less [facility] How many standard dr inks containing alcohol do you have on a typical day? 1 or 2 [facility] How often do you hav e 6 or more drinks on 1 occasion? Never [facility] Do you feel stress - tense, restless, nervous, or anxious, or unable to sleep at night because your mind is troubled all the time - these days [OSQ] Only a little [facility] Start: 10-10-2020 Education 17 [facility] Start: 10-08-2014 Sex Female (finding) [facility] Clinical Notes 11-08-2023 to 03-26-2024 Telephone [...] scheduled for Tuesday03/30/24. Both tests are at [facility]. I was told by [facility] Central scheduling that they do not give bowel prep instructions for the Barium Enema Test. I went over the Barium Enema instructions with her & I will also e.mail the patient a copy of our instructions.The patient was instructed by [facility] to fast for 4 hours prior [...] office until 04/18/24. documented in this encounter [facility] 01-20-2025 Telephone encounter Note I spoke to the patient she is scheduled for a small bowel series for tomorrow 03/27/24 & a Barium enema scheduled for Tuesday03/30/24. Both tests are at [facility]. I was told by [facility] Central scheduling that they do not give bowel prep instructions for the Barium Enema Test. I went over the Barium Enema instructions with her & I will also e.mail the patient a copy of our instructions.The patient was instructed by [facility] to fast for 4 hours prior [...] be out of the office until 04/18/24. [facility] 03-15-2024 History of Presen t illness Narrative Images from the original note were not included. Chief Complaint: Abnormal CT scan History of Present Illness Brandie Olmos is a 38 y.o. female who presents to the office for follow-up after being hospitalized at [facility] at the end of February for SBO. [...] Disp: 60 tablet, Rfl: 1 peg 3350-sod sulf,kejs-jqx-izy 178.7-7.3-0.5 gram recon soln, Take 1 kit [...] Needs: No Transportation Needs (03/01/2024) Received from [facility] Lack of Transportation (Medical): No Lack of Transportation (Non-Medical): No Physical Activity: Sufficiently Active (10/10/2020) Exercise Vital Sign Days of Exercise per Week: 5 days Minutes of Exercise per Session: 60 min Stress: No Stress Concern Present (10/10/2020) [facility] - Occupational Stress Questionnaire Feeling of Stress : Only a little Social Connections: Socially Integrated (10/10/2020) Social Connection and Isolation Panel [NHANES] Frequency of Communication with Friends and Family: More than three times a week Frequency of Social Gatherings with Friends and Family: More than three times a week Attends Congregational Services: More than 4 times per year Active Member of Clubs or Organizations: Yes Attends Club or Organization Meetings: More than 4 times per year Marital Status: Interpersonal Safety: Not At Risk (10/10/2020) Humiliation, Afraid, Rape, and Kick questionnaire Fear of Current or Ex-Partner: No Emotionally Abused: No Physically Abused: No Sexually Abused: No Housing Instability: Low Risk (03/01/2024) Received from [facility] Housing Stability Vital Sign Unable to [...] atelectasis. Assessment Follow-up hospitalization for SBO at [facility] Abnormal CT scan abdomen and pelvis concerning [...] patient/family/caregiver Referring and communicating with other health rn acute care Abnormal CT scan, gastrointestinal tract [R93.3] JORDEN GUZMÁN, ASSISTANT COUNTY ATT[facility]NEY[facility] [place] This note was created with the assistance of a speech recognition program. While intending to generate a timely document that accurately reflects the content of the visit, no guarantee can be provided that every grammatical or spelling mistake has been or will be identified or corrected. Thank you for your understanding. DAINA Engel 03/15/24 1033 documented in this encounter [facility] 03-05-2024 Miscellaneous Notes Patient was in [facility] for a bowel obstruction, she would like a referral to [facility] for a colonoscopy documented in this encounter [facility] 03-05-2024 Telephone encounter Note Patient was in [facility] for a bowel obstruction, she would like a referral to [facility] for a colonoscopy [facility] 03-03-2024 Hospital Discharg e instructions David [...] sent through Care Everywhere.Diet: Low-FODMAP: General Info (Mexican)IBS (Irritable Bowel Syndrome) Diet (Mexican)documented in this encounter [facility] 03-03-2024 History of Presen t illness Narrative Images from the original note were not included. PROGRESS NOTE PATIENT NAME: Brandie Olmos DATE: 03/03/2024 HD: # 2 Patient Active Problem List Diagnosis Placenta previa without hemorrhage, antepartum resulting from assisted reproductive technology SBO (small bowel obstruction) ([facility]) DIAGNOSIS AND PLAN 38 year [...] Attending Note I have reviewed the above [facility] Specialists note(s). I have seen and examined the patient. I have discussed the findings, established the care plan and recommendations with the Advanced Practice Provider. Chief Complaint: abd distension Exam: Passing some flatus, abd soft Plan: PO CT scan, discussed with patient and . Luh Orr MD 03/02/2024 8:12 PM documented in this encounter [facility] 11-08-2023 History of Presen t illness Narrative [...] nursing note reviewed. Exam conducted with a stave saw operator present. Vitals: Estimated body mass index is [...] Sin Acosta DO documented in this encounter [facility] Healthcare Evaluation note Diagnosis Well woman exam with routine gynecological exam Routine gynecological examination documented in this encounter [facility] HealthcareEvaluation note* Diagnosis SBO (small bowel obstruction) (HCC)- Primary Unspecified intestinal obstruction SBO (small bowel obstruction) (HCC) Unspecified intestinal obstruction documented in this encounter [facility] Health[facility]* Diagnosis Change in bowel movement- Primary [facility] Diagnosis Abnormal CT scan, gastrointestinal tract- Primary Change in bowel movement [facility] filed[facility]ed in this [facility] filedocumented in [facility] filedocumented in this encounter [facility] filedocumented in this encounter [facility] Discharge Instructions * Instructions* Prince Wiggins MD - 08/02/2018 Thank you for coming to an [facility] Emergency facility for your emergency care. [...] you may find a provider through the [facility] Physician Referral Service by calling [phone] ([phone]) or by visiting [email or web address]. 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 Advance Directives and Livin g [...] bowel obstruction) (HCC) Luh Orr MD [address] [facility] [address] [place] [address] [facility] [address] [place] [address] Referral ID Status Reason Start Date Expiration Date Visits Re quested Visits Authorized [id number] 1 1 Reason Comments Change in Bowel Habits Change in bowel h abits, referred by Janett Hardin CNP Specialty Diagnoses / Procedures Referred By Patricia booker Referred To Contact General Surgery Diagnoses Change in bowel movement Janett Hardin, ASSISTANT COUNTY ATTORNEY-STABLEHAND [address] [place] [address] Phone: tel: fax: [facility] [address] [place] [address] Phone: tel: fax: Referral ID Status Reason Start Date Expiration Date V isits Requested Visits Authorized [id number] Closed Specialty Services Required 03/05/2024 03/05/2025 1 [...] file Gets together: Not on file Attends mormonism service: Not on file Active member of club or organization: Not on file Attends meetings of clubs or organizations: Not on file Relationship status: Not on file Other Topics Concern Not on file Social History Narrative Not on file Social history reviewed. Allergies: No Known Allergies Medications: Brandie Olmos Medication Instructions Prior to Surgery GILBERTO:[id number] Printed on:08/02/18 0254 Medication Information Take last [...] supply per fill: 5) . PHYSICAL EXAMINATION: [place] body weight: 54.7 kg (120 lb 9.5 [...] provider, No primary care provider on file.. [facility] referral information was also provided. They [...] section and content) DATE CREATED AUTHOR 10/16/2018 [facility] DATE CREATED AUTHOR AUTHOR'S ORGANIZ ATION 12/05/2021 [facility] DATE CREATED AUTHOR AUTHOR'S ORGANIZ ATION 11/08/2023 [facility] dical Specialists [facility] DATE CREATED AUTHOR AUTHOR'S ORGANIZ ATION 03/07/2024 [facility] DATE CREATED AUTHOR AUTHOR'S ORGANIZ ATION 03/20/2024 [...] Care Teams (unrecognized sec tion and content) [employer] Relationship Specialty Start Date End Date Raymond Ching DO PCP - General 06/03/11 [employer] Relationship Specialty Start Date End Date Janett Hardin, ASSISTANT COUNTY ATTORNEY-STABLEHAND [address] [place] [address] PCP - [facility] 08/08/18 [employer] Relationship Specialty Start Date End Date Janett Hardin [facility] [address] [place] [address] PCP - [facility] 08/08/18 [employer] Relationship Specialty Start Date End Date Janett Hardin [facility] [address] [place] [address] PCP - [facility] 08/08/18 [employer] Relationship Specialty Start Date End Date Janett Hardin [facility] [address] [place] [address] PCP - [facility] 08/08/18 FOR RECORDS PERTAINING TO PATIENTS WHO [...] BE BASED ON THE PRIMARY CLINICAL RECORDS. [facility] [email or web address] [facility]. provides no warranty or guarantee of the accuracy or completeness of information in this document.
--- NOTE | 2024-03-30 09:35 | FL_ITS ---
The [address] [address] Patient Name: NASRIN BENITEZ MRN: [id number] date: 1985 Sex: F [place]igned Patient Location: [place] Current [place] Location: [place] Accession/Order Number: [id number] Exam Date: 03/30/2024 08:50 Report Date: 03/30/2024 09:51 At the request of: SHAE PEÑALOZA Procedure: FL barium enema w air contrast EXAMINATION: FL barium enema w air contrast HISTORY: Polyps, Narrowing COMPARISON: CT 03/01/2024. Small bowel follow-through 03/27/2024 FLUOROSCOPY TIME: Fluoro time measures 2 minutes and 5 seconds and 5 fluoroscopic images were obtained. TECHNIQUE: An air contrast barium enema examination was performed in the usual manner. No client services coordinator abdominal radiograph was performed. Standard level fluoroscopic mode of operation utilized. FINDINGS: COLON: There is abnormal appearance of the mid ascending colon with rapid tapering of the lumen/contrast, the contrast does not extend into the proximal to mid ascending colon. The remainder of the colon is normal with no stricture or filling defect. OTHER: Negative. FL/FL barium enema w air contrast IMPRESSION: Narrowing of the mid ascending colon. This corresponds to the abnormality on prior CT exam and is of unknown etiology. In light of the unsuccessful colonoscopy. Consider follow-up CT scan with triple contrast Electronically authenticated by: CHRISTINE ROMAN Date: 03/30/2024 09:51
== END 2024-03-30 08:40 | disposition home or self-care (01) ==
LOC: FL 08:39
PROVIDERS: PCP Nurse Practitioner; Visit Provider Surgery
DX: K63.5 Polyp of colon (principal); K56.699 Other intestinal obstruction unspecified as to partial versus complete obstruction
CPT/HCPCS: 74280

== ENCOUNTER 2024-11-13 12:17 | Outpatient (REF) | payer OTHER, SELFPAY ==
--- OUTSIDE RECORDS SUMMARY | 2023-12-13 06:37 | XMS_ITS ---
Author Organization [facility] [employer] [facility] Address [address] [place] [address] Care Team Providers Care Check Totaler Name Role Phone Isacc Saba Primary Care Provider Encounters Encounter Location Date Provider Diagnosis [address] [place] [place] [id number] 12/13/2023 Isacc Saba PLAN OF TREATMENT No Information Progress Notes * Dereck OLMOSB: 985 (38 yo F)Acc No.[id number]:12/13/2023 Patient: ELINachoa :1985 Age:38 Y Sex:Female Address:[address], [place] [address] * Addendum: * true * Date:
--- OUTSIDE RECORDS SUMMARY | 2023-12-22 05:30 | XMS_ITS ---
Author Organization [facility] [employer] [facility] Address [address] [place] [address] Care Team Providers Care Sound Designer Name Role Phone Isacc Saba Primary Care Provider REASON FOR VISIT Cold / Flu / Allergies Encounters Encounter Location Date Provider Diagnosis [address] Ray [address] [address] 12/22/2023 Isacc Saba PLAN OF TREATMENT No Information Progress Notes * Nacho OLMOSElenaB: 985 (39 yo F)Acc No.[id number]:12/22/2023 Patient: Brandie OLMOS Provider: Isacc Saba MD :1985 Age:38 Y Sex:Female Date:12/22/2023 Address:[address], [facility], [id number] Subjective: * Chief Complaints: * 1. Cold / Flu / Allergies. * Medical History: Objective: Assessment: Plan: * Treatment: * Billing Information: * Visit Code: * Procedure Codes: * The named appointment provid er may or may not be the originator of this progress note, and it is not deemed complete until electronically signed by the appointment provider. Sign off status: Pending * Provider: Isacc Saba MD Date: 12/22/2023
--- OUTSIDE RECORDS SUMMARY | 2024-02-13 03:15 | XMS_ITS ---
Author Organization [facility] [employer] [facility] Address [address] [place] [address] Care Team Providers Care Carbon Lamp Cleaner Name Role Phone Isacc Saba Primary Care Provider REASON FOR VISIT bw Encounters Encounter Location Date Provider Diagnosis [address] Ray [address] [address] 02/13/2024 Isacc Saba PLAN OF TREATMENT No Information Progress Notes * Nacho OLMOSElenaB: 985 (38 yo F)Acc No.[id number]:02/13/2024 Patient: Brandie OLMOS Provider: Isacc Saba MD :1985 Age:38 Y Sex:Female Date:02/13/2024 Address:[address], [place], [place] Subjective: * Chief Complaints: * 1. Bw. * Medical History: Objective: Assessment: Plan: * Treatment: * Billing Information: * Visit Code: * Procedure Codes: * Sign off status: Completed Addendum: * true * Provider: Isacc Saba MD Date: 02/13/2024
--- OUTSIDE RECORDS SUMMARY | 2024-02-15 11:30 | XMS_ITS ---
Author Organization [facility] [employer] [facility] Address [address] [place] [address] Care Team Providers Care Tools Programmer Name Role Phone Isacc Saba Primary Care Provider REASON FOR VISIT LFT glu f/u Encounters Encounter Location Date Provider Diagnosis [address] Ray [address] [address] 02/15/2024 Isacc Saba PLAN OF TREATMENT No Information Progress Notes * Nacho OLMOSaDOB: [birth year] (38 yo F)Acc No.[id number]:02/15/2024 Patient: Brandie OLMOS Provider: Isacc Saba MD :1985 Age:38 Y Sex:Female Date:02/15/2024 Address:[address], [facility], [id number] Subjective: * Chief Complaints: * 1. LFT glu f/u. * Medical History: Objective: Assessment: Plan: * Treatment: * Billing Information: * Visit Code: * Procedure Codes: * A Sign off status: Completed Addendum: * true * Provider: Isacc Saba MD Date: 02/15/2024
--- OUTSIDE RECORDS SUMMARY | 2024-11-13 08:30 | XMS_ITS | Encounter Summary ---
Author Organization [facility] Address [address] [place] [address] Care Team Providers Care Project Officer Name Role Phone Unavailable Primary Care Provider Unavailabl e Reason for Visit * Reason Comments Well Women Visit Encounter Details Date Type Department Care Team (Late st Contact Info) Description 11/13/2024 8:30 AM EDT Office Visit [facility] [place] [facility] [address] [place] [id number] Luis E Acosta DO [address] [place] [address] Well woman exam with routine gynecological exam; Breast cancer screening by mammogram; Pelvic fullness in female Social History Tobacco Use Types Packs/Day Years Used Date Smoking Tobacco: Never Assessed Comments Unknown Sex and Gender Information Value Date Recorded Sex Assigned at Not on file Legal Sex Female 7:13 PM EDT Gender Identity Not on file Sexual Orientation Not on file documented as of this encounter Last Filed Vital Signs Vital Sign Reading Time Taken Comments Blood Pressure 110/72 11/13/2024 8:38 AM EDT Pulse - - Temperature - - Respiratory Rate - - Oxygen Saturation - - Inhaled Oxygen Concentration - - Weight 91.2 kg (201 lb) 11/13/2024 8:38 AM EDT Height - - Body Mass Index 34.5 11/04/2022 9:09 AM EDT documented in this encounter Progress Notes * Ira Harrison LPN - 11/13/2024 8:30 AM EDT Reason for Appointment: Patient ID: Brandie Olmos is a 39 y.o. female who presents for Well Women [...] nursing note reviewed. Exam conducted with a gatehouse attendant present. Vitals: Estimated body mass index is 34.5 kg/m?? as calculated from the following: Height as of 11/04/22: 5' 4 . Weight as of this encounter: 201 lb. BP: 110/72 Patient's last menstrual period was 10/22/2024. ASSESSMENT & PLAN ICD-10-CM 1. Well woman exam with routine gynecological exam Z01.419 THIN PREP TIS PAP AND HR HPV DNA 2. Breast cancer screening by mammogram Z12.31 Bilateral screening mammogram Bilateral screening mammogram Orders Placed This Encounter Procedures Bilateral screening mammogram Annual Wellness Exam: Patient presents today for routine annual exam. Patient states she has complaints of bowel stricture/seen on ct from 03/02/2024 and colonoscopy in March 2024 pt being referred to [facility]. Patients vitals were reviewed and within normal limits. Growth and development is noted to be appropriate for age. Menstrual history is noted to be regular with no concerns reported. No mental health concerns was expressed. Pap Smear: Speculum was inserted into the vagina and pap was obtained without difficulty. HPV testing was performed per age guideline. Patient was advised that pap results could take anywhere from 7 to 10 days to receive and our office will reach out to the patient with those once we have them. Patient can also view results via [employer]. I reinforced importance of condom use for STI prevention. Patient declined cultures to be performed with today's visit. Breast Exam: Upon examination, clinical breast exam was noted to be normal and screening mammogram was ordered and given to patient to have obtained. Patient was counseled on breast self-awareness, including the importance of knowing what is normal for her own breasts and promptly reporting any changes such as new lumps, skin dimpling, nipple discharge, or pain. Screening mammogram was recommended annually. Discussed signs and symptoms of breast cancer and when to seek medical attention. Answered all patient questions. Contraceptive Counseling (if applicable): Patient is currently using no control at this time as a form of contraceptive. Patient does not desire control at this time. Follow Up: Patient is to return to our office in one year for annual exam unless needed otherwise. Documented by Ira Harrison LPN on behalf of: Luis E Acosta DO documented in this encounter Plan of Treatment Upcoming Encounters Date Type Department Care Team (Late st Contact Info) Description 11/19/2025 8:30 AM EDT Procedure Visit [facility] [address] [place] [phone] Luis E Acosta DO [address] [place] [address] Scheduled Orders Name Type Priority Associated Diagnoses Orde r Schedule Bilateral screening mammogram Imaging Routine Breast cancer screening by mammogram Expected: 11/13/2024 (Approximate), Expires: 01/13/2026 THIN PREP TIS PAP AND HR HPV DNA Pathology and Cytology Routine Well woman exam with routine gynecological exam Ordered: 11/13/2024 US Pelvis w/ TV Imaging Routine Pelvic fullness in female Expected: 11/13/2024, Expires: 05/13/2025 documented as of this encounter Visit Diagnoses Diagnosis Well woman exam with routine gynecological exam Routine gynecological examination Breast cancer screening by mammogram Pelvic fullness in female documented in this encounter
--- OUTSIDE RECORDS SUMMARY | 2024-11-13 12:20 | XMS_ITS | Clinical Summary ---
Author Organization [facility] Address [id number] [address] [place] [address] Care Team Providers Care Sales Leader Name Role Phone Alex Vasquez TOOL MARKER-[facility] Primary Care Provider + Allergies No known active allergies Medications ibuprofen (MOTRIN) 800 mg tabletIndication s:Menstrual cramps Take 1 tablet (800 mg total) by mouth every 8 (eight) hours as needed for pain. 60 tablet 1 11/10/2022 Active Active Problems Problem Noted Date Diagnosed Date Hearing loss of left ear 09/27/2018 Left ear impacted cerumen 08/08/2018 Antepartum placenta previa without hemorrhage resulting from assisted reproductive t echnology 06/10/2011 Comments Yes Family History Medical History Relation Name Comments Heart disease Father No Known Problems Mother Relation Name Status Comments Father Alive Mother Alive Social History Tobacco Use Types Packs/Day Years Used Date Smoking Tobacco: Never Smokeless Tobacco: Never Tobacco Cessation:Counseling Given: Not Answered Alcohol Use Standard Drinks/Week Comments Not Currently 0 (1 standard drink = 0.6 oz pur e alcohol) Social Connection and Isolat ion Panel [NHANES] Answer Date Recorded In a typical week, how many times do you talk on the phone with family, friends, or neighbors? More than three times a week 10/10/2020 How often do you get togethe r with friends or relatives? More than three times a week 10/10/2020 How often do you attend chur ch or latter day services? More than 4 times per year 10/10/2020 Do you belong to any clubs o r organizations such as zoroastrianism groups, unions, fraternal or athletic groups, or school groups? Yes 10/10/2020 How often do you attend meet ings of the clubs or organizations you belong to? More than 4 times per year 10/10/2020 Are you , , di vorced, , never , or living with a partner? 10/10/2020 AUDIT-C Answer Date Recorded Q1: How often do you have a drink containing alc ohol? Monthly or less 10/10/2020 Q2: How many drinks containi ng alcohol do you have on a typical day when you are drinking? 1 or 2 10/10/2020 Q3: How often do you have si x or more drinks on one occasion? Never 10/10/2020 Overall Financial Resource Strain (CARDIA) Answe r Date Recorded How hard is it for you to pa y for the very basics like food, housing, medical care, and heating? Not hard at all 10/10/2020 PHQ-2 Answer Date Recorded Total Score 0 03/05/2022 [facility] Occupat ional Health - Occupational Stress Questionnaire Answer Date Recorded Do you feel stress - tense, restless, nervous, or anxious, or unable to sleep at night because your mind is troubled all the time - these days? Only a little 10/10/2020 Exercise Vital Sign Answer Date Recorde d On average, how many days pe r week do you engage in moderate to strenuous exercise (like a brisk walk)? 5 days 10/10/2020 On average, how many minutes do you engage in exercise at this level? 60 min 10/10/2020 PRAPARE - Transportation Answer Date Re corded In the past 12 months, has l ack of transportation kept you from medical appointments or from getting medications? No 08/2020 In the past 12 months, has l ack of transportation kept you from meetings, work, or from getting things needed for daily living? No 10/10/2020 Childcare Answer Date Recorded Do problems getting child ca re make it difficult for you to work or study? No 10/10/2020 Employment Answer Date Recorded Do you need help finding a [facility] career center and/or a training program? No 10/10/2020 Hunger Screening Answer Date Recorded Within the past 12 months we worried whether our food would run out before we got money to buy more. Never True 04/04/2024 Within the past 12 months th e food we bought just didn't last and we didn't have money to get more. Never True 04/04/2024 Purpose - Life Answer Date Recorded I have a purpose and direction in my life. Stron gly Agree 10/10/2020 Education Answer Date Recorded What is the highest level of school you have completed or the highest degree you have received? Bachelor's degree (e.g., BA, AB, BS) 10/10/2020 Comments Yes Sex and Gender Information Value Date Recorded Sex Assigned at Not on file Legal Sex Female 12:50 PM EDT Gender Identity Not on file Sexual Orientation Not on file Last Filed Vital Signs Vital Sign Reading Time Taken Comments Blood Pressure 124/72 04/04/2024 11:04 AM EST Pulse 81 04/04/2024 11:04 AM EST Temperature 37 C (98.6 F) 11/10/2022 4:47 PM EDT Respiratory Rate 18 11/10/2022 4:47 PM EDT Oxygen Saturation 98% 03/05/2022 9:14 AM EST Inhaled Oxygen Concentration - - Weight 87.6 kg (193 lb 3.2 oz) 04/04/2024 11:04 AM EST Height 165.1 cm (5' 5 ) 04/04/2024 11:04 AM EST Body Mass Index 32.15 04/04/2024 11:04 AM EST Plan of Treatment Health Maintenance Due Date Last Done Comments DTaP,Tdap and Td Vaccines (1 - Tdap) 08/22/2003 Depression Screening 03/05/2023 03/05/2022 Adult BMI Follow Up Plan 11/11/2023 Influenza Vaccine 11/05/2024 Adult BMI Screening 04/04/2025 04/04/2024 Tobacco Screening 04/04/2025 04/04/2024 Pap Smear 11/07/2026 11/08/2023, 03/10/2017 Medical Devices Not on file Insurance [employer] Care Teams Sales Leader Relationship Specialty Start Date End Date Alex Vasquez, TOOL MARKER-INFORMATION SECURITY ARCHITECT [address] [place] [address] PCP - General Internal Medicine 10/05/24
--- OUTSIDE RECORDS SUMMARY | 2024-11-13 12:20 | XMS_ITS | Encounter Summary ---
Author Organization [facility] Address [id number] [address] [place] [address] Care Team Providers Care Mammography Technologist Name Role Phone Alex Vasquez APRN-ANNUAL GREENHOUSE MANAGER Primary Care Provider + Encounter Details Date Type Department Care Team (Late st Contact Info) Description 03/27/2024 Orders Only [facility] Internal [facility] - Family Medicine [address] [place] [phone] Ref Prov, [place] [address] Social History Tobacco Use Types Packs/Day Years Used Date Smoking Tobacco: Never Smokeless Tobacco: Never Alcohol Use Standard Drinks/Week Comments Not Currently [...] often do you attend chur ch or holiness services? More than 4 times per year 10/10/2020 Do you belong to any clubs o r organizations such as gnosticism groups, unions, fraternal or athletic groups, or [...] Answer Date Recorded Total Score 0 03/05/2022 [facility] Questionnaire Answer Date [...] Recorded Do you need help finding a [facility] career center and/or a training program? No 10/10/2020 Hunger Screening Answer Date Recorded Within the past 12 months we worried whether our food would run out before we got money to buy more. Never True 03/15/2024 Within the past 12 months th e food we bought just didn't last and we didn't have money to get more. Never True 03/15/2024 Purpose - Life Answer Date Recorded I [...] on file documented as of this encounter Plan of Treatment Not on file documented as of this encounter Procedures Procedure Name Priority Date/Time Associated Diagnosis Comments FL FLUOROSCOPY UP TO 1 HOUR Routine 03/27/2024 1:58 PM EST documented in this encounter Results * Fluoroscopy less than one hour (03/27/2024 1:58 PM EST) Anatomical Region Laterality Modality Radiographic Orly ging us Not In System Ref Prov IMG FLUOROSCOPY ORDERABLE S Final Result documented in this encounter Visit Diagnoses Not on filedocumented in this encounter Additional Health Concerns Assessment Noted Time PHQ-9 Depression Total Score: 0 03/05/20 22 9:14 AM EST A Body Mass Index follow-up plan has been documented for the patient 11/11/2022 7:03 AM EDT documented as of this encounter Care Teams Mammography Technologist Relationship Specialty Start Date End Date Alex Vasquez, EVA-ANNUAL GREENHOUSE MANAGER [address] [place] [address] PCP - General Internal Medicine 10/05/24 documented as of this encounter
--- OUTSIDE RECORDS SUMMARY | 2024-11-13 12:20 | XMS_ITS | Encounter Summary ---
Author Organization [facility] Address [address] [place] [address] Care Team Providers Care Social Media Marketing Specialist Name Role Phone Unavailable Primary Care Provider Unavailabl e Encounter Details Date Type Department Care Team (Late st Contact Info) Description 11/13/2024 Telephone [facility] [address] [place] [address] [place] [address] Ira Harrison LPN Social History Tobacco Use Types Packs/Day Years Used Date Smoking Tobacco: Never Assessed Comments Unknown Sex and Gender Information Value Date Recorded Sex Assigned at Not on file Legal Sex Female 7:13 PM EDT Gender Identity Not on file Sexual Orientation Not on file documented as of this encounter Miscellaneous Notes * Telephone Encounter - Ira Harrison LPN - 11/13/2024 9:11 AM EDT Please refer to [facility] for eval of bowel stricture documented in this encounter Plan of Treatment Upcoming Encounters Date Type Department Care Team (Late st Contact Info) Description 11/19/2025 8:30 AM EDT Procedure Visit [facility] [address] [facility] [place] [address] Luis E Acosta DO [address] [place], [place] [id number] documented as of this encounter Visit Diagnoses Not on filedocumented in this encounter
--- OUTSIDE RECORDS SUMMARY | 2024-11-13 12:20 | XMS_ITS | Encounter Summary ---
Author Organization [facility] Address [address] [place] [address] Care Team Providers Care Film Writer Name Role Phone Unavailable Primary Care Provider Unavailabl e Encounter Details Date Type Department Care Team (Late st Contact Info) Description 11/03/2022 Abstract [facility] [address] [facility] [place] [address] Desirae Obando PA [address] [facility] [address] [place], [place] [address] Social History Tobacco Use Types Packs/Day Years Used Date Smoking Tobacco: Never Assessed Comments Unknown Sex and Gender Information Value Date Recorded Sex Assigned at Not on file Legal Sex Female 7:13 PM EDT Gender Identity Not on file Sexual Orientation Not on file documented as of this encounter Plan of Treatment Upcoming Encounters Date Type Department Care Team (Late st Contact Info) Description 11/19/2025 8:30 AM EDT Procedure Visit [facility] [address] [place] [address] [place] [address] Luis E Acosta DO [address] [facility] [address] [place], [facility] documented as of this encounter Visit Diagnoses Not on filedocumented in this encounter
--- OUTSIDE RECORDS SUMMARY | 2024-11-13 12:20 | XMS_ITS | Encounter Summary ---
Author Organization [facility] Address [address] [place] [address] Care Team Providers Care Office Administration Name Role Phone Unavailable Primary Care Provider Unavailabl e Encounter Details Date Type Department Care Team (Late st Contact Info) Description 11/13/2024 Bamboo flowsheet [facility] [address] [place] [address] [place] [address] Luis E Acosta DO [address] [place], [facility]11 Social History Tobacco Use Types Packs/Day Years [...] 8:30 AM EDT Procedure Visit [facility] [place] [address] Luis E Acosta DO [address], [facility]11 documented as of this encounter Visit Diagnoses Not on filedocumented in this encounter
--- OUTSIDE RECORDS SUMMARY | 2024-11-13 12:20 | XMS_ITS | Encounter Summary ---
Author Organization [facility] Address [id number] [address] [place] [address] Care Team Providers Care Claim Professional Name Role Phone Alex Vasquez RN LABOR DELIVERY-WINDING OPERATOR Primary Care Provider + Encounter Details Date Type Department Care Team (Late st Contact Info) Description 03/30/2024 Orders Only [facility] External Film Storage [facility] [place] [address] External, Scanning Provider Pain (Primary Dx) Social History Tobacco Use Types Packs/Day Years [...] any clubs o r organizations such as scientologist groups, unions, fraternal or athletic groups, or [...] Answer Date Recorded Total Score 0 03/05/2022 [facility] of Occupat ional Health - Occupational Stress [...] Recorded Do you need help finding a [facility] career center and/or a training program? No [...] on file documented as of this encounter Results * Fluoroscopy colon barium enema with air contrast (03/30/2024 8:35 AM EST) us Scanning Provider External IMG FLUOROSCOPY ORDER TAI Final Result MANUALLY TRANSCRIBED RESULTS documented in this encounter Visit Diagnoses Diagnosis Pain- Primary Generalized pain documented in this encounter Additional Health Concerns Assessment Noted Time PHQ-9 Depression Total Score: 0 03/05/20 9:14 AM EST A Body Mass Index follow-up plan has been documented for the patient 11/11/2022 7:03 AM EDT documented as of this encounter Care Teams Claim Professional Relationship Specialty Start Date End Date Alex Vasquez, RN LABOR DELIVERY-WINDING OPERATOR [address] [place] [address] PCP - General Internal Medicine 10/05/24 documented as of this encounter
--- OUTSIDE RECORDS SUMMARY | 2024-11-13 12:20 | XMS_ITS | Encounter Summary ---
Author Organization [facility] Address [id number] [address] [place] [address] Care Team Providers Care King Maker Name Role Phone Alex Vasquez FURNACE BRAZER-CIVIL DESIGN SPECIALIST Primary Care Provider + Encounter Details Date Type Department Care Team (Late st Contact Info) Description 11/16/2021 Orders Only [facility] [address] [facility] [place] [phone] Magnolia Cain MA Blood tests for routine general physical examination Social History Tobacco Use Types Packs/Day Years [...] often do you attend chur ch or orthodox services? More than 4 times per year 10/10/2020 Do you belong to any clubs o r organizations such as sikh groups, unions, fraternal [...] PHQ-2 Answer Date Recorded Total Score 0 11/05/2021 [facility] of Occupat ional Health - Occupational Stress [...] Recorded Do you need help finding a [facility] career center and/or a training program? No 10/10/2020 Purpose - Life Answer Date Recorded I have a purpose and direction in my life. Strogary gly Agree 10/10/2020 Education Answer Date Recorded What is the highest level of school you have completed or the highest degree you have received? Bachelor's degree (e.g., BA, AB, BS) 10/10/2020 Comments No Sex and Gender Information Value Date Recorded Sex Assigned at Not on file Legal Sex Female 12:50 PM EDT Gender Identity Not on file Sexual Orientation Not on file COVID-19 Exposure Response Date Recorded In the last month, have you been in contact with someone who was confirmed or suspected to have Coronavirus / COVID-19? No / Unsure 11/05/2021 3:19 PM EDT documented as of this encounter Plan of Treatment Not on file documented as of this encounter Procedures Procedure Name Priority Date/Time Associated Diagnosis Comments CBC WITH AUTO DIFFERENTIAL Routine 11/14/2021 Blood tests for routine general physical examination TSH Routine 11/14/2021 Blood tests for routine general physical examination LIPID PROFILE Routine 11/14/2021 Blood tests for routine general physical examination COMPREHENSIVE METABOLIC PANEL Routine 11/14/2021 Blood tests for routine general physical examination documented in this encounter Results * Lipid profile (11/14/2021) External Cholesterol 176 [facility] External Hdl Cholesterol 44 [facility] External Ldl (Calc) 119.6 [facility] External Triglycerides 62 [facility] External Very Low Lipoprotein 12.4 [facility] 11/14/2021 Janett Hardin [facility] BLOOD ORDERABLES Final Result Performing Organization Address City/[facility]/ZIP Co de Phone Number [facility] * TSH (11/14/2021) External Tsh 2.902 [facility] 11/14/2021 Janett Hardin [facility] BLOOD ORDERABLES Final Result Performing Organization Address City/[facility]/ZIP Co de Phone Number [facility] * Comprehensive metabolic panel (11/14/2021) External Albumin 3.7 [facility] External Alt Sgpt 39 [facility] External Anion Gap 14.5 [facility] External Ast 18 [facility] External Blood Urea Nitrogen Bun 12.0 [facility] External Calcium Ca 8.9 [facility] External Chloride 106 [facility] External Co2 / Carbon Dioxide 24.9 [facility] External Creatinine 0.80 [facility] External Gfr Amer >60 [facility] External Gfr Non Amer >60 [facility] External Glucose Fasting Or Random (Fbs) 101 [facility] External Potassium K 4.4 [facility] External Sodium Na 141 [facility] Total Bilirubin 0.2 [facility] External Total Protein 7.4 [facility] 11/14/2021 Janett Hardin [facility] BLOOD ORDERABLES Final Result [facility] * CBC auto differential (11/14/2021) External Wbc Count 6.0 [facility] External Rbc Count 4.30 [facility] External Hemoglobin 13.5 [facility] External Hematocrit Hct 40.5 [facility] External Mcv 94.2 [facility] External MCH 31.4 [facility] External Mchc 33.3 [facility] External Rdw 11.8 [facility] External Platelet Count 273 [facility] External Mpv 9.7 [facility] 11/14/2021 Janett Hardin APRNNEW [facility] BLOOD ORDERABLES Final Result [facility] documented in this encounter Visit Diagnoses Diagnosis Blood tests for routine general physical examination Laboratory examination ordered as part of a routine general medical examination documented in this encounter Additional Health Concerns Assessment Noted Time PHQ-9 Depression Total Score: 0 11/06/19 22 3:21 PM EDT A Body Mass Index follow-up plan has been documented for the patient 11/05/2021 4:46 PM EDT documented as of this encounter Care Teams King Maker Relationship Specialty Start Date End Date Alex Vasquez, EVA-CIVIL DESIGN SPECIALIST [address] [place] [address] PCP - General Internal Medicine 10/05/24 documented as of this encounter
--- OUTSIDE RECORDS SUMMARY | 2024-11-13 12:20 | XMS_ITS | Encounter Summary ---
Author Organization [facility] Address [address] [place] [address] Care Team Providers Care Road Grader Operator Name Role Phone Unavailable Primary Care Provider Unavailabl e Encounter Details Date Type Department Care Team (Late st Contact Info) Description 04/06/2024 Abstract [facility] [address] [place] [address] [place] [address] Luis E Acosta DO [address] [place] [address], [facility] Social History Tobacco Use [...] 8:30 AM EDT Procedure Visit [facility] DHILLON [facility] [place] [phone] Luis E Acosta DO [address], [facility]11 documented as of this encounter Visit Diagnoses Not on filedocumented in this encounter
--- OUTSIDE RECORDS SUMMARY | 2024-11-13 12:20 | XMS_ITS | Encounter Summary ---
Author Organization [facility] Address [address] [place] [address] Care Team Providers Care Commercial Real Estate Manager Name Role Phone Unavailable Primary Care Provider Unavailabl e Encounter Details Date Type Department Care Team (Late st Contact Info) Description 11/14/2023 Orders Only [facility] [address] [place] [address] [place] [address] Yarelis Rose LPN [address] [place] [id number] Social History Tobacco Use Types Packs/Day Years [...] 8:30 AM EDT Procedure Visit [facility] [address] [facility] [place] [address] Luis E Acosta DO [address] [facility] [place] [address] documented as of this encounter Procedures Procedure Name Priority Date/Time Associated Diagnosis Comments PAP SMEAR Routine 11/08/2023 12:00 AM EDT documented in this encounter Results * Pap Smear (11/08/2023 12:00 AM EDT) Swab Cervical swab / Unknown Luis E Acosta DO LAB CYTOLOGY ORDERABLES Final Re sult EXTERNAL LAB documented in this encounter Visit Diagnoses Not on filedocumented in this encounter
--- OUTSIDE RECORDS SUMMARY | 2024-11-13 12:20 | XMS_ITS | Encounter Summary ---
Author Organization [facility] Address [id number] [place] [address] Care Team Providers Care Specialty Transformer Assembler Name Role Phone Alex Vasquez COLORIST PHOTOGRAPHY-WATER RESOURCES PROJECT MANAGER Primary Care Provider + Encounter Details Date Type Department Care Team (Late st Contact Info) Description 11/11/2020 Orders Only [facility] [address] [address] [address] [place] [address] Magnolia Cain MA Blood tests for routine [...] often do you attend chur ch or yazidi services? More than 4 times per year 10/10/2020 Do you belong to any clubs o r organizations such as scientology groups, unions, fraternal or athletic groups, or [...] PHQ-2 Answer Date Recorded Total Score 0 10/10/2020 [facility] Occup[facility] ional [facility] - [...] Recorded Do you need help finding a [facility] and/or a training program? No 10/10/2020 Purpose - Life Answer Date Recorded I have a purpose and direction in my life. Strogary gly Agree 10/10/2020 Education Answer Date Recorded What is the highest level of school you have completed or the highest degree you have received? Bachelor's degree (e.g., BA, AB, BS) 10/10/2020 Comments Unknown Sex and Gender Information Value Date Recorded Sex Assigned at Not on file Legal Sex Female 12:50 PM EDT Gender Identity Not on file Sexual Orientation Not on file COVID-19 Exposure Response Date Recorded In the last month, have you been in contact with someone who was confirmed or suspected to have Coronavirus / COVID-19? Yes 11/12/2020 1:18 PM EDT documented as of this encounter Plan of Treatment Not on file documented as of this encounter Procedures Procedure Name Priority Date/Time Associated Diagnosis Comments CBC WITH AUTO DIFFERENTIAL Routine 10/13/2020 Blood tests for routine general physical examination TSH Routine 10/13/2020 Blood tests for routine general physical examination LIPID PROFILE Routine 10/13/2020 Blood tests for routine general physical examination COMPREHENSIVE METABOLIC PANEL Routine 10/13/2020 Blood tests for routine general physical examination documented in this encounter Results * Lipid profile (10/13/2020) External Cholesterol 195 SUNQUEST External Hdl Cholesterol 48 SUNQUEST External Ldl (Calc) 131 SUNQUEST External Triglycerides 80 SUNQUEST External Very Low Lipoprotein 16.0 SUNQUEST 10/13/2020 Janett Hardin [facility] ORDER[facility] Final Result SUNQUEST * TSH (10/13/2020) External Tsh 2.533 SUNQUEST 10/13/2020 Janett Hardin [facility] ORDER[facility]LES Final Result SUNQUEST * Comprehensive metabolic panel (10/13/2020) External Albumin 3.9 SUNQUEST External Alt Sgpt 37 SUNQUEST External Anion Gap 16.5 SUNQUEST External Ast 15 SUNQUEST External Blood Urea Nitrogen Bun 13.0 SUNQUEST External Calcium Ca 8.9 SUNQUEST External Chloride 104 SUNQUEST External Co2 / Carbon Dioxide 24.4 SUNQUEST External Creatinine 0.79 SUNQUEST External Gfr Amer >60 SUNQUEST External Gfr Non Amer >60 SUNQUEST External Glucose Fasting Or Random (Fbs) 83 SUNQUEST External Potassium K 3.9 SUNQUEST External Sodium Na 141 SUNQUEST Total Bilirubin 0.5 SUNQUEST External Total Protein 7.7 SUNQUEST 10/13/2020 Janett Hardin [facility] LAB BLOOD ORDERABLES Final Result Performing Organization Address City/[facility]/ZIP Co de Phone Number SUNQUEST * CBC auto differential (10/13/2020) External Wbc Count 7.2 SUNQUEST External Rbc Count 4.28 SUNQUEST External Hemoglobin 13.3 SUNQUEST External Hematocrit Hct 39.8 SUNQUEST External Mcv 93.0 SUNQUEST External MCH 31.1 SUNQUEST External Mchc 33.4 SUNQUEST External Rdw 12.3 SUNQUEST External Platelet Count 262 SUNQUEST External Mpv 9.9 SUNQUEST 10/13/2020 Janett Hardin [facility] LAB BLOOD ORDERABLES Final Result Performing Organization Address [facility]/ZIP Co de Phone Number SUNQUEST documented in this encounter Visit Diagnoses Diagnosis Blood tests for routine general physical examination Laboratory examination ordered as part of a routine general medical examination documented in this encounter Additional Health Concerns Assessment Noted Time PHQ-9 Depression Total Score: 0 10/11/19 21 5:35 PM EDT A Body Mass Index follow-up plan has been documented for the patient 10/14/2020 9:25 AM EDT documented as of this encounter Care Teams Specialty Transformer Assembler Relationship Specialty Start Date End Date Alex Vasquez, COLORIST PHOTOGRAPHY-[facility] [address] [place] [address] PCP - General Internal Medicine 10/05/24 documented as of this encounter
--- OUTSIDE RECORDS SUMMARY | 2024-11-13 12:20 | XMS_ITS | Encounter Summary ---
Author Organization [facility] Address [address] [place] [address] Care Team Providers Care Polishing Machine Operator Helper Name Role Phone Unavailable Primary Care Provider Unavailabl e Encounter Details Date Type Department Care Team (Latest Contact Info) Description 11/12/2024 Travel Social History Tobacco Use Types Packs/Day Years [...] 11/19/2025 8:30 AM EDT Procedure Visit [facility] [place] [facility] [address] [place] [address] Luis E Acosta DO [address] [place] [address] documented as of this encounter Visit Diagnoses Not on filedocumented in this encounter
--- OUTSIDE RECORDS SUMMARY | 2024-11-13 12:20 | XMS_ITS | Clinical Summary ---
Author Organization [facility] Address [address] [place] [address] Care Team Providers Care Electric Locomotive Crane Operator Name Role Phone No, Physician Primary Care Provider Unavailabl e Allergies No known active allergies Medications No known medications Social History Tobacco Use Types Packs/Day Years Used Date Smoking Tobacco: Never Smokeless Tobacco: Never Alcohol Use Standard Drinks/Week Comments Never 0 (1 standard drink = 0.6 oz pur e alcohol) AUDIT-C Answer Date Recorded Frequency of Alcohol Consumption Never 08/02/2018 Average Number of Drinks Not on file 019 Frequency of Binge Drinking Not on file 07/06 Comments No Sex and Gender Information Value Date Recorded Sex Assigned at Not on file Legal Sex Female 2:20 AM EDT Gender Identity Not on file Sexual Orientation Not on file Last Filed Vital Signs Vital Sign Reading Time Taken Comments Blood Pressure 146/100 08/02/2018 2:23 AM EDT Pulse 94 08/02/2018 2:23 AM EDT Temperature 36.7 C (98.1 F) 08/02/2018 2:23 AM EDT Respiratory Rate 16 08/02/2018 2:23 AM EDT Oxygen Saturation 99% 08/02/2018 2:23 AM EDT Inhaled Oxygen Concentration - - Weight 77.1 kg (170 lb) 08/02/2018 2:23 AM EDT Height 162.6 cm (5' 4 ) 08/02/2018 2:23 AM EDT Body Mass Index 29.18 08/02/2018 2:23 AM EDT Plan of Treatment Not on file Insurance COMMERCIAL Care Teams Electric Locomotive Crane Operator Relationship Specialty Start Date End Date No, Physician [facility] PCP - General 08/02/18
--- OUTSIDE RECORDS SUMMARY | 2024-11-13 12:21 | XMS_ITS | Encounter Summary ---
Author Organization [facility] Address [id number] [place] [address] Care Team Providers Care Electric Meter Repairer Helper Name Role Phone Alex Vasquez POWER GENERATING PLANT OPERATOR-GRADE TEACHER Primary Care Provider + Encounter Details Date Type Department Care Team (Late st Contact Info) Description 03/01/2024 Orders Only [facility] - Family Medicine [address] [place] [phone] Janett Hardin, POWER GENERATING PLANT OPERATOR-GRADE TEACHER [address] [place] [address] Social History Tobacco Use Types Packs/Day Years [...] often do you attend chur ch or episcopal services? More than 4 times per year 10/10/2020 Do you belong to any clubs o r organizations such as zoroastrian groups, unions, fraternal or athletic groups, or [...] Answer Date Recorded Total Score 0 03/05/2022 [facility] Occupat ional Health - Occupational [...] Recorded Do you need help finding a l ocal career center and/or a training program? No 10/10/2020 Hunger Screening Answer Date Recorded Within the past 12 months we worried whether our food would run out before we got money to buy more. Never True 11/10/2022 Within the past 12 months th e food we bought just didn't last and we didn't have money to get more. Never True 11/10/2022 Purpose - Life Answer Date Recorded I [...] on file documented as of this encounter Visit Diagnoses Not on filedocumented in this encounter Additional Health Concerns Assessment Noted Time PHQ-9 Depression Total Score: 0 03/05/20 22 9:14 AM EST A Body Mass Index follow-up plan has been documented for the patient 11/11/2022 7:03 AM EDT documented as of this encounter Care Teams Electric Meter Repairer Helper Relationship Specialty Start Date End Date Alex Vasquez, POWER GENERATING PLANT OPERATOR-GRADE TEACHER [address] [place] [address] PCP - General Internal Medicine 10/05/24 documented as of this encounter
--- OUTSIDE RECORDS SUMMARY | 2024-11-13 12:21 | XMS_ITS | Patient Health Record ---
Author Organization [facility] [employer] [facility] Address [address] [place] [address] Care Team Providers Care Pipe Organ Tuner And Repairer Name Role Phone Isacc Saba Primary Care Provider ALLERGIES No Known Allergies RESULTS Component Value Reference Range Notes TSH ([id number]) Reviewed date:11/21/2023 07:51:36 AM Interpretation:Normal Performing Lab:[facility], [address] [place] [id number], Phone - [phone], Director - [facility] Notes/Report: TSH 2.840 0.450-4.500 uIU/mL Vitamin D, 25-Hydroxy (Vit D ) ([id number]) Reviewed date:11/18/2023 08:07:19 AM Interpretation:Normal Performing Lab:[facility], [address] [place] [id number], Phone - [phone], Director - [facility] Notes/Report: Vitamin D, 25-Hydroxy 31.3 30.0-100.0 ng/mL Vitamin D deficiency has been defined by the [place] of Medicine and an Endocrine Society practice guideline as a level of serum 25-OH vitamin D less than 20 ng/mL (1,2). The Endocrine Society went on to further define vitamin D insufficiency as a level between 21 and 29 ng/mL (2). 1. IOM ([place] of Medicine). 2010. Dietary reference intakes for calcium and D. [place]: The National Academies Press. 2. [place] MF, Iván FELIPE, Asael KYLE, et al. Evaluation, treatment, and prevention of vitamin D deficiency: an Endocrine Society clinical practice guideline. JCEM. 2010; 96(4):1911-30. CBC With Differential/Platel et ([id number]) Reviewed date:11/18/2023 06:12:33 AM Interpretation:Normal Performing Lab:[facility] [address] [id number], Phone - [phone], Director - PhDKrzysztof Notes/Report: WBC 6.0 3.4-10.8 x10E3/uL RBC 4.32 3.77-5.28 x10E6/uL Hemoglobin 14.0 11.1-15.9 g/dL Hematocrit 41.0 34.0-46.6 % MCV 95 79-97 fL MCH 32.4 26.6-33.0 pg MCHC 34.1 31.5-35.7 g/dL RDW 12.0 11.7-15.4 % Platelets 304 150-450 x10E3/uL Neutrophils 63 Not Estab. % Lymphs 26 Not Estab. % Monocytes 8 Not Estab. % Eos 2 Not Estab. % Basos 1 Not Estab. % Immature Cells Neutrophils (Absolute) 3.8 1.4-7.0 x10E3/uL Lymphs (Absolute) 1.5 0.7-3.1 x10E3/uL Monocytes(Absolute) 0.5 0.1-0.9 x10E3/uL Eos (Absolute) 0.1 0.0-0.4 x10E3/uL Baso (Absolute) 0.0 0.0-0.2 x10E3/uL Immature Granulocytes 0 Not Estab. % Immature Grans (Abs) 0.0 0.0-0.1 x10E3/uL NRBC Hematology Comments: Lipid Panel w/ Chol/HDL Rati o ([id number]) Reviewed date:11/21/2023 07:51:26 AM Interpretation:Abnormal Performing Lab:[facility], [address] [place] [id number], Phone - [phone], Director - Marvin Notes/Report: Cholesterol, Total 199 100-199 mg/dL Triglycerides 92 0-149 mg/dL HDL Cholesterol 46 >39 mg/dL VLDL Cholesterol Pedro 17 5-40 mg/dL LDL Chol Calc (NIH) 136 0-99 mg/dL LDL Calc Comment: T. Chol/HDL Ratio 4.3 0.0-4.4 ratio T. Chol/HDL Ratio Men Women 1/2 Avg.Risk 3.4 3.3 Avg.Risk 5.0 4.4 2X Avg.Risk 9.6 7.1 3X Avg.Risk 23.4 11.0 Comp. Metabolic Panel (14) ( [facility])([id number]) Reviewed date:11/18/2023 10:00:13 AM Interpretation:Abnormal Performing Lab:[facility], [address] [place] [id number], Phone - [phone], Director - [facility] Notes/Report: Glucose 101 70-99 mg/dL BUN 12 6-20 mg/dL Creatinine 0.70 0.57-1.00 mg/dL eGFR 113 >59 mL/min/1.73 BUN/Creatinine Ratio 17 9-23 Sodium 139 134-144 mmol/L Potassium 4.5 3.5-5.2 mmol/L Chloride 104 96-106 mmol/L Carbon Dioxide, Total 20 20-29 mmol/L Calcium 9.2 8.7-10.2 mg/dL Protein, Total 7.1 6.0-8.5 g/dL Albumin 4.3 3.9-4.9 g/dL Globulin, Total 2.8 1.5-4.5 g/dL Bilirubin, Total 0.3 0.0-1.2 mg/dL Alkaline Phosphatase 90 44-121 IU/L AST (SGOT) 31 0-40 IU/L ALT (SGPT) 60 0-32 IU/L REASON FOR REFERRAL No Information SOCIAL HISTORY Tobacco Use: Social History Observation Description Date Details (start date - stop date) Never Smoker NA - NA Sex Assigned At : Social History Observation Description Sex Assigned At Unknown Tobacco Use/Smoking Question Answer Notes Are you a nonuser Section Notes: Home with , 3 kids. 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 EtOH - none. No THC. VITAL SIGNS Heart Rate 85 /min 11/17/2023 Respiratory Rate 16 /min 11/17/2023 Oximetry 98 % 11/17/2023 Blood pressure diastolic 78 mm Hg 11/17/2023 Weight-kg 92.08 kg 11/17/2023 Height 65 in 11/17/2023 Blood pressure systolic 120 mm Hg 11/17/2023 Weight 203.0 lbs 11/17/2023 BMI 33.78 11/17/2023 Encounters Encounter Location Date Provider Diagnosis [place] [address] [address] [address] 12/22/2023 [facility] [address] [address] 01/05/2024 [facility] [address] [place] [address] 11/17/2023 Isacc Saba Adult general medica l examination Z00.00 ; Other obesity due to excess calories E66.09 ; Body mass index [BMI] 33.0-33.9, adult Z68.33 and Lesion of tongue K14.8 [place] [address] [address] [place] [address] 02/13/2024 [facility] [address] [place] [address] 02/15/2024 [facility] [address] [place] [address] 11/18/2023 Isacc Saba Hyperglycemia R73.9 and Elevated transaminase level R74.01 [place] [address] [address] [place] [address] 11/21/2023 Isacc Saba [place] [address] [address] [address] 12/13/2023 Isacc Saba ASSESSMENTS Encounter Date Diagnosis Assessment Notes Treatment Notes Treatment Clinical Notes Section Notes 11/17/2023 Adult general medical examination (ICD-10 - Z00.00) Discussed with pt the benefits of aerobic and strength exercise and discussed practical options for both with consideration of their current medical and functional condition. Discussed attempting to achieve/maintain their optimal waist circumference or potentially a decrease in weight of 10% vs a decrease in waist circumference of 3 to achieve a medical improvement. Suggested a clean diet with portion control with adequate healthy fats and little processing. Try to avoid high fructose corn syrup, aspartame and sucralose.Discussed safety measures, including car and abduction considerations, specific to the patient. Discussed importance of sleep and ideas for improved sleep hygeine. Discussed colonoscopy recommendations based on age and prior results. Recommended self breast exam monthly. Discussed recommendations for pap smear based on age, sexual history and prior pap results. Discussed timing of bone density based on age, age at menopause and risk factors. Reviewed recommendations for all age-appropriate vaccines, injections. Recommend yearly flu shot. Calcium intake should be 7231-9048 mg daily - preferably from dietary sources but can supplement if dietary intake is inadequate. Take vitamin D3 2000 IU daily. 11/17/2023 Other obesity due to excess calories (ICD-10 - E66.09) Specific to this patient and their age, fitness level and comorbid conditions, discussed practical suggestions for aerobic, strength exercise and optimal diet. Try not to focus on weight but on waist circumference and healthy habits. Try to avoid artificial sugars like high fructose corn syrup, aspartame, sucralose - stevia may be better. Try to stand more and consider talking/singing while walking or in car. Limit processed foods. Discussed optimal waist circumference. Discussed concept that 100 calorie differences could be worth more that 10 lbs each year and gave examples of these. 11/18/2023 Hyperglycemia (ICD-10 - R73.9) 11/18/2023 Elevated transaminase level (ICD-10 - R74.01) 11/17/2023 Body mass index [BMI] 33.0-33.9, adult (ICD-10 - Z68.33) 11/17/2023 Lesion of tongue (ICD-10 - K14.8) Discussed that this appears to be asymptomatic and has not changed in 12 years. Will likely just monitor, but took picture and sent [place] consult to ENT. Await response and pt will inform me or her PCP if it changes 11/17/2023 Other Await labs. Pt states she will likely decide whether to see our facility vs her PCP based on who can see her more quickly. Reviewed our services c her PLAN OF TREATMENT Future Test Test Name Order Date Comp. Metabolic Panel (14) (CMP)([id number]) 11/18/2023 Insurance Providers Payer Name Payer Address Payer Phone Subscriber Number Group Number Insured Name Patient Relationship to Insured Coverage Start Date Coverage End Date YUDY HOWARD [facility] [address] [place] [address] [phone] [id number] Oc Geronimo ch Spouse - patient is the spouse of the insured MEDICAL (GENERAL) HISTORY Medical History History ICD Code ovarian cysts endometriosis PCP - Dr Ivon Hardin ,[employer] - Dr Castillo at [facility] Surgical History Surgery Date(Month/Year) endometriosis 2009 c section 2018 c section 2016 c section 2011 Hospitalization History Reason Date(Month/Year) above
--- OUTSIDE RECORDS SUMMARY | 2024-11-13 12:21 | XMS_ITS | Encounter Summary ---
Author Organization [facility] Address [id number] [place] [address] Care Team Providers Care Excellence Leader Name Role Phone Aelx Vasquez [facility] Primary Care Provider + Encounter Details Date Type Department Care Team (Late st Contact Info) Description 03/26/2024 Orders Only [facility] [address] [place] [phone] Katarzyna Yoder RMA Abnormal CT scan, gastrointestinal tract Social History Tobacco Use Types Packs/Day Years [...] often do you attend chur ch or zoroastrianism services? More than 4 times per year 10/10/2020 Do you belong to any clubs o r organizations such as taoism groups, unions, fraternal or athletic groups, or [...] Answer Date Recorded Total Score 0 03/05/2022 [facility] Occupat ional Health - Occupational [...] Recorded Do you need help finding a [facility] career center and/or a training program? [...] Procedure Name Priority Date/Time Associated Diagnosis Comments COLONOSCOPY Routine 03/21/[address] scan, gastrointestinal tract SURGICAL PATHOLOGY Routine 03/21/2024 , URINE Routine 03/21/2024 documented in this encounter Results * Colonoscopy (03/21/2024) us Lizzy Bloom [facility] GI PROCEDURE ORDERABL ES Final Result Performing Organization Address [facility] Co de Phone Number MANUALLY TRANSCRIBED RESULTS * , urine (03/21/2024) Preg Test, Ur Negative MANUAL LY TRANSCRIBED RESULTS us Not In System Ref Prov URINE ORDERABLES Edited R esult - Final Performing Organization Address [facility] Co de Phone Number MANUALLY TRANSCRIBED RESULTS * Surgical Pathology (03/21/2024) us Not In System Ref Prov PATHOLOGY/CYTOLOGY ORDERA BLES Edited Result - Final Performing Organization Address [facility]/ZIP Co de Phone Number MANUALLY TRANSCRIBED RESULTS documented in this encounter Visit Diagnoses Diagnosis Abnormal CT scan, gastrointestinal tract documented in this encounter Additional Health Concerns Assessment Noted Time PHQ-9 Depression Total Score: 0 03/05/20 22 9:14 AM EST A Body Mass Index follow-up plan has been documented for the patient 11/11/2022 7:03 AM EDT documented as of this encounter Care Teams Excellence Leader Relationship Specialty Start Date End Date Alex Vasquez, [facility] [address] [place] [address] PCP - General Internal Medicine 10/05/24 documented as of this encounter
--- OUTSIDE RECORDS SUMMARY | 2024-11-13 12:21 | XMS_ITS | Encounter Summary ---
Author Organization [facility] Address [id number] [place] [address] Care Team Providers Care High Speed Printer Operator Name Role Phone Alex Vasquez APRN-JAR FILLER Primary Care Provider + Encounter Details Date Type Department Care Team (Late st Contact Info) Description 11/22/2022 Orders Only [facility] Internal Medicine - Family Medicine [address] [place] [id number] Dora Jonse CMA Annual physical exam Social History Tobacco Use Types Packs/Day Years [...] often do you attend chur ch or pentecostal services? More than 4 times per year 10/10/2020 Do you belong to any clubs o r organizations such as hinduism groups, unions, fraternal or athletic groups, or [...] Answer Date Recorded Total Score 0 03/05/2022 [facility] - Occupational [...] Recorded Do you need help finding a [facility] career center and/or a training program? [...] Diagnosis Comments CBC WITH AUTO DIFFERENTIAL Routine 11/20/2022 Annual physical exam HEMOGLOBIN A1C Routine 11/20/2022 Annual physical exam LIPID PROFILE Routine 11/20/2022 Annual physical exam COMPREHENSIVE METABOLIC PANEL Routine 11/20/2022 Annual physical exam documented in this encounter Results * Comprehensive metabolic panel (11/20/2022) External Albumin 3.8 3.4 - 5 MAN UALLY TRANSCRIBED RESULTS External Alt Sgpt 53 14 - 59 MANUALLY TRANSCRIBED RESULTS External Anion Gap 10.2 MANUALLY TRANSCRIBED RESULTS External Ast 17 15 - 37 MANUALL Y TRANSCRIBED RESULTS External Blood Urea Nitrogen Bun 86 74 - 106 MANUALLY TRANSCRIBED RESULTS External Calcium Ca 9 8.5 - 10.1 MANUALLY TRANSCRIBED RESULTS External Chloride 103 98 - 107 MANUALLY TRANSCRIBED RESULTS External Co2 / Carbon Dioxide 103 98 - 107 MANUALLY TRANSCRIBED RESULTS External Creatinine 11 7 - 18 MANUALLY TRANSCRIBED RESULTS External Gfr Amer >60 >60 MANUALLY TRANSCRIBED RESULTS External Gfr Non Amer >60 >60 MANUALLY TRANSCRIBED RESULTS External Alkaline Phosphatase 88 46 - 116 MANUALLY TRANSCRIBED RESULTS External Glucose Fasting Or Random (Fbs) 86 74 - 106 MANUALLY TRANSCRIBED RESULTS External Potassium K 4.2 3.5 - 5.1 MANUALLY TRANSCRIBED RESULTS External Sodium Na 135 135 - 156 MANUALLY TRANSCRIBED RESULTS Total Bilirubin 0.3 0.2 - 1.0 MANU ALLY TRANSCRIBED RESULTS External Total Protein 7.6 6.4 - 8.2 MANUALLY TRANSCRIBED RESULTS 11/20/2022 Janett Gaytanillo [facility] LAB BLOOD ORDERABLES Final Result Performing Organization Address [facility] de Phone Number MANUALLY TRANSCRIBED RESULTS * (ABNORMAL) CBC auto differential (11/20/2022) Pathologist [facility] External Wbc Count 6.1 4 - 11 MANUALLY TRANSCRIBED RESULTS External Rbc Count 4.09(A) 4.20 - 5.40 MANUALLY TRANSCRIBED RESULTS External Hemoglobin 13.4 12 - 16 MANUALLY TRANSCRIBED RESULTS External Hematocrit Hct 38.6 36 - 48 MANUALLY TRANSCRIBED RESULTS External Mcv 9.9 9.5 - 13.5 MANUALLY TRANSCRIBED RESULTS External MCH 32.8 26.7 - 34 MANUALL Y TRANSCRIBED RESULTS External Mchc 34.7 29.9 - 35.2 MANUALLY TRANSCRIBED RESULTS External Rdw 11.6 11 - 15 MANUALL Y TRANSCRIBED RESULTS External Platelet Count 287 150 - 450 MANUALLY TRANSCRIBED RESULTS MPV 9.9 9.5 - 13.5 MANUALLY TRANSCRIBED RESULTS External Seg Neutrophil 68.4 43 - 75 MANUALLY TRANSCRIBED RESULTS External Lymphocyte, Atypical 23.2 20.5 - 60 MANUALLY TRANSCRIBED RESULTS External Absolute Lymphocyte 1.4 1.2 - 3.8 MANUALLY TRANSCRIBED RESULTS External Monocytes 0.4 0.3 - 0.8 MANUALLY TRANSCRIBED RESULTS External % Basophils 0.3 0.2 - 2 MANUALLY TRANSCRIBED RESULTS External Absolute Neutrophils 1.4 1.2 - 3.8 MANUALLY TRANSCRIBED RESULTS External Absolute Monocytes 0.4 0.3 - 0.8 MANUALLY TRANSCRIBED RESULTS 11/20/2022 Janett Gaytanillo [facility] LAB BLOOD ORDERABLES Final Result Performing Organization Address [facility] de Phone Number MANUALLY TRANSCRIBED RESULTS * (ABNORMAL) Lipid profile (11/20/2022) Pathologist [facility] External Cholesterol 187 0 - 200 [facility] External Cholesterol:Hdl 3.7 3.3 - 4.4. [facility] External Hdl Cholesterol 51 40 - 60 [facility] External Ldl (Calc) 123(A) 0 - 100 [facility] External Triglycerides 65 [facility] External Very Low Lipoprotein 13.0 [facility] 11/20/2022 Janett Hardin APRN-JAR FILLER LAB BLOOD ORDERABLES Final Result [facility] * Hemoglobin A1c (11/20/2022) External Hemoglobin A1C 5.3 4.5 - 6.2 % MANUALLY TRANSCRIBED RESULTS 11/20/2022 Janett Hardin APRN-JAR FILLER LAB BLOOD ORDERABLES Final Result Performing Organization Address [facility] de Phone Number MANUALLY TRANSCRIBED RESULTS documented in this encounter Visit Diagnoses Diagnosis Annual physical exam Routine general medical examination at a health care facility documented in this encounter Additional Health Concerns Assessment Noted Time PHQ-9 Depression Total Score: 0 03/05/20 22 9:14 AM EST A Body Mass Index follow-up plan has been documented for the patient 11/11/2022 7:03 AM EDT documented as of this encounter Care Teams High Speed Printer Operator Relationship Specialty Start Date End Date Alex Vasquez, EVA-JAR FILLER [address] [place] [address] PCP - General Internal Medicine 10/05/24 documented as of this encounter
--- OUTSIDE RECORDS SUMMARY | 2024-11-13 12:21 | XMS_ITS | Encounter Summary ---
Author Organization [facility] Address [id number] [place] [address] Care Team Providers Care Military Lawyer Name Role Phone Alex Vasquez APRN-ELECTRONICS RESEARCH ENGINEER Primary Care Provider + Encounter Details Date Type Department Care Team (Late st Contact Info) Description 02/01/2023 Telephone [facility] Internal Medicine - Family Medicine [address] [place] [phone] Magnolia Cain MA Social History Tobacco Use Types Packs/Day Years [...] often do you attend chur ch or yarsani services? More than 4 times per year 10/10/2020 Do you belong to any clubs o r organizations such as pentecostalism groups, unions, fraternal or athletic groups, or [...] Date Recorded Total Score 0 03/05/2022 [facility] - Occupational Stress [...] Recorded Do you need help finding a [facility] and/or a training program? No [...] encounter Miscellaneous Notes * Telephone Encounter - Magnolia Cain MA - 02/01/2023 9:02 AM EST Prednisone never went to pharmacy, could you please resend. * Telephone Encounter - BRETT Murray - 02/01/2023 9:02 AM EST I resent, RACL correct? - [place] * Telephone Encounter - Tameka Cassidy CMA - 02/01/2023 9:02 AM EST Patient notified documented in this encounter Plan of Treatment Not on file documented as of this encounter Visit Diagnoses Not on filedocumented in this encounter Additional Health Concerns Assessment Noted Time PHQ-9 Depression Total Score: 0 03/05/20 9:14 AM EST A Body Mass Index follow-up plan has been documented for the patient 11/11/2022 7:03 AM EDT documented as of this encounter Care Teams Military Lawyer Relationship Specialty Start Date End Date Alex Vasquez, EVA-ELECTRONICS RESEARCH ENGINEER [address] [place] [address] PCP - General Internal Medicine 10/05/24 documented as of this encounter
--- OUTSIDE RECORDS SUMMARY | 2024-11-13 12:21 | XMS_ITS | Clinical Summary ---
Author Organization [facility] Address [address] [place] [address] Care Team Providers Care Drugless Physician Name Role Phone Unavailable Primary Care Provider Unavailabl e Allergies No known active allergies Medications No known medications Encounters Date Type Department Care Team Description 11/13/2024 8:30 AM EDT Office Visit [facility] [address] [place] [phone] Luis E Acosta, Well woman exam with routine gynecological exam; Breast cancer screening by mammogram; Pelvic fullness in female 11/13/2024 Telephone [facility] [address] [place] [address] Ira Harrison LPN 11/13/2024 Bamboo flowsheet [facility] [address] [place] [address] Luis E Acosta DO 11/12/2024 Travel from Last 3 Months Social History Tobacco Use Types Packs/Day Years [...] (201 lb) 11/13/2024 8:38 AM EDT Height 162.6 cm (5' 4 ) 11/04/2022 9:09 AM EDT Body Mass Index 34.5 11/04/2022 9:09 AM EDT Plan of Treatment Upcoming Encounters Date Type Department Care Team (Late st Contact Info) Description 11/19/2025 8:30 AM EDT Procedure Visit [facility] [address] [place] [phone] Luis E Acosta DO [address] [place] [address] Insurance FRONTPATH
--- OUTSIDE RECORDS SUMMARY | 2024-11-13 12:23 | XMS_ITS | CCD ---
Author Organization [facility] Care Team Providers Care Tank Officer Name Role Phone Nora, Physician Primary Care Provider UnavailPRINCE Chapman Attending Unavailava WELDON, PHYSICIAN Primary Care Unavailable MAURICIO HARDIN Attending Unavailable MAURICIO HARDIN Consulting Unavailable MAURICIO HARDIN Primary Care Unavailable SIERRA HARDINE Admitting Unavailable LUIS E ACOSTA Attending Unavailable Unavailable Primary Care Provider Martin Schroeder DO Primary Care Provider Wilfred CLAIMS ACCOUNT MANAGER-Mauricio JACKSON Primary Care Provid er MARTIN CHING Primary Care Unavailable OLEKSANDR ORR Attending Unavailable OLEKSANDR ORR Consulting Unavailable OLEKSANDR ORR Admitting Unavailable JESSICA STEEN Consulting Unavailable SHAE PEÑALOZA Attending Unavailable MAURICIO HARDIN Referring Unavailable MAURICIO HARDIN Primary Care Unavailable MAURICIO HARDIN Referring Unavailable MAURICIO HARDIN Primary Care Unavailable MAURICIO HARDIN Referring Unavailable MAURICIO HARDIN Primary Care Unavailable LIZZY GUZMÁN Attending Unavailable MAURICIO HARDNI Referring Unavailable MAURICIO HARDIN Primary Care Unavailable JASPREET HARDINERIE Unavailable Medications Current Medications Medication Drug Class(es) [...] 1.5 mg/ml oral solution (2 sources) Uncompetitive S-gwddqd-J-aspartate Receptor Antagonist, Sigma-1 Agonist Start: 01-31-2023 End: 03-15-2024 take 5 mL by mouth four times daily as needed for cough and congestion pyrilamine-dextromethorphan 7.5-7.5 mg/5 mL liquid Indications: COVID Take 5 mL by mouth 4 (four) times a day as needed (cough and congestion). 200 mL 1 01/31/2023 03/15/2024 Discontinued (Therapy completed) ibuprofen 800 mg oral tablet (6 sources) Nonsteroidal Anti-inflammatory Drug Start: 11-10-2022 take [...] 4 mg (1 source) Start: 03-01-2024 ondansetron (Z OFRAN-ODT) disintegrating tablet 4 mg peg 3350-sod sulf,yaqx-dor-yck 178.7-7.3-0.5 gram recon soln (1 source) Start: 03-15-2024 End: 03-16-2024 peg 3350-sod sulf,zszl-ycv-ycw 178.7-7.3-0.5 gram recon soln Indications: Abnormal CT scan, gastrointestinal tract Take 1 kit by mouth once daily for 1 dose. Please see instructional sheet given by physicians office. 1 each 03/15/2024 03/16/2024 Active polyethylene glycol 3350 69056 mg powder for oral solution (3 sources) Osmotic Laxative Start: 03-26-2024 End: 03-26-2024 polyethylene glycol (GLYCOLAX) 17 gram/dose powder Take 238 g by mouth once for 1 dose. Please see instructional sheet given by physicians office. 238 g 03/26/2024 03/26/2024 Active End: 11-07-2024 take 238 g by mouth once polyethylene glycol 3350 17 gram/dose oral powder TAKE 238 GRAM BY MOUTH per physicians office 11/07/2024 completed Not Available Not Available Not Available VITAMINS PO (1 source) Start: 12-09-2010 take 1 tablet by mouth once daily VITAMINS PO Take 1 tablet by mouth daily. 12/09/2010 Active Suflave 178.7 gram-7.3 gram-0.5 gram oral solution (1 source) End: 11-07-2024 Suflave 178.7 gram-7.3 gram-0.5 gram oral solution Please see instructional sheet given by physicians office 11/07/2024 completed Not Available Not Available Not Available traMADol hydrochloride 50 mg oral tablet (1 [...] (3 times per day), First dose on [facility] 03/03/24 at 0815, Until Discontinued, Maximum [...] mg from all sources in 24 hours. bisacodyl 5 mg delayed release oral tablet (4 sources) Stimulant Laxative Start: 03-26-2024 End: 04-04-2024 bisacodyL (DULCOLAX, BISACODYL,) 5 mg EC tablet Please see instructional sheet given by physicians office. 4 tablet 03/26/2024 04/04/2024 Discontinued (Therapy completed) End: 11-07-2024 bisacodyl 5 mg tablet,delaye d release Please see instructional sheet given by physicians office. 11/07/2024 completed Not Available Not Available Not Available calcium chloride 0.0014 meq/ml / potassium chloride [...] Episodic Other ear and sense organ disorders (5 sources) Hearing loss in left ear; Translations: [Unspecified hearing loss, left ear] Onset: 9 09-27-2018 Chronic Other ear and sense organ disorders (1 source) Otalgia, left ear; Translations: [Left ear pain] Episodic Other female genital disorders (1 source) History of endometriosis; Translations: [Personal history of other diseases of the female genital tract] 04-04-2024 Episodic Other gastrointestinal disorders (3 sources) Altered bowel function; Translations: [Other specified symptoms and signs involving the digestive system and abdomen] 03-05-2024 Episodic Other gastrointestinal disorders (1 source) Other specified symptoms and signs involving the digestive system and abdomen; Translations: [Other specified symptoms and signs involving the digestive system and abdomen] Onset: 5 Episodic Other gastrointestinal disorders (2 sources) Pelvic mass; Translations: [Intra-abdominal and pelvic swelling, mass and lump, unspecified site] 11-13-2024 Episodic Other screening for suspected conditions (not mental disorders or infectious disease) (7 sources) Imaging of gastrointestinal tract abnormal; Translations: [Abnormal findings on diagnostic imaging of other parts of digestive tract] Onset: 5 03-15-2024 Episodic Other upper respiratory infections (1 source) Pharyngitis; Translations: [Pharyngitis, unspecified etiology] Episodic Residual codes; unclassified (1 source) Pain, unspecified; Translations: [Pain, unspecified] Onset: 5 Episodic Unclassified (1 source) Post-op Onset: 5 Unclassified (1 source) Change in Bowel Habits Onset: 5 Past or Other Problems Problem Classification Problem Date Documented Da te Episodic/Chronic Hemorrhage during ; abruptio placenta; placenta previa (6 sources) Placenta previa without hemorrhage; Translations: [Complete placenta previa NOS or without hemorrhage, unspecified trimester] Onset: 06-10-2011 06-10-2011 Episodic Mood disorders (5 sources) Mood disorders Onset: 03-05-2022 03-05-2022 Other complications of (6 sources) Supervision of resulting from assisted reproductive technology, unspecified trimester; Translations: [ resulting from assisted reproductive technology] Onset: 06-10-2011 06-10-2011 Episodic Other ear and sense organ disorders (5 sources) Impacted cerumen in left ear; Translations: [Impacted cerumen, left ear] Onset: 08-08-2018 09-05-2018 Episodic Unclassified (5 sources) Onset: 11-11-2022 11-11-2022 Results Test Name Value Interpretation Reference Range Facility Calprotectin, Fecalon 2023 Calprotectin, Fecal 1430 ug/g High <=49 [facility] Comment on above: Result Comment: (NOT E) REFERENCE INTERVAL: Calprotectin, Fecal by Immunoassay Less than 50 ug/g.........Normal 50-120 ug/g...............Borderline elevated, test should be re-evaluated in 4-6 weeks. 121 ug/g or greater.......Elevated Performed By: [employer] [address] [place] [id number] Trade Mark Examiner: Shahriar Gill MD, PhD CLIA Number: [id number] Performed By: #### A CALPF #### [facility] [address] [place] [address] Lead Refinery Supervisor: aKreem Alvarez MD Basic Metab w/rfx MGon 03-03 Anion gap [Moles/Vol] 10 mmol/L Normal 9-16 [facility] Comment on above: Performed By: #### C DP, CRP, ROLA, SED, BMPX, MG #### [address] [address] [employer] Refinery Supervisor: Diego Mortensen MD Calcium [Mass/Vol] 8.5 mg/dL Low 8.6-10.4 [facility] Comment on above: Performed By: #### C DP, CRP, ROLA, SED, BMPX, MG #### [address] [address] [employer]inery Supervisor: Diego Mortensen MD Chloride [Moles/Vol] 105 mmol/L Normal 98-107 [facility] Comment on above: Performed By: #### C DP, CRP, ROLA, SED, BMPX, MG #### [address] [address] [employer] Supervisor: Diego Mortensen MD CO2 [Moles/Vol] 23 mmol/L Normal 20-31 [facility] Comment on above: Performed By: #### C DP, CRP, ROLA, SED, BMPX, MG #### [facility] [employer] [address] [place] [address] [employer] Supervisor: Diego Mortensen MD Creatinine [Mass/Vol] 0.6 mg/dL Normal 0.6-0.9 [facility] Comment on above: Performed By: #### C DP, CRP, ROLA, SED, BMPX, MG #### [facility] [employer] [address] [place] [address] [employer] Supervisor: Diego Mortensen MD GFR/1.73 sq M.predicted among non-blacks MDRD (S/P/Bld) [Vol rate/Area] mL/min/{1.73_m2} Normal >60 [facility] Comment on above: Result Comment: These [...] tubular secretion. Performed By: #### C DP, CRP, ROLA, SED, BMPX, MG #### [address] [address] [employer] Supervisor: Diego Mortensen MD Glucose [Mass/Vol] 78 mg/dL Normal 74-99 [facility] Comment on above: Performed By: #### C DP, CRP, ROLA, SED, BMPX, MG #### [address] [address] [employer] Supervisor: Diego Mortensen MD Potassium [Moles/Vol] 3.9 mmol/L Normal 3.7-5.3 [facility] Comment on above: Performed By: #### C DP, CRP, ROLA, SED, BMPX, MG #### [facility] [employer] [address] [place] [address] [employer] Supervisor: Diego Mortensen MD Sodium [Moles/Vol] 138 mmol/L Normal 136-145 [facility] Comment on above: Performed By: #### C DP, CRP, ROLA, SED, BMPX, MG #### [facility] [employer] [address] [place] [address] [employer] Supervisor: Diego Mortensen MD Urea nitrogen [Mass/Vol] 8 mg/dL Normal 6-20 [facility] Comment on above: Performed By: #### C DP, CRP, ROLA, SED, BMPX, MG #### [facility] [employer] [address] [place] [address] [phone] [employer] Supervisor: Diego Mortensen MD Basic Metabolic Panel w/ Ref nataly to MGon 03-03-2024 Anion gap [Moles/Vol] 10 mmol/L 9 - 16 mmol/L [facility] Calcium [Mass/Vol] 8.5 mg/dL Low 8.6 - 10. 4 mg/dL [facility] Chloride [Moles/Vol] 105 mmol/L 98 - 107 mmol/L [facility] CO2 [Moles/Vol] 23 mmol/L 20 - 31 mmol/L [facility] Creatinine [Mass/Vol] 0.6 mg/dL 0.6 - 0.9 mg/dL [facility] Est, [place] Albat Rate - PINF [facility] Comment on above: These results are [...] [Mass/Vol] 78 mg/dL 74 - 99 mg/dL [facility] Potassium [Moles/Vol] 3.9 mmol/L 3.7 - 5.3 mmol/L [facility] Sodium [Moles/Vol] 138 mmol/L 136 - 145 mmol/L [facility] Urea nitrogen [Mass/Vol] 8 mg/dL 6 - 20 mg/dL [facility] C-Reactive Proteinon 024 CRP High sensitivity method [Mass/Vol] 15.4 mg/L High 0.0 - 5.0 mg/L [facility] CRP [Mass/Vol] 15.4 mg/L High 0.0-5.0 [facility] Comment on above: Performed By: #### C DP, CRP, ROLA, SED, BMPX, MG #### [facility] [address] [place], [place] [id number] Lead Refinery Supervisor: Diego Mortensen MD CBC with Auto Differentialon 03-03-2024 Basophils (Bld) [#/Vol] [facility] Basophils/100 WBC (Bld) 0 % 0 - 2 % [facility] Eosinophils (Bld) [#/Vol] 0.05 10*3/uL [facility] Eosinophils/100 WBC (Bld) 1 % 1 - 4 % [facility] Erythrocyte distribution width (RBC) [Ratio] 11.9 % 11.8 - 14.4 % [facility] Hematocrit (Bld) [Volume fraction] 35.3 % Low 36.3 - 47.1 % [facility] Hemoglobin (Bld) [Mass/Vol] 11.6 g/dL Low 11.9 - 15.1 g/dL [facility] Immature granulocytes (Bld) [#/Vol] [facility] Immature granulocytes/100 WBC (Bld) 0 % 0 [facility] Interpretation and review of laboratory results Abnormal [facility] Lymphocytes/100 WBC (Bld) 29 % 24 - 43 % [facility] Lymphocytes/100 WBC (Bld) 1.36 % [facility] MCH (RBC) [Entitic mass] 31.8 pg 25.2 - 33.5 pg [facility] MCHC (RBC) [Mass/Vol] 32.9 g/dL 28.4 - 34.8 g/dL [facility] MCV (RBC) [Entitic vol] 96.7 fL 82.6 - 102.9 fL [facility] Monocytes/100 WBC (Bld) 11 % 3 - 12 % [facility] Monocytes/100 WBC (Bld) 0.52 % [facility] Neutrophils/100 WBC (Bld) 59 % 36 - 65 % [facility] Nucleated RBC/100 WBC (Bld) [Ratio] 0.0 % 0.0 per 100 WBC [facility] Platelet mean volume (Bld) [Entitic vol] 9.8 fL 8.1 - 13.5 fL [facility] Platelets (Bld) [#/Vol] 243 10*3/uL [facility] RBC (Bld) [#/Vol] 3.65 10*6/uL Low 3.95 - 5.1 1 m/uL [facility] Segmented neutrophils/100 WBC (Bld) 2.78 % [facility] WBC other (Bld) [#/Vol] 4.8 [facility] CBC with Diffon 03-03-2024 Abs. Basophil <0.03 Normal 0.00-0.20 [facility] Comment on above: Performed By: #### C DP, CRP, ROLA, SED, BMPX, MG #### [facility] [employer] [address] [place] [id number] Lead Refinery Supervisor: Diego Mortensen MD Abs.Imm.Granulocyte <0.03 Normal 0.00-0.30 [facility] Comment on above: Performed By: #### C DP, CRP, ROLA, SED, BMPX, MG #### [facility] [employer] [address] [place] [address] Lead Refinery Supervisor: Diego Mortensen MD Abs.Neutrophil (Seg) 2.78 k/uL Normal 1.50-8.10 [facility] Comment on above: Performed By: #### C DP, CRP, ROLA, SED, BMPX, MG #### [facility] [employer] [address] [place] [address] [employer] Supervisor: Diego Mortensen MD Basophils/100 WBC (Bld) 0 % Normal 0-2 [facility] Comment on above: Performed By: #### C DP, CRP, ROLA, SED, BMPX, MG #### [facility] [employer] [address] [place] [id number] [employer] Supervisor: Diego Mortensen MD Eosinophils (Bld) [#/Vol] 0.05 10*3/uL Normal 0.00-0.44 [facility] Comment on above: Performed By: #### C DP, CRP, ROLA, SED, BMPX, MG #### [facility] [employer] [address] [place] [phone] [employer] Supervisor: Diego Mortensen MD Eosinophils/100 WBC (Bld) 1 % Normal 1-4 [facility] Comment on above: Performed By: #### C DP, CRP, ROLA, SED, BMPX, MG #### [facility] [address] [place] [id number] Lead Refinery Supervisor: Diego Mortensen MD Erythrocyte distribution width (RBC) [Ratio] 11.9 % Normal 11.8-14.4 [facility] Comment on above: Performed By: #### C DP, CRP, ROLA, SED, BMPX, MG #### [facility] [employer] [address] [place] [address] Lead Refinery Supervisor: Diego Mortensen MD Hematocrit (Bld) [Volume fraction] 35.3 % Low 36.3-47.1 [facility] Comment on above: Performed By: #### C DP, CRP, ROLA, SED, BMPX, MG #### [facility] [employer] [address] [place] [address] Lead Refinery Supervisor: Diego Mortensen MD Hemoglobin (Bld) [Mass/Vol] 11.6 g/dL Low 11.9-15.1 [facility] Comment on above: Performed By: #### C DP, CRP, ROLA, SED, BMPX, MG #### [facility] [employer] [address] [place] [address] Lead Refinery Supervisor: Diego Mortensen MD Immature granulocytes/100 WBC (Bld) 0 % Normal 0 [facility] Comment on above: Performed By: #### C DP, CRP, ROLA, SED, BMPX, MG #### [facility] [employer] [address] [place] [address] Lead Refinery Supervisor: Diego Mortensen MD Lymphocytes (Bld) [#/Vol] 1.36 10*3/uL Normal 1.10-3.70 [facility] Comment on above: Performed By: #### C DP, CRP, ROLA, SED, BMPX, MG #### [address] [address] [employer] Supervisor: Diego Mortensen MD Lymphocytes/100 WBC (Bld) 29 % Normal 24-43 [facility] Comment on above: Performed By: #### C DP, CRP, ROLA, SED, BMPX, MG #### [address] [address] [employer] Supervisor: Diego Mortensen MD MCH (RBC) [Entitic mass] 31.8 pg Normal 25.2-33.5 [facility] Comment on above: Performed By: #### C DP, CRP, ROLA, SED, BMPX, MG #### [address] [address] [employer] Refinery Supervisor: Diego Mortensen MD MCHC (RBC) [Mass/Vol] 32.9 g/dL Normal 28.4-34.8 [facility] Comment on above: Performed By: #### C DP, CRP, ROLA, SED, BMPX, MG #### [address] [address] [employer] Refinery Supervisor: Diego Mortensen MD MCV (RBC) [Entitic vol] 96.7 fL Normal 82.6-102.9 [facility] Comment on above: Performed By: #### C DP, CRP, ROLA, SED, BMPX, MG #### [place] [address] Lead Refinery Supervisor: Diego Mortensen MD Monocytes (Bld) [#/Vol] 0.52 10*3/uL Normal 0.10-1.20 [facility] Comment on above: Performed By: #### C DP, CRP, ROLA, SED, BMPX, MG #### [address] [address] [employer] Supervisor: Diego Mortensen MD Monocytes/100 WBC (Bld) 11 % Normal 3-12 [facility] Comment on above: Performed By: #### C DP, CRP, ROLA, SED, BMPX, MG #### [address] [address] [employer] Supervisor: Diego Mortensen MD Neutrophil (Seg) 59 % Normal 36-65 [facility] Comment on above: Performed By: #### C DP, CRP, ROLA, SED, BMPX, MG #### [address] [address] [employer] Supervisor: Diego Mortensen MD NRBC Automated 0.0 per 100 WBC Normal 0.0 [facility] Comment on above: Performed By: #### C DP, CRP, ROLA, SED, BMPX, MG #### [address] [address] [employer] Supervisor: Diego Mortensen MD Platelet mean volume (Bld) [Entitic vol] 9.8 fL Normal 8.1-13.5 [facility] Comment on above: Performed By: #### C DP, CRP, ROLA, SED, BMPX, MG #### [address] [address] [employer] Supervisor: Diego Mortensen MD Platelets (Bld) [#/Vol] 243 10*3/uL Normal 138-453 [facility] Comment on above: Performed By: #### C DP, CRP, ROLA, SED, BMPX, MG #### [address] [address] [employer] Supervisor: Diego Mortensen MD RBC (Bld) [#/Vol] 3.65 10*6/uL Low 3.95-5.11 [facility] Comment on above: Performed By: #### C DP, CRP, ROLA, SED, BMPX, MG #### [address] [address] [employer] Supervisor: Diego Mortensen MD WBC (Bld) [#/Vol] 4.8 10*3/uL Normal 3.5-11.3 [facility] Comment on above: Performed By: #### C DP, CRP, ROLA, SED, BMPX, MG #### [employer] [facility] [place] [address] Lead Refinery Supervisor: Diego Mortensen MD Calcium, Ionicon 03-03-2024 Calcium [Moles/Vol] 1.19 mmol/L Normal 1.13-1.33 [facility] Comment on above: Performed By: #### I OCAL #### [employer] [address] [place] [address] [phone] Lead [employer]inery Supervisor: Diego Mortensen MD Calcium, Ionizedon Calcium.ionized (Bld) [Moles/Vol] 1.19 mmol/L 1.13 - 1.33 mmol/L [facility] Magnesiumon 03-03-2024 Magnesium [Mass/Vol] 2.1 mg/dL 1.6 - 2.6 mg/dL [facility] Magnesium [Mass/Vol] 2.1 mg/dL Normal 1.6-2.6 [facility] Comment on above: Performed By: #### C DP, CRP, ROLA, SED, BMPX, MG #### [employer] [address] [place] [address] [phone] [employer] Supervisor: Diego Mortensen MD No Panel Informationon 03-03 Interpretation and review of laboratory results Abnormal [facility] Phosphoruson 03-03-2024 Phosphate [Mass/Vol] 2.1 mg/dL Low 2.5 - 4.5 mg/dL [facility] Phosphorus, Inorg.on 024 Phosphorus, Inorg. 2.1 mg/dL Low 2.5-4.5 [facility] Comment on above: Performed By: #### C DP, CRP, ROLA, SED, BMPX, MG #### [employer] [address] [place] [address] [employer] Supervisor: Diego Mortensen MD Sedimentation Rateon 024 ESR Photometric method (Bld) [Velocity] 22 High [facility] Interpretation and review of laboratory results Abnormal [facility] Sedimentation Rate 22 mm/Hr High 0-20 [facility] Comment on above: Performed By: #### C DP, CRP, ROLA, SED, BMPX, MG #### [facility] [address] [place] [phone] [employer] Supervisor: Diego Mortensen MD Basic Metab w/rfx MGon 03-02 Anion gap [Moles/Vol] 9 mmol/L Normal 9-16 [facility] Comment on above: Performed By: #### C DP, CRP, ROLA, SED, BMPX, MG #### [facility] [employer] [address] [place] [phone] [employer] Supervisor: Diego Mortensen MD Calcium [Mass/Vol] 8.4 mg/dL Low 8.6-10.4 [facility] Comment on above: Performed By: #### C DP, CRP, ROLA, SED, BMPX, MG #### [facility] [employer] [address] [place] [address] [employer] Supervisor: Diego Mortensen MD Chloride [Moles/Vol] 106 mmol/L Normal 98-107 [facility] Comment on above: Performed By: #### C DP, CRP, ROLA, SED, BMPX, MG #### [facility] [address] [place] [phone] Lead [employer]inery Supervisor: Diego Mortensen MD CO2 [Moles/Vol] 26 mmol/L Normal 20-31 [facility] Comment on above: Performed By: #### C DP, CRP, ROLA, SED, BMPX, MG #### [facility] [employer] [facility] [employer] [address] [place] [phone] [employer] Supervisor: Diego Mortensen MD Creatinine [Mass/Vol] 0.7 mg/dL Normal 0.6-0.9 [facility] Comment on above: Performed By: #### C DP, CRP, ROLA, SED, BMPX, MG #### [address] [phone] [employer] Supervisor: Diego Mortensen MD GFR/1.73 sq M.predicted among non-blacks MDRD (S/P/Bld) [Vol rate/Area] mL/min/{1.73_m2} Normal >60 [facility] Comment on above: Result Comment: These [...] tubular secretion. Performed By: #### C DP, CRP, ROLA, SED, BMPX, MG #### [facility] [employer] [address] [place] [phone] [employer] Supervisor: Diego Mortensen MD Glucose [Mass/Vol] 95 mg/dL Normal 74-99 [facility] Comment on above: Performed By: #### C DP, CRP, ROLA, SED, BMPX, MG #### [address] [phone] [employer] Supervisor: Diego Mortensen MD Potassium [Moles/Vol] 3.5 mmol/L Low 3.7-5.3 [facility] Comment on above: Performed By: #### C DP, CRP, ROLA, SED, BMPX, MG #### [facility] [employer] [address] [place] [address] [phone] [employer] Supervisor: Diego Mortensen MD Sodium [Moles/Vol] 141 mmol/L Normal 136-145 [facility] Comment on above: Performed By: #### C DP, CRP, ROLA, SED, BMPX, MG #### [facility] [address] [place] [address] Lead [employer]inery Supervisor: Diego Mortensen MD Urea nitrogen [Mass/Vol] 13 mg/dL Normal 6-20 [facility] Comment on above: Performed By: #### C DP, CRP, ROLA, SED, BMPX, MG #### [employer] [address] [place], [place] [phone] [employer]inery Supervisor: Diego Mortensen MD Basic Metabolic Panel w/ Ref nataly to MGon 03-02-2024 Anion gap [Moles/Vol] 9 mmol/L 9 - 16 mmol/L [facility] [address] Calcium [Mass/Vol] 8.4 mg/dL Low 8.6 - 10. 4 mg/dL [facility] [address] Chloride [Moles/Vol] 106 mmol/L 98 - 107 mmol/L [facility] CO2 [Moles/Vol] 26 mmol/L 20 - 31 mmol/L [facility] Creatinine [Mass/Vol] 0.7 mg/dL 0.6 - 0.9 mg/dL [facility] [address] Est, Glom Filt Rate - PINF [facility] Comment on above: These results are [...] [Mass/Vol] 95 mg/dL 74 - 99 mg/dL [facility] Interpretation and review of laboratory results Abnormal [facility] [address] Potassium [Moles/Vol] 3.5 mmol/L Low 3.7 - 5.3 mmol/L [facility] Sodium [Moles/Vol] 141 mmol/L 136 - 145 mmol/L [facility] Urea nitrogen [Mass/Vol] 13 mg/dL 6 - 20 mg/dL [facility] CBC with Auto Differentialon 03-02-2024 Basophils (Bld) [#/Vol] [facility] Basophils/100 WBC (Bld) 0 % 0 - 2 % [facility] Eosinophils (Bld) [#/Vol] 0.04 10*3/uL [facility] Eosinophils/100 WBC (Bld) 1 % 1 - 4 % [facility] Erythrocyte distribution width (RBC) [Ratio] 12.1 % 11.8 - 14.4 % [facility] Hematocrit (Bld) [Volume fraction] 36.1 % Low 36.3 - 47.1 % [facility] Hemoglobin (Bld) [Mass/Vol] 11.8 g/dL Low 11.9 - 15.1 g/dL [facility] Immature granulocytes (Bld) [#/Vol] [facility] Immature granulocytes/100 WBC (Bld) 0 % 0 [facility] Interpretation and review of laboratory results Abnormal [facility] Lymphocytes/100 WBC (Bld) 19 % Low 24 - 43 % [facility] Lymphocytes/100 WBC (Bld) 1.16 % [facility] MCH (RBC) [Entitic mass] 31.1 pg 25.2 - 33.5 pg [facility] MCHC (RBC) [Mass/Vol] 32.7 g/dL 28.4 - 34.8 g/dL [facility] MCV (RBC) [Entitic vol] 95.3 fL 82.6 - 102.9 fL [facility] Monocytes/100 WBC (Bld) 11 % 3 - 12 % [facility] Monocytes/100 WBC (Bld) 0.65 % [facility] Neutrophils/100 WBC (Bld) 69 % High 36 - 65 % [facility] Nucleated RBC/100 WBC (Bld) [Ratio] 0.0 % 0.0 per 100 WBC [facility] Platelet mean volume (Bld) [Entitic vol] 9.9 fL 8.1 - 13.5 fL [facility] Platelets (Bld) [#/Vol] 256 10*3/uL [facility] RBC (Bld) [#/Vol] 3.79 10*6/uL Low 3.95 - 5.1 1 m/uL [facility] Segmented neutrophils/100 WBC (Bld) 4.25 % [facility] WBC other (Bld) [#/Vol] 6.1 [facility] CBC with Diffon 03-02-2024 Abs. Basophil <0.03 Normal 0.00-0.20 [facility] Comment on above: Performed By: #### C DP, CRP, ROLA, SED, BMPX, MG #### [facility] [employer] [address] [place] [id number] [employer] Supervisor: Diego Mortensen MD Abs.Imm.Granulocyte <0.03 Normal 0.00-0.30 [facility] Comment on above: Performed By: #### C DP, CRP, ROLA, SED, BMPX, MG #### [facility] [employer] [address] [place] [phone] [employer] Supervisor: Diego Mortensen MD Abs.Neutrophil (Seg) 4.25 k/uL Normal 1.50-8.10 [facility] Comment on above: Performed By: #### C DP, CRP, ROLA, SED, BMPX, MG #### [facility] [employer] [address] [place] [id number] [employer] Supervisor: Diego Mortensen MD Basophils/100 WBC (Bld) 0 % Normal 0-2 [facility] Comment on above: Performed By: #### C DP, CRP, ROLA, SED, BMPX, MG #### [facility] [employer] [address] [place] [id number] [employer] Supervisor: Diego Mortensen MD Eosinophils (Bld) [#/Vol] 0.04 10*3/uL Normal 0.00-0.44 [facility] Comment on above: Performed By: #### C DP, CRP, ROLA, SED, BMPX, MG #### [facility] [employer] [address] [place] [phone] [employer] Supervisor: Diego Mortensen MD Eosinophils/100 WBC (Bld) 1 % Normal 1-4 [facility] Comment on above: Performed By: #### C DP, CRP, ROLA, SED, BMPX, MG #### [facility] [employer] [address] [place] [address] [phone] [employer] Supervisor: Diego Mortensen MD Erythrocyte distribution width (RBC) [Ratio] 12.1 % Normal 11.8-14.4 [facility] Comment on above: Performed By: #### C DP, CRP, ROLA, SED, BMPX, MG #### [facility] [employer] [address] [place] [phone] [employer] Supervisor: Diego Mortensen MD Hematocrit (Bld) [Volume fraction] 36.1 % Low 36.3-47.1 [facility] Comment on above: Performed By: #### C DP, CRP, ROLA, SED, BMPX, MG #### [facility] [employer] [address] [place] [id number] [employer] Supervisor: Diego Mortensen MD Hemoglobin (Bld) [Mass/Vol] 11.8 g/dL Low 11.9-15.1 [facility] Comment on above: Performed By: #### C DP, CRP, ROLA, SED, BMPX, MG #### [facility] [employer] [address] [place] [address] [employer] Supervisor: Diego Mortensen MD Immature granulocytes/100 WBC (Bld) 0 % Normal 0 [facility] Comment on above: Performed By: #### C DP, CRP, ROLA, SED, BMPX, MG #### [facility] [employer] [address] [place] [phone] [employer] Supervisor: Diego Mortensen MD Lymphocytes (Bld) [#/Vol] 1.16 10*3/uL Normal 1.10-3.70 [facility] Comment on above: Performed By: #### C DP, CRP, ROLA, SED, BMPX, MG #### [facility] [employer] [address] [place] [address] 24698 [employer] Supervisor: Diego Mortensen MD Lymphocytes/100 WBC (Bld) 19 % Low 24-43 [facility] Comment on above: Performed By: #### C DP, CRP, ROLA, SED, BMPX, MG #### [address] [address] [employer] Supervisor: Diego Mortensen MD MCH (RBC) [Entitic mass] 31.1 pg Normal 25.2-33.5 [facility] Comment on above: Performed By: #### C DP, CRP, ROLA, SED, BMPX, MG #### [address] [address] [employer] Supervisor: Diego Mortensen MD MCHC (RBC) [Mass/Vol] 32.7 g/dL Normal 28.4-34.8 [facility] Comment on above: Performed By: #### C DP, CRP, ROLA, SED, BMPX, MG #### [address] [address] [employer] Supervisor: Diego Mortensen MD MCV (RBC) [Entitic vol] 95.3 fL Normal 82.6-102.9 [facility] Comment on above: Performed By: #### C DP, CRP, ROLA, SED, BMPX, MG #### [address] [address] [employer] Supervisor: Diego Mortensen MD Monocytes (Bld) [#/Vol] 0.65 10*3/uL Normal 0.10-1.20 [facility] Comment on above: Performed By: #### C DP, CRP, ROLA, SED, BMPX, MG #### [address] [address] [employer] Supervisor: Diego Mortensen MD Monocytes/100 WBC (Bld) 11 % Normal 3-12 [facility] Comment on above: Performed By: #### C DP, CRP, ROLA, SED, BMPX, MG #### [address] [address] [employer] Supervisor: Diego Mortensen MD Neutrophil (Seg) 69 % High 36-65 [facility] Comment on above: Performed By: #### C DP, CRP, ROLA, SED, BMPX, MG #### [address] [address] [employer] Supervisor: Diego Mortensen MD NRBC Automated 0.0 per 100 WBC Normal 0.0 [facility] Comment on above: Performed By: #### C DP, CRP, ROLA, SED, BMPX, MG #### [address] [address] [employer] Supervisor: Diego Mortensen MD Platelet mean volume (Bld) [Entitic vol] 9.9 fL Normal 8.1-13.5 [facility] Comment on above: Performed By: #### C DP, CRP, ROLA, SED, BMPX, MG #### [address] [address] [employer] Supervisor: Diego Mortensen MD Platelets (Bld) [#/Vol] 256 10*3/uL Normal 138-453 [facility] Comment on above: Performed By: #### C DP, CRP, ROLA, SED, BMPX, MG #### [address] [address] [employer] Supervisor: Diego Mortensen MD RBC (Bld) [#/Vol] 3.79 10*6/uL Low 3.95-5.11 [facility] Comment on above: Performed By: #### C DP, CRP, ROLA, SED, BMPX, MG #### [address] [address] [employer] Supervisor: Diego Mortensen MD WBC (Bld) [#/Vol] 6.1 10*3/uL Normal 3.5-11.3 [facility] Comment on above: Performed By: #### C DP, CRP, ROLA, SED, BMPX, MG #### [facility] [employer] [employer] [facility] [place] [address] [employer] Supervisor: Diego Mortensen MD CT ABDOMEN PELVIS W [...] MD 03/02/24 Final result Normal [facility] CT Abdomen and Pelvis W gerry mabry Kal 03-02-2024 1. Mural thickening involving distal [...] recent contrast administration. 4. Mild bibasilar atelectasis. [facility] Radiology Study observation (narrative) [facility] CT Abdomen and Pelvis W cont rast IVOrdered By: Isacc Castelan on 03-02-2024 [facility] Work Phone: Lactic Acidon 03-02-2024 Lactic Acid, Whole Blood 1.2 mmol/L 0.7 - 2.1 mmol/L [facility] Lactic Acid,Whole Bl 1.2 mmol/L Normal 0.7-2.1 [facility] Comment on above: Performed By: #### B MPX, MG, CDP, LACTIC #### [employer] [address] [place] [id number] [employer] Supervisor: Diego Mortensen MD Magnesiumon 03-02-2024 Magnesium [Mass/Vol] 2.0 mg/dL 1.6 - 2.6 mg/dL [facility] Magnesium [Mass/Vol] 2.0 mg/dL Normal 1.6-2.6 [facility] Comment on above: Performed By: #### C DP, CRP, ROLA, SED, BMPX, MG #### [employer] [address] [place] [id number] [employer] Supervisor: Diego Mortensen MD No Panel Informationon 03-02 [facility] IGP,APTIMA HPV,AGE GDLNon AGE GDLN ACOG TESTING Note . [facility] Comment on above: TESTS RESULT FLAG UN ITS REF RANGE LAB Clinician Provided Cytology Information Source.............Cervix;Endocervix No. of containers..01 ThinPrep Vial Age Algo ACOG Dahlia... 29 FLAG LEGEND: L-Low Normal,H-High Normal,LL-Alert Low,HH-Alert High <-Panic Low,>-Panic High,A-Abnormal,AA-Critical Abnormal Performed at: 01 = [employer] [phone] Darline Garcia MD, HPV APTIMA Negative Negative [facility] Comment on above: This nucleic acid am plification test detects fourteen high- risk HPV types (16,18,31,33,35,39,45,51,52,56,58,59,66,68) without differentiation. Performed at: = - [employer] [id number] [employer] Supervisor: Darline Garcia MD, Phone: [phone] Performed at: [facility] [address] [place] [address] [id number] [employer] Supervisor: Bonifacio Evans MD, Phone: [phone] IGP, APTIMA HPV, RFX 16/18,45 Note . [facility] Comment on above: TESTS RESULT FLAG UN ITS REF RANGE LAB DIAGNOSIS: 02 NEGATIVE FOR INTRAEPITHELIAL LESION OR MALIGNANCY. Specimen adequacy: 02 Satisfactory for evaluation. Endocervical and/or squamous metaplastic cells (endocervical component) are present. Performed by: 02 Jessica Garcia, Mobile Ui Designer ([facility]) . 02 Note: Note 03 The Pap [...] High,A-Abnormal,AA-Critical Abnormal Performed at: 02 [facility] [address] [place] [address] Bonifacio Evans MD, 03 WB [facility] [address] [phone] Darline Garcia MD, BRUSH-SPATULA CERVIX ENDOCERVIX [facility] CBC AUTO DIFFon 11-14-2021 BASO # 0.0 103/ul Normal 0.0-0.1 [facility] Comment on above: Performed By: #### C BC #### [facility] [address] [place] [address] Dr. Alejandro Grijalva Basophils/100 WBC (Bld) 0.2 % Normal 0.2-2.0 [facility] Comment on above: Performed By: #### C BC #### [facility] [address] [place] [address] Dr. Alejandro Grijalva EO # 0.0 103/ul Normal 0.0-0.7 [facility] Comment on above: Performed By: #### C BC #### [facility] [address] [place] [address] Dr. Alejandro Grijalva Eosinophils/100 WBC (Bld) 0.7 % Critically low 0.9-7.0 [facility] Comment on above: Performed By: #### C BC #### [facility] [address] [place] [address] Dr. Alejandro Grijalva Erythrocyte distribution width (RBC) [Ratio] 11.8 % Normal 11.0-15.0 [facility] Comment on above: Performed By: #### C BC #### [facility] [address] [place] [address] Dr. Alejandro Grijalva Hematocrit (Bld) [Volume fraction] 40.5 % Normal 36.0-48.0 [facility] Comment on above: Performed By: #### C BC #### [facility] [address] [place] [address] Dr. Alejandro Grijalva Hemoglobin (Bld) [Mass/Vol] 13.5 g/dL Normal 12.0-16.0 [facility] Comment on above: Performed By: #### C BC #### [facility] [address] [place] [address] Dr. Alejandro Grijalva IG # 0.02 10e3/ul Normal 0.00-0.03 [facility] Comment on above: Performed By: #### C BC #### [facility] [address] [place] [address] Dr. Alejandro Grijalva IG % 0.3 % Normal 0.0-0.5 [facility] Comment on above: Performed By: #### C BC #### [facility] [address] [place] [address] Dr. Alejandro Grijalva LYMPH # 1.5 103/ul Normal 1.2-3.8 [facility] Comment on above: Performed By: #### C BC #### [facility] [address] [place] [address] Dr. Alejandro Grijalva Lymphocytes/100 WBC (Bld) 24.0 % Normal 20.5-60.0 [facility] Comment on above: Performed By: #### C BC #### [facility] [address] [place] [address] Dr. Alejandro Grijalva MANUAL DIFF REQ NO Normal [facility] Comment on above: Performed By: #### C BC #### [facility] [address] [place] [address] Dr. Alejandro Grijalva MCH (RBC) [Entitic mass] 31.4 pg Normal 26.7-34.0 [facility] Comment on above: Performed By: #### C BC #### [facility] [address] [place] [address] Dr. Alejandro Grijalva MCHC (RBC) [Mass/Vol] 33.3 g/dL Normal 29.9-35.2 [facility] Comment on above: Performed By: #### C BC #### [facility] [address] [place] [address] Dr. Alejandro Grijalva MCV (RBC) [Entitic vol] 94.2 fL Normal 81.0-99.0 [facility] Comment on above: Performed By: #### C BC #### [facility] [address] [place] [address] Dr. Alejandro Grijalva MONO # 0.5 103/ul Normal 0.3-0.8 [facility] Comment on above: Performed By: #### C BC #### [facility] [address] [place] [address] Dr. Alejandro Grijalva Monocytes/100 WBC (Bld) 8.4 % Normal 1.7-12.0 [facility] Comment on above: Performed By: #### C BC #### [facility] [address] [place] [address] Dr. Alejandro Grijalva NEUT # 4.0 103/ul Normal 1.4-6.5 [facility] Comment on above: Performed By: #### C BC #### [facility] [address] [place] [address] Dr. Alejandro Grijalva Neutrophils/100 WBC (Bld) 66.4 % Normal 43.0-75.0 [facility] Comment on above: Performed By: #### C BC #### [facility] [address] [address] [address] Alejandro Grijalva Platelet mean volume (Bld) [Entitic vol] 9.7 fL Normal 9.5-13.5 [facility] Comment on above: Performed By: #### C BC #### [facility] [address] [place] [address] Dr. Alejandro Grijalva PLT 273 103/ul Normal 150-450 [facility] Comment on above: Performed By: #### C BC #### [facility] [address] [place] [address] Dr. Alejandro Grijalva RBC 4.30 106/ul Normal 4.20-5.40 [facility] Comment on above: Performed By: #### C BC #### [facility] [address] [place] [address] Dr. Alejandro Grijalva WBC 6.0 103/ul Normal 4.0-11.0 [facility] Comment on above: Performed By: #### C BC #### [facility] [address] [place] [address] Dr. Alejandro Grijalva LIPID PROFILEon 11-14-2021 CHOL-HDL RATIO NORM SEE BELOW Normal [facility] Comment on above: Result Comment: 3.3 - 4.4 LOW RISK 4.4 - 7.1 AVERAGE RISK 7.1 - 11.0 MODERATE RISK >11.0 HIGH RISK Performed By: #### T SH, LIPID, CMP #### [facility] [address] [place] [address] Dr. Alejandro Grijalva Cholesterol [Mass/Vol] 176 mg/dL Normal <=200 [facility] Comment on above: Performed By: #### T SH, LIPID, CMP #### [facility] [address] [place] [address] Dr. Alejandro Grijalva Cholesterol in HDL [Mass/Vol] 44 mg/dL Normal 40-60 [facility] Comment on above: Performed By: #### T SH, LIPID, CMP #### [facility] [address] [place] [address] Dr. Alejandro Grijalva Cholesterol in LDL [Mass/Vol] 119.6 mg/dL Normal [facility] Comment on above: Performed By: #### T SH, LIPID, CMP #### [facility] [address] [address] [address] Alejandro Grijalva Cholesterol.total/C holesterol in HDL [Mass ratio] 4.0 {ratio} Normal [facility] Comment on above: Performed By: #### T REYNALDO, LIPID, CMP #### [facility] [address] [address] [address] Alejandro Grijalva HDL NORMAL > or = 60 mg/dl - LO W CARDIOVASCULAR RISK <40 mg/dl - HIGH CARDIOVASCULAR RISK Normal [facility] Comment on above: Performed By: #### T REYNALDO, LIPID, CMP #### [facility] [address] [address] [address] Alejandro Grijalva LDL CALC NORMAL SEE BELOW Normal [facility] Comment on above: Result Comment: <100 mg/dl OPTIMAL 100 - 129 mg/dl NEAR OR ABOVE OPTIMAL 130 - 159 mg/dl BORDERLINE HIGH 160 - 189 mg/dl HIGH >190 mg/dl VERY HIGH Performed By: #### T REYNALDO, LIPID, CMP #### [facility] [address] [address] [address] Alejandro Grijalva Triglyceride [Mass/Vol] 62 mg/dL Normal <=150 [facility] Comment on above: Performed By: #### T REYNALDO, LIPID, CMP #### [facility] [address] [place] [address] Dr. Alejandro Grijalva VLDL CALC 12.4 mg/dL Normal [facility] Comment on above: Performed By: #### T REYNALDO, LIPID, CMP #### [facility] [address] [address] [address] Alejandro Grijalva PROF 14(COMP METB)on 022 Albumin [Mass/Vol] 3.7 g/dL Normal 3.4-5.0 [facility] Comment on above: Performed By: #### T REYNALDO, LIPID, CMP #### [facility] [address] [address] [address] Alejandro Grijalva Albumin/Globulin [Mass ratio] 1.0 {ratio} Normal [facility] Comment on above: Performed By: #### T REYNALDO, LIPID, CMP #### [facility] [address] [address] [address] Alejandro Grijalva ALP [Catalytic activity/Vol] 81 U/L Normal 46-116 [facility] Comment on above: Performed By: #### T SH, LIPID, CMP #### [facility] [address] [address] [address] Alejandro Grijalva ALT [Catalytic activity/Vol] 39 U/L Normal 14-59 [facility] Comment on above: Performed By: #### T SH, LIPID, CMP #### [facility] [address] [address] [address] Alejandro Grijalva Anion gap [Moles/Vol] 14.5 mmol/L Normal [facility] Comment on above: Performed By: #### T SH, LIPID, CMP #### [facility] [address] [address] [address] Alejandro Grijalva AST [Catalytic activity/Vol] 18 U/L Normal 15-37 [facility] Comment on above: Performed By: #### T SH, LIPID, CMP #### [facility] [address] [address] [address] Alejandro Grijalva Bilirubin [Mass/Vol] 0.2 mg/dL Normal 0.2-1.0 [facility] Comment on above: Performed By: #### T SH, LIPID, CMP #### [facility] [address] [place] [address] Dr. Alejandro Grijalva Calcium [Mass/Vol] 8.9 mg/dL Normal 8.5-10.1 [facility] Comment on above: Performed By: #### T SH, LIPID, CMP #### [facility] [address] [address] [address] Alejandro Grijalva Chloride [Moles/Vol] 106 mmol/L Normal 98-107 [facility] Comment on above: Performed By: #### T SH, LIPID, CMP #### [facility] [address] [address] [address] Alejandro Grijalva CO2 [Moles/Vol] 24.9 mmol/L Normal 21.0-32.0 [facility] Comment on above: Performed By: #### T SH, LIPID, CMP #### [facility] [address] [address] [address] Alejandro Grijalva Creatinine [Mass/Vol] 0.80 mg/dL Normal 0.55-1.02 [facility] Comment on above: Performed By: #### T SH, LIPID, CMP #### [facility] [address] [address] [address] Alejandro Grijalva EGFR-AF CYMRO >60 Normal >=60 [facility] Comment on above: Performed By: #### T SH, LIPID, CMP #### [facility] [address] [address] [address] Alejandro Grijalva EGFR-NON AF CYMRO >60 Normal >=60 [facility] Comment on above: Performed By: #### T SH, LIPID, CMP #### [facility] [address] [address] [address] Alejandro Grijalva Globulin (S) [Mass/Vol] 3.7 g/dL Normal [facility] Comment on above: Performed By: #### T SH, LIPID, CMP #### [facility] [address] [address] [address] Alejandro Grijalva Glucose [Mass/Vol] 101 mg/dL Normal 74-106 [facility] Comment on above: Performed By: #### T SH, LIPID, CMP #### [facility] [address] [address] [address] Alejandro Grijalva Potassium [Moles/Vol] 4.4 mmol/L Normal 3.5-5.1 [facility] Comment on above: Performed By: #### T SH, LIPID, CMP #### [facility] [address] [address] [address] Alejandro Grijalva Protein [Mass/Vol] 7.4 g/dL Normal 6.4-8.2 [facility] Comment on above: Performed By: #### T SH, LIPID, CMP #### [facility] [address] [address] [address] Alejandro Grijalva Sodium [Moles/Vol] 141 mmol/L Normal 136-145 [facility] Comment on above: Performed By: #### T SH, LIPID, CMP #### [facility] [address] [address] [address] Alejandro Grijalva Urea nitrogen [Mass/Vol] 12.0 mg/dL Normal 7.0-18.0 [facility] Comment on above: Performed By: #### T SH, LIPID, CMP #### [facility] [address] [address] [address] Alejandro Grijalva Urea nitrogen/Creatinine [Mass ratio] 15.0 mg/mg Normal [facility] Comment on above: Performed By: #### T SH, LIPID, CMP #### [facility] [address] [address] [address] Alejandro Grijalva TSHon 11-14-2021 TSH 2.902 uIU/mL Normal 0.358-3.740 [facility] Comment on above: Performed By: #### T SH, LIPID, CMP #### [facility] [address] [place] [address] Dr. Alejandro Grijalva Vital Signs Date Time Vital Sign Value Performing Clinician Facility 11-13-2024 08:38-0400 Body mass index (BMI) [Ratio] 34.5 kg/m2 [employer] Work Phone: [facility] 11-13-2024 08:38-0400 Body weight 91.17 kg [employer] Work Phone: [facility] 11-13-2024 08:38-0400 Diastolic blood pressure 72 mm[Hg] [employer] Work Phone: [facility] 11-13-2024 08:38-0400 Systolic blood pressure 110 mm[Hg] [employer] Work Phone: [facility] 11-07-2024 01:00-0400 Body height 162.[address] [facility] [address] 11-07-2024 01:00-0400 Body mass index (BMI) [Ratio] 34.6 kg/m2 [place] [address] 11-07-2024 01:00-0400 Body surface area Derived from formula 2.03 m2 Deisi Seals [place] [employer] [place] 11-07-2024 01:00-0400 Body weight 91.35 kg Deisi Seals [place] [address] 11-07-2024 01:00-0400 Diastolic blood pressure 70 mm[Hg] Deisi Seals [place] [employer] [address] 11-07-2024 01:00-0400 Heart rate 78 /min Deisi Seals [place] [employer] [address] 11-07-2024 01:00-0400 SaO2% (BldA) [Mass fraction] 97 % [place]isi [place]als [place] [address] 11-07-2024 01:00-0400 Systolic blood pressure 115 mm[Hg] Deisi Seals [place] [employer] [address] 04-04-2024 11:04-0500 Body height 165.1 cm Shae Peñaloza DO Work Phone: [facility] 04-04-2024 11:04-0500 Body mass index (BMI) [Ratio] 32.15 kg/m2 Shae Peñaloza DO Work Phone: [facility] 04-04-2024 11:04-0500 Body weight 87.64 kg Shae Peñaloza DO Work Phone: [facility] 04-04-2024 11:04-0500 Diastolic blood pressure 72 mm[Hg] Shae Peñaloza DO Work Phone: [facility] 04-04-2024 11:04-0500 Heart rate 81 /min Sh[facility] DO [facility] 04-04-2024 11:04-0500 Systolic blood pressure 124 mm[Hg] Shae Peñaloza DO [facility] Phone[facility] 03-15-2024 09:32-0500 Body height 165.1 cm Lizzy Guzmán CLAIMS ACCOUNT MANAGER-SALES EXHIBITOR Work Phone: [facility] [employer] 03-15-2024 09:32-0500 Body mass index (BMI) [Ratio] 32.68 kg/m2 Lizzy Guzmán CLAIMS ACCOUNT MANAGER-SALES EXHIBITOR [facility] 03-15-2024 09:32-0500 Body weight 89.09 kg Lizzy Guzmán CLAIMS ACCOUNT MANAGER-SALES EXHIBITOR [facility] 03-15-2024 09:32-0500 Diastolic blood pressure 76 mm[Hg] Lizzy Guzmán CLAIMS ACCOUNT MANAGER-SALES EXHIBITOR [facility] 03-15-2024 09:32-0500 Heart rate 78 /min Lizzy Guzmán CLAIMS ACCOUNT MANAGER-SALES EXHIBITOR Work [facility] 03-15-2024 09:32-0500 Systolic blood pressure 135 mm[Hg] Lizzy Guzmán CLAIMS ACCOUNT MANAGER-SALES EXHIBITOR [facility] 03-03-2024 07:34-0500 Body temperature 97.5 [degF] Faizan Ann MD Work Phone: [facility] 03-03-2024 07:34-0500 Diastolic blood pressure 74 mm[Hg] Faizan Ann MD Work Phone: [facility] 03-03-2024 07:34-0500 Heart rate 66 /min Faizan Ann MD Work Phone: [facility] 03-03-2024 07:34-0500 Respiratory rate 18 /min Faizan Ann MD Work Phone: [facility] 03-03-2024 07:34-0500 SaO2% (BldA) [Mass fraction] 94 % Faizan Ann MD Work Phone: [facility] [address] 03-03-2024 07:34-0500 Systolic blood pressure 114 mm[Hg] Faizan Ann MD Work Phone: [facility] 03-01-2024 15:15-0500 Body height 165.1 cm Faizan Ann MD Work Phone: [facility] 03-01-2024 15:15-0500 Body mass index (BMI) [Ratio] 33.28 kg/m2 Faizan Ann MD Work Phone: [facility] 03-01-2024 15:15-0500 Body weight 90.72 kg Faizan Ann MD Work Phone: [facility] 11-08-2023 08:55-0400 Body mass index (BMI) [Ratio] 34.12 kg/m2 Luis E Karla DO Work Phone: [facility] 11-08-2023 08:55-0400 Body weight 90.17 kg Luis E Karla DO Work Phone: [facility] 11-08-2023 08:55-0400 Diastolic blood pressure 72 mm[Hg] Luis E Karla DO Work Phone: [facility] 11-08-2023 08:55-0400 Systolic blood pressure 118 mm[Hg] Luis E Karla DO Work Phone: [facility] 08-02-2018 02:23-0400 BMI (Body Mass Index) 29.18 kg/m2 Prince Wigg[facility] 08-02-2018 02:23-0400 Body Temperature 98.1 [degF] Prince Wigg[facility] 08-02-2018 02:23-0400 BP Diastolic 100 mm[Hg] Prince Wigg[facility] 08-02-2018 02:23-0400 BP Systolic 146 mm[Hg] Prince Wigg[facility] 08-02-2018 02:23-0400 Height 162.6 cm Prince Wigg[facility] 08-02-2018 02:23-0400 Pulse (Heart Rate) 94 /min Prince Wigg[facility] 08-02-2018 02:-0400 Pulse Oximetry 99 % Prince Wiggins [facility] 08-02-2018 02:-0400 Respiratory Rate 16 /min Prince Wiggins [facility] 08-02-2018 02:-0400 Weight 77.11 kg Prince Wiggins [facility] Encounters Encounter Date Encounter Type Care Provider Facility Start: 11-13-2024 End: 11-13-2024 Bamboo flowsheet Luis E Karla DO Work Phone: [facility] Start: 11-13-2024 End: 11-13-2024 Bamboo flowsheet Luis E Karla DO Work Phone: [facility] Start: 11-13-2024 End: 11-13-2024 Patient encounter procedure Luis E Karla DO Work Phone: [facility] [place] [facility] Work Phone: Start: 11-13-2024 End: 11-13-2024 Periodic preventive med est patient 40-64yrs Luis E Karla DO Work Phone: [facility] Comment on above: Well woman exam with routine gynecological exam; Breast cancer screening by mammogram; Pelvic fullness in female Start: 11-07-2024 Adult health examination Deisi Seals [place] [facility] Start: 11-07-2024 Periodic preventive med est patient 40-64yrs Deisi Zink[facility] Start: 04-04-2024 End: 04-04-2024 Office outpatient visit 25 minutes Shae Peñaloza DO [facility]: [facility] Comment on above: Abnormal CT scan, ga strointestinal tract (Primary Dx); Abnormal barium enema; History of endometriosis Start: 04-04-2024 End: 04-04-2024 ambulatory SHAE Fernandez [facility] Start: 03-30-[address] [facility] Start: 03-30-[address] [facility] Start: 03-26-2024 End: 03-26-2024 Orders Only Lizzy A Wolf CLAIMS ACCOUNT MANAGER-SALES EXHIBITOR Work Phone: [facility] Start: 03-15-2024 End: 03-15-2024 [facility]OUNT MANAGER-SALES EXHIBITOR Work Phone: [facility] Comment on above: Abnormal CT scan, ga strointestinal tract (Primary Dx); Change in bowel movement Start: 03-15-2024 End: 03-15-2024 ambulatory [facility] Start: 03-05-2024 End: 03-05-2024 Telephone encounter [facility] CLAIMS ACCOUNT MANAGER-SALES EXHIBITOR Work Phone: [facility] Internal [facility] - Family Medicine Start: 03-01-2024 End: 03-03-2024 Evaluation and management of inpatient Faizan Ann MD Work Phone: [address] MED SURG Comment on above: SBO (small bowel obs truction) (HCC) (Primary Dx) Start: 11-08-2023 End: 11-08-2023 Bamboo flowsheet Luis E Karla DO Work Phone: [facility] Start: 11-08-2023 End: 11-11-2023 Bamboo flowsheet Luis E Karla DO Work Phone: [facility] Start: 11-08-2023 End: 11-11-2023 Clinisync Result Encounter Luis E Karla DO Work Phone: [facility] External Department Unsolicited Start: 11-08-2023 End: 11-08-2023 Patient encounter procedure Luis E Karla DO Work Phone: [facility] Work Phone: Start: 11-08-2023 End: 11-08-2023 Periodic preventive med est patient 18-39 yrs Luis E Andersono DO Work Phone: [facility] Comment on above: Well woman exam with routine gynecological exam Start: 11-08-2023 End: 11-08-2023 ambulatory LUIS E ACOSTA Not Available Start: 11-20-2021 Encounter for genera l adult medical examination without abnormal findings [facility] Start: 11-14-2021 End: 11-15-2021 ambulatory [facility] Facility:H1 Start: 11-14-2021 End: 11-15-2021 Encounter for general adult medical examination without abnormal findings [facility] Facility: Start: 08-02-2018 End: 08-02-2018 Emergency department patient visit [facility] Start: 08-02-2018 End: 08-02-2018 Emergency department patient visit [facility] Work Phone: [facility] Emergency Department Comment on above: Left ear pain (Prima ry Dx); Pharyngitis, unspecified etiology Procedures Date Procedure Procedure Detail Performing Clinician Start: 11-07-2024 End: 11-07-2024 Screening mammography Deisi Arnel Start: 03-21-2024 Colonoscopy flx dx w /collj spec when pfrmd Deisi Seals Start: 03-03-2024 Calcium ionized Liseth E Miah [...] Phone: Start: 03-02-2024 Assay of lactate Kemal Butler DO Work Phone: Start: 03-02-2024 BASIC METABOLIC PANE L W/ REFLEX TO MG FOR LOW K Kemal Butler DO Work Phone: Start: 11-08-2023 IGP,APTIMA HPV,AGE GDLN Luis E Acosta DO Work Phone: Start: 11-08-2023 Microscopic observat ion [Identifier] in Cervix by Cyto stain Lizzy Wolf [employer] Work Phone: Start: 03-05-2022 Adult depression scr eening assessment Mauricio Hardin [employer] Work Phone: Start: 09-05-2017 section Deisi Seals Start: 03-10-2017 Microscopic observat ion [Identifier] in Cervix by Cyto stain Mauricio Hardin [employer] Work Phone: Start: 02-18-2016 section Deisi Seals Start: 08-07-2011 section Deisi Seals Plan of Treatment Date Care Activity Detail Author Start: 11-07-2026 Screening for malign ant neoplasm of cervix Pap Smear [facility] Start: 11-19-2025 End: 11-19-2025 Patient encounter procedure 11/19/2025 8:30 AM EDT Procedure Visit GELACIO DHILLON [address] [place] [id number] Luis E Acosta DO [address] [place] [address] [facility] Start: 04-04-2025 Adult BMI Screening Adult BMI Screen ing [facility] Start: 04-04-2025 Tobacco Screening Tobacco Screening [facility] Start: 03-15-2025 Adult BMI Screening Adult BMI Screen ing [facility] Start: 03-15-2025 Tobacco Screening Tobacco Screening [facility] Start: 11-13-2024 End: 01-13-2026 MG Breast - bilateral Screening Bilateral screening mammogram Imaging Routine Breast cancer screening by mammogram Expected: 11/13/2024 (Approximate), Expires: 01/13/2026 [facility] Work Phone: Comment on above: Expected: 11/13/2024 (Approximate), Expires: 01/13/2026 Start: 11-13-2024 End: 05-13-2025 US Pelvis US Pelvis w/ TV Imaging Routine Pelvic fullness in female Expected: 11/13/2024, Expires: 05/13/2025 [facility] Comment on above: Expected: 11/13/2024 , Expires: 05/13/2025 Start: 11-13-2024 End: 11-13-2024 Patient encounter procedure [facility] Comment on above: Arrived Start: 11-07-2024 CBC panel - Blood by Automated count [facility] ([place]) Start: 11-07-2024 Comprehensive metabo lic 2000 panel - Serum or Plasma [facility] ([place]) Start: 11-07-2024 Hemoglobin A1c/Hemoglobin.total in Blood [facility] ([place]) Start: 11-07-2024 Lipid 1996 panel - Serum or Plasma [facility] ([place]) Start: 11-07-2024 MG Breast - bilatera l Screening [facility] (Outpatient Testing) Start: 11-07-2024 InPerson; PE, Routine InPerson; PE, Routine [place] [facility] Start: 04-04-2024 End: 04-04-2024 Patient encounter procedure 04/04/2024 11:00 AM EST Office Visit [facility] [address] [place] [id number] Shae Peñ[place] [address] [place] [address] [facility] Start: 02-01-2024 Tobacco Screening Tobacco Screening [facility] Start: 11-11-2023 Adult BMI Follow Up Plan Adult BMI Follow Up Plan [facility] Start: 11-11-2023 Adult BMI Screening Adult BMI Screen ing [facility] [address] [facility] Start: 11-08-2023 End: 11-08-2023 Patient encounter procedure [facility] Comment on above: Arrived Start: 11-06-2023 COVID-19 Vaccine ( season) COVID-19 Vaccine ( season) [facility] Start: 11-06-2023 Influenza vaccination Influenza Vacc ine [facility] Start: 10-06-2023 Influenza vaccination Flu vaccine (# 1) [facility] Start: 03-05-2023 Depression Screening Depression Scre ening [facility] Start: 03-10-2020 Screening for malign ant neoplasm of cervix Pap Smear [facility] Start: 2014 Screening for malign ant neoplasm of cervix [facility] Start: 2005 Screening for malign ant neoplasm of cervix Pap smear [facility] Start: 08-22-2003 DTaP,Tdap and Td Vaccines (1 - Tdap) DTaP,Tdap and Td Vaccines (1 - Tdap) [facility] Start: 08-22-2003 DTaP/Tdap/Td vaccine (1 - Tdap) DTaP/Tdap/Td vaccine (1 - Tdap) [facility] Start: 08-22-2003 Hepatitis B vaccine (1 of 3 - 19+ 3-dose series) Hepatitis B vaccine (1 of 3 - 19+ 3-dose series) [facility] Start: 2002 Hepatitis C screening Hepatitis C sc reen [facility] Start: 08-22-1999 HIV screening HIV screen [facility] Start: 1997 Varicella vaccine (1 of 2 - 13+ 2-dose series) Varicella vaccine (1 of 2 - 13+ 2-dose series) [facility] Start: 1996 Depression Screen Depression Screen [facility] End: 03-04-2024 Basic Metabolic Panel w/ Reflex to MG Basic Metabolic Panel w/ Reflex to MG Lab Routine Daily for 3 Days starting 03/02/2024 until 03/04/2024, 2 completed [facility] Comment on above: Daily for 3 Days sta rting 03/02/2024 until 03/04/2024, 2 completed End: 03-02-2024 Calprotectin Stool [employer] Phone: Comment on above: One Time for 1 Occur rences starting 03/02/2024 until 03/02/2024 End: 03-04-2024 CBC W Auto Differential panel - Blood CBC with Auto Differential Lab Routine Daily for 3 Days starting 03/02/2024 until 03/04/2024, 2 completed [facility] Comment on above: Daily for 3 Days sta rting 03/02/2024 until 03/04/2024, 2 completed End: 03-15-2025 Colonoscopy Colonoscopy GI Routine Abnormal CT scan, gastrointestinal tract 1 Occurrences starting 03/15/2024 until 03/15/2025 [employer] Work Phone: Comment on above: 1 Occurrences starti ng 03/15/2024 until 03/15/2025 Cytology Cervical or vaginal smear or scraping study Pap Smear Pathology and Cytology Routine Well woman exam with routine gynecological exam Ordered: 11/08/2023 [employer] Work Phone: Comment on above: Ordered: 11/08/2023 Human papilloma viru s DNA [Presence] in Unspecified specimen by Probe with amplification HPV DNA probe, amplified Microbiology Routine Well woman exam with routine gynecological exam Ordered: 11/08/2023 [employer] Comment on above: Ordered: 11/08/2023 Laparoscopy IN [place] Oxygen therapy [[facility] Data Set] Initiate Oxygen Therapy Protocol Respiratory Care Routine As Needed until discontinued starting 03/01/2024 [employer] Phone: Comment on above: As Needed until disc ontinued starting 03/01/2024 Patient Education IN [employer] THIN PREP TIS PAP AN D HR HPV DNA THIN PREP TIS PAP AND HR HPV DNA Pathology and Cytology Routine Well woman exam with routine gynecological exam Ordered: 11/13/2024 [employer] Comment on above: Ordered: 11/13/2024 Payers Date Payer Category Payer Private Health Insurance [employer] [id number] 2022 Unknown FRONTPATH FRONTP ATH [id number] 2022-Present [phone] [id number] 2018 Managed Care Other (unspecified) [id number] 1984 Unknown [id number] 1984 Unknown [id number] 1984 Unknown [id number] 1984 Unknown [id number] 1984 Unknown [id number] 1984 Unknown [id number] [id number] 1984 Unknown [id number] 1984 Unknown [id number] 1959 Unknown [id number] Unknown COMMERCIAL [employer]ME RCIAL MISCELLANEOUS xxxxxxxxx Effective for all dates xxxxxxxxx [id number] Unknown [id number] Social History Date Type Detail Facility Start: 08-02-2018 End: 11-10-2022 Tobacco smoking status RIIS Never smoker [facility] Start: 08-02-2018 History SDOH Alcohol Frequency [address] [facility] Start: 1984 Sex Assigned At Not on file [facility] Tobacco smoking stat [facility] Tobacco smoking consumption unknown [facility] Start: 10-10-2020 End: 03-01-2024 Gender identity Not on file [facility] Start: 10-10-2020 End: 03-01-2024 History of Social function RESAAS Has the [employer], or [employer] threatened to shut off services in your home in past 12Mo No [facility] (I/We) worried wheth er (my/our) food would run out before (I/we) got money to buy more. Never true [facility] In the past 12 month s, has lack of transportation kept you from medical appointments or from getting medications? No [facility] Start: 11-10-2022 Tobacco use and exposure Smokeless tobacco non-user [facility] Start: 01-31-2023 End: 04-04-2024 Alcoholic beverage intake Ex-drinker (finding) [facility] Do you belong to any clubs or organizations such as synagogue groups, unions, fraternal or athletic groups, or school groups? Yes [facility] Are you now , , , , never or living with a partner? [facility] How often to you hav e a drink containing alcohol? Monthly or less [facility] How many standard dr inks containing alcohol do you have on a typical day? 1 or 2 [facility] How often do you hav e 6 or more drinks on 1 occasion? Never [facility] [address] [facility] Do you feel stress - tense, restless, nervous, or anxious, or unable to sleep at night because your mind is troubled all the time - these days [OSQ] Only a little [facility] [address] [facility] Start: 10-10-2020 Education [facility] Start: 10-08-2014 Sex Female (finding) [facility] Context Relevant Medical Equipment Procedure Code Equipment Code Equipment Original Text Equi pment Identifier Dates Procedure Implant ([id number]) Clinical Notes 11-08-2023 to 11-13-2024 Ira Christy, VICE PRESIDENT PROCESS - 11/13/2024 8:30 AM Naun Peñaloza, DO - 04/04/2024 11:00 AM ESTTelephone Encounter - Siomara Veronica, CAGE MAKER - 03/26/2024 10:49 AM ESTDischarge Instr - ActivityDischarge Instr - Diet Note Date & Type Note Facility 11-13-2024 History of Present illness Narrative Reason for Appointment: Patient ID: Brandie Olmos is a 39 y.o. female who presents for [facility] Women Visit Patient presents today for Annual [...] nursing note reviewed. Exam conducted with a tank truck mechanic present. Vitals: Estimated body mass index is 34.5 kg/m as calculated from the following: Height [...] in March 2024 pt being referred to [facility]. Patients vitals were reviewed and within [...] them. Patient can also view results via [employer]. I reinforced importance of condom use for [...] E Acosta DO documented in this encounter [facility] 04-04-2024 History of Present illness Narrative Images from the original note were not included. [facility] [address] [facility] [id number] CONSULT NOTE CHIEF COMPLAINT Chief Complaint Patient presents with Post-op Post op colonoscopy performed 03/21/24 and fluoroscopy barium enema performed 03/27/24 at [facility] Brandie Olmos is a 38 y.o. female who presents after I attempted a colonoscopy due to an abnormal CT scan and hospitalization at [facility] in [place] in February,, due to a partial small bowel obstruction. I attempted to do the colonoscopy and could not get past the mid ascending colon due to tapering of the intestine and or an obstruction. I did not feel like it was a cancer but according to her and her she has a history of endometriosis for which she had an extensive lysis of adhesions and drainage of an ovarian cyst by Dr. Mitchell in 2010 at which time he tried to perform it laparoscopically but had to open her due to multiple adhesions. She has also had 3 C-sections all of the surgeries being through a Pfannenstiel scar. She denies any abdominal pain currently, no melena hematochezia nausea vomiting or change in bowel habits. She has been fine since I attempted the colonoscopy and since her hospitalization in [place]. She denies any family history of inflammatory bowel disease or colon cancer. Barium enema from the [facility] on 03/30/2024 shows abnormal appearance of the mid ascending colon with rapid tapering of the lumen/contrast, the contrast does not extend into the proximal to mid ascending colon. The remainder of the colon is normal with no stricture. Small-bowel series from the [facility] on 03/27/[address] abdomen and pelvis with contrast Order: [id number] Impression 1. Mural thickening involving distal small bowel [...] recent contrast administration. 4. Mild bibasilar atelectasis. Narrative EXAMINATION: CT OF THE ABDOMEN AND PELVIS [...] tissue abnormality. Small fat containing umbilical hernia. Exam End: 03/02/24 12:03 Specimen Collected: 03/02/24 13:40 Last Resulted: 03/02/24 20:09 Received From: [facility] Result Received: 03/15/24 09:20 MEDICATION Current Outpatient Medications: ibuprofen (MOTRIN) 800 mg tablet, Take 1 tablet (800 mg total) by mouth every 8 (eight) hours as needed for pain., Disp: 60 tablet, Rfl: 1 ALLERGY No Known Allergies MEDICAL HISTORY Past Medical History: Diagnosis Date Endometriosis SURGICAL HISTORY Past Surgical History: Procedure Laterality Date BREAST BIOPSY 2018 SECTION OVARIAN CYST SURGERY 2011 WISDOM TOOTH EXTRACTION SOCIAL HISTORY Social History Socioeconomic History Marital status: Spouse [...] at all Food Insecurity: No Food Insecurity (04/04/2024) Hunger Screening Food Insecurity - Worry: Never True Food Insecurity - Inability: Never True Transportation Needs: No Transportation Needs (03/01/2024) Received from [facility] PRAPARE - Transportation Lack of Transportation (Medical): No Lack of Transportation (Non-Medical): No Physical Activity: Sufficiently Active (10/10/2020) Exercise Vital Sign Days of Exercise per Week: 5 days Minutes of Exercise per Session: 60 min Stress: No Stress Concern Present (10/10/2020) [employer] [place] [employer] - Occupational Stress Questionnaire Feeling of Stress : Only a little Social Connections: Socially Integrated (10/10/2020) Social Connection and Isolation Panel [NHANES] Frequency of Communication with Friends and Family: More than three times a week Frequency of Social Gatherings with Friends and Family: More than three times a week Attends Druze Services: More than 4 times per year Active Member of Clubs or Organizations: Yes Attends Club or Organization Meetings: More than 4 times per year Marital Status: Interpersonal Safety: Not At Risk (10/10/2020) Humiliation, Afraid, Rape, and Kick questionnaire Fear of Current or Ex-Partner: No Emotionally Abused: No Physically Abused: No Sexually Abused: No Housing Instability: Low Risk (03/01/2024) Received from [facility] Housing Stability Vital Sign Unable to Pay for Housing in the Last Year: No Number of Times Moved in the Last Year: 0 Homeless in the Last Year: No FAMILY HISTORY Family History Problem Relation Age of Onset No Known Problems Mother Heart disease Father REVIEW OF SYSTEMS: Constitutional: Denies fevers, denies recent illnesses. Rest review of 10 systems negative except as above. PHYSICAL EXAM Constitutional: She is oriented to person, place, and time. Vital signs are normal. She appears well-developed and well-nourished. HEENT: Head: Normocephalic and atraumatic. Eyes: Conjunctivae, EOM and lids are normal. Neck: Trachea normal. Neck supple. No thyroid mass present. Cardiovascular: Normal rate and regular rhythm. Pulmonary/Chest: Effort normal and breath sounds normal. Abdominal: Soft. Obese; nontender Normal appearance. She exhibits no distension and no mass. There is no hepatosplenomegaly or splenomegaly. There is negative Marte's sign. No hernia. Musculoskeletal: Normal range of motion. Neurological: She is alert and oriented to person, place, and time. Skin: Skin is warm, dry and intact. Psychiatric: She has a normal mood and affect. Her speech is normal and behavior is normal. Cognition and memory are normal. IMPRESSION 1. Abnormal CT abdomen and pelvis performed at [facility] in [place] and barium enema showing mural thickening involving the cecum and proximal ascending colon 2. History of endometriosis status post laparotomy 2011, status post x3 3.Obesity w/BMI 32 ASSESSMENT & PLAN I have recommended patient have an open ileocolic resection versus robotic ileocolic resection with primary anastomosis. Risks benefits alternatives to surgery may include infection, bleeding, anastomotic leak, blood clots to legs or lungs, pneumonia, heart attack, stroke, and/or . Without removing the colon I can not tell her that she does not have cancer but most likely she might have scar tissue or scarring from endometriosis with that history. I reviewed her barium enema imaging with her and told her there was abrupt tapering in the mid ascending colon with incomplete filling. There is also a remote chance that this could be colon cancer but I doubt it. She will think this over and speak with her and I have offered her to see my associate Dr. Byrd who performs robotic colon resection. She will let us know. She understands that if she does nothing there is a risk of recurrent bowel obstructive symptoms requiring emergency surgery from a complete bowel obstruction. Evaluation included: Preparing to see the patient (e.g., review of tests) Obtaining and/or reviewing separately obtained history Performing a medically appropriate examination and/or evaluation Counseling and educating the patient/family/caregiver Referring and communicating with other health health and social care teacher Abnormal CT scan, gastrointestinal tract [R93.3] Shae Peñaloza DO This note was created with the assistance of a speech recognition program. While intending to generate a timely document that accurately reflects the content of the visit, no guarantee can be provided that every grammatical or spelling mistake has been or will be identified or corrected. Thank you for your understanding. documented in this encounter [facility] 03-26-2024 Miscellaneous Notes I spoke to the patient she is scheduled for a small bowel series for tomorrow 03/27/24 & a Barium enema scheduled for Tuesday03/30/24. Both tests are at [facility]. I was told by [facility] Central scheduling that they do not give bowel prep instructions for the Barium Enema Test. I went over the Barium Enema instructions with her & I will also e.mail the patient a copy of our instructions.The patient was instructed by [facility] to fast for 4 hours prior to test for the Small Bowel Series. The patient is scheduled for an appointment with Dr Peñaloza on 04/04/24, for test results. If all test results aren't back by that point we will move it out to another date. She may be scheduled with Lizzy Guzmán CNP if needed since DR Peñaloza will be out of the office until 04/18/24. documented in this encounter [facility] 03-26-2024 Telephone encounter Note I spoke to the patient she is scheduled for a small bowel series for tomorrow 03/27/24 & a Barium enema scheduled for Tuesday03/30/24. Both tests are at [facility]. I was told by [facility] Central scheduling that they do not give bowel prep instructions for the Barium Enema Test. I went over the Barium Enema instructions with her & I will also e.mail the patient a copy of our instructions.The patient was instructed by [facility] to fast for 4 hours prior to test for the Small Bowel Series. The patient is scheduled for an appointment with Dr Peñaloza on 04/04/24, for test results. If all test results aren't back by that point we will move it out to another date. She may be scheduled with Lizzy Guzmán CNP if needed since DR Peñaloza will be out of the office until 04/18/24. [facility] History of Present illness Narrative Images from the original note were not included. Chief Complaint: Abnormal CT scan History of Present Illness Brandie Olmos is a 38 y.o. female who presents to the office for follow-up after being hospitalized at [facility] at the end of February [...] Disp: 60 tablet, Rfl: 1 peg 3350-sod sulf,york-zpk-rjt 178.7-7.3-0.5 gram recon soln, Take 1 kit [...] Needs: No Transportation Needs (03/01/2024) Received from [facility] - Transportation Lack of Transportation (Medical): No Lack of Transportation (Non-Medical): No Physical Activity: Sufficiently Active (10/10/2020) Exercise Vital Sign Days of Exercise per Week: 5 days Minutes of Exercise per Session: 60 min Stress: No Stress Concern Present (10/10/2020) [employer] [place] [employer] - Occupational Stress Questionnaire Feeling of Stress : Only a little Social Connections: Socially Integrated (10/10/2020) Social Connection and Isolation Panel [NHANES] Frequency of Communication with Friends and Family: More than three times a week Frequency of Social Gatherings with Friends and Family: More than three times a week Attends Druze Services: More than 4 times per year Active Member of Clubs or Organizations: Yes Attends Club or Organization Meetings: More than 4 times per year Marital Status: Interpersonal Safety: Not At Risk (10/10/2020) Humiliation, Afraid, Rape, and Kick questionnaire Fear of Current or Ex-Partner: No Emotionally Abused: No Physically Abused: No Sexually Abused: No Housing Instability: Low Risk (03/01/2024) Received from [facility] Housing Stability Vital Sign Unable to [...] atelectasis. Assessment Follow-up hospitalization for SBO at [facility] Abnormal CT scan abdomen and pelvis [...] patient/family/caregiver Referring and communicating with other health health and social care teacher Abnormal CT scan, gastrointestinal tract [R93.3] DAINA SHAW [facility] [place] This note was created with the assistance of a speech recognition program. While intending to generate a timely document that accurately reflects the content of the visit, no guarantee can be provided that every grammatical or spelling mistake has been or will be identified or corrected. Thank you for your understanding. DAINA Shaw 03/15/24 1033 documented in this encounter [facility] 03-05-2024 Miscellaneous Notes Patient was in [facility] for a bowel obstruction, she would like a referral to [facility] for a colonoscopy documented in this encounter [facility] 03-05-2024 Telephone encounter Note Patient was in [facility] for a bowel obstruction, she would like a referral to [facility] for a colonoscopy [facility] 03-03-2024 Hospital Discharge instructions David Hudson RN - 03/03/2024 5:16 [...] at most local grocery stores, pharmacies, and [facility]. If you have any questions about your diet or nutrition, call the hospital and ask for the dietitian. The following attachments cannot be sent through Care Everywhere.Diet: Low-FODMAP: General Info (Swiss)IBS (Irritable Bowel Syndrome) Diet (Swiss)documented in this encounter [facility] 03-03-2024 History of Present illness Narrative Images [...] 400 ml LAB: CBC: Recent Labs 03/02/24 041 WBC 6.1 HGB 11.8* HCT 36.1* MCV 95.3 PLT 256 BMP: Recent Labs 03/02/24 0411 NA 141 K 3.5* CL 106 CO2 26 BUN 13 CREATININE 0.7 GLUCOSE 95 RADIOLOGY: Mckayla Jaimes PA-C 03/02/2024, 11:04 AM Attending Note I have reviewed the above [facility] Specialists note(s). I have seen and examined the patient. I have discussed the findings, established the care plan and recommendations with the Advanced Practice Provider. Chief Complaint: abd distension Exam: Passing some flatus, abd soft Plan: PO CT scan, discussed with patient and . Oleksandr Orr MD 03/02/2024 8:12 PM documented in this encounter [facility] 11-08-2023 History of Present illness Narrative Reason for Appointment: Patient ID: [...] nursing note reviewed. Exam conducted with a tank truck mechanic present. Vitals: Estimated body mass index is [...] E Acosta DO documented in this encounter [facility] Healthcare Evaluation note Diagnosis Well woman exam with routine gynecological exam Routine gynecological examination documented in this encounter [facility] HealthcareEvaluation note* Diagnosis SBO (small bowel obstruction) (HCC)- Primary Unspecified intestinal obstruction SBO (small bowel obstruction) (HCC) Unspecified intestinal obstruction [facility] Change in bowel movement- Primary [facility] Diagnosis Abnormal CT scan, gastrointestinal tract- Primary Change in bowel movement [facility]* Diagnosis Abnormal CT scan, gastrointestinal tract- Primary Abnormal barium enema History of endometriosis Personal history of other genital system and obstetric disorders [facility]* Encounter Date Assessment Date Assessment LastModified by Organization Details LastModified Time 11/07/2024 11/07/2024 Immunizations reviewed and UTD. Recommended: Dental cleanings 2x/yr Annual eye exams Annual flu vaccine Tdap every 10 years Shingles vaccine at age 50. Pneumonia vaccine at age 50 RSV vaccine at age 60 (50-59 with risk factors) Cervical cancer screening (Pap smear +/- HPV) every 3-5 years start at 21 years of age. Breast Cancer Screening (Mammogram) every 1-2 years starting at the age of 40. Colon Cancer Screening (Colonoscopy, Cologuard, or Colofit are options) starting at age 45 (or sooner if indicated). Osteoporosis screening (Bone density studies) starting at 65 (or sooner if indicated). Annual Lung cancer screening (LDCT) for smokers at age 50-80 with 20pkyr history of smoking who continue to smoke or quite within past 15 years Reviewed age appropriate wellness including getting 7-8 hours of sleep at night, diet, activity (150 minutes of aerobic exercise + strength training), water intake, sun protection (limiting exposure, sunscreen, protective clothing/hats), and accident prevention (i.e. gun safety, wearing seatbelt, wearing helmets w/ bikes). [email or web address] Not available 11/07/2024 11:58:02 [facility] Evaluation note* Diagnosis Well woman exam with routine gynecological exam Routine gynecological examination Breast cancer screening by mammogram Pelvic fullness in female documented in this [facility] N[facility]ative - Reported* Condition Response Infertility Y Gynecological History Statement/Question Response Menses Monthly Abnormal Pap N Date of Last Pap Smear 11/08/2023 Date of Last Colonoscopy 03/21/2024 Obstetrics History GPAL:G 3 P 0 0 0 0 Type Value Multiple Births 0 Full Term 0 Induced 0 Spontaneous 0 Premature 0 Living 0 Ectopics 0 Total 3 [facility] InstructionsNot on filedocumented in this encounter [facility] SystemInstructionsNot on filedocumented in this encounter [facility] SystemInstructionsNot on filedocumented in this encounter [facility] SystemInstructionsNot on filedocumented in this encounter [facility] SystemInstructionsNot on filedocumented in this encounter [facility] Discharge Instructions * Instructions* Prince Wiggins MD - 08/02/2018 Thank you for coming to an [facility] Emergency facility for your emergency care. [...] you may find a provider through the [facility] Physician Referral Service by calling [phone] ([phone]) or by visiting [email or web address]. If you were prescribed any medications, be [...] sent through Care Everywhere. * Sore Throat (Swiss) * Earache: Adult (Swiss) documented in this encounter Assessments Diagnosis Left ear pain- Primary Unspecified otalgia Pharyngitis, unspecified etiology Advance Directives Documents on File Type Date Recorded Patient Statistical Clerk Advertising Expl anation Advance Directives and Livin g Will 08/02/2018 3:07 AM Date Activated Date Inactivated Comments 03/01/2024 1:38 PM Summary Purpose Family History Relationship Description Onset Age of this Age Resolved Age Notes LastModified by Organization Details LastModified Time Father Coronary atherosclero sis diagno sed with Fernando ry athero sclero sis [email or web address] Not available 04/12/2024 21:10:48 Paternal Grandmother Diabetes mellitus diagno sed with Diabet es Relati ve: 'Pater nal G M'; [email or web address] Not available 04/12/2024 21:10:48 Notes:*Relative: Father *Pro blem: alive 74 yrs, CABG *Relative: Maternal Grandfather *Problem: alive Relative: 'Maternal G F'; *Relative: Maternal Grandmother *Problem: , lung CA *Relative: Mother *Problem: alive 74 yrs *Relative: Paternal Grandfather *Problem: , pancreatic cancer Relative: 'Paternal G F'; *Relative: Paternal Grandmother *Problem: Relative: 'Paternal G M'; *Relative: Sister *Problem: alive 37 yrs, healthy Relative: 'Sister 1'; Additional Source Comments Reason for Visit (unrecogniz ed section and content) Reason Comments Sore Throat Otalgia Reason Comments Well Women Visit Reason Comments Abdominal Pain Specialty Diagnoses / Procedures Referred By Patricia booker Referred To Contact Diagnoses Small bowel obstruction (HCC) SBO (small bowel obstruction) (HCC) Oleksandr Orr MD [address] [facility] [address] [place] [address] [facility] [address] [place] [address] Referral ID Status Reason Start Date Expiration Date Visits Re quested Visits Authorized [id number] 1 1 Reason Comments Change in Bowel Habits Change in bowel h abits, referred by Mauricio Hardin CNP Specialty Diagnoses / Procedures Referred By Patricia booker Referred To Contact General Surgery Diagnoses Change in bowel movement Mauricio Hardin, CLAIMS ACCOUNT MANAGER-SALES EXHIBITOR [address] [place] [address] Phone: tel: fax: [facility] [address] [place] [address] Phone: tel: fax: Referral ID Status Reason Start Date Expiration Date V isits Requested Visits Authorized [id number] Closed Specialty Services Required 03/05/2024 03/05/2025 1 1 Reason Comments Post-op Post op colonoscopy performed 03/21/24 and fluoroscopy barium enema performed 03/27/24 at [facility] Judy Olvera RN - 08/02/2018 3:13 AM [...] file Gets together: Not on file Attends denominational service: Not on file Active member of club or organization: Not on file Attends meetings of clubs or organizations: Not on file Relationship status: Not on file Other Topics Concern Not on file Social History Narrative Not on file Social history reviewed. Allergies: No Known Allergies Medications: Brandie Olmos Ruffin Medication Instructions Prior to Surgery GILBERTO:[id number] Printed on:08/02/18 0254 Medication Information Take last [...] supply per fill: 5) . PHYSICAL EXAMINATION: Roberts body weight: 54.7 kg (120 lb 9.5 [...] provider, No primary care provider on file.. [facility] referral information was also provided. They were [...] section and content) DATE CREATED AUTHOR 10/16/2018 [facility] DATE CREATED AUTHOR AUTHOR'S ORGANIZ ATION 12/05/2021 [facility] DATE CREATED AUTHOR AUTHOR'S ORGANIZ ATION [facility]/08/2023 [facility] DATE CREATED AUTHOR AUTHOR'S ORGANIZ ATION 03/31/2024 [facility] DATE CREATED AUTHOR AUTHOR'S ORGANIZ ATION 04/06/2024 [facility] Sched[facility] Active [...] in 24 hours. 1705 (Given - Provider: Jacy Reid RN) acetaminophen (TYLENOL) tablet 1,000 mg [...] Del Rosario Rosales RN)0809 (Given - Provider: Jacy Reid RN)1628 (Given - Provider: Jacy Reid RN)2247 (Not Given - Provider: Soraya Nguyễn, KSENIA - Reason: Patient/family refused) enoxaparin (LOVENOX) injection 40 mg 40 mg, SubCUTAneous, DAILY, First dose on Amanda 03/01/24 at 1700, Until Discontinued, Indication of Use: Prophylaxis-DVT/PE, Administer by deep subCUTAneous injection with pt lying down. Alternate injection sites on abdominal wall. Do not rub site after injection. Check with provider prior to any invasive procedure. 1705 (Given - Provider: Jacy Reid RN) 0809 (Given - Provider: Jacy Reid RN) 0936 (Not Given - Provider: [...] half swallowed separately. 1002 (Given - Provider: Jacy Reid RN)1938 (Given - Provider: Soraya Nguyễn RN) sodium [...] IV Fluid Infusing) 0808 (Given - Provider: Jacy Reid RN)1939 (Not Given - Provider: Soraya Nguyễn RN - Reason: IV Fluid Infusing) 0936 (Given - Provider: David Hudson RN)2100 (Due) Continuous Medication Order 03/01/2024 03/02/2024 03/03/2024 lactated ringers infusion (CANCELED) IntraVENous, at 100 mL/hr, CONTINUOUS, Starting on Amanda 03/01/24 at 1345 1532 (New Bag - Provider: Jacy Reid RN) 0030 (Stopped - Provider: Maria Del Rosario Rosales RN)0031 (New Bag - Provider: Maria Del Rosario Rosales RN)0224 (Paused - Provider: Maria Del Rosario Rosales RN)0230 (Paused - Provider: Maria Del Rosario Rosales RN)0230 (Restarted - Provider: Maria Del Rosario Rosales RN)0604 (Rate/Dose Verify - Provider: Maria Del Rosario Rosales RN)1503 (New Bag - Provider: Jacy Reid RN) 1731 (Stopped - Provider: David [...] Care Teams (unrecognized sec tion and content) Tank Officer Relationship Specialty Start Date End Date Martin Ching DO PCP - General 06/03/11 Tank Officer Relationship Specialty Start Date End Date [facility] [address] [place] [address] PCP - General Family Medicine 08/08/18 Tank Officer Relationship Specialty Start Date End Date Mauricio Hard[facility] [address] [place] [address] PCP - General Family Medicine 08/08/18 Tank Officer Relationship Specialty Start Date End Date Mauricio Hard[facility] [address] [place] [address] PCP - General Family Medicine 08/08/18 Tank Officer Relationship Specialty Start Date End Date Mauricio Hard[facility] [address] [place] [address] PCP - General Family Medicine 08/08/18 Tank Officer Relationship Specialty Start Date End Date Mauricio Hardin APRN-SALES EXHIBITOR [address] [place] [id number] PCP - General Family Medicine 08/08/18 FOR [...] ON THE PRIMARY CLINICAL RECORDS. [facility] [employer] [facility]. provides no warranty or guarantee of the accuracy or completeness of information in this document.
[2024-11-15 13:09] LABS: Age Gdln ACOG Testing Note (.); IGP, Aptima HPV, rfx 16/18,45 Note (.)
== END 2024-11-13 12:18 | disposition home or self-care (01) ==
LOC: LAB 12:17
PROVIDERS: PCP Nurse Practitioner; Visit Provider Obstetrics & Gynecology
DX: Z01.419 Encounter for gynecological examination (general) (routine) without abnormal findings (principal)
CPT/HCPCS: 87624; 88175